=== PATIENT | female | born 1935 | race Caucasian/White ===

== ENCOUNTER → 2017-03-12 | Outpatient (CLI) | payer OTHER ==
[~2017-03-12] MED LIST: ALL300 PO; BTP80 PO; HYDR500C3 PO; LANS30TA3 PO; OXYC-57 PO; PRT40 PO
[2017-03-12 14:01] LABS: ALT/SGPT 24 U/L (12-78); BLOOD UREA NITROGEN 14 mg/dl (7-18); BUN/CREATININE RATIO 15.1 (10-20); CALCIUM 8.8 mg/dl (8.5-10.1); CARBON DIOXIDE 24 mmol/L (21-32); CHLORIDE 105 mmol/L (98-107); GLUCOSE 92 mg/dl (70-99); POTASSIUM 3.8 mmol/L (3.5-5.1); SODIUM 138 mmol/L (136-145)
[2017-03-12 14:04] LABS: ALB/GLOB RATIO 0.9 (0.9-2); ALKALINE PHOSPHATASE 66 U/L (45-117); AST/SGOT 21 U/L (15-37)
[2017-03-12 14:55] LABS: HEMATOCRIT 26.9 % (37-47); MEAN CELL VOLUME 98.9 fL (80-100); MEAN CORPUSCULAR HEMOGLOBIN 33.1 pg (25-34); MEAN CORPUSCULAR HGB CONC 33.5 g/dl (32-36); MEAN PLATELET VOLUME 12.1 fL (7.4-10.4); PLATELET COUNT 46 K/uL (130-400); RED BLOOD COUNT 2.72 M/uL (4.2-5.4); WHITE BLOOD COUNT 53.49 K/uL (4.8-10.8)
[2017-03-12 14:56] LABS: LYMPH ABS # 6.53 K/uL (1.2-3.4); LYMPHOCYTE % 12.2 %; META ABS # 0.91 K/uL (0-0); METAMYELOCYTE % 1.7 %
[2017-03-12 15:03] LABS: COMPLETE YES; SMUDGE CELLS PRESENT
[2017-03-15 18:34] LABS: GLUC-6-PHOS DEHYDROGENASE* 13.5 U/g Hb (4.6-13.5)
== END | disposition home or self-care (01) ==
LOC: C.LAB 12:13
PROVIDERS: ATTEND Family Medicine
DX: Z51.81 Encounter for therapeutic drug level monitoring (principal); Z79.899 Other long term (current) drug therapy; E34.9 Endocrine disorder, unspecified; K14.8 Other diseases of tongue

== ENCOUNTER 2017-03-16 08:23 | Inpatient (IN) | payer OTHER ==
[~2017-03-16] VITALS: Ht 149.9 cm; Wt 72.6 kg
[2017-03-16] VITALS (53 sets, daily range): BP systolic 27–112; BP diastolic 15–75; PULSE 69–144; TEMP 36.3–37.4; O2SAT 94–100; Ht 149.9 cm; Wt 72.6 kg
[~2017-03-16 08:23] MED LIST changes: -ALL300 PO; +CEFAZOLIN 2000MG IV PUSH 10 ML IV SCH; -HYDR500C3 PO; +LACTATED RINGER'S 1000ML 1,000 ML IV SCH; -LANS30TA3 PO; -OXYC-57 PO; +PATIENT'S HEIGHT AND/OR WEIGHT NEEDED SCH
[2017-03-16] MEDS ORDERED: ALL300 PO (08:56)
[2017-03-16] MEDS ORDERED: HYDR500C3 PO (08:56)
[2017-03-16] MEDS ORDERED: LIDOCAINE HCL 2% 2 ML VIAL (20MG/ML) ONE (09:41)
[2017-03-16] MEDS ORDERED: FENTANYL CITRATE INJ 50 MCG/1 ML 2 ML VIAL ONE ×2 (09:41→19:47)
[2017-03-16] MEDS ORDERED: PROPOFOL IV EMULSION 10 MG/ML 20 ML VIAL IV ONE ×2 (09:41→10:45)
[2017-03-16 09:50] LABS: MEAN CELL VOLUME 98.8 fL (80-100); MEAN CORPUSCULAR HEMOGLOBIN 33.2 pg (25-34); MEAN CORPUSCULAR HGB CONC 33.6 g/dl (32-36); MEAN PLATELET VOLUME 11.3 fL (7.4-10.4); PLATELET COUNT 34 K/uL (130-400); RED BLOOD COUNT 2.53 M/uL (4.2-5.4); WHITE BLOOD COUNT 39.72 K/uL (4.8-10.8)
[2017-03-16] MEDS: LIDOCAINE HCL 1% 20 ML VIAL ONE ×2 (09:50→10:58)
[2017-03-16] MEDS ORDERED: LIDOCAINE HCL 1% 20 ML VIAL ONE ×2 (09:51→14:22)
--- NOTE | 2017-03-16 10:03 | History & Physical Bridge Note ---
H&P Re-Evaluation Bridge Note: I have examined the patient, reviewed the History & Physical and in the interval since the performance of the History & Physical I have noted the following changes of clinical significance: No changes noted
[2017-03-16 10:09] LABS: COMPLETE YES; EOSINOPHIL % 0.9 %; HYPERSEGMENTED POLYS 1+; LYMPH ABS # 6.55 K/uL (1.2-3.4); LYMPHOCYTE % 16.5 %; NEUTROPHILS % 15.7 %; SMUDGE CELLS PRESENT
[2017-03-16] MEDS ORDERED: MIDAZOLAM HCL 1 MG/ML 2ML VIAL ONE (10:10)
[2017-03-16] MEDS ORDERED: FENTANYL CITRATE INJ 50 MCG/1 ML 2 ML VIAL IV PRN (10:30)
[2017-03-16] MEDS ORDERED: ONDANSETRON INJ 2 MG/ML 2 ML VIAL IV PRN ×2 (10:30→14:45)
[2017-03-16] MEDS ORDERED: ATROPINE SULFATE 0.1 MG/ML 5ML SYR IV PRN (10:30)
[2017-03-16] MEDS ORDERED: EpHEDrine SULFATE 50MG/5ML SYR ONE (10:58)
--- NOTE | 2017-03-16 11:55 | [facility] Operative Report ---
Operative Report Operative Date Mar 16, 2017. Pre-Operative Diagnosis Acute Myeloid Leukemia, need for chemotherapy access Post-Operative Diagnosis Acute Myeloid Leukemia Procedure(s) Performed Infusaport Insertion Surgeon Itzel Leonardo MD Industrial Radiographer Surgeon(s) None Estimated Blood Loss 2CC Findings Left subclavian vein accessed after 2 attempts, good venous blood return, wire passed easily without resistance. 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 Indications, risks, benefits and potential complications of infusaport placement discussed in detail with patient and her . All questions answered to apparent satisfaction. Patient elected to proceed with operation and freely signed the consent form. Description of Procedure Patient was brought to the operating room and identified as Jyoti Aguilar, 37. She was placed on the operating table in supine position with a shoulder roll beneath her upper spine to open up the left upper chest. The left upper chest and neck were prepped and draped in the usual sterile fashion. The puncture site was anesthetized with local anesthetic. An access needle was passed deep to the clavicle to access the left subclavian vein; the vein was accessed after two attempts with good venous blood return. The wire was easily passed through the needle without resistance and the needle was removed. Fluoroscopy verified the wire to be in the superior vena cava. A kierra was made at the puncture site to allow for the dilator. Next, local anesthetic was injected and a pocket was made for the Infusaport approximately 2cm inferior to the puncture site, and the port was placed in the pocket. The dilator / introducer was then passed over the wire, and the catheter was inserted. Fluoroscopy was used to verify that the catheter was in good position in the superior vena cava. A tunnel was then made from the puncture site to the port pocket, and the catheter was tunnelled through to the port. The catheter was connected to the port. The catheter was then accessed using a Poe needle, and the port was verified to draw back easily; it then flushed easily with 5cc of heparinized saline. The port was secured in the pocket with 0 Prolene x 2. Instrument and sponge counts were verified to be correct x 2 by the nurse in charge. Deep tissue of the port pocket was closed using 2-0 Vicryl in interrupted fashion. Dermis was reapproximated with 3-0 Vicryl in interrupted fashion. Skin was closed using 4-0 Monocryl. Steri strips and a sterile dressing were applied. The patient was then awakened from anesthesia without difficulty and was taken to PACU, having suffered no untoward events. I attest to the content of the Intraoperative Record and any orders documented therein. Any exceptions are noted below.
[2017-03-16] MEDS ORDERED: OXYC-57 PO (11:56)
--- NOTE | 2017-03-16 12:00 | Discharge Instructions ---
Discharge Instructions Date of Service Mar 16, 2017. Admission Reason for Admission: Acute Myeloid Leukemia, need for venous access Discharge Discharge Diagnosis / Problem: AML, need for venous access Discharge Goals Goal(s): Decrease discomfort, Improve function Activity Recommendations Activity Limitations: resume your previous activity Lifting Limitations: none -You may remove the dressing when the port is needed for chemotherapy, or after 48 hours (whichever comes first). -The port is ready for use whenever needed. -You may wash gently over the incision site with warm, soapy water; do not scrub. Do not soak, as in a bathtub or swimming pool. -You were given a prescription for Percocet, which may be taken for any pain not controlled with Tylenol or Ibuprofen. -You do not need to follow up in clinic with Dr. Leonardo unless you are having any issues with your port. Please call with any questions or concerns. Current Hospital Diet Patient's current hospital diet: Discharge Diet Recommended Diet: Regular Diet Procedures Procedures Performed: Infusaport Insertion Pending Studies Studies pending at discharge: no Medical Emergencies . Who to Call and When: Medical Emergencies: If at any time you feel your situation is an emergency, please call 911 immediately. . Non-Emergent Contact Non-Emergency issues call your: Primary Care Provider, Surgeon Call Non-Emergent contact if: temperature is above 101, your pain is not controlled, your pain is worsening, wound has increased drainage, wound has increased redness . "Provider Documentation" section prepared by Itzel Leonardo. . VTE Core Measure Inpt VTE Proph given/why not?: SCD's [place] Drug Monitoring Program Search Results: patient reviewed within database, no issues identified
--- NOTE | 2017-03-16 12:20 | DIAGNOSTIC IMAGING REPORT ---
SINGLE VIEW CHEST CLINICAL HISTORY: Status post infusion port placement. FINDINGS: An AP, portable, upright chest radiograph is compared to chest x-ray and chest CT dated 02/20/2017. The examination is degraded by portable technique and patient rotation. A left subclavian central venous infusion port is new from previous. The tip projects over the SVC. The cardiomediastinal silhouette is unremarkable. There is a layering left pleural effusion with left basilar consolidation, new from previous. The right lung appears clear. No pneumothorax is seen. The skeletal structures are osteopenic. The bony thorax is grossly intact. IMPRESSION: 1. A left subclavian central venous infusion port has been placed as above. No pneumothorax is seen post procedure. 2. Layering pleural effusion with left basilar consolidation. This is new from previous. Electronically signed by: Kelvin Willis M.D. 03/16/2017 12:19 PM Dictated Date/Time: 03/16/2017 12:17 PM
--- NOTE | 2017-03-16 12:34 | Anesthesiology Progress Note ---
Anesthesia Post Op Note Date & Time Mar 16, 2017 at 12:33 Vital Signs Pain Intensity: 3 Vital Signs Past 12 Hours Date Time Temp Pulse Resp B/P (MAP) Pulse Ox O2 Delivery O2 Flow Rate FiO2 03/16/17 12:20 73 16 99/67 98 Nasal Cannula 2 03/16/17 12:10 36.6 73 16 102/64 98 Nasal Cannula 2 03/16/17 12:00 73 16 99/53 98 Oxymask 10 03/16/17 11:50 73 16 105/64 98 Oxymask 10 03/16/17 11:40 36.5 73 16 103/65 100 Oxymask 10 03/16/17 09:01 37.4 78 18 111/67 (82) 94 Room Air Notes Mental Status: alert / awake / arousable, participated in evaluation Pt Amnestic to Procedure: Yes Nausea / Vomiting: adequately controlled Pain: adequately controlled Airway Patency, RR, SpO2: stable & adequate BP & HR: stable & adequate Hydration State: stable & adequate Anesthetic Complications: no major complications apparent
[2017-03-16] MEDS ORDERED: METOPROLOL TARTRATE 1 MG/ML VIAL IV SCH (13:49)
[2017-03-16] MEDS ORDERED: METOPROLOL TARTRATE 1 MG/ML VIAL ONE (13:51)
[2017-03-16] MEDS ORDERED: METOPROLOL TARTRATE 1 MG/ML VIAL IV. ONE (14:00)
[2017-03-16] MEDS ORDERED: SODIUM CHLORIDE 0.9% 500ML 500 ML IV SCH (14:01)
--- NOTE | 2017-03-16 14:24 | DIAGNOSTIC IMAGING REPORT ---
CHEST ONE VIEW PORTABLE CLINICAL HISTORY: low platelets COMPARISON STUDY: 03/16/2017 FINDINGS: The cardiac images so contours remain stable. There is a left-sided A-Port catheter. There is increasing left pleural effusion with increasing left lung airspace opacities. The right lung remains clear.[ Given the rapid change in the appearance of the chest and the unilateral nature of the pleural effusion, and hemothorax must be considered within the differential. IMPRESSION: 1. Increasing moderate to large left pleural effusion. 2. Increasing diffuse left lung airspace opacities Electronically signed by: Sharad Diallo M.D. 03/16/2017 2:22 PM Dictated Date/Time: 03/16/2017 2:19 PM
[2017-03-16 14:41] LABS: INR 1.1 (0.9-1.1); PROTHROMBIN TIME (PATIENT) 11.7 SECONDS (9.0-12.0)
[2017-03-16 14:43] LABS: HEMATOCRIT 20.1 % (37-47)
[2017-03-16] MEDS ORDERED: OXYCODONE/ACETAMINOPHEN 5-325 TAB PO PRN ×2 (14:45)
[2017-03-16] MEDS ORDERED: ONDANSETRON INJ 2 MG/ML 2 ML VIAL IV STA (14:49)
[2017-03-16] MEDS ORDERED: NOREPINEPHRINE BITARTRATE 1 MG/ML 4 ML VIAL IV ONE (14:51)
[2017-03-16 15:09] LABS: BUN/CREATININE RATIO 17.9 (10-20); CALCIUM 8.3 mg/dl (8.5-10.1); CREATININE 0.99 mg/dl (0.60-1.20); MAGNESIUM 2.4 mg/dl (1.8-2.4); POTASSIUM 3.9 mmol/L (3.5-5.1); THYROID STIMULATING HORMONE 1.64 uIu/ml (0.300-4.500)
[2017-03-16] MEDS ORDERED: NURSING VERBAL MED ORDER ONE (15:30)
[2017-03-16] MEDS ORDERED: FENTANYL CITRATE INJ 50 MCG/1 ML 2 ML VIAL IV ONE (15:45)
--- NOTE | 2017-03-16 15:47 | DIAGNOSTIC IMAGING REPORT ---
CHEST ONE VIEW PORTABLE CLINICAL HISTORY: chest tube placement tube position COMPARISON STUDY: 03/16/2017 FINDINGS: Lateral left chest tube. Persistent pleural thickening/loculated effusion left hemithorax. . Unchanging infiltrative process medial and inferior left base. No significant pneumothorax. Right lung is considered clear. IMPRESSION: Unchanged exam from the prior study. Unchanging loculated pleural fluid versus left lateral pleural thickening. Unchanging parenchymal infiltrate medial left hemithorax The above report was generated using voice recognition software. It may contain grammatical, syntax or spelling errors. Electronically signed by: Brian Hull M.D. 03/16/2017 3:46 PM Dictated Date/Time: 03/16/2017 3:45 PM
--- NOTE | 2017-03-16 16:00 | Critical Care Consultation ---
Critical Care Consultation Date of Consultation: Mar 16, 2017. Attending Physician: Itzel Leonardo M.D. Reason for Consultation: Resident Physician Supervision Note: I was present with Dr. Tod Courtney during the history and exam. I discussed the case with the resident and agree with the findings and plan as documented in the note. In summary, the patient is a 81-year-old functional female who was recently diagnosed with acute myelocytic leukemia. She came to [facility] for placement of subclavian infusion port which was successfully done. Postprocedure patient developed hypotension, atrial fibrillation with rapid ventricular response. She was diagnosed with large left-sided hemothorax. Patient was immediately brought to cardiac vascular intensive care unit. Chest tube was placed by thoracic surgery. Immediate output of 1 L of dark venous blood was obtained. Patient was hypotensive with systolic blood pressure reaching 60s. We resuscitated patient initially using normal saline fluid boluses followed by transfusion of 3 units of packed RBCs for severe anemia and hemoglobin of 6.8 from base of 8.4. Prior to procedure patient received 6 units of platelets for thrombocytopenia of 34,000. We will transfuse her with another 6 units of platelets, also check coagulation profile including PT, INR, fibrinogen level. Patient had episode of atrial fibrillation with rapid ventricular response which spontaneous recovery to sinus rhythm following resuscitation. We will restart home sotalol starting in the morning. We'll continue monitoring chest tube output. She complains of a significant incisional chest pain which will be treated with fentanyl IV on as needed basis. Chemotherapy for AML will be delayed patient has recovered completely from hemothorax. I personally discussed patient's management with Dr. Ramos from thoracic surgery. I spent totally 45 minutes of critical care time evaluating managing this patient. Documented By: Ngoc Navas Hypotension due to Hemothorax History of Present Illness 81 year old female with a PMH of afib, AML, and gout was admitted to the ICU due to a hemothorax after the insertion of an A-Port. Patient went for surgery today for the insertion of an a-port as she was recently diagnosed with AML. The a-port was inserted without any difficulty. Post op the patient was found to be hypotensive at 140pm and her blood pressure was 80's/50's and she was in atrial fibrillation. It was thought she was hypotensive due to her fast heart rate so she was therefore given 5mg of metoprolol IV and her blood pressure went lower. At this point a code yanick was called. IV fluids were started. Kelvin Lemus arrived at the [facility] he ordered stat labs, he got a stat CXR which showed a large left pleural effusion. It was though that the patient was having a hemothorax post op. Dr. Ramos was consulted immediately in order to place a chest tube. Labs showed a Hgb 6.8 which had dropped from 8.4 pre-operation. Patient was immediately brought to the ICU at which point she had two wide bore IV cannulas placed and was given 1 L of normal saline. The patient had a chest tube placed by Dr. Ramos which drained 1 L of blood into her chest drain. Her blood pressure improved to 97/65 with another litre of IVF. Patient was ordered 3 units of PRBC for transfusion with 2 litres on hold and she had 1 unit of platelets ordered and had 1 unit on hold. Of note the patient was admitted to the hospital on February 20 2017 for atrial fibrillation. During this admission she was also found to have AML after bone marrow biopsy. She was started on sotalol and was organized to follow up with Dr. Rehan Elmore as an outpatient. She was started on Hydroxyurea as an outpatient and she also saw an Oncologist in [place] for her AML. She was therefore organized to have a A-Port placed on March 16, 2017 in order for the plan to administer chemotherapy. Past Medical/Surgical History Gout AML Atrial fibrillation D&C Lumbar hemilaminectomy Tonsillectomy Dental root extraction Family History FHx: cancer FHx: gallbladder disease Hypertension Kidney disease Social History Smoking Status: Never Smoker Drug Use: none Marital Status: Housing Status: lives with significant other Occupation Status: retired Allergies Coded Allergies: No Known Allergies (Unverified , 03/16/17) Home Medications Scheduled Allopurinol (Allopurinol), 300 MG PO DAILY Hydroxyurea (Hydrea Cap), 500 MG PO BID Sotalol HCl (Sotalol HCl), 80 MG PO BID Scheduled PRN Oxycodone/Acetaminophen 5MG/325MG (Percocet 5MG/325MG), 1-2 TABLETS PO Q4H PRN for Pain Current Inpatient Medications Current Inpatient Medications Medications (Trade) Dose Ordered Sig/Samanta Route Start Time Stop Time Status Last Admin Dose Admin Cefazolin Sodium 10 ml @ 2.5 mls/min PREOP IV 03/16/17 06:00 03/16/17 18:00 03/16/17 10:28 2.5 MLS/MIN Lactated Ringer's 1,000 ml @ 100 mls/hr Q10H IV 03/16/17 06:00 03/16/17 15:59 03/16/17 09:21 100 MLS/HR Ondansetron HCl (Zofran Inj) 4 mg ONE PRN IV 03/16/17 10:30 03/16/17 17:00 03/16/17 15:34 4 MG Atropine Sulfate (Atropine Sulfate 0.1MG/Ml Inj) 0.5 mg Q1M PRN IV 03/16/17 10:30 03/16/17 17:00 Fentanyl Citrate (Fentanyl Inj) 25 mcg Q5M PRN IV 03/16/17 10:30 03/16/17 17:00 Ondansetron HCl (Zofran Inj) 4 mg Q6H PRN IV 03/16/17 14:45 04/15/17 14:44 Morphine Sulfate (MoRPHine SULFATE INJ) 2 mg Q2H PRN IV 03/16/17 14:45 03/30/17 14:44 Morphine Sulfate (MoRPHine SULFATE INJ) 4 mg Q2H PRN IV 03/16/17 14:45 03/30/17 14:44 Oxycodone/ Acetaminophen (Percocet 5-325mg Tab) 1 tab Q4H PRN PO 03/16/17 14:45 03/30/17 14:44 UNV Oxycodone/ Acetaminophen (Percocet 5-325mg Tab) 2 tab Q4H PRN PO 03/16/17 14:45 03/30/17 14:44 UNV Lactated Ringer's 1,000 ml @ 100 mls/hr Q10H IV 03/16/17 15:44 04/15/17 15:43 Review of Systems Constitutional: + fatigue, No fever, No chills, No sweats Eyes: No worsening of vision, No eye pain Respiratory: + shortness of breath, No cough, No sputum Cardiovascular: + chest pain, No edema, No palpitations Abdomen: + nausea, No pain, No vomiting Musculoskeletal: + muscle pain (back), No joint pain, No swelling, No calf pain Hematologic / Lymphatic: No abnormal bleeding/bruising, No clotting problems Physical Exam Date Time Temp Pulse Resp B/P (MAP) Pulse Ox O2 Delivery O2 Flow Rate FiO2 03/16/17 15:22 36.5 95 21 79/61 100 9.0 03/16/17 14:35 115 26 97/65 (76) 99 Oxymask 10 03/16/17 14:20 121 25 97/45 (62) 98 Oxymask 10 03/16/17 14:01 85 26 65/47 96 Room Air 03/16/17 14:01 75 22 65/47 (53) 94 Room Air Oxymask 03/16/17 13:59 78 23 62/45 (51) 95 Room Air Oxymask 03/16/17 13:52 119 21 82/48 (59) 96 Room Air Oxymask 03/16/17 13:49 36.7 98 24 78/50 96 Room Air 03/16/17 13:25 98 21 102/66 94 Room Air 03/16/17 12:54 69 18 112/65 96 Nasal Cannula 1 03/16/17 12:29 37.3 77 20 99/64 96 Nasal Cannula 2 03/16/17 12:20 73 16 99/67 98 Nasal Cannula 2 03/16/17 12:10 36.6 73 16 102/64 98 Nasal Cannula 2 03/16/17 12:00 73 16 99/53 98 Oxymask 10 03/16/17 11:50 73 16 105/64 98 Oxymask 10 03/16/17 11:40 36.5 73 16 103/65 100 Oxymask 10 03/16/17 09:01 37.4 78 18 111/67 (82) 94 Room Air General Appearance: mild distress Head: normocephalic, atraumatic Neck: no tenderness, trachea midline, no stridor, supple Respiratory: other (unable to take a deep breath due to chest tube placement and current chest pain) Cardiovasular: regular rate/rhythm, no murmur Abdomen: non tender, normal bowel sounds, no rebound, no masses, no guarding Pulses: dorsalis pedis (R) (2+), dorsalis pedis (L) (2+), posterior tibial (R) , posterior tibial (L) (2+) Neuro: alert, oriented x 3, normal motor exam Laboratory Results Last 24 Hours Test 03/16/17 09:10 03/16/17 14:06 03/16/17 14:21 White Blood Count 39.72 K/uL Red Blood Count 2.53 M/uL Hemoglobin 8.4 g/dL 6.8 g/dL Hematocrit 25.0 % 20.1 % Mean Corpuscular Volume 98.8 fL Mean Corpuscular Hemoglobin 33.2 pg Mean Corpuscular Hemoglobin Concent 33.6 g/dl Platelet Count 34 K/uL Mean Platelet Volume 11.3 fL RDW Standard Deviation 60.8 fL RDW Coefficient of Variation 17.0 % Neutrophils % (Manual) 15.7 % Lymphocytes % (Manual) 16.5 % Monocytes % (Manual) 66.9 % Eosinophils % (Manual) 0.9 % Neutrophils # (Manual) 6.24 K/uL Total Absolute Neutrophils 6.24 K/uL Lymphocytes # (Manual) 6.55 K/uL Total Absolute Lymphocytes 6.55 K/uL Monocytes # (Manual) 26.57 K/uL Eosinophils # (Manual) 0.36 K/uL Hypersegmented Polys 1+ Smudge Cells PRESENT Bedside Glucose 166 mg/dl Prothrombin Time 11.7 SECONDS Prothromb Time International Ratio 1.1 Sodium Level 140 mmol/L Potassium Level 3.9 mmol/L Chloride Level 106 mmol/L Carbon Dioxide Level 25 mmol/L Anion Gap 9.0 mmol/L Blood Urea Nitrogen 18 mg/dl Creatinine 0.99 mg/dl Est Creatinine Clear Calc Drug Dose 38.3 ml/min Estimated GFR () 62.4 Estimated GFR (Non- 53.8 BUN/Creatinine Ratio 17.9 Random Glucose 150 mg/dl Calcium Level 8.3 mg/dl Magnesium Level 2.4 mg/dl Thyroid Stimulating Hormone (TSH) 1.640 uIu/ml Assessment & Plan 81 year old female with a PMH of AML was admitted to the ICU after having a hemothorax after an a-port insertion. Patient had a chest tube placed and is receiving 3 units of PRBC and 1 unit of platelets NEURO cam negative fentanyl 25mcg IV for pain control morphine 2mg and 4mg PRN pain CARDIAC patient with afib, currently in NSR on sotalol, restart tomorrow AM monitor heart rhythm in ICU RESP currently saturating 100% on 9L Left sided hemothorax, chest tube placed with 1 L of blood draining Repeat CXR with improvement of left sided hemothorax repeat CXR in the AM thoracic surgery consulted HEME most recent Hgb 6.8, continue to monitor Q4 x3 being given 3 units of PRBC with 2 units on hold most recent platelet count 34 will transfuse 1 unit of platelets with 1 unit on hold diagnosed with AML-follows with Rehan Elmore continue hydroxyurea tomorrow AM oncology consulted GI hold off on diet until stable and hgb improving zofran prn for nausea RENAL creatinine 0.99 patient given 1 unit of LR and 1 unit of NS carrion catheter placed and continue to monitor urine output ID afebrile, monitor fever curve WCC elevated due to AML, so wont be able to be good marker of infection DVT prophylaxis: SCD's FULL CODE
--- NOTE | 2017-03-16 16:19 | History and Physical ---
History & Physical Date & Time of Service: Mar 16, 2017 at 16:04 Chief Complaint: Acute Myeloid Leukemia Primary Care Physician: Davian Schmidt M.D. History of Present Illness Jyoti Aguilar is an 81 year old woman with recently diagnosed AML who presented this morning for placement of an Infusaport in order to start chemotherapy. Pre operatively, a CBC was obtained which showed a leukocytosis to 39.7, Hgb of 8.4 and platelets of 37. She was given one 6 pack of platelets prior to the operation. Port placement was without issues, the left subclavian vein was accessed on the second stick. Post operatively, a CXR was obtained in the PACU which showed fluid layering in the left hemithorax. She was briefly in atrial fibrillation, then hypotensive, which responded to fluid administration. A CXR was repeated, and the left hemothorax was found to be worse. A left chest tube was placed with output of approximately 850ml of blood; vitals improved after chest tube placement. She was admitted to the ICU for further resuscitation and observation. Past Medical/Surgical History Medical Problems: (1) Paroxysmal SVT (supraventricular tachycardia) Status: Chronic Family History FHx: cancer FHx: gallbladder disease Hypertension Kidney disease Social History Smoking Status: Never Smoker Drug Use: none Marital Status: Occupational Status: retired Allergies Coded Allergies: No Known Allergies (Unverified , 03/16/17) Home Medications Scheduled Allopurinol (Allopurinol), 300 MG PO DAILY Hydroxyurea (Hydrea Cap), 500 MG PO BID Sotalol HCl (Sotalol HCl), 80 MG PO BID Scheduled PRN Oxycodone/Acetaminophen 5MG/325MG (Percocet 5MG/325MG), 1-2 TABLETS PO Q4H PRN for Pain Review of Systems Constitutional: + weakness, No fever, No chills, No sweats Eyes: No worsening of vision Respiratory: + dyspnea on exertion, No cough, No sputum Cardiovascular: No chest pain, No orthopnea, No edema Abdomen: No pain, No nausea, No vomiting, No diarrhea, No constipation Musculoskeletal: No joint pain Genitourinary - Female: No dysuria Neurologic: No memory loss Endocrine: + fatigue Hematologic / Lymphatic: + abnormal bleeding/bruising Physical Exam Vital Signs Date Time Temp Pulse Resp B/P (MAP) Pulse Ox O2 Delivery O2 Flow Rate FiO2 03/16/17 15:55 95 28 85/58 100 03/16/17 15:50 36.4 95 26 85/58 100 9.0 03/16/17 15:22 36.5 95 21 79/61 100 9.0 03/16/17 14:35 115 26 97/65 (76) 99 Oxymask 10 03/16/17 14:20 121 25 97/45 (62) 98 Oxymask 10 03/16/17 14:01 85 26 65/47 96 Room Air 03/16/17 14:01 75 22 65/47 (53) 94 Room Air Oxymask 03/16/17 13:59 78 23 62/45 (51) 95 Room Air Oxymask 03/16/17 13:52 119 21 82/48 (59) 96 Room Air Oxymask 03/16/17 13:49 36.7 98 24 78/50 96 Room Air 03/16/17 13:25 98 21 102/66 94 Room Air 03/16/17 12:54 69 18 112/65 96 Nasal Cannula 1 03/16/17 12:29 37.3 77 20 99/64 96 Nasal Cannula 2 03/16/17 12:20 73 16 99/67 98 Nasal Cannula 2 03/16/17 12:10 36.6 73 16 102/64 98 Nasal Cannula 2 03/16/17 12:00 73 16 99/53 98 Oxymask 10 03/16/17 11:50 73 16 105/64 98 Oxymask 10 03/16/17 11:40 36.5 73 16 103/65 100 Oxymask 10 03/16/17 09:01 37.4 78 18 111/67 (82) 94 Room Air General Appearance: WD/WN, no apparent distress Head: normocephalic, atraumatic Eyes: normal inspection Neck: supple, no adenopathy Respiratory/Chest: chest non-tender, lungs clear, normal breath sounds Cardiovascular: regular rate, rhythm Abdomen/GI: normal bowel sounds, non tender, soft Extremities/Musculoskelatal: normal inspection Neurologic/Psych: alert, normal mood/affect, oriented x 3 Skin: normal color, warm/dry, + rash Lymphatic: no adenopathy Diagnostics Laboratory Results Results Past 24 Hours Test 03/16/17 09:10 03/16/17 14:06 03/16/17 14:21 Range/Units White Blood Count 39.72 4.8-10.8 K/uL Red Blood Count 2.53 4.2-5.4 M/uL Hemoglobin 8.4 6.8 12.0-16.0 g/dL Hematocrit 25.0 20.1 37-47 % Mean Corpuscular Volume 98.8 80-100 fL Mean Corpuscular Hemoglobin 33.2 25-34 pg Mean Corpuscular Hemoglobin Concent 33.6 32-36 g/dl Platelet Count 34 130-400 K/uL Mean Platelet Volume 11.3 7.4-10.4 fL RDW Standard Deviation 60.8 36.4-46.3 fL RDW Coefficient of Variation 17.0 11.5-14.5 % Neutrophils % (Manual) 15.7 % Lymphocytes % (Manual) 16.5 % Monocytes % (Manual) 66.9 % Eosinophils % (Manual) 0.9 % Neutrophils # (Manual) 6.24 1.4-6.5 K/uL Total Absolute Neutrophils 6.24 1.4-6.5 K/uL Lymphocytes # (Manual) 6.55 1.2-3.4 K/uL Total Absolute Lymphocytes 6.55 1.2-3.4 K/uL Monocytes # (Manual) 26.57 0.11-0.59 K/uL Eosinophils # (Manual) 0.36 0-0.5 K/uL Hypersegmented Polys 1+ Smudge Cells PRESENT Bedside Glucose 166 70-90 mg/dl Prothrombin Time 11.7 9.0-12.0 SECONDS Prothromb Time International Ratio 1.1 0.9-1.1 Sodium Level 140 136-145 mmol/L Potassium Level 3.9 3.5-5.1 mmol/L Chloride Level 106 98-107 mmol/L Carbon Dioxide Level 25 21-32 mmol/L Anion Gap 9.0 3-11 mmol/L Blood Urea Nitrogen 18 7-18 mg/dl Creatinine 0.99 0.60-1.20 mg/dl Est Creatinine Clear Calc Drug Dose 38.3 ml/min Estimated GFR () 62.4 Estimated GFR (Non- 53.8 BUN/Creatinine Ratio 17.9 10-20 Random Glucose 150 70-99 mg/dl Calcium Level 8.3 8.5-10.1 mg/dl Magnesium Level 2.4 1.8-2.4 mg/dl Thyroid Stimulating Hormone (TSH) 1.640 0.300-4.500 uIu/ml Microbiology Results 03/16/17 MRSA DNA Surveillance Screen, Ordered Pending Diagnostic Radiology 03/16/17 12:17pm IMPRESSION: 1. A left subclavian central venous infusion port has been placed as above. No pneumothorax is seen post procedure. 2. Layering pleural effusion with left basilar consolidation. This is new from previous. 03/16/17 2:06pm IMPRESSION: 1. Increasing moderate to large left pleural effusion. 2. Increasing diffuse left lung airspace opacities 03/16/17 3:04pm IMPRESSION: Unchanged exam from the prior study. Unchanging loculated pleural fluid versus left lateral pleural thickening. Unchanging parenchymal infiltrate medial left hemithorax Impression Assessment and Plan Jyoti Aguilar is an 81 year old woman with AML who is now s/p Infusaport insertion complicated by hemothorax requiring chest tube placement. Likely caused by venipuncture and thrombocytopenia. Now stable. -Chest tube in place to suction -Continue resuscitation - receiving PRBCs and another 6pk platelets this afternoon -Recheck labs at 8pm and in the morning -Appreciate critical care assistance -Pain control as needed -Monitor port site dressing - some seepage noted -Diet as tolerated Itzel Leonardo MD 03/16/17 Resuscitation Status FULL RESUSCITATION VTE Prophylaxis VTE Risk Assessment Done? Y/N: Yes Risk Level: Moderate Given or contraindicated: SCD's
[2017-03-16] MEDS ORDERED: CALCIUM GLUCONATE 10% 1,000 MG in SODIUM CHLORIDE 0.9% 50ML 50 ML IV STA (16:20)
--- NOTE | 2017-03-16 16:24 | OPERATIVE REPORT ---
DATE OF OPERATION: 03/16/2017 PROCEDURE: Insertion of the left 28-Italian thoracostomy tube. SURGEON: Dr. Ramos. IMPLEMENTATION PROJECT MANAGER: Dr. Stanley Ohara. ANESTHESIA: Local. SPECIFICS OF PROCEDURE: The patient is bleeding into her chest. Her left arm was slightly elevated and her left chest inframammary area and a bit anterior to the mid axillary line was prepped and draped in usual sterile fashion. After appropriate timeout have been called, 1% Xylocaine without epinephrine was used to raise a skin wheal with a 25 gauge needle. A larger needle was then used to go over the top of the way above the incision and I injected this thoroughly with 1% Xylocaine without epinephrine. We got free flowing dark blood back and a guidewire was inserted and needle removed. This was dilated up and then a 28-Italian chest tube was inserted. Dark nonclotting blood came out of the chest tube. This was sutured in place, and we got about a liter of dark blood now and it stopped. X-rays showed she was incompletely drained with some evidence of a hematoma, but she looks better and feels better. We will follow her quite closely here in the unit. I attest to the content of the Intraoperative Record and any orders documented therein. Any exception s are noted below.
[2017-03-16] MEDS: LACTATED RINGER'S 1000ML 1,000 ML IV SCH (16:31)
--- NOTE | 2017-03-16 17:26 | SURGICAL CONSULTATION ---
DATE OF CONSULTATION: 03/16/2017 REASON FOR CONSULTATION: Left hemothorax. HISTORY OF PRESENT ILLNESS: This is a very nice 81-year-old female who has a past medical history significant for paroxysmal supraventricular tachycardias and some lumbar disk disease in the past. The patient recently presented to the hospital back about 3 weeks ago with some lightheadedness and shortness of breath and was found to have paroxysmal atrial fibrillation. She stated that at that time, she had been quite fatigued for 2-3 weeks prior to coming in. She converted back to sinus rhythm and she was found with a workup to have acute myeloid leukemia. Dr. Leonardo brought her into the hospital for an [id number]-A-Fezk insertion in the left infraclavicular area. This went really without much in the way of any problems except for the fact that the patient's platelet count was only 34,000, but she did receive platelets during the procedure. The patient became a bit lightheaded and went back into atrial fibrillation. I was asked to see her when her chest x-ray showed a change. It appeared to me that she is bleeding into her chest. I was asked to evaluate her from a thoracic surgery standpoint. PAST MEDICAL HISTORY: 1. Recently diagnosed acute myeloid leukemia. 2. Paroxysmal atrial fibrillation. 3. Cataracts in the past. MEDICATIONS: 1. Allopurinol. 2. Hydrea. 3. Percocet. 4. Sotalol. ALLERGIES: No known drug allergies. SOCIAL HISTORY: The patient is originally from [place]. Her works for [employer] and they moved here many years ago. She has 2 children, one lives in [place] and one lives in [place]. The patient has never smoked cigarettes. She does not really use alcohol. 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 PAST MEDICAL HISTORY: 1. 2, para 2. 2. Dilatation and curettage. 3. Tonsillectomy and adenoidectomy. 4. Lumbar hemilaminectomy. FAMILY MEDICAL HISTORY: There is no significant history of cancer in her family. Her children, grandchildren and several great grandchildren are all healthy. REVIEW OF SYSTEMS: The patient has become more and more tired. Not feeling "herself" for the last couple months. Very fatigued and run down and had dyspnea on exertion, which is quite unusual for her. She had been exercising every day, but due to her symptoms, is not able to do this. She has been eating fairly well. She actually does have palpitations when she goes into atrial fibrillation. She is now having chest pain since this and she has been bleeding into her chest over the last couple of hours. She denies any neurologic signs like amaurosis fugax or transient ischemic attacks. She has had no visual or auditory symptoms. She has had no wound breakdown. She has had no peripheral edema. PHYSICAL EXAMINATION: GENERAL: This is a 5-feet, 144-pound white female who is awake, alert and oriented. I had a long discussion with the patient and her at the bedside. HEENT: Her sclerae are pale, but anicteric. She has no nasolabial flattening. Oral mucosa is dry. Tongue is midline. NECK: Thick and supple. I really do not detect much in the way of adenopathy. She has no carotid bruits. LUNGS: She has decreased breath sounds on the left side. Her Suqpqn-K-[id number] dressing is blood tinged. HEART: She has an irregularly irregular rhythm at a rate of about 110. ABDOMEN: Soft and nontender. It is a bit protuberant. EXTREMITIES: She has palpable posterior tibialis pulses. NEUROLOGIC: She is awake, alert and oriented with no obvious focal deficits. ASSESSMENT AND PLAN: Acute left hemothorax. PLAN: We are going to insert a chest tube and move her to the unit to resuscitate her. THEA
--- NOTE | 2017-03-16 17:34 | Medical Consult ---
Consultation Date of Consultation: Mar 16, 2017. Attending Physician: Itzel Leonardo M.D. History of Present Illness Hematology/Oncology consult: Date of consultation: 03/16/2017 Consult requested by HPI: 81-year-old female, a case of acute monocytic leukemia, M5 very and, diagnosed the recently, recently she was seen by marketing underwriter at the [facility], Dr. Moses, gradual but significant rise in the white blood cell count noted in a short period of time, started her hydroxyurea last week at 500 mg twice a day, she has anemia as well as thrombocytopenia, gradual decrease in the platelet count noted, result plan was to start systemic chemotherapy with intravenous Dacogen next week, impression for that, we decided to proceed with port placement. Blood workup done today before port placement today: -WBC 84335, H&H of 8.4/25, Platelet count of 34,000. She received 1 unit of PRBC, underwent the port placement on left side, postoperative chest x-ray shows some fluid layering in the left hemithorax, she had brief episode of atrial fibrillation and then she became hypotensive, she responded with the fluid admission, repeat chest x-ray showed left hemothorax which was found to be worsening, she was seen by Dr. Ramos, left chest tube was placed, about 1 L of blood noted after chest tube placement, subsequently she was transferred in the ICU. She received another unit of platelet, also received 1 unit of PRBC, when I saw her bedside, she was comfortable, has left-sided chest pain, receiving 2nd unit of blood. November improvement of the blood pressure noted, no fever, she denies any bleeding from any sites, no leg edema. Denies any abdominal discomfort. REVIEW OF SYSTEMS: She is feeling slightly weak and tired, no fever or chills, no change in her weight, she is taking hydroxyurea without significant side effects, denies any headache, no focal neurological symptoms, before she came to [facility] for the port placement, she was ambulating well by herself, some tiredness present, no bleeding from any sites, no leg edema, no abdominal symptoms, no joint pain, no skin rash, no increasing bruising. Past medical and surgical history: -paroxysmal atrial fibrillation, she is on sotalol therapy. -Recent the diagnosis of acute myeloid leukemia as described above. Social history: Nonsmoker, denies any ETOH abuse, she is , her is at bedside. Family history: Not significant for blood disorder. Medications: Recently she was started on allopurinol and hydroxyurea. Already on sotalol for paroxysmal atrial fibrillation Allergies: None. On exam: - Alert and oriented x3, well built woman, not in any distress. - HEENT: no icterus, mild pallor noted, Throat: Normal. - Neck: No palpable cervical lymphadenopathy. -left chest tube drainage with bloody drainage noted. - Abdomen: soft, nontender, no hepatomegaly, no splenomegaly. - No focal neuro deficit. - Extremities: no finger clubbing, no leg edema. Lab: - H&H of 6.8 (03/16/2017) - BUN/Creat: 18/0.9, calcium 8.3 -PT 11.7 ASSESSMENT AND PLAN: 81-year-old the female, a case of acute monocytic leukemia , M5 variant the diagnosed recently, her white blood cell count increased the to around 50,000 recently, platelet count is around 50,000, started on hydroxyurea last week at 500 mg twice a day, also started her on at prophylactic allopurinol to prevent tumor lysis, today she underwent the port placement, before the port placement, platelet count was around 34,000, she received 1 unit of platelet, had a successful port placement but then noticed to have left hemothorax, required a chest tube drainage of about 1 L of blood, hemoglobin level dropped down to around 6.8 g/dL, received additional 1 year of platelet as well as 1 year of blood, receiving 2nd unit of blood today, now gradual improvement of the hemodynamic status noted. I spoke with the patient as well as her at bedside, reviewed the blood workup done in her case, she is scheduled to start chemotherapy for acute monocytic leukemia with Dacogen tomorrow but obviously it will be on hold. I would also like to hold hydroxyurea at this time, will see how is her white blood cell count stays, we may have to restart in the next few days if her WBC count continues to go up. We can continue allopurinol at this time. She may require blood and platelet transfusion depends on hemoglobin and platelet count and bleeding status. Will follow up. Thanks for the consultation. Dr. Rehan Elmore Hem/Onc (This note was completed using the dictation program Fluency Direct. As such, there may be misspellings, word substitutions, or other variations that should not change the essence of the clinical content of this encounter note. If there is need for further clarification, please direct questions to the provider listed above.) Past Medical/Surgical History Medical Problems: (1) Pneumonia Status: Acute (2) Sepsis Status: Acute Family History FHx: cancer FHx: gallbladder disease Hypertension Kidney disease Social History Smoking Status: Never Smoker Drug Use: none Marital Status: Housing Status: lives with significant other Occupation Status: retired Allergies Coded Allergies: No Known Allergies (Unverified , 03/16/17) Current Inpatient Medications Current Inpatient Medications Medications (Trade) Dose Ordered Sig/Samanta Route Start Time Stop Time Status Last Admin Dose Admin Cefazolin Sodium 10 ml @ 2.5 mls/min PREOP IV 03/16/17 06:00 03/16/17 18:00 03/16/17 10:28 2.5 MLS/MIN Ondansetron HCl (Zofran Inj) 4 mg Q6H PRN IV 03/16/17 14:45 04/15/17 14:44 Morphine Sulfate (MoRPHine SULFATE INJ) 2 mg Q2H PRN IV 03/16/17 14:45 03/30/17 14:44 Morphine Sulfate (MoRPHine SULFATE INJ) 4 mg Q2H PRN IV 03/16/17 14:45 03/30/17 14:44 Oxycodone/ Acetaminophen (Percocet 5-325mg Tab) 1 tab Q4H PRN PO 03/16/17 14:45 03/30/17 14:44 Oxycodone/ Acetaminophen (Percocet 5-325mg Tab) 2 tab Q4H PRN PO 03/16/17 14:45 03/30/17 14:44 Lactated Ringer's 1,000 ml @ 100 mls/hr Q10H IV 03/16/17 15:44 04/15/17 15:43 03/16/17 16:31 100 MLS/HR Allopurinol (Zyloprim Tab) 300 mg DAILY PO 03/17/17 09:00 04/16/17 08:59 UNV Hydroxyurea (Hydrea Cap) 500 mg BID PO 03/17/17 09:00 04/16/17 08:59 UNV Sotalol HCl (Betapace Tab) 80 mg BID PO 03/17/17 09:00 04/16/17 08:59 UNV Physical Exam Date Time Temp Pulse Resp B/P (MAP) Pulse Ox O2 Delivery O2 Flow Rate FiO2 03/16/17 16:31 86 22 86/53 (63) 100 03/16/17 16:21 90 24 79/51 (57) 100 03/16/17 16:11 97 21 85/62 (66) 100 03/16/17 16:06 95 23 100 03/16/17 16:05 95 28 88/61 100 9.0 03/16/17 16:01 96 23 88/61 (70) 100 03/16/17 15:55 95 28 85/58 100 03/16/17 15:53 96 25 85/58 (66) 100 03/16/17 15:51 95 27 100 03/16/17 15:50 36.4 95 26 85/58 100 9.0 03/16/17 15:36 99 26 99 03/16/17 15:31 101 19 93/65 (72) 100 03/16/17 15:24 92 25 79/61 (67) 100 03/16/17 15:22 36.5 95 21 79/61 100 9.0 03/16/17 15:21 96 28 70/49 (55) 95 03/16/17 15:11 94 29 80/59 (68) 95 03/16/17 15:08 94 30 85/55 (70) 95 03/16/17 15:06 92 26 100 03/16/17 14:53 98 31 86/55 (73) 96 03/16/17 14:52 99 21 27/15 (21) 100 03/16/17 14:51 144 25 100 03/16/17 14:47 106 35 60/43 (45) 100 03/16/17 14:42 125 30 78/59 (69) 100 03/16/17 14:35 115 26 97/65 (76) 99 Oxymask 10 03/16/17 14:20 121 25 97/45 (62) 98 Oxymask 10 03/16/17 14:01 85 26 65/47 96 Room Air 03/16/17 14:01 75 22 65/47 (53) 94 Room Air Oxymask 03/16/17 13:59 78 23 62/45 (51) 95 Room Air Oxymask 03/16/17 13:52 119 21 82/48 (59) 96 Room Air Oxymask 03/16/17 13:49 36.7 98 24 78/50 96 Room Air 03/16/17 13:25 98 21 102/66 94 Room Air 03/16/17 12:54 69 18 112/65 96 Nasal Cannula 1 03/16/17 12:29 37.3 77 20 99/64 96 Nasal Cannula 2 03/16/17 12:20 73 16 99/67 98 Nasal Cannula 2 03/16/17 12:10 36.6 73 16 102/64 98 Nasal Cannula 2 03/16/17 12:00 73 16 99/53 98 Oxymask 10 03/16/17 11:50 73 16 105/64 98 Oxymask 10 03/16/17 11:40 36.5 73 16 103/65 100 Oxymask 10 03/16/17 09:01 37.4 78 18 111/67 (82) 94 Room Air Laboratory Results Last 24 Hours Test 03/16/17 09:10 03/16/17 14:06 03/16/17 14:21 White Blood Count 39.72 K/uL Red Blood Count 2.53 M/uL Hemoglobin 8.4 g/dL 6.8 g/dL Hematocrit 25.0 % 20.1 % Mean Corpuscular Volume 98.8 fL Mean Corpuscular Hemoglobin 33.2 pg Mean Corpuscular Hemoglobin Concent 33.6 g/dl Platelet Count 34 K/uL Mean Platelet Volume 11.3 fL RDW Standard Deviation 60.8 fL RDW Coefficient of Variation 17.0 % Neutrophils % (Manual) 15.7 % Lymphocytes % (Manual) 16.5 % Monocytes % (Manual) 66.9 % Eosinophils % (Manual) 0.9 % Neutrophils # (Manual) 6.24 K/uL Total Absolute Neutrophils 6.24 K/uL Lymphocytes # (Manual) 6.55 K/uL Total Absolute Lymphocytes 6.55 K/uL Monocytes # (Manual) 26.57 K/uL Eosinophils # (Manual) 0.36 K/uL Hypersegmented Polys 1+ Smudge Cells PRESENT Bedside Glucose 166 mg/dl Prothrombin Time 11.7 SECONDS Prothromb Time International Ratio 1.1 Sodium Level 140 mmol/L Potassium Level 3.9 mmol/L Chloride Level 106 mmol/L Carbon Dioxide Level 25 mmol/L Anion Gap 9.0 mmol/L Blood Urea Nitrogen 18 mg/dl Creatinine 0.99 mg/dl Est Creatinine Clear Calc Drug Dose 38.3 ml/min Estimated GFR () 62.4 Estimated GFR (Non- 53.8 BUN/Creatinine Ratio 17.9 Random Glucose 150 mg/dl Calcium Level 8.3 mg/dl Magnesium Level 2.4 mg/dl Thyroid Stimulating Hormone (TSH) 1.640 uIu/ml
[2017-03-16] MEDS: FENTANYL CITRATE INJ 50 MCG/1 ML 2 ML VIAL IV PRN ×2 (20:01→22:26)
[2017-03-16 20:37] LABS: HEMATOCRIT 29.8 % (37-47); PLATELET COUNT 101 K/uL (130-400); PLT ESTIMATE DECREASED
[2017-03-16] MEDS: MoRPHine SULFATE 4 MG/ML 1 ML CARP\\VIAL IV PRN (21:00)
--- NOTE | 2017-03-16 21:01 | Medical Consult ---
Consultation Date of Consultation: Mar 16, 2017. Attending Physician: Itzel Leonardo M.D. Reason for Consultation: medical management . History of Present Illness 81 YO female. Previously followed at [facility] for primary care, but transferring primary care to Dr. Davian Schmidt whom she has not yet seen. History of atrial fibrillation followed by Dr. Swanson. 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 Rehan Elmore for Hematology / Oncology. Referred to Dr. Leonardo for placement of vascular access device which was scheduled for today. Developed hypotension, tachycardia, rapid atrial fibrillation in PACU. Chest x-ray demonstrated left pleural effusion. Received fluid resuscitation and transfusion of platelets for thrombocytopenia. Transferred to ICU. Chest tube placed by Thoracic Surgery. Having some left chest wall discomfort from chest tube. Otherwise, doing well. . Family History FHx: cancer FHx: gallbladder disease Hypertension Kidney disease Social History Smoking Status: Never Smoker Alcohol Use: occasionally Drug Use: none Marital Status: Housing Status: lives with significant other Occupation Status: retired Allergies Coded Allergies: No Known Allergies (Unverified , 03/16/17) Home Medications Reported Home Medications Medications Dose Route/Sig Max Daily Dose Days Date Category Percocet 5MG/325MG (Oxycodone/Acetaminophen) Tab 1-2 Tablets PO Q4H PRN 03/16/17 Rx Allopurinol 300 Mg Tab 300 Mg PO DAILY 03/16/17 Reported Hydrea Cap (Hydroxyurea) 500 Mg Cap 500 Mg PO BID 03/16/17 Reported Sotalol HCl 80 Mg Tab 80 Mg PO BID 30 02/24/17 Rx Current Inpatient Medications Current Inpatient Medications Medications (Trade) Dose Ordered Sig/[place] Route Start Time Stop Time Status Last Admin Dose Admin Ondansetron HCl (Zofran Inj) 4 mg Q6H PRN IV 03/16/17 14:45 04/15/17 14:44 Morphine Sulfate (MoRPHine SULFATE INJ) 2 mg Q2H PRN IV 03/16/17 14:45 03/30/17 14:44 Morphine Sulfate (MoRPHine SULFATE INJ) 4 mg Q2H PRN IV 03/16/17 14:45 03/30/17 14:44 Oxycodone/ Acetaminophen (Percocet 5-325mg Tab) 1 tab Q4H PRN PO 03/16/17 14:45 03/30/17 14:44 Oxycodone/ Acetaminophen (Percocet 5-325mg Tab) 2 tab Q4H PRN PO 03/16/17 14:45 03/30/17 14:44 Lactated Ringer's 1,000 ml @ 100 mls/hr Q10H IV 03/16/17 15:44 04/15/17 15:43 03/16/17 16:31 100 MLS/HR Allopurinol (Zyloprim Tab) 300 mg DAILY PO 03/17/17 09:00 04/16/17 08:59 Sotalol HCl (Betapace Tab) 80 mg BID PO 03/17/17 09:00 04/16/17 08:59 Fentanyl Citrate (Fentanyl Inj) 25 mcg Q2H PRN IV 03/16/17 19:30 03/30/17 19:29 03/16/17 20:01 25 MCG Review of Systems Constitutional: No fever Respiratory: + dyspnea on exertion Cardiovascular: No chest pain Abdomen: No nausea, No vomiting, No diarrhea Endocrine: + fatigue Hematologic / Lymphatic: + abnormal bleeding/bruising Physical Exam Date Time Temp Pulse Resp B/P (MAP) Pulse Ox O2 Delivery O2 Flow Rate FiO2 03/16/17 20:21 82 22 105/72 (83) 99 Nasal Cannula 03/16/17 20:11 84 24 94/73 (80) 98 Nasal Cannula 03/16/17 20:01 83 21 110/75 (87) 98 Nasal Cannula 03/16/17 20:01 36.3 84 21 110/75 98 03/16/17 20:00 98 Nasal Cannula 2.0 03/16/17 18:15 79 22 100 03/16/17 18:11 78 20 94/61 (67) 100 03/16/17 18:01 78 19 91/60 (65) 100 03/16/17 18:00 80 20 100 03/16/17 17:51 77 19 89/59 (71) 100 03/16/17 17:45 75 19 100 03/16/17 17:41 77 21 88/58 (66) 100 03/16/17 17:31 77 19 88/59 (65) 100 03/16/17 17:30 73 19 99 03/16/17 17:21 78 21 89/54 (64) 99 03/16/17 17:15 71 19 99 03/16/17 17:11 80 18 86/56 (66) 99 03/16/17 17:04 36.5 85 19 81/50 100 Nasal Cannula 2.0 03/16/17 17:01 84 19 81/50 (57) 98 03/16/17 17:00 80 20 99 03/16/17 16:51 81 27 87/61 (69) 98 03/16/17 16:45 94 28 95 03/16/17 16:31 86 22 86/53 (63) 100 03/16/17 16:21 90 24 79/51 (57) 100 03/16/17 16:11 97 21 85/62 (66) 100 03/16/17 16:06 95 23 100 03/16/17 16:05 95 28 88/61 100 9.0 03/16/17 16:01 96 23 88/61 (70) 100 03/16/17 15:55 95 28 85/58 100 03/16/17 15:53 96 25 85/58 (66) 100 03/16/17 15:51 95 27 100 03/16/17 15:50 36.4 95 26 85/58 100 9.0 03/16/17 15:36 99 26 99 03/16/17 15:31 101 19 93/65 (72) 100 03/16/17 15:24 92 25 79/61 (67) 100 03/16/17 15:22 36.5 95 21 79/61 100 9.0 03/16/17 15:21 96 28 70/49 (55) 95 03/16/17 15:11 94 29 80/59 (68) 95 03/16/17 15:08 94 30 85/55 (70) 95 03/16/17 15:06 92 26 100 03/16/17 14:53 98 31 86/55 (73) 96 03/16/17 14:52 99 21 27/15 (21) 100 03/16/17 14:51 144 25 100 03/16/17 14:47 106 35 60/43 (45) 100 03/16/17 14:42 125 30 78/59 (69) 100 03/16/17 14:35 115 26 97/65 (76) 99 Oxymask 10 03/16/17 14:20 121 25 97/45 (62) 98 Oxymask 10 03/16/17 14:01 85 26 65/47 96 Room Air 03/16/17 14:01 75 22 65/47 (53) 94 Room Air Oxymask 03/16/17 13:59 78 23 62/45 (51) 95 Room Air Oxymask 03/16/17 13:52 119 21 82/48 (59) 96 Room Air Oxymask 03/16/17 13:49 36.7 98 24 78/50 96 Room Air 03/16/17 13:25 98 21 102/66 94 Room Air 03/16/17 12:54 69 18 112/65 96 Nasal Cannula 1 03/16/17 12:29 37.3 77 20 99/64 96 Nasal Cannula 2 03/16/17 12:20 73 16 99/67 98 Nasal Cannula 2 03/16/17 12:10 36.6 73 16 102/64 98 Nasal Cannula 2 03/16/17 12:00 73 16 99/53 98 Oxymask 10 03/16/17 11:50 73 16 105/64 98 Oxymask 10 03/16/17 11:40 36.5 73 16 103/65 100 Oxymask 10 03/16/17 09:01 37.4 78 18 111/67 (82) 94 Room Air General Appearance: + mild distress Head: normocephalic, atraumatic Eyes: PERRL, EOMI, sclerae normal (conjunctivae clear) ENT: pharynx normal Neck: supple, no adenopathy, thyroid normal, no JVD, trachea midline Respiratory/Chest: lungs clear, no respiratory distress, no accessory muscle use, + pertinent finding (left chest tube with grossly bloody drainage) Cardiovascular: regular rate, rhythm, + systolic murmur (II/ sys murmur base) Abdomen/GI: normal bowel sounds, non tender, soft Extremities/Musculoskelatal: no calf tenderness, no pedal edema, + pertinent finding (SCD's applied) Neurologic/Psych: card cleaner II-XII nml as tested (PERRL, EOMI, no facial palsy, no dysarhtria), no motor/sensory deficits, alert, normal mood/affect Skin: warm/dry Laboratory Results Last 24 Hours Test 03/16/17 09:10 03/16/17 14:06 03/16/17 14:03/16/17 19:55 White Blood Count 39.72 K/uL Red Blood Count 2.53 M/uL Hemoglobin 8.4 g/dL 6.8 g/dL 10.2 g/dL Hematocrit 25.0 % 20.1 % 29.8 % Mean Corpuscular Volume 98.8 fL Mean Corpuscular Hemoglobin 33.2 pg Mean Corpuscular Hemoglobin Concent 33.6 g/dl Platelet Count 34 K/uL 101 K/uL Mean Platelet Volume 11.3 fL RDW Standard Deviation 60.8 fL RDW Coefficient of Variation 17.0 % Neutrophils % (Manual) 15.7 % Lymphocytes % (Manual) 16.5 % Monocytes % (Manual) 66.9 % Eosinophils % (Manual) 0.9 % Neutrophils # (Manual) 6.24 K/uL Total Absolute Neutrophils 6.24 K/uL Lymphocytes # (Manual) 6.55 K/uL Total Absolute Lymphocytes 6.55 K/uL Monocytes # (Manual) 26.57 K/uL Eosinophils # (Manual) 0.36 K/uL Hypersegmented Polys 1+ Smudge Cells PRESENT Bedside Glucose 166 mg/dl Prothrombin Time 11.7 SECONDS Prothromb Time International Ratio 1.1 Sodium Level 140 mmol/L Potassium Level 3.9 mmol/L Chloride Level 106 mmol/L Carbon Dioxide Level 25 mmol/L Anion Gap 9.0 mmol/L Blood Urea Nitrogen 18 mg/dl Creatinine 0.99 mg/dl Est Creatinine Clear Calc Drug Dose 38.3 ml/min Estimated GFR () 62.4 Estimated GFR (Non- 53.8 BUN/Creatinine Ratio 17.9 Random Glucose 150 mg/dl Calcium Level 8.3 mg/dl Magnesium Level 2.4 mg/dl Thyroid Stimulating Hormone (TSH) 1.640 uIu/ml Platelet Estimate DECREASED Assessment & Plan LEFT HEMOTHORAX S/P chest tube placement. Management per Thoracic Surgery. AML Management per Heme / Onc. ATRIAL FIBRILLATION Paroxysmal AF perioperatively. Received IV metoprolol. Converted to NSR. Resume sotalol when hemodynamics allow. VTE PROPHYLAXIS SCD's. DISPOSITION Expected discharge to home. Medical follow-up with Dr. Davian Schmidt. Hematology / Oncology follow-up with Dr. Rehan Elmore. Thank you for this consultation. We will follow the patient with you during their hospital stay. Dr. Bill will be rounding for our service starting Thursday. You can reach a member of the [facility] Medicine Team 08/12 via pager @ [phone]. You can reach me via cell @ [phone]. .
[2017-03-16 21:03] LABS: INR 1.1 (0.9-1.1); PARTIAL THROMBOPLASTIN RATIO 1.1; PROTHROMBIN TIME (PATIENT) 11.6 SECONDS (9.0-12.0)
--- NOTE | 2017-03-16 21:46 | DIAGNOSTIC IMAGING REPORT ---
CHEST ONE VIEW PORTABLE CLINICAL HISTORY: Transient chest tube disconnection. COMPARISON STUDY: Chest radiograph March 16, 2017 at 3:17 PM. FINDINGS: There has been apparent repositioning of the left basilar chest tube. There has been interval development of a moderate sized left apical pneumothorax. Left lung volume loss is noted. The amount of fluid within left hemithorax is likely decreased. There is significantly diminished aeration of the left lung. Right lung is clear. There is no right pneumothorax. IMPRESSION: 1. Interval development of a moderate-sized left apical pneumothorax with left chest tube in place. Significantly diminished left lung aeration with partial left lung collapse. Discussed with Wilian Becker at time of dictation. 2. Interval decrease in the amount of left pleural fluid. Electronically signed by: Keo Ridley M.D. 03/16/2017 9:45 PM Dictated Date/Time: 03/16/2017 9:05 PM
--- NOTE | 2017-03-16 22:43 | Critical Care Progress Note ---
Critical Care Progress Note Date of Service Mar 16, 2017. Critical Care Progress Note At approximately 1930, I was informed that the patient's chest tube had come disconnected for approximately 5 seconds. The patient was reevaluated and her chest tube had already been placed back to 20 mm H2O suction as written by Dr. Ramos. Patient was complaining of pleuritic pain, but no worse than she had expressed throughout the day. At this point, I did tape the chest tube connection to prevent further disconnection. In addition, a repeat chest x-ray was obtained. I received a call from Dr. Ridley at 1525 to inform me of new LEFT apical pneumothorax. This information was relayed at 20/[address] Ramos. He suggests continuing with current suction and to update him with any changes.
[2017-03-16 23:44] LABS: HEMATOCRIT 28.5 % (37-47)
[2017-03-17] VITALS (43 sets, daily range): BP systolic 80–115; BP diastolic 46–74; PULSE 55–83; TEMP 36.4–36.7; O2SAT 93–98
[2017-03-17] MEDS: MoRPHine SULFATE 4 MG/ML 1 ML CARP\\VIAL IV PRN ×2 (00:15→06:01)
[2017-03-17] MEDS: LACTATED RINGER'S 1000ML 1,000 ML IV SCH ×3 (01:44→16:18)
[2017-03-17] MEDS: FENTANYL CITRATE INJ 50 MCG/1 ML 2 ML VIAL IV PRN ×2 (02:11→04:07)
[2017-03-17 04:33] LABS: BUN/CREATININE RATIO 23.9 (10-20); CALCIUM 7.7 mg/dl (8.5-10.1); CREATININE 0.88 mg/dl (0.60-1.20); MAGNESIUM 2.2 mg/dl (1.8-2.4); PHOSPHORUS 5.7 mg/dl (2.5-4.9); POTASSIUM 4.7 mmol/L (3.5-5.1)
[2017-03-17 04:55] LABS: HEMATOCRIT 26.3 % (37-47); MEAN CELL VOLUME 90.4 fL (80-100); MEAN CORPUSCULAR HGB CONC 35.4 g/dl (32-36); MEAN PLATELET VOLUME 9.4 fL (7.4-10.4); PLATELET COUNT 81 K/uL (130-400); RED BLOOD COUNT 2.91 M/uL (4.2-5.4); WHITE BLOOD COUNT 47.12 K/uL (4.8-10.8)
[2017-03-17 05:11] LABS: LYMPH ABS # 6.93 K/uL (1.2-3.4); LYMPHOCYTE % 14.7 %; NEUTROPHILS % 6.9 %; SMUDGE CELLS PRESENT
[2017-03-17 06:18] LABS: COMPLETE YES
--- NOTE | 2017-03-17 07:00 | DIAGNOSTIC IMAGING REPORT ---
CHEST ONE VIEW PORTABLE CLINICAL HISTORY: left hemothorax, s/p chest tube placement COMPARISON STUDY: 03/16/2017 FINDINGS: The left-sided A-Port catheter is again visualized. The left-sided chest tube remains unchanged in position. There is a left-sided pneumothorax the pleural separation of 35 mm. There is increased density within the underlying lung, likely secondary to atelectasis/edema.[ IMPRESSION: Persistent moderate left pneumothorax with a pleural separation of 55 mm. No change in the position of the left-sided chest tube. Electronically signed by: Sharad Diallo M.D. 03/17/2017 6:59 AM Dictated Date/Time: 03/17/2017 6:58 AM
[2017-03-17] MEDS: ALLOPURINOL 300 MG TAB PO SCH (08:00)
[2017-03-17] MEDS: MoRPHine SULFATE 2 MG/ML CARP IV PRN ×2 (08:01→11:56)
--- NOTE | 2017-03-17 08:14 | DIAGNOSTIC IMAGING REPORT ---
SINGLE VIEW CHEST CLINICAL HISTORY: Chest tube repositioning. FINDINGS: An AP, portable, upright chest radiograph is compared to study performed on the same day 03/17/2017. The examination is degraded by portable technique and patient rotation. A left subclavian central venous infusion port is unchanged in position. The cardiomediastinal silhouette is unremarkable. A chest tube is again seen at the left lung base. A moderate left pneumothorax with atelectasis of the left upper lobe is similar to previous. Consolidative change and pleural effusion is present the left lung base. The right lung is grossly clear. The skeletal structures are osteopenic. The bony thorax is grossly intact. IMPRESSION: 1. A chest tube at the left lung base is similar in position to previous. 2. A moderate left pneumothorax is unchanged with associated atelectasis of left lung. 3. Pleural fluid and consolidation is seen at the left lung base. Electronically signed by: Kelvin Willis M.D. 03/17/2017 8:13 AM Dictated Date/Time: 03/17/2017 8:09 AM
--- NOTE | 2017-03-17 08:49 | Critical Care Progress Note ---
Critical Care Progress Note Date of Service I was present with Dr. Tod Courtney during the history and exam. I discussed the case with the resident and agree with the findings and plan as documented in the note. In summary, the patient is a 81-year-old functional female who was recently diagnosed with acute myelocytic leukemia. She was admitted to [facility] for placement of subclavian infusion port which was successfully done on 03/16/2017. Patient developed left-sided hemothorax complicated by hypotension and atrial fibrillation with rapid ventricular response. Chest tube was placed with immediate drainage of 1 L of dark blood. Patient was volume resuscitated, transfused with totally 12 units of platelets, 3 units of packed RBCs. She remains critically ill in intensive care unit for further management. Uneventful night. Assessment and plan: 1. Postprocedure left-sided hemothorax with severe anemia of acute blood loss. Patient was extensively discussed with thoracic surgery colleagues. Morning x -ray revealed significant hematoma along the periphery of the lung. Patient was taken to the operating room for video-assisted left lung thoracoscopy with evacuation of the left hemothorax. Postoperatively patient was successfully extubated. Patient has left-sided chest tube which is connected to -20 cm suctioning. We'll continue monitoring chest tube output, H&H and coagulation profile. We will continue with aggressive pulmonary toilet. 2. Paroxysmal atrial fibrillation for what sotalol was restarted. Patient remains in sinus rhythm. Marginal hypotension, no signs of cardiac ischemia. 3. Anemia of acute blood loss. Thrombocytopenia. We will transfuse for hemoglobin below 7.0 and platelet count below 30,000. 4. Acute myelocytic leukemia. Hydroxyurea and allopurinol is on hold as per hematology. Chemotherapy will be initiated following complete resolution of hemothorax. 5. ID: Leukocytosis secondary to AML, no obvious signs of infection. 6. DVT prophylaxis with SCDs, avoid heparin products. I personally spent 35 minutes of critical care time involved in managing the patient. Mar 17, 2017. ICU Day ICU Day Number: 2 Attending Mockus Subjective 81 year old female is in the ICU due to hemothorax after an A-Port procedure At 730 pm the chest tube was found to be disconnecte for 5 seconds. It was placed back in the chest at 20mm of H20 suction. The chest tube was taped to prevent further disconnection. A repeat CXR showed a new apical pneumothorax. Dr. Ramos was informed of this. Plan was for repeat CXR in the morning to further evaluate the pneumothorax. Repeat CXR in the morning showed persistent moderate left pneumothorax with a pleural separation of 55 mm. No change in the position of the left-sided chest tube was found. Dr. Ramos came to see the patient in the morning and it was decided that the patient would go for a VATS with repositioning of the chest tube. Overnight her Hgb has remained stable at 9.3 and she has not required any supplement blood products. Patient has had 2 L of blood drainage from chest tube. When the patient was seen this morning she said she was having 8/10 pain at the chest tube site and that she was unable to take a deep breath in. She has not had a bowel movement since being in the hospital She denied any fevers, chills, sweats, abdominal pain, nausea, vomiting, chest pain, palpitations, cough, shortness of breath, diarrhea, joint pain, rashes Objective General Appearance: mild distress Head: normocephalic, atraumatic Neck: no tenderness, trachea midline, no stridor, supple Respiratory: other (unable to take a deep breath due to chest tube placement and current chest pain), chest tube placed on left side, A-port inferior to left clavicle Cardiovasular: regular rate/rhythm, no murmur Abdomen: non tender, normal bowel sounds, no rebound, no masses, no guarding Pulses: dorsalis pedis (R) (2+), dorsalis pedis (L) (2+), posterior tibial (R) , posterior tibial (L) (2+) Neuro: alert, oriented x 3, normal motor exam Current SOFA Score SOFA Score Response (Comments) Value Platelets (x10) < 100 2 Bilirubin (mg/dL) < 1.2 (LFT's not done) 0 Kress Coma Score 15 0 Level of Hypotension No Hypotension 0 Creatinine (mg/dL) < 1.2 0 Total 2 Assessment & Plan Assessment: 81 year old female with a PMH of AML was admitted to the ICU after having a hemothorax after an a-port insertion. Patient had a chest tube placed and is received 3 units of PRBC and 2 unit of platelets. Patient had the chest tube disconnected yesterday and has subsequently developed a pneumothorax. She will be going for a VATS procedure at noon with Dr. Ramos with revision of the chest tube NEURO cam negative fentanyl 25mcg IV for pain control morphine 2mg and 4mg PRN pain consider starting PO med after surgery CARDIAC patient with afib, currently in NSR on sotalol, restarted today, change dose to OD due to creatinine clearance monitor heart rhythm in ICU RESP currently saturating 95% on 2L Left sided hemothorax, chest tube placed with 2 L of blood drainage Repeat CXR with improvement of left sided hemothorax, however now with 55mm pneumothorax thoracic surgery consulted- going for VATS procedure at noon HEME most recent Hgb 9.3 and stable being given 3 units of PRBC with 2 units on hold most recent platelet count 81 transfused 2 units of platelets diagnosed with AML-follows with Rehan Elmore hydroxyurea and allopurinol on hold per Dr. Elmore oncology consulted GI hold off on diet until after surgery zofran prn for nausea colace and senna for constipation RENAL creatinine 0.88 patient given 1 unit of LR and 1 unit of NS carrion catheter placed with I/O's [id number] ID afebrile, wcc 47.12 WCC elevated due to AML, so wont be able to be good marker of infection DVT prophylaxis: SCD's FULL CODE Consults & Procedures Consultants: Dr. Eloise Leonardo Procedures: chest tube placement A port placement Data Medications: Current Inpatient Medications Medications (Trade) Dose Ordered Sig/Samanta Route Start Time Stop Time Status Last Admin Dose Admin Ondansetron HCl (Zofran Inj) 4 mg Q6H PRN IV 03/16/17 14:45 04/15/17 14:44 Morphine Sulfate (MoRPHine SULFATE INJ) 2 mg Q2H PRN IV 03/16/17 14:45 03/30/17 14:44 03/17/17 08:01 2 MG Morphine Sulfate (MoRPHine SULFATE INJ) 4 mg Q2H PRN IV 03/16/17 14:45 03/30/17 14:44 03/17/17 06:01 4 MG Oxycodone/ Acetaminophen (Percocet 5-325mg Tab) 1 tab Q4H PRN PO 03/16/17 14:45 03/30/17 14:44 Oxycodone/ Acetaminophen (Percocet 5-325mg Tab) 2 tab Q4H PRN PO 03/16/17 14:45 03/30/17 14:44 Lactated Ringer's 1,000 ml @ 100 mls/hr Q10H IV 03/16/17 15:44 04/15/17 15:43 03/17/17 01:44 100 MLS/HR Allopurinol (Zyloprim Tab) 300 mg DAILY PO 03/17/17 09:00 04/16/17 08:59 03/17/17 08:00 300 MG Sotalol HCl (Betapace Tab) 80 mg BID PO 03/17/17 09:00 04/16/17 08:59 03/17/17 08:00 80 MG Fentanyl Citrate (Fentanyl Inj) 25 mcg Q2H PRN IV 03/16/17 19:30 03/30/17 19:29 03/17/17 04:07 25 MCG Vital Signs: Date Time Temp Pulse Resp B/P (MAP) Pulse Ox O2 Delivery O2 Flow Rate FiO2 03/17/17 07:30 96 Nasal Cannula 2.0 03/17/17 06:00 78 15 112/74 (87) 95 Nasal Cannula 2.0 03/17/17 04:00 95 Nasal Cannula 2.0 03/17/17 04:00 36.7 80 17 111/73 (86) 94 Nasal Cannula 2.0 03/17/17 02:00 76 28 107/64 (78) 96 Nasal Cannula 2.0 03/17/17 00:01 36.4 73 19 95/66 (76) 97 Nasal Cannula 2.0 03/16/17 23:59 97 Nasal Cannula 2.0 03/16/17 22:30 78 18 97/68 (78) 97 Nasal Cannula 2.0 03/16/17 22:00 86 27 100/65 (77) 99 Nasal Cannula 2.0 03/16/17 20:21 82 22 105/72 (83) 99 Nasal Cannula 03/16/17 20:11 84 24 94/73 (80) 98 Nasal Cannula 03/16/17 20:01 83 21 110/75 (87) 98 Nasal Cannula 03/16/17 20:01 36.3 84 21 110/75 98 03/16/17 20:00 98 Nasal Cannula 2.0 03/16/17 18:15 79 22 100 03/16/17 18:11 78 20 94/61 (67) 100 03/16/17 18:01 78 19 91/60 (65) 100 03/16/17 18:00 80 20 100 03/16/17 17:51 77 19 89/59 (71) 100 03/16/17 17:45 75 19 100 03/16/17 17:41 77 21 88/58 (66) 100 03/16/17 17:31 77 19 88/59 (65) 100 03/16/17 17:30 73 19 99 03/16/17 17:21 78 21 89/54 (64) 99 03/16/17 17:15 71 19 99 03/16/17 17:11 80 18 86/56 (66) 99 03/16/17 17:04 36.5 85 19 81/50 100 Nasal Cannula 2.0 03/16/17 17:01 84 19 81/50 (57) 98 03/16/17 17:00 80 20 99 03/16/17 16:51 81 27 87/61 (69) 98 03/16/17 16:45 94 28 95 03/16/17 16:31 86 22 86/53 (63) 100 03/16/17 16:21 90 24 79/51 (57) 100 03/16/17 16:11 97 21 85/62 (66) 100 03/16/17 16:06 95 23 100 03/16/17 16:05 95 28 88/61 100 9.0 03/16/17 16:01 96 23 88/61 (70) 100 03/16/17 15:55 95 28 85/58 100 03/16/17 15:53 96 25 85/58 (66) 100 03/16/17 15:51 95 27 100 03/16/17 15:50 36.4 95 26 85/58 100 9.0 03/16/17 15:36 99 26 99 03/16/17 15:31 101 19 93/65 (72) 100 03/16/17 15:24 92 25 79/61 (67) 100 03/16/17 15:22 36.5 95 21 79/61 100 9.0 03/16/17 15:21 96 28 70/49 (55) 95 03/16/17 15:11 94 29 80/59 (68) 95 03/16/17 15:08 94 30 85/55 (70) 95 03/16/17 15:06 92 26 100 03/16/17 14:53 98 31 86/55 (73) 96 03/16/17 14:52 99 21 27/15 (21) 100 03/16/17 14:51 144 25 100 03/16/17 14:47 106 35 60/43 (45) 100 03/16/17 14:42 125 30 78/59 (69) 100 03/16/17 14:35 115 26 97/65 (76) 99 Oxymask 10 03/16/17 14:20 121 25 97/45 (62) 98 Oxymask 10 03/16/17 14:01 85 26 65/47 96 Room Air 03/16/17 14:01 75 22 65/47 (53) 94 Room Air Oxymask 03/16/17 13:59 78 23 62/45 (51) 95 Room Air Oxymask 03/16/17 13:52 119 21 82/48 (59) 96 Room Air Oxymask 03/16/17 13:49 36.7 98 24 78/50 96 Room Air 03/16/17 13:25 98 21 102/66 94 Room Air 03/16/17 12:54 69 18 112/65 96 Nasal Cannula 1 03/16/17 12:29 37.3 77 20 99/64 96 Nasal Cannula 2 03/16/17 12:20 73 16 99/67 98 Nasal Cannula 2 03/16/17 12:10 36.6 73 16 102/64 98 Nasal Cannula 2 03/16/17 12:00 73 16 99/53 98 Oxymask 10 03/16/17 11:50 73 16 105/64 98 Oxymask 10 03/16/17 11:40 36.5 73 16 103/65 100 Oxymask 10 03/16/17 09:01 37.4 78 18 111/67 (82) 94 Room Air Laboratory Results: Last 24 Hours Test 03/16/17 09:10 03/16/17 14:06 03/16/17 14:21 03/16/17 19:55 White Blood Count 39.72 K/uL Red Blood Count 2.53 M/uL Hemoglobin 8.4 g/dL 6.8 g/dL 10.2 g/dL Hematocrit 25.0 % 20.1 % 29.8 % Mean Corpuscular Volume 98.8 fL Mean Corpuscular Hemoglobin 33.2 pg Mean Corpuscular Hemoglobin Concent 33.6 g/dl Platelet Count 34 K/uL 101 K/uL Mean Platelet Volume 11.3 fL RDW Standard Deviation 60.8 fL RDW Coefficient of Variation 17.0 % Neutrophils % (Manual) 15.7 % Lymphocytes % (Manual) 16.5 % Monocytes % (Manual) 66.9 % Eosinophils % (Manual) 0.9 % Neutrophils # (Manual) 6.24 K/uL Total Absolute Neutrophils 6.24 K/uL Lymphocytes # (Manual) 6.55 K/uL Total Absolute Lymphocytes 6.55 K/uL Monocytes # (Manual) 26.57 K/uL Eosinophils # (Manual) 0.36 K/uL Hypersegmented Polys 1+ Smudge Cells PRESENT Bedside Glucose 166 mg/dl Prothrombin Time 11.7 SECONDS 11.6 SECONDS Prothromb Time International Ratio 1.1 1.1 Sodium Level 140 mmol/L Potassium Level 3.9 mmol/L Chloride Level 106 mmol/L Carbon Dioxide Level 25 mmol/L Anion Gap 9.0 mmol/L Blood Urea Nitrogen 18 mg/dl Creatinine 0.99 mg/dl Est Creatinine Clear Calc Drug Dose 38.3 ml/min Estimated GFR () 62.4 Estimated GFR (Non- 53.8 BUN/Creatinine Ratio 17.9 Random Glucose 150 mg/dl Calcium Level 8.3 mg/dl Magnesium Level 2.4 mg/dl Thyroid Stimulating Hormone (TSH) 1.640 uIu/ml Platelet Estimate DECREASED Activated Partial Thromboplast Time 27.6 SECONDS Partial Thromboplastin Ratio 1.1 Fibrinogen 243 mg/dl Test 03/16/17 21:30 03/16/17 23:22 03/17/17 03:59 Bedside Glucose 132 mg/dl Hemoglobin 9.5 g/dL 9.3 g/dL Hematocrit 28.5 % 26.3 % White Blood Count 47.12 K/uL Red Blood Count 2.91 M/uL Mean Corpuscular Volume 90.4 fL Mean Corpuscular Hemoglobin 32.0 pg Mean Corpuscular Hemoglobin Concent 35.4 g/dl Platelet Count 81 K/uL Mean Platelet Volume 9.4 fL RDW Standard Deviation 55.1 fL RDW Coefficient of Variation 17.3 % Neutrophils % (Manual) 6.9 % Lymphocytes % (Manual) 14.7 % Monocytes % (Manual) 77.5 % Blast Cells % 0.9 % Neutrophils # (Manual) 3.25 K/uL Total Absolute Neutrophils 3.25 K/uL Lymphocytes # (Manual) 6.93 K/uL Total Absolute Lymphocytes 6.93 K/uL Monocytes # (Manual) 36.52 K/uL Blast Cells # 0.42 K/uL Smudge Cells PRESENT Sodium Level 139 mmol/L Potassium Level 4.7 mmol/L Chloride Level 107 mmol/L Carbon Dioxide Level 27 mmol/L Anion Gap 5.0 mmol/L Blood Urea Nitrogen 21 mg/dl Creatinine 0.88 mg/dl Est Creatinine Clear Calc Drug Dose 41.9 ml/min Estimated GFR () 71.9 Estimated GFR (Non- 62.1 BUN/Creatinine Ratio 23.9 Random Glucose 110 mg/dl Calcium Level 7.7 mg/dl Phosphorus Level 5.7 mg/dl Magnesium Level 2.2 mg/dl
[2017-03-17] MEDS ORDERED: SOTALOL HCL 80 MG TAB PO SCH (09:00)
[2017-03-17] MEDS ORDERED: HYDROXYUREA 500 MG CAP PO SCH (09:00)
--- NOTE | 2017-03-17 09:40 | SURGERY PROGRESS NOTE ---
DATE: 03/17/2017 SUBJECTIVE: Mrs. Aguilar is much improved this morning. She is on 2 liters of O2 with excellent saturations. Her is at the bedside and I had a long talk with him. The chest tube has drained almost 1500 mL total, but has slowed considerably. The chest tube became disconnected overnight and was reattached to suction; however, the patient has a sizeable pneumothorax this morning. I stripped the tube and inspected it after taking all the dressings down. It is not pulled back; however, tube is now oriented more inferiorly and medially. There was clot around the end of this. I milked it and got some of the clot out; however, chest x-ray does not show any improvement. The patient is having a considerable amount of pain from this chest tube. I had a long talk with the patient. There are couple of options here. My personal opinion is that we should proceed with a left thoracoscopy. We can do this in a minimally invasive fashion and evacuate all of the clot and place a chest tube properly. I can also do an Exparel block, which would be excellent pain control. Another option would be to insert another chest tube. Mrs. Aguilar and her are not very interested in that. Finally, we can simply leave this tube in hoping that the blood liquefies and drains out; however, I think that is a poor choice also. In the big picture, this patient is going to require chemotherapy sooner rather than later. I think having all the blood out of her chest with a completely expanded lung would be much better for her and would allow her to have her chemotherapy started much sooner. In addition, I believe the Exparel block will be very good. I do not suspect her chest tube will be in very long after this. The patient and her were agreeable. We will proceed later with a left thoracoscopy with evacuation of hemothorax.
--- NOTE | 2017-03-17 11:35 | Progress Note ---
Internal Med Progress Note Date of Service: Mar 17, 2017. Provider Documentation: SUBJECTIVE: The patient was seen and examined S/P Left Thoracotomy tube placement for Left Hemothorax Remains stable generally weak and complains of some pain in the chest OBJECTIVE: Vital Signs-as noted below Exam: General-Generally weak and lethargic Eyes-normal ENT-normal Neck-supple Lungs-decreased breath sound left side Heart-Regular,no murmur Abdomen-Benign,no masses,bowel sound present Extremities-No edema Neuro-AAOx3 Lab data as noted below. ASSESSMENT & PLAN: LEFT HEMOTHORAX S/P Infusaport insertion complicated by hemothorax requiring chest tube placement S/P chest tube placement. Management per Thoracic Surgery. Appreciate Thoracic surgery input Will go for Thoracotomy and removal of the remaining hematoma today as per Thoracic surgery Clinically stable Acute Blood Loss Anemia complicated by Thrombocytopenia Received 3 Units of PRBC and 2 Units of platelet pheresis Hb and platelet are reasonable 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 Appreciate Oncology input ATRIAL FIBRILLATION Paroxysmal AF perioperatively. Received IV metoprolol. Converted to NSR. Resume sotalol when hemodynamics allow. Remains in Sinus rhythm VTE PROPHYLAXIS SCD's. DISPOSITION Expected discharge to home. Medical follow-up with Dr. Davian Schmidt. Hematology / Oncology follow-up with Dr. Rehan Elmore. Vital Signs: Date Time Temp Pulse Resp B/P (MAP) Pulse Ox O2 Delivery O2 Flow Rate FiO2 03/17/17 09:01 76 24 102/67 (79) 96 Nasal Cannula 2.0 03/17/17 09:00 76 13 97 03/17/17 08:31 82 30 103/66 (78) 96 03/17/17 08:01 83 18 115/67 (83) 95 03/17/17 08:00 Nasal Cannula 03/17/17 08:00 75 15 96 03/17/17 07:31 36.7 77 20 104/74 (84) 96 Nasal Cannula 2.0 03/17/17 07:30 96 Nasal Cannula 2.0 03/17/17 07:01 76 14 100/67 (78) 95 03/17/17 07:00 76 16 96 03/17/17 06:00 78 15 112/74 (87) 95 Nasal Cannula 2.0 03/17/17 04:00 95 Nasal Cannula 2.0 03/17/17 04:00 36.7 80 17 111/73 (86) 94 Nasal Cannula 2.0 03/17/17 02:00 76 28 107/64 (78) 96 Nasal Cannula 2.0 03/17/17 00:01 36.4 73 19 95/66 (76) 97 Nasal Cannula 2.0 03/16/17 23:59 97 Nasal Cannula 2.0 03/16/17 22:30 78 18 97/68 (78) 97 Nasal Cannula 2.0 03/16/17 22:00 86 27 100/65 (77) 99 Nasal Cannula 2.0 03/16/17 20:21 82 22 105/72 (83) 99 Nasal Cannula 03/16/17 20:11 84 24 94/73 (80) 98 Nasal Cannula 03/16/17 20:01 83 21 110/75 (87) 98 Nasal Cannula 03/16/17 20:01 36.3 84 21 110/75 98 03/16/17 20:00 98 Nasal Cannula 2.0 03/16/17 18:15 79 22 100 03/16/17 18:11 78 20 94/61 (67) 100 03/16/17 18:01 78 19 91/60 (65) 100 03/16/17 18:00 80 20 100 03/16/17 17:51 77 19 89/59 (71) 100 03/16/17 17:45 75 19 100 03/16/17 17:41 77 21 88/58 (66) 100 03/16/17 17:31 77 19 88/59 (65) 100 03/16/17 17:30 73 19 99 03/16/17 17:21 78 21 89/54 (64) 99 03/16/17 17:15 71 19 99 03/16/17 17:11 80 18 86/56 (66) 99 03/16/17 17:04 36.5 85 19 81/50 100 Nasal Cannula 2.0 03/16/17 17:01 84 19 81/50 (57) 98 03/16/17 17:00 80 20 99 03/16/17 16:51 81 27 87/61 (69) 98 03/16/17 16:45 94 28 95 03/16/17 16:31 86 22 86/53 (63) 100 03/16/17 16:21 90 24 79/51 (57) 100 03/16/17 16:11 97 21 85/62 (66) 100 03/16/17 16:06 95 23 100 03/16/17 16:05 95 28 88/61 100 9.0 03/16/17 16:01 96 23 88/61 (70) 100 03/16/17 15:55 95 28 85/58 100 03/16/17 15:53 96 25 85/58 (66) 100 03/16/17 15:51 95 27 100 03/16/17 15:50 36.4 95 26 85/58 100 9.0 03/16/17 15:36 99 26 99 03/16/17 15:31 101 19 93/65 (72) 100 03/16/17 15:24 92 25 79/61 (67) 100 03/16/17 15:22 36.5 95 21 79/61 100 9.0 03/16/17 15:21 96 28 70/49 (55) 95 03/16/17 15:11 94 29 80/59 (68) 95 03/16/17 15:08 94 30 85/55 (70) 95 03/16/17 15:06 92 26 100 03/16/17 14:53 98 31 86/55 (73) 96 03/16/17 14:52 99 21 27/15 (21) 100 03/16/17 14:51 144 25 100 03/16/17 14:47 106 35 60/43 (45) 100 03/16/17 14:42 125 30 78/59 (69) 100 03/16/17 14:35 115 26 97/65 (76) 99 Oxymask 10 03/16/17 14:20 121 25 97/45 (62) 98 Oxymask 10 03/16/17 14:01 85 26 65/47 96 Room Air 03/16/17 14:01 75 22 65/47 (53) 94 Room Air Oxymask 03/16/17 13:59 78 23 62/45 (51) 95 Room Air Oxymask 03/16/17 13:52 119 21 82/48 (59) 96 Room Air Oxymask 03/16/17 13:49 36.7 98 24 78/50 96 Room Air 03/16/17 13:25 98 21 102/66 94 Room Air 03/16/17 12:54 69 18 112/65 96 Nasal Cannula 1 03/16/17 12:29 37.3 77 20 99/64 96 Nasal Cannula 2 03/16/17 12:20 73 16 99/67 98 Nasal Cannula 2 03/16/17 12:10 36.6 73 16 102/64 98 Nasal Cannula 2 03/16/17 12:00 73 16 99/53 98 Oxymask 10 03/16/17 11:50 73 16 105/64 98 Oxymask 10 03/16/17 11:40 36.5 73 16 103/65 100 Oxymask 10 Lab Results: Results Past 24 Hours Test 03/16/17 14:06 03/16/17 14:21 03/16/17 19:55 03/16/17 21:30 Range/Units Bedside Glucose 166 132 70-90 mg/dl Hemoglobin 6.8 10.2 12.0-16.0 g/dL Hematocrit 20.1 29.8 37-47 % Prothrombin Time 11.7 11.6 9.0-12.0 SECONDS Prothromb Time International Ratio 1.1 1.1 0.9-1.1 Sodium Level 140 136-145 mmol/L Potassium Level 3.9 3.5-5.1 mmol/L Chloride Level 106 98-107 mmol/L Carbon Dioxide Level 25 21-32 mmol/L Anion Gap 9.0 3-11 mmol/L Blood Urea Nitrogen 18 7-18 mg/dl Creatinine 0.99 0.60-1.20 mg/dl Est Creatinine Clear Calc Drug Dose 38.3 ml/min Estimated GFR () 62.4 Estimated GFR (Non- 53.8 BUN/Creatinine Ratio 17.9 10-20 Random Glucose 150 70-99 mg/dl Calcium Level 8.3 8.5-10.1 mg/dl Magnesium Level 2.4 1.8-2.4 mg/dl Thyroid Stimulating Hormone (TSH) 1.640 0.300-4.500 uIu/ml Platelet Count 101 130-400 K/uL Platelet Estimate DECREASED Activated Partial Thromboplast Time 27.6 21.0-31.0 SECONDS Partial Thromboplastin Ratio 1.1 Fibrinogen 243 184-400 mg/dl Test 03/16/17 23:22 03/17/17 03:59 Range/Units Hemoglobin 9.5 9.3 12.0-16.0 g/dL Hematocrit 28.5 26.3 37-47 % White Blood Count 47.12 4.8-10.8 K/uL Red Blood Count 2.91 4.2-5.4 M/uL Mean Corpuscular Volume 90.4 80-100 fL Mean Corpuscular Hemoglobin 32.0 25-34 pg Mean Corpuscular Hemoglobin Concent 35.4 32-36 g/dl Platelet Count 81 130-400 K/uL Mean Platelet Volume 9.4 7.4-10.4 fL RDW Standard Deviation 55.1 36.4-46.3 fL RDW Coefficient of Variation 17.3 11.5-14.5 % Neutrophils % (Manual) 6.9 % Lymphocytes % (Manual) 14.7 % Monocytes % (Manual) 77.5 % Blast Cells % 0.9 % Neutrophils # (Manual) 3.25 1.4-6.5 K/uL Total Absolute Neutrophils 3.25 1.4-6.5 K/uL Lymphocytes # (Manual) 6.93 1.2-3.4 K/uL Total Absolute Lymphocytes 6.93 1.2-3.4 K/uL Monocytes # (Manual) 36.52 0.11-0.59 K/uL Blast Cells # 0.42 0-0 K/uL Smudge Cells PRESENT Sodium Level 139 136-145 mmol/L Potassium Level 4.7 3.5-5.1 mmol/L Chloride Level 107 98-107 mmol/L Carbon Dioxide Level 27 21-32 mmol/L Anion Gap 5.0 3-11 mmol/L Blood Urea Nitrogen 21 7-18 mg/dl Creatinine 0.88 0.60-1.20 mg/dl Est Creatinine Clear Calc Drug Dose 41.9 ml/min Estimated GFR () 71.9 Estimated GFR (Non- 62.1 BUN/Creatinine Ratio 23.9 10-20 Random Glucose 110 70-99 mg/dl Calcium Level 7.7 8.5-10.1 mg/dl Phosphorus Level 5.7 2.5-4.9 mg/dl Magnesium Level 2.2 1.8-2.4 mg/dl Microbiology Results 03/16/17 MRSA DNA Surveillance Screen - Final, Complete Specimen Negative for MRSA by DNA Probe
--- NOTE | 2017-03-17 11:59 | Surgery Progress Note ---
Surgery Progress Note Date of Service Mar 17, 2017. Subjective Post OP Day: 1 Patient examined at bedside this morning. Afebrile, vitals stable overnight, no acute events. Has now received 3u PRBC and 2u platelets (one was intraoperatively). Chest tube initially put out approximately 1500ml blood, only approximately 100 overnight - slowing down. Chest tube became disconnected overnight, CXR showed new left pneumothorax which is persistent on this morning's CXR. Patient is complaining of pain at the chest tube site, somewhat controlled with medications. Minimal pain at the left chest port site - dressing changed overnight, clean / dry. Not very hungry, state she only had sips of cranberry juice last night; denies N/V. Breathing comfortably on 2L O2 via NC, continues to have left chest pain with deep inspiration. Objective Vital Signs: Date Time Temp Pulse Resp B/P (MAP) Pulse Ox O2 Delivery O2 Flow Rate FiO2 03/17/17 09:01 76 24 102/67 (79) 96 Nasal Cannula 2.0 03/17/17 09:00 76 13 97 03/17/17 08:31 82 30 103/66 (78) 96 03/17/17 08:01 83 18 115/67 (83) 95 03/17/17 08:00 Nasal Cannula 03/17/17 08:00 75 15 96 03/17/17 07:31 36.7 77 20 104/74 (84) 96 Nasal Cannula 2.0 03/17/17 07:30 96 Nasal Cannula 2.0 03/17/17 07:01 76 14 100/67 (78) 95 03/17/17 07:00 76 16 96 03/17/17 06:00 78 15 112/74 (87) 95 Nasal Cannula 2.0 03/17/17 04:00 95 Nasal Cannula 2.0 03/17/17 04:00 36.7 80 17 111/73 (86) 94 Nasal Cannula 2.0 03/17/17 02:00 76 28 107/64 (78) 96 Nasal Cannula 2.0 03/17/17 00:01 36.4 73 19 95/66 (76) 97 Nasal Cannula 2.0 03/16/17 23:59 97 Nasal Cannula 2.0 03/16/17 22:30 78 18 97/68 (78) 97 Nasal Cannula 2.0 03/16/17 22:00 86 27 100/65 (77) 99 Nasal Cannula 2.0 03/16/17 20:21 82 22 105/72 (83) 99 Nasal Cannula 03/16/17 20:11 84 24 94/73 (80) 98 Nasal Cannula 03/16/17 20:01 83 21 110/75 (87) 98 Nasal Cannula 03/16/17 20:01 36.3 84 21 110/75 98 03/16/17 20:00 98 Nasal Cannula 2.0 03/16/17 18:15 79 22 100 03/16/17 18:11 78 20 94/61 (67) 100 03/16/17 18:01 78 19 91/60 (65) 100 03/16/17 18:00 80 20 100 03/16/17 17:51 77 19 89/59 (71) 100 03/16/17 17:45 75 19 100 03/16/17 17:41 77 21 88/58 (66) 100 03/16/17 17:31 77 19 88/59 (65) 100 03/16/17 17:30 73 19 99 03/16/17 17:21 78 21 89/54 (64) 99 03/16/17 17:15 71 19 99 03/16/17 17:11 80 18 86/56 (66) 99 03/16/17 17:04 36.5 85 19 81/50 100 Nasal Cannula 2.0 03/16/17 17:01 84 19 81/50 (57) 98 03/16/17 17:00 80 20 99 03/16/17 16:51 81 27 87/61 (69) 98 03/16/17 16:45 94 28 95 03/16/17 16:31 86 22 86/53 (63) 100 03/16/17 16:21 90 24 79/51 (57) 100 03/16/17 16:11 97 21 85/62 (66) 100 03/16/17 16:06 95 23 100 03/16/17 16:05 95 28 88/61 100 9.0 03/16/17 16:01 96 23 88/61 (70) 100 03/16/17 15:55 95 28 85/58 100 03/16/17 15:53 96 25 85/58 (66) 100 03/16/17 15:51 95 27 100 03/16/17 15:50 36.4 95 26 85/58 100 9.0 03/16/17 15:36 99 26 99 03/16/17 15:31 101 19 93/65 (72) 100 03/16/17 15:24 92 25 79/61 (67) 100 03/16/17 15:22 36.5 95 21 79/61 100 9.0 03/16/17 15:21 96 28 70/49 (55) 95 03/16/17 15:11 94 29 80/59 (68) 95 03/16/17 15:08 94 30 85/55 (70) 95 03/16/17 15:06 92 26 100 03/16/17 14:53 98 31 86/55 (73) 96 03/16/17 14:52 99 21 27/15 (21) 100 03/16/17 14:51 144 25 100 03/16/17 14:47 106 35 60/43 (45) 100 03/16/17 14:42 125 30 78/59 (69) 100 03/16/17 14:35 115 26 97/65 (76) 99 Oxymask 10 03/16/17 14:20 121 25 97/45 (62) 98 Oxymask 10 03/16/17 14:01 85 26 65/47 96 Room Air 03/16/17 14:01 75 22 65/47 (53) 94 Room Air Oxymask 03/16/17 13:59 78 23 62/45 (51) 95 Room Air Oxymask 03/16/17 13:52 119 21 82/48 (59) 96 Room Air Oxymask 03/16/17 13:49 36.7 98 24 78/50 96 Room Air 03/16/17 13:25 98 21 102/66 94 Room Air 03/16/17 12:54 69 18 112/65 96 Nasal Cannula 1 03/16/17 12:29 37.3 77 20 99/64 96 Nasal Cannula 2 03/16/17 12:20 73 16 99/67 98 Nasal Cannula 2 03/16/17 12:10 36.6 73 16 102/64 98 Nasal Cannula 2 03/16/17 12:00 73 16 99/53 98 Oxymask 10 03/16/17 11:50 73 16 105/64 98 Oxymask 10 General Appearance: WD/WN, no apparent distress Head: normocephalic Neck: supple Respiratory/Chest: normal breath sounds, no respiratory distress Cardiovascular: regular rate, rhythm Abdomen: non tender, non distended, soft Incision(s): clean, dry, intact Laboratory Results: Results Past 24 Hours Test 03/16/17 14:06 03/16/17 14:21 03/16/17 19:55 03/16/17 21:30 Range/Units Bedside Glucose 166 132 70-90 mg/dl Hemoglobin 6.8 10.2 12.0-16.0 g/dL Hematocrit 20.1 29.8 37-47 % Prothrombin Time 11.7 11.6 9.0-12.0 SECONDS Prothromb Time International Ratio 1.1 1.1 0.9-1.1 Sodium Level 140 136-145 mmol/L Potassium Level 3.9 3.5-5.1 mmol/L Chloride Level 106 98-107 mmol/L Carbon Dioxide Level 25 21-32 mmol/L Anion Gap 9.0 3-11 mmol/L Blood Urea Nitrogen 18 7-18 mg/dl Creatinine 0.99 0.60-1.20 mg/dl Est Creatinine Clear Calc Drug Dose 38.3 ml/min Estimated GFR () 62.4 Estimated GFR (Non- 53.8 BUN/Creatinine Ratio 17.9 10-20 Random Glucose 150 70-99 mg/dl Calcium Level 8.3 8.5-10.1 mg/dl Magnesium Level 2.4 1.8-2.4 mg/dl Thyroid Stimulating Hormone (TSH) 1.640 0.300-4.500 uIu/ml Platelet Count 101 130-400 K/uL Platelet Estimate DECREASED Activated Partial Thromboplast Time 27.6 21.0-31.0 SECONDS Partial Thromboplastin Ratio 1.1 Fibrinogen 243 184-400 mg/dl Test 03/16/17 23:22 03/17/17 03:59 Range/Units Hemoglobin 9.5 9.3 12.0-16.0 g/dL Hematocrit 28.5 26.3 37-47 % White Blood Count 47.12 4.8-10.8 K/uL Red Blood Count 2.91 4.2-5.4 M/uL Mean Corpuscular Volume 90.4 80-100 fL Mean Corpuscular Hemoglobin 32.0 25-34 pg Mean Corpuscular Hemoglobin Concent 35.4 32-36 g/dl Platelet Count 81 130-400 K/uL Mean Platelet Volume 9.4 7.4-10.4 fL RDW Standard Deviation 55.1 36.4-46.3 fL RDW Coefficient of Variation 17.3 11.5-14.5 % Neutrophils % (Manual) 6.9 % Lymphocytes % (Manual) 14.7 % Monocytes % (Manual) 77.5 % Blast Cells % 0.9 % Neutrophils # (Manual) 3.25 1.4-6.5 K/uL Total Absolute Neutrophils 3.25 1.4-6.5 K/uL Lymphocytes # (Manual) 6.93 1.2-3.4 K/uL Total Absolute Lymphocytes 6.93 1.2-3.4 K/uL Monocytes # (Manual) 36.52 0.11-0.59 K/uL Blast Cells # 0.42 0-0 K/uL Smudge Cells PRESENT Sodium Level 139 136-145 mmol/L Potassium Level 4.7 3.5-5.1 mmol/L Chloride Level 107 98-107 mmol/L Carbon Dioxide Level 27 21-32 mmol/L Anion Gap 5.0 3-11 mmol/L Blood Urea Nitrogen 21 7-18 mg/dl Creatinine 0.88 0.60-1.20 mg/dl Est Creatinine Clear Calc Drug Dose 41.9 ml/min Estimated GFR () 71.9 Estimated GFR (Non- 62.1 BUN/Creatinine Ratio 23.9 10-20 Random Glucose 110 70-99 mg/dl Calcium Level 7.7 8.5-10.1 mg/dl Phosphorus Level 5.7 2.5-4.9 mg/dl Magnesium Level 2.2 1.8-2.4 mg/dl Microbiology Results 03/16/17 MRSA DNA Surveillance Screen - Final, Complete Specimen Negative for MRSA by DNA Probe Assessment & Plan Jyoti Aguilar is an 81 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 Hemodynamics stabilized, Hgb has also remained stable. Blood clots in chest tube with persistent pneumothorax, likely chest tube is clogged and unable to completely evacuate pleural space. -Per Thoracic surgery, will go for VATS today to reposition chest tube, place nerve block for pain control, and evacuate hematoma -Resuscitation per [facility], appreciate assistance -Pain control as needed -Chemotherapy on hold, appreciate Oncology evaluation -Continue to follow closely Itzel Leonardo MD 03/17/17
--- NOTE | 2017-03-17 11:59 | Surgery Progress Note ---
Surgery Progress Note Date of Service Mar 17, 2017. Subjective Post OP Day: 1 (s/p aport placement and placement of left sided chest tube) had a rough evening with chest pain, pain at the chest tube site No shortness of breath or difficulty breathing. Unable to take a deep breath due to pain pain controlled now with pain medication No palpitations or other chest pain/pressure no abdominal pain, nausea or vomiting Objective Vital Signs: Date Time Temp Pulse Resp B/P (MAP) Pulse Ox O2 Delivery O2 Flow Rate FiO2 03/17/17 09:01 76 24 102/67 (79) 96 Nasal Cannula 2.0 03/17/17 09:00 76 13 97 03/17/17 08:31 82 30 103/66 (78) 96 03/17/17 08:01 83 18 115/67 (83) 95 03/17/17 08:00 Nasal Cannula 03/17/17 08:00 75 15 96 03/17/17 07:31 36.7 77 20 104/74 (84) 96 Nasal Cannula 2.0 03/17/17 07:30 96 Nasal Cannula 2.0 03/17/17 07:01 76 14 100/67 (78) 95 03/17/17 07:00 76 16 96 03/17/17 06:00 78 15 112/74 (87) 95 Nasal Cannula 2.0 03/17/17 04:00 95 Nasal Cannula 2.0 03/17/17 04:00 36.7 80 17 111/73 (86) 94 Nasal Cannula 2.0 03/17/17 02:00 76 28 107/64 (78) 96 Nasal Cannula 2.0 03/17/17 00:01 36.4 73 19 95/66 (76) 97 Nasal Cannula 2.0 03/16/17 23:59 97 Nasal Cannula 2.0 03/16/17 22:30 78 18 97/68 (78) 97 Nasal Cannula 2.0 03/16/17 22:00 86 27 100/65 (77) 99 Nasal Cannula 2.0 03/16/17 20:21 82 22 105/72 (83) 99 Nasal Cannula 03/16/17 20:11 84 24 94/73 (80) 98 Nasal Cannula 03/16/17 20:01 83 21 110/75 (87) 98 Nasal Cannula 03/16/17 20:01 36.3 84 21 110/75 98 03/16/17 20:00 98 Nasal Cannula 2.0 03/16/17 18:15 79 22 100 03/16/17 18:11 78 20 94/61 (67) 100 03/16/17 18:01 78 19 91/60 (65) 100 03/16/17 18:00 80 20 100 03/16/17 17:51 77 19 89/59 (71) 100 03/16/17 17:45 75 19 100 03/16/17 17:41 77 21 88/58 (66) 100 03/16/17 17:31 77 19 88/59 (65) 100 03/16/17 17:30 73 19 99 03/16/17 17:21 78 21 89/54 (64) 99 03/16/17 17:15 71 19 99 03/16/17 17:11 80 18 86/56 (66) 99 03/16/17 17:04 36.5 85 19 81/50 100 Nasal Cannula 2.0 03/16/17 17:01 84 19 81/50 (57) 98 03/16/17 17:00 80 20 99 03/16/17 16:51 81 27 87/61 (69) 98 03/16/17 16:45 94 28 95 03/16/17 16:31 86 22 86/53 (63) 100 03/16/17 16:21 90 24 79/51 (57) 100 03/16/17 16:11 97 21 85/62 (66) 100 03/16/17 16:06 95 23 100 03/16/17 16:05 95 28 88/61 100 9.0 03/16/17 16:01 96 23 88/61 (70) 100 03/16/17 15:55 95 28 85/58 100 03/16/17 15:53 96 25 85/58 (66) 100 03/16/17 15:51 95 27 100 03/16/17 15:50 36.4 95 26 85/58 100 9.0 03/16/17 15:36 99 26 99 03/16/17 15:31 101 19 93/65 (72) 100 03/16/17 15:24 92 25 79/61 (67) 100 03/16/17 15:22 36.5 95 21 79/61 100 9.0 03/16/17 15:21 96 28 70/49 (55) 95 03/16/17 15:11 94 29 80/59 (68) 95 03/16/17 15:08 94 30 85/55 (70) 95 03/16/17 15:06 92 26 100 03/16/17 14:53 98 31 86/55 (73) 96 03/16/17 14:52 99 21 27/15 (21) 100 03/16/17 14:51 144 25 100 03/16/17 14:47 106 35 60/43 (45) 100 03/16/17 14:42 125 30 78/59 (69) 100 03/16/17 14:35 115 26 97/65 (76) 99 Oxymask 10 03/16/17 14:20 121 25 97/45 (62) 98 Oxymask 10 03/16/17 14:01 85 26 65/47 96 Room Air 03/16/17 14:01 75 22 65/47 (53) 94 Room Air Oxymask 03/16/17 13:59 78 23 62/45 (51) 95 Room Air Oxymask 03/16/17 13:52 119 21 82/48 (59) 96 Room Air Oxymask 03/16/17 13:49 36.7 98 24 78/50 96 Room Air 03/16/17 13:25 98 21 102/66 94 Room Air 03/16/17 12:54 69 18 112/65 96 Nasal Cannula 1 03/16/17 12:29 37.3 77 20 99/64 96 Nasal Cannula 2 03/16/17 12:20 73 16 99/67 98 Nasal Cannula 2 03/16/17 12:10 36.6 73 16 102/64 98 Nasal Cannula 2 03/16/17 12:00 73 16 99/53 98 Oxymask 10 Physical Exam: chest tube drainage (bloody, dark clot present in tubing) General Appearance: WD/WN, no apparent distress Head: normocephalic, atraumatic Neck: trachea midline Respiratory/Chest: no accessory muscle use, + pertinent finding (right lung sounds clear however diminished on the left) Cardiovascular: regular rate, rhythm, no murmur Incision(s): findings (dressing on left aport, clean and dry, chest tube dressing clean and dry) Laboratory Results: Results Past 24 Hours Test 03/16/17 14:06 03/16/17 14:21 10/30/17 19:55 03/16/17 21:30 Range/Units Bedside Glucose 166 132 70-90 mg/dl Hemoglobin 6.8 10.2 12.0-16.0 g/dL Hematocrit 20.1 29.8 37-47 % Prothrombin Time 11.7 11.6 9.0-12.0 SECONDS Prothromb Time International Ratio 1.1 1.1 0.9-1.1 Sodium Level 140 136-145 mmol/L Potassium Level 3.9 3.5-5.1 mmol/L Chloride Level 106 98-107 mmol/L Carbon Dioxide Level 25 21-32 mmol/L Anion Gap 9.0 3-11 mmol/L Blood Urea Nitrogen 18 7-18 mg/dl Creatinine 0.99 0.60-1.20 mg/dl Est Creatinine Clear Calc Drug Dose 38.3 ml/min Estimated GFR () 62.4 Estimated GFR (Non- 53.8 BUN/Creatinine Ratio 17.9 10-20 Random Glucose 150 70-99 mg/dl Calcium Level 8.3 8.5-10.1 mg/dl Magnesium Level 2.4 1.8-2.4 mg/dl Thyroid Stimulating Hormone (TSH) 1.640 0.300-4.500 uIu/ml Platelet Count 101 130-400 K/uL Platelet Estimate DECREASED Activated Partial Thromboplast Time 27.6 21.0-31.0 SECONDS Partial Thromboplastin Ratio 1.1 Fibrinogen 243 184-400 mg/dl Test 03/16/17 23:22 03/17/17 03:59 Range/Units Hemoglobin 9.5 9.3 12.0-16.0 g/dL Hematocrit 28.5 26.3 37-47 % White Blood Count 47.12 4.8-10.8 K/uL Red Blood Count 2.91 4.2-5.4 M/uL Mean Corpuscular Volume 90.4 80-100 fL Mean Corpuscular Hemoglobin 32.0 25-34 pg Mean Corpuscular Hemoglobin Concent 35.4 32-36 g/dl Platelet Count 81 130-400 K/uL Mean Platelet Volume 9.4 7.4-10.4 fL RDW Standard Deviation 55.1 36.4-46.3 fL RDW Coefficient of Variation 17.3 11.5-14.5 % Neutrophils % (Manual) 6.9 % Lymphocytes % (Manual) 14.7 % Monocytes % (Manual) 77.5 % Blast Cells % 0.9 % Neutrophils # (Manual) 3.25 1.4-6.5 K/uL Total Absolute Neutrophils 3.25 1.4-6.5 K/uL Lymphocytes # (Manual) 6.93 1.2-3.4 K/uL Total Absolute Lymphocytes 6.93 1.2-3.4 K/uL Monocytes # (Manual) 36.52 0.11-0.59 K/uL Blast Cells # 0.42 0-0 K/uL Smudge Cells PRESENT Sodium Level 139 136-145 mmol/L Potassium Level 4.7 3.5-5.1 mmol/L Chloride Level 107 98-107 mmol/L Carbon Dioxide Level 27 21-32 mmol/L Anion Gap 5.0 3-11 mmol/L Blood Urea Nitrogen 21 7-18 mg/dl Creatinine 0.88 0.60-1.20 mg/dl Est Creatinine Clear Calc Drug Dose 41.9 ml/min Estimated GFR () 71.9 Estimated GFR (Non- 62.1 BUN/Creatinine Ratio 23.9 10-20 Random Glucose 110 70-99 mg/dl Calcium Level 7.7 8.5-10.1 mg/dl Phosphorus Level 5.7 2.5-4.9 mg/dl Magnesium Level 2.2 1.8-2.4 mg/dl Microbiology Results 03/16/17 MRSA DNA Surveillance Screen - Final, Complete Specimen Negative for MRSA by DNA Probe Assessment & Plan POD # 1 s/p left aport placement and left chest tube placement for left hemothorax. Chest tube was displaced in the evening and now has left sided pneumothorax. Chest tube output yesterday total of 1700 cc, bloody drainage. S /p 3 units of PRBCs and 2 packs of platelets. hemoglobin stable at 9.3 this morning. Platelets at 81K. Now in normal sinus rhythm. CXR this morning showing left sided pneumothorax with upper left lung lobe edema/atelectasis. Plan: Patient going for VATS today by Dr. Ramos for evacuation of hemothorax and repositioning of chest tube S/P 3 units of PRBCs and 2 packs of platelets, hemodynamically stable Continue NPO for procedure Holding Allopurinol and Hydroxurea per Dr. Elmore Continue current pain management as needed Continue IV Zofran as needed for nausea continue ICU management Appreciate ICU and hospitalist and Thoracic surgery management Will continue to follow Dr. Leonardo has seen and examined patient, agrees with above.
[2017-03-17] MEDS ORDERED: ONDANSETRON INJ 2 MG/ML 2 ML VIAL IV PRN (12:15)
[2017-03-17] MEDS ORDERED: ATROPINE SULFATE 0.1 MG/ML 5ML SYR IV PRN (12:15)
[2017-03-17] MEDS ORDERED: EpHEDrine SULFATE INJ 50 MG/ML AMP IV PRN (12:15)
[2017-03-17] MEDS ORDERED: PROMETHAZINE HCL INJ 6.25 MG in SODIUM CHLORIDE 0.9% 50ML 50 ML IV PRN (12:15)
[2017-03-17] MEDS ORDERED: FENTANYL CITRATE INJ 50 MCG/1 ML 2 ML VIAL IV PRN (12:15)
[2017-03-17] MEDS ORDERED: MIDAZOLAM HCL 1 MG/ML 2ML VIAL ONE (12:21)
[2017-03-17] MEDS ORDERED: FENTANYL CITRATE INJ 50 MCG/1 ML 2 ML VIAL ONE ×2 (12:22→15:10)
[2017-03-17] MEDS ORDERED: BUPIVACAINE LIPOSOME 1/3% 266 MG/20 ML VIAL INFIL ONE (12:55)
[2017-03-17] MEDS ORDERED: SODIUM CHLORIDE 0.9% PF 50 ML VIAL ONE (12:55)
[2017-03-17] MEDS ORDERED: PROPOFOL IV EMULSION 10 MG/ML 20 ML VIAL IV ONE ×2 (13:50→14:23)
[2017-03-17] MEDS ORDERED: ONDANSETRON INJ 2 MG/ML 2 ML VIAL ONE (13:50)
[2017-03-17] MEDS ORDERED: NEOSTIGMINE METHYLSULFATE 5 MG/5 ML SYR ONE (13:50)
[2017-03-17] MEDS ORDERED: CEFAZOLIN SOD 1 GM VIAL ONE ×2 (13:50→14:05)
[2017-03-17] MEDS ORDERED: DEXAMETHASONE SOD INJ 4 MG/ML VIAL ONE (13:50)
[2017-03-17] MEDS ORDERED: GLYCOPYRROLATE INJ 0.2 MG/ML VIAL ONE (13:50)
[2017-03-17] MEDS ORDERED: LIDOCAINE HCL 2% 2 ML VIAL (20MG/ML) ONE (13:50)
--- NOTE | 2017-03-17 14:10 | Anesthesiology Progress Note ---
Anesthesia Post Op Note Date & Time Mar 17, 2017 at 14:10 Vital Signs Vital Signs Past 12 Hours Date Time Temp Pulse Resp B/P (MAP) Pulse Ox O2 Delivery O2 Flow Rate FiO2 03/17/17 11:50 95 Nasal Cannula 2.0 03/17/17 09:01 76 24 102/67 (79) 96 Nasal Cannula 2.0 03/17/17 09:00 76 13 97 03/17/17 08:31 82 30 103/66 (78) 96 03/17/17 08:01 83 18 115/67 (83) 95 03/17/17 08:00 Nasal Cannula 03/17/17 08:00 75 15 96 03/17/17 07:31 36.7 77 20 104/74 (84) 96 Nasal Cannula 2.0 03/17/17 07:30 96 Nasal Cannula 2.0 03/17/17 07:01 76 14 100/67 (78) 95 03/17/17 07:00 76 16 96 03/17/17 06:00 78 15 112/74 (87) 95 Nasal Cannula 2.0 03/17/17 04:00 95 Nasal Cannula 2.0 03/17/17 04:00 36.7 80 17 111/73 (86) 94 Nasal Cannula 2.0 Notes Mental Status: alert / awake / arousable, participated in evaluation Pt Amnestic to Procedure: Yes Nausea / Vomiting: adequately controlled Pain: adequately controlled Airway Patency, RR, SpO2: stable & adequate BP & HR: stable & adequate Hydration State: stable & adequate Anesthetic Complications: no major complications apparent
--- NOTE | 2017-03-17 15:58 | DIAGNOSTIC IMAGING REPORT ---
CHEST ONE VIEW PORTABLE CLINICAL HISTORY: s/p VATS COMPARISON STUDY: Chest radiograph March 17, 2017 at 8:05 AM. FINDINGS: A left subclavian [id number] remains in place. Left apical chest tube is now in place. A small amount of gas within left chest wall and left neck is noted. The left pneumothorax is no longer visualized with reexpansion of the left lung. Amount of left pleural fluid has also improved. There are bibasilar opacities, left greater than right. The patient is rotated. IMPRESSION: 1. Interval placement of a left apical chest tube with resolution of left pneumothorax and decrease in amount of left pleural fluid. 2. Bibasilar opacities, left greater than right. Electronically signed by: Keo Ridley M.D. 03/17/2017 3:56 PM Dictated Date/Time: 03/17/2017 3:54 PM
--- NOTE | 2017-03-17 16:38 | OPERATIVE REPORT ---
DATE OF OPERATION: 03/17/2017 PREOPERATIVE DIAGNOSES: 1. Clotted left hemothorax. 2. Acute myeloid leukemia. POSTOPERATIVE DIAGNOSES: Same. PROCEDURE: Left thoracoscopy with evacuation of left hemothorax. SURGEON: Jamison Ramos MD INSTITUTION DIRECTOR: heath Drew 3. ANESTHESIA: General anesthesia endotracheal intubation using single-lumen tube. SPECIFICS OF PROCEDURE AND FINDINGS: This is an 81-year-old female who was recently diagnosed as having acute myeloid leukemia. She came in with a platelet count of 34,000. She was given platelets and Dr. Leonardo inserted a Port-A-Cath without incident. She became more short of breath and went into atrial fibrillation and was found to have a left hemothorax. She was then taken to the ICU, where her chest tube was inserted and about 1500 mL total of blood was drained. She stopped draining; however, her lung would not expand given the amount of blood. It was not draining with a large bore chest tube. For this reason, I discussed with the patient and her and felt that we should take her to the operating room, as she was stable and to evacuate this hematoma. This is only going to present problems for her in the future, especially if she is to receive chemotherapy soon. On 03/17/2017, the patient was taken to the operating room and a left video-assisted thoracoscopic surgery was done. I used the original chest tube site as well as 2 other ports and evacuated a large amount of clotted hemothorax. The lungs themselves were pink and looked quite good. She has never smoked cigarettes. Finally, I was able to suck out all of the blood and removed all the old clot. I estimated this to be in excess of 500 mL. We really did not have any active bleeding and I could not find any bleeding after I had irrigated out the chest. There was no air leak and no active bleeding. She tolerated it well and was extubated in the room. I used Exparel for a block. DESCRIPTION OF PROCEDURE: The patient was brought to the operating room and placed in supine position. General anesthesia induced and endotracheal intubation was performed with a single-lumen tube. The patient was turned in a right lateral decubitus position. Left chest was prepped and draped in the usual sterile fashion. After appropriate timeout had been called and antibiotics had been given, the chest tube was removed and a 5-mm port was placed. There was a large amount of old clot. I placed a 10-mm port at the tip of the scapula and then another 10-mm port more superior about the fourth interspace. With these 3 ports, we were then able to remove all this clot, although I had to remove a large amount with the forceps and finally, was able to remove all of the clot and using irrigating suction apparatus to irrigate out the chest. I closely evaluated the subclavian and cupula of the pleural cavity. I did not see evidence of any active bleeding. Exparel 266 mg was reconstituted with 60 mL total of normal saline. I then under thoracoscopic guidance injected from the 2nd to the 11th rib without difficulty. This intercostal block was done under thoracoscopic guidance. A 24-Emirati chest tube was placed back in the original chest tube site and directed towards the apex. A 0 Vicryl was used in a single stitch to close the 2 thoracoscopy incisions. The 4-0 Monocryl was used in running subcuticular fashion to approximate the wound edges. She tolerated it very well and was extubated in the room. She had no air leak and no bleeding at the conclusion of the case. I attest to the content of the Intraoperative Record and any orders documented therein. Any exceptions are noted below. THEA
--- NOTE | 2017-03-17 16:53 | Anesthesiology Progress Note ---
Anesthesia Post Op Note Date & Time Mar 17, 2017 at 16:53 Vital Signs Pain Intensity: 0.0 Vital Signs Past 12 Hours Date Time Temp Pulse Resp B/P (MAP) Pulse Ox O2 Delivery O2 Flow Rate FiO2 03/17/17 16:00 96 Nasal Cannula 12.0 Mask 03/17/17 11:50 95 Nasal Cannula 2.0 03/17/17 09:01 76 24 102/67 (79) 96 Nasal Cannula 2.0 03/17/17 09:00 76 13 97 03/17/17 08:31 82 30 103/66 (78) 96 03/17/17 08:01 83 18 115/67 (83) 95 03/17/17 08:00 Nasal Cannula 03/17/17 08:00 75 15 96 03/17/17 07:31 36.7 77 20 104/74 (84) 96 Nasal Cannula 2.0 03/17/17 07:30 96 Nasal Cannula 2.0 03/17/17 07:01 76 14 100/67 (78) 95 03/17/17 07:00 76 16 96 03/17/17 06:00 78 15 112/74 (87) 95 Nasal Cannula 2.0 Notes Mental Status: alert / awake / arousable, participated in evaluation Pt Amnestic to Procedure: Yes Nausea / Vomiting: adequately controlled Pain: adequately controlled Airway Patency, RR, SpO2: stable & adequate BP & HR: stable & adequate Hydration State: stable & adequate Anesthetic Complications: no major complications apparent
--- NOTE | 2017-03-17 19:07 | Hematology/Oncology Prog Note ---
Hematology/Onc Progress Note Date of Service Mar 17, 2017. Subjective 81-year-old female, Hematological diagnosis: -Acute myeloid leukemia, M5 variant, -Recently started her on hydroxyurea because of rapid rise in the white blood cell count -Planning for systemic chemotherapy with intravenous Dacogen as an outpatient. Admitted after port placement noticed to have left hemothorax required chest tube drainage, received 3 units of PRBC and 2 units of platelet transfusion, now hemodynamically if she has stable, no fever, left chest pain has improved, no bleeding from any sites, no leg edema, no new bleeding problems, no nausea or vomiting. Blood workup done on 03/17/2017: -WBC 32873, H&H of 9.3/26.3, Platelet count of 81,000. -BUN/Creat: 21/0.8, calcium 7.7 Today she underwent left thoracoscopy with evaluation of the left hemothorax by Dr. Ramos, now she has significantly less left chest tube drainage, if she continues to do well and no new bleeding issues, most likely she will have removal of the chest tube tomorrow and then likely to go home. Will review CBCD tomorrow, if her white blood cell count continues to go up, will restart hydroxyurea. I am planning to see her next week in the office and then will proceed with systemic chemotherapy with Dacogen. Dr. Rehan Elmore Hem/Onc (This note was completed using the dictation program Fluency Direct. As such, there may be misspellings, word substitutions, or other variations that should not change the essence of the clinical content of this encounter note. If there is need for further clarification, please direct questions to the provider listed above.) Vital Signs Vital Signs Past 12 Hours Date Time Temp Pulse Resp B/P (MAP) Pulse Ox O2 Delivery O2 Flow Rate FiO2 03/17/17 18:01 65 18 93/55 (59) 96 03/17/17 18:00 36.7 03/17/17 17:46 64 11 92/60 (73) 96 03/17/17 17:32 65 17 92/70 (82) 96 03/17/17 17:16 59 14 91/57 (70) 96 03/17/17 17:01 61 20 97/59 (77) 96 03/17/17 16:47 60 16 96 03/17/17 16:46 60 16 91/59 (71) 95 03/17/17 16:32 55 15 90/59 (65) 95 03/17/17 16:17 62 20 94/70 (76) 96 03/17/17 16:03 60 28 92/46 (73) 94 03/17/17 16:00 96 Nasal Cannula 12.0 Mask 03/17/17 15:46 63 18 94/72 (77) 96 03/17/17 15:39 36.4 68 16 103/50 (70) 93 03/17/17 11:50 95 Nasal Cannula 2.0 03/17/17 09:01 76 24 102/67 (79) 96 Nasal Cannula 2.0 03/17/17 09:00 76 13 97 03/17/17 08:31 82 30 103/66 (78) 96 03/17/17 08:01 83 18 115/67 (83) 95 03/17/17 08:00 Nasal Cannula 03/17/17 08:00 75 15 96 03/17/17 07:31 36.7 77 20 104/74 (84) 96 Nasal Cannula 2.0 03/17/17 07:30 96 Nasal Cannula 2.0
[2017-03-17 23:25] LABS: BUN/CREATININE RATIO 19.2 (10-20); CALCIUM 7.5 mg/dl (8.5-10.1); CREATININE 0.91 mg/dl (0.60-1.20)
[2017-03-18] VITALS (54 sets, daily range): BP systolic 64–118; BP diastolic 46–70; PULSE 58–120; TEMP 36.8–37; O2SAT 90–99
[2017-03-18 00:06] LABS: MEAN CELL VOLUME 92.1 fL (80-100); MEAN CORPUSCULAR HEMOGLOBIN 31.4 pg (25-34); MEAN CORPUSCULAR HGB CONC 34.1 g/dl (32-36); MEAN PLATELET VOLUME 9.6 fL (7.4-10.4); PLATELET COUNT 58 K/uL (130-400); RED BLOOD COUNT 2.39 M/uL (4.2-5.4)
[2017-03-18 01:15] LABS: LYMPH ABS # 7.54 K/uL (1.2-3.4); LYMPHOCYTE % 17.7 %; META ABS # 0.38 K/uL (0-0); METAMYELOCYTE % 0.9 %; MYELOCYTE % 0.9 %; NEUTROPHILS % 11.5 %; SMUDGE CELLS PRESENT
[2017-03-18 01:21] LABS: COMPLETE YES
[2017-03-18] MEDS: LACTATED RINGER'S 1000ML 1,000 ML IV SCH ×3 (02:23→23:11)
[2017-03-18 02:58] LABS: BLOOD UREA NITROGEN 16 mg/dl (7-18); BUN/CREATININE RATIO 20.1 (10-20); CALCIUM 7.4 mg/dl (8.5-10.1); CARBON DIOXIDE 28 mmol/L (21-32); CHLORIDE 105 mmol/L (98-107); CREATININE 0.78 mg/dl (0.60-1.20); GLUCOSE 115 mg/dl (70-99); PHOSPHORUS 3.9 mg/dl (2.5-4.9); POTASSIUM 4.1 mmol/L (3.5-5.1); SODIUM 138 mmol/L (136-145)
[2017-03-18 03:42] LABS: HEMATOCRIT 21.7 % (37-47); MEAN CELL VOLUME 91.9 fL (80-100); MEAN CORPUSCULAR HEMOGLOBIN 30.9 pg (25-34); MEAN CORPUSCULAR HGB CONC 33.6 g/dl (32-36); MEAN PLATELET VOLUME 9.5 fL (7.4-10.4); PLATELET COUNT 54 K/uL (130-400); RED BLOOD COUNT 2.36 M/uL (4.2-5.4); WHITE BLOOD COUNT 46.03 K/uL (4.8-10.8)
[2017-03-18 03:46] LABS: LYMPH ABS # 6.21 K/uL (1.2-3.4); LYMPHOCYTE % 13.5 %; META ABS # 0.41 K/uL (0-0); METAMYELOCYTE % 0.9 %; NEUTROPHILS % 5.4 %; SMUDGE CELLS PRESENT
[2017-03-18 03:53] LABS: COMPLETE YES
--- NOTE | 2017-03-18 07:01 | DIAGNOSTIC IMAGING REPORT ---
CHEST ONE VIEW PORTABLE CLINICAL HISTORY: left hemothorax, s/p chest tube placement COMPARISON STUDY: 03/17/2017 FINDINGS: The left subclavian central venous catheter is again evident. The heart is borderline enlarged. There is mild mediastinal widening. There are left medial airspace opacities partially silhouetting the aortic knob. Small pleural effusions are suspected. A trace medial pneumothorax cannot be excluded.[ IMPRESSION: Persistent left paramediastinal airspace opacity silhouetting out the aortic knob. Mild mediastinal widening. Small pleural effusions. Equivocal trace left medial pneumothorax. Electronically signed by: Sharad Diallo M.D. 03/18/2017 6:59 AM Dictated Date/Time: 03/18/2017 6:57 AM
[2017-03-18] MEDS: MoRPHine SULFATE 2 MG/ML CARP IV PRN ×4 (07:57→18:29)
[2017-03-18] MEDS: SENNA 8.6 MG TAB PO SCH (08:08)
[2017-03-18] MEDS: ALLOPURINOL 300 MG TAB PO SCH (08:08)
[2017-03-18] MEDS: SOTALOL HCL 80 MG TAB PO SCH (08:08)
[2017-03-18] MEDS: DOCUSATE SODIUM 100 MG CAP PO SCH ×2 (08:08→21:02)
[2017-03-18 08:10] LABS: HEMATOCRIT 22.5 % (37-47); MEAN CELL VOLUME 91.8 fL (80-100); MEAN CORPUSCULAR HGB CONC 33.8 g/dl (32-36); RED BLOOD COUNT 2.45 M/uL (4.2-5.4); WHITE BLOOD COUNT 47.41 K/uL (4.8-10.8)
[2017-03-18 08:40] LABS: MEAN PLATELET VOLUME 9.7 fL (7.4-10.4); PLATELET COUNT 59 K/uL (130-400)
[2017-03-18 08:53] LABS: LYMPH ABS # 6.16 K/uL (1.2-3.4); NEUTROPHILS % 10.4 %
[2017-03-18 08:54] LABS: COMPLETE YES; SMUDGE CELLS PRESENT
--- NOTE | 2017-03-18 09:13 | Anesthesiology Progress Note ---
Anesthesia Post Op Note Date & Time Mar 18, 2017 at 09:12 Vital Signs Vital Signs Past 12 Hours Date Time Temp Pulse Resp B/P (MAP) Pulse Ox O2 Delivery O2 Flow Rate FiO2 03/18/17 08:01 36.8 72 16 97/61 (73) 98 Nasal Cannula 2.0 03/18/17 08:00 98 Nasal Cannula 2.0 03/18/17 08:00 75 22 99 03/18/17 07:01 66 18 118/58 (78) 98 03/18/17 07:00 67 19 98 03/18/17 06:00 77 23 114/65 (81) 96 Nasal Cannula 2.0 03/18/17 06:00 77 23 96 03/18/17 05:00 70 19 97 03/18/17 05:00 70 19 97 03/18/17 04:00 Nasal Cannula 2.0 03/18/17 04:00 68 22 99 03/18/17 04:00 37.0 68 22 109/55 (73) 99 Nasal Cannula 2.0 03/18/17 03:00 66 22 98 03/18/17 02:00 65 15 98 03/18/17 02:00 65 15 97/56 (70) 98 Nasal Cannula 2.0 03/18/17 01:00 66 16 98 03/18/17 00:01 36.8 66 15 91/53 (66) 97 Nasal Cannula 2.0 03/18/17 00:01 66 15 91/53 (76) 97 03/17/17 23:59 Nasal Cannula 2.0 03/17/17 23:00 70 18 96 03/17/17 22:47 75 17 86/52 (61) 97 03/17/17 22:10 36.5 66 15 84/52 (57) 97 03/17/17 22:01 67 14 80/48 (53) 97 03/17/17 21:31 66 13 93/55 (59) 97 Notes Mental Status: alert / awake / arousable, participated in evaluation Pt Amnestic to Procedure: Yes Nausea / Vomiting: adequately controlled Pain: adequately controlled Airway Patency, RR, SpO2: stable & adequate BP & HR: stable & adequate Hydration State: stable & adequate Anesthetic Complications: no major complications apparent pt stated she was back to her baseline respiratory status
[2017-03-18] MEDS ORDERED: METOPROLOL TARTRATE 1 MG/ML VIAL ONE (09:40)
--- NOTE | 2017-03-18 10:06 | Surgery Progress Note ---
Surgery Progress Note Date of Service Mar 18, 2017. Subjective Patient examined at bedside this morning. Afebrile, vitals stable on 2L O2 via NC overnight, no acute events. Pain is much better controlled s/p VATS with Exparel nerve block yesterday. Still has some discomfort at the site, but much better than yesterday. States it is easier to take a deep breath. Not complaining of any pain at port site, dressing remains clean, dry, intact. Does not have much appetite, but denies N/V. Has not yet been out of bed. Tatum remains in place and functioning, draining clear / yellow urine, UOP adequate. Objective Vital Signs: Date Time Temp Pulse Resp B/P (MAP) Pulse Ox O2 Delivery O2 Flow Rate FiO2 03/18/17 09:48 113 94/60 03/18/17 08:01 36.8 72 16 97/61 (73) 98 Nasal Cannula 2.0 03/18/17 08:00 Nasal Cannula 03/18/17 08:00 98 Nasal Cannula 2.0 03/18/17 08:00 75 22 99 03/18/17 07:01 66 18 118/58 (78) 98 03/18/17 07:00 67 19 98 03/18/17 06:00 77 23 114/65 (81) 96 Nasal Cannula 2.0 03/18/17 06:00 77 23 96 03/18/17 05:00 70 19 97 03/18/17 05:00 70 19 97 03/18/17 04:00 Nasal Cannula 2.0 03/18/17 04:00 68 22 99 03/18/17 04:00 37.0 68 22 109/55 (73) 99 Nasal Cannula 2.0 03/18/17 03:00 66 22 98 03/18/17 02:00 65 15 98 03/18/17 02:00 65 15 97/56 (70) 98 Nasal Cannula 2.0 03/18/17 01:00 66 16 98 03/18/17 00:01 36.8 66 15 91/53 (66) 97 Nasal Cannula 2.0 03/18/17 00:01 66 15 91/53 (76) 97 03/17/17 23:59 Nasal Cannula 2.0 03/17/17 23:00 70 18 96 03/17/17 22:47 75 17 86/52 (61) 97 03/17/17 22:10 36.5 66 15 84/52 (57) 97 03/17/17 22:01 67 14 80/48 (53) 97 03/17/17 21:31 66 13 93/55 (59) 97 03/17/17 21:01 67 13 83/52 (61) 97 03/17/17 21:01 67 13 83/52 (61) 97 03/17/17 20:31 66 14 85/52 (56) 98 03/17/17 20:01 64 17 88/54 (68) 97 03/17/17 20:00 36.5 97 Nasal Cannula 2.0 03/17/17 20:00 97 Nasal Cannula 2.0 03/17/17 19:31 68 23 112/66 (74) 98 03/17/17 19:01 64 21 100/58 (71) 98 03/17/17 18:54 68 21 89/57 (62) 98 03/17/17 18:46 60 13 84/53 (61) 98 03/17/17 18:31 64 17 86/57 (75) 97 03/17/17 18:16 68 18 96/61 (77) 97 03/17/17 18:01 65 18 93/55 (59) 96 03/17/17 18:01 65 18 93/55 (59) 96 03/17/17 18:00 62 13 97 03/17/17 18:00 36.7 03/17/17 17:46 64 11 92/60 (73) 96 03/17/17 17:32 65 17 92/70 (82) 96 03/17/17 17:16 59 14 91/57 (70) 96 03/17/17 17:01 61 20 97/59 (77) 96 03/17/17 16:47 60 16 96 03/17/17 16:46 60 16 91/59 (71) 95 03/17/17 16:32 55 15 90/59 (65) 95 03/17/17 16:17 62 20 94/70 (76) 96 03/17/17 16:03 60 28 92/46 (73) 94 03/17/17 16:00 96 Nasal Cannula 12.0 Mask 03/17/17 15:46 63 18 94/72 (77) 96 03/17/17 15:39 36.4 68 16 103/50 (70) 93 03/17/17 11:50 95 Nasal Cannula 2.0 Physical Exam: chest tube drainage (serosanguinous, 22ml recorded this morning - minimal since VATS) General Appearance: WD/WN, no apparent distress Head: normocephalic Neck: supple Respiratory/Chest: lungs clear, normal breath sounds, no respiratory distress Cardiovascular: regular rate, rhythm Abdomen: non tender, non distended, soft Incision(s): clean, dry, intact Laboratory Results: Results Past 24 Hours Test 03/17/17 11:51 03/17/17 17:33 03/17/17 20:12 03/17/17 22:45 Range/Units Bedside Glucose 106 118 168 70-90 mg/dl White Blood Count 42.60 4.8-10.8 K/uL Red Blood Count 2.39 4.2-5.4 M/uL Hemoglobin 7.5 12.0-16.0 g/dL Hematocrit 22.0 37-47 % Mean Corpuscular Volume 92.1 80-100 fL Mean Corpuscular Hemoglobin 31.4 25-34 pg Mean Corpuscular Hemoglobin Concent 34.1 32-36 g/dl Platelet Count 58 130-400 K/uL Mean Platelet Volume 9.6 7.4-10.4 fL RDW Standard Deviation 56.8 36.4-46.3 fL RDW Coefficient of Variation 17.4 11.5-14.5 % Neutrophils % (Manual) 11.5 % Lymphocytes % (Manual) 17.7 % Monocytes % (Manual) 68.1 % Metamyelocytes % 0.9 % Myelocytes % 0.9 % Blast Cells % 0.9 % Neutrophils # (Manual) 4.90 1.4-6.5 K/uL Total Absolute Neutrophils 4.90 1.4-6.5 K/uL Lymphocytes # (Manual) 7.54 1.2-3.4 K/uL Total Absolute Lymphocytes 7.54 1.2-3.4 K/uL Monocytes # (Manual) 29.01 0.11-0.59 K/uL Metamyelocytes # 0.38 0-0 K/uL Myelocytes # 0.38 0-0 K/uL Blast Cells # 0.38 0-0 K/uL Smudge Cells PRESENT Sodium Level 138 136-145 mmol/L Potassium Level 4.0 3.5-5.1 mmol/L Chloride Level 104 98-107 mmol/L Carbon Dioxide Level 28 21-32 mmol/L Anion Gap 6.0 3-11 mmol/L Blood Urea Nitrogen 18 7-18 mg/dl Creatinine 0.91 0.60-1.20 mg/dl Est Creatinine Clear Calc Drug Dose 42.2 ml/min Estimated GFR () 69.1 Estimated GFR (Non- 59.6 BUN/Creatinine Ratio 19.2 10-20 Random Glucose 136 70-99 mg/dl Calcium Level 7.5 8.5-10.1 mg/dl Test 03/18/17 02:24 03/18/17 07:30 Range/Units White Blood Count 46.03 47.41 4.8-10.8 K/uL Red Blood Count 2.36 2.45 4.2-5.4 M/uL Hemoglobin 7.3 7.6 12.0-16.0 g/dL Hematocrit 21.7 22.5 37-47 % Mean Corpuscular Volume 91.9 91.8 80-100 fL Mean Corpuscular Hemoglobin 30.9 31.0 25-34 pg Mean Corpuscular Hemoglobin Concent 33.6 33.8 32-36 g/dl Platelet Count 54 59 130-400 K/uL Mean Platelet Volume 9.5 9.7 7.4-10.4 fL RDW Standard Deviation 55.9 55.6 36.4-46.3 fL RDW Coefficient of Variation 17.2 16.8 11.5-14.5 % Neutrophils % (Manual) 5.4 10.4 % Lymphocytes % (Manual) 13.5 13.0 % Monocytes % (Manual) 78.4 73.1 % Metamyelocytes % 0.9 % Blast Cells % 1.8 3.5 % Neutrophils # (Manual) 2.49 4.93 1.4-6.5 K/uL Total Absolute Neutrophils 2.49 4.93 1.4-6.5 K/uL Lymphocytes # (Manual) 6.21 6.16 1.2-3.4 K/uL Total Absolute Lymphocytes 6.21 6.16 1.2-3.4 K/uL Monocytes # (Manual) 36.09 34.66 0.11-0.59 K/uL Metamyelocytes # 0.41 0-0 K/uL Blast Cells # 0.83 1.66 0-0 K/uL Smudge Cells PRESENT PRESENT Sodium Level 138 136-145 mmol/L Potassium Level 4.1 3.5-5.1 mmol/L Chloride Level 105 98-107 mmol/L Carbon Dioxide Level 28 21-32 mmol/L Anion Gap 5.0 3-11 mmol/L Blood Urea Nitrogen 16 7-18 mg/dl Creatinine 0.78 0.60-1.20 mg/dl Est Creatinine Clear Calc Drug Dose 49.2 ml/min Estimated GFR () 83.2 Estimated GFR (Non- 71.8 BUN/Creatinine Ratio 20.1 10-20 Random Glucose 115 70-99 mg/dl Calcium Level 7.4 8.5-10.1 mg/dl Phosphorus Level 3.9 2.5-4.9 mg/dl Magnesium Level 2.0 1.8-2.4 mg/dl Troponin I < 0.015 < 0.015 0-0.045 ng/ml Red Blood Cell Morphology Unremarkable 03/18/17 CXR: IMPRESSION: Persistent left paramediastinal airspace opacity silhouetting out the aortic knob. Mild mediastinal widening. Small pleural effusions. Equivocal trace left medial pneumothorax. Assessment & Plan Jyoti Aguilar is an 81 year old woman with AML who is now POD 2 s/p left subclavian Infusaport placement, complicated by hemothorax requiring blood transfusion and placement of left chest tube. She is now POD 1 s/p VATS with evacuation of hematoma, repositioning of chest tube, and placement of Exparel nerve block. Hemodynamics remain stable. Hgb low but stable since VATS yesterday. -Pain and nausea control as needed -Diet as tolerated -Chest tube management per Dr. Ramos / Thoracic surgery -Chemotherapy, allopurinol / hydroxyurea on hold per Dr. Elmore / Oncology -Encourage ambulation -Appreciate ICU, hospitalist and Thoracic surgery management -Continue to follow closely Itzel Leonardo MD 03/18/17
[2017-03-18] MEDS: OXYCODONE/ACETAMINOPHEN 5-325 TAB PO PRN ×3 (10:21→23:05)
--- NOTE | 2017-03-18 14:37 | Critical Care Progress Note ---
Critical Care Progress Note Date of Service Mar 18, 2017. Attending Dr. Eloise Doll I was present with Dr. Tod Courtney during the history and exam. I discussed the case with the resident and agree with the findings and plan as documented in the note. In summary, the patient is a 81-year-old functional female who was recently diagnosed with acute myelocytic leukemia. She was admitted to [facility] for placement of subclavian infusion port which was successfully done on 03/16/2017. Patient developed left-sided hemothorax complicated by hypotension and atrial fibrillation with rapid ventricular response. Chest tube was placed with immediate drainage of 1 L of dark blood. Patient was volume resuscitated, transfused with totally 12 units of platelets, 3 units of packed RBCs. She remains critically ill in intensive care unit for further management. Uneventful night. Patient complaint of incisional chest pain with cough, incentive spirometry or moving. Marginal hypotension. Objective General Appearance: mild distress from chest tube incision. Head: normocephalic, atraumatic Neck: no tenderness, trachea midline, no stridor, supple Respiratory: other (unable to take a deep breath due to chest tube placement and current chest pain), chest tube placed on left side, -20 suctioning, A-port inferior to left clavicle Cardiovasular: regular rate/rhythm, no murmur Abdomen: non tender, normal bowel sounds, no rebound, no masses, no guarding Pulses: dorsalis pedis (R) (2+), dorsalis pedis (L) (2+), posterior tibial (R) , posterior tibial (L) (2+) Neuro: alert, oriented x 3, normal motor exam Current SOFA Score SOFA Score Response (Comments) Value Platelets (x10) < 100 2 Bilirubin (mg/dL) < 1.2 (LFT's not done) 0 Roscoe Coma Score 15 0 Level of Hypotension No Hypotension 0 Creatinine (mg/dL) < 1.2 0 Total 2 Assessment & Plan I was present with Dr. Tod Courtney during the history and exam. I discussed the case with the resident and agree with the findings and plan as documented in the note. 1. Postprocedure left-sided hemothorax. POD # 1 sp VATS and hematoma evacuation. Morning x-ray revealed left base atelectasis. Chest tube output was minimal less than 50 mL of bloody fluid. We will increase physical activity , consult physical therapy, add flutter valve to incentive spirometer. 2. Paroxysmal atrial fibrillation on sotalol. Patient had another episode of atrial fibrillation. 2.5 mg of metoprolol was given. Will give fentanyl 25 g once as pain could be contributing to increased sympathetic outflow and atrial fibrillation. Marginal hypotension, intravascular volume appears to be adequate. 3. Anemia of acute blood loss, hemoglobin 7.6. Thrombocytopenia, platelet count 59,000. We will transfuse for hemoglobin below 7.0 and platelet count below 30,000. 4. Acute myelocytic leukemia. Hydroxyurea and allopurinol is on hold as per hematology. Chemotherapy will be initiated following complete resolution of hemothorax. 5. ID: Leukocytosis secondary to AML, no obvious signs of infection. 6. GI: Will tolerated diet. 7. Neurologically examination was intact. 8. DVT prophylaxis with SCDs, avoid heparin products. I personally spent 35 minutes of critical care time involved in managing the patient. AGUA CALIENTE II Score Date Score Was Generated: Mar 18, 2017 Consults & Procedures Consultants: Dr. Eloise Leonardo Procedures: chest tube placement A port placement Data Medications: Current Inpatient Medications Medications (Trade) Dose Ordered Sig/Samanta Route Start Time Stop Time Status Last Admin Dose Admin Ondansetron HCl (Zofran Inj) 4 mg Q6H PRN IV 03/16/17 14:45 04/15/17 14:44 Morphine Sulfate (MoRPHine SULFATE INJ) 2 mg Q2H PRN IV 03/16/17 14:45 03/30/17 14:44 03/18/17 10:31 2 MG Morphine Sulfate (MoRPHine SULFATE INJ) 4 mg Q2H PRN IV 03/16/17 14:45 03/30/17 14:44 03/17/17 06:01 4 MG Lactated Ringer's 1,000 ml @ 100 mls/hr Q10H IV 03/16/17 15:44 04/15/17 15:43 03/18/17 12:29 100 MLS/HR Allopurinol (Zyloprim Tab) 300 mg DAILY PO 03/17/17 09:00 04/16/17 08:59 03/18/17 08:08 300 MG Fentanyl Citrate (Fentanyl Inj) 25 mcg Q2H PRN IV 03/16/17 19:30 03/30/17 19:29 03/17/17 04:07 25 MCG Sotalol HCl (Betapace Tab) 80 mg DAILY PO 03/18/17 09:00 04/16/17 08:59 03/18/17 08:08 80 MG Docusate Sodium (coLACE CAP) 100 mg BID PO 03/18/17 09:00 04/17/17 08:59 03/18/17 08:08 100 MG Senna (Senokot Tab) 8.6 mg QAM PO 03/18/17 09:00 04/17/17 08:59 03/18/17 08:08 8.6 MG Oxycodone/ Acetaminophen (Percocet 5-325mg Tab) 1 tab Q4H PRN PO 03/17/17 15:45 03/31/17 15:44 03/18/17 10:21 1 TAB Vital Signs: Date Time Temp Pulse Resp B/P (MAP) Pulse Ox O2 Delivery O2 Flow Rate FiO2 03/18/17 09:48 113 94/60 03/18/17 08:01 36.8 72 16 97/61 (73) 98 Nasal Cannula 2.0 03/18/17 08:00 Nasal Cannula 03/18/17 08:00 98 Nasal Cannula 2.0 03/18/17 08:00 75 22 99 03/18/17 07:01 66 18 118/58 (78) 98 03/18/17 07:00 67 19 98 03/18/17 06:00 77 23 114/65 (81) 96 Nasal Cannula 2.0 03/18/17 06:00 77 23 96 03/18/17 05:00 70 19 97 03/18/17 05:00 70 19 97 03/18/17 04:00 Nasal Cannula 2.0 03/18/17 04:00 68 22 99 03/18/17 04:00 37.0 68 22 109/55 (73) 99 Nasal Cannula 2.0 03/18/17 03:00 66 22 98 03/18/17 02:00 65 15 98 03/18/17 02:00 65 15 97/56 (70) 98 Nasal Cannula 2.0 03/18/17 01:00 66 16 98 03/18/17 00:01 36.8 66 15 91/53 (66) 97 Nasal Cannula 2.0 03/18/17 00:01 66 15 91/53 (76) 97 03/17/17 23:59 Nasal Cannula 2.0 03/17/17 23:00 70 18 96 03/17/17 22:47 75 17 86/52 (61) 97 03/17/17 22:10 36.5 66 15 84/52 (57) 97 03/17/17 22:01 67 14 80/48 (53) 97 03/17/17 21:31 66 13 93/55 (59) 97 03/17/17 21:01 67 13 83/52 (61) 97 03/17/17 21:01 67 13 83/52 (61) 97 03/17/17 20:31 66 14 85/52 (56) 98 03/17/17 20:01 64 17 88/54 (68) 97 03/17/17 20:00 36.5 97 Nasal Cannula 2.0 03/17/17 20:00 97 Nasal Cannula 2.0 03/17/17 19:31 68 23 112/66 (74) 98 03/17/17 19:01 64 21 100/58 (71) 98 03/17/17 18:54 68 21 89/57 (62) 98 03/17/17 18:46 60 13 84/53 (61) 98 03/17/17 18:31 64 17 86/57 (75) 97 03/17/17 18:16 68 18 96/61 (77) 97 03/17/17 18:01 65 18 93/55 (59) 96 03/17/17 18:01 65 18 93/55 (59) 96 03/17/17 18:00 62 13 97 03/17/17 18:00 36.7 03/17/17 17:46 64 11 92/60 (73) 96 03/17/17 17:32 65 17 92/70 (82) 96 03/17/17 17:16 59 14 91/57 (70) 96 03/17/17 17:01 61 20 97/59 (77) 96 03/17/17 16:47 60 16 96 03/17/17 16:46 60 16 91/59 (71) 95 03/17/17 16:32 55 15 90/59 (65) 95 03/17/17 16:17 62 20 94/70 (76) 96 03/17/17 16:03 60 28 92/46 (73) 94 03/17/17 16:00 96 Nasal Cannula 12.0 Mask 03/17/17 15:46 63 18 94/72 (77) 96 03/17/17 15:39 36.4 68 16 103/50 (70) 93 Laboratory Results: Last 24 Hours Test 03/17/17 17:33 03/17/17 20:12 03/17/17 22:45 03/18/17 02:24 Bedside Glucose 118 mg/dl 168 mg/dl White Blood Count 42.60 K/uL 46.03 K/uL Red Blood Count 2.39 M/uL 2.36 M/uL Hemoglobin 7.5 g/dL 7.3 g/dL Hematocrit 22.0 % 21.7 % Mean Corpuscular Volume 92.1 fL 91.9 fL Mean Corpuscular Hemoglobin 31.4 pg 30.9 pg Mean Corpuscular Hemoglobin Concent 34.1 g/dl 33.6 g/dl Platelet Count 58 K/uL 54 K/uL Mean Platelet Volume 9.6 fL 9.5 fL RDW Standard Deviation 56.8 fL 55.9 fL RDW Coefficient of Variation 17.4 % 17.2 % Neutrophils % (Manual) 11.5 % 5.4 % Lymphocytes % (Manual) 17.7 % 13.5 % Monocytes % (Manual) 68.1 % 78.4 % Metamyelocytes % 0.9 % 0.9 % Myelocytes % 0.9 % Blast Cells % 0.9 % 1.8 % Neutrophils # (Manual) 4.90 K/uL 2.49 K/uL Total Absolute Neutrophils 4.90 K/uL 2.49 K/uL Lymphocytes # (Manual) 7.54 K/uL 6.21 K/uL Total Absolute Lymphocytes 7.54 K/uL 6.21 K/uL Monocytes # (Manual) 29.01 K/uL 36.09 K/uL Metamyelocytes # 0.38 K/uL 0.41 K/uL Myelocytes # 0.38 K/uL Blast Cells # 0.38 K/uL 0.83 K/uL Smudge Cells PRESENT PRESENT Sodium Level 138 mmol/L 138 mmol/L Potassium Level 4.0 mmol/L 4.1 mmol/L Chloride Level 104 mmol/L 105 mmol/L Carbon Dioxide Level 28 mmol/L 28 mmol/L Anion Gap 6.0 mmol/L 5.0 mmol/L Blood Urea Nitrogen 18 mg/dl 16 mg/dl Creatinine 0.91 mg/dl 0.78 mg/dl Est Creatinine Clear Calc Drug Dose 42.2 ml/min 49.2 ml/min Estimated GFR () 69.1 83.2 Estimated GFR (Non- 59.6 71.8 BUN/Creatinine Ratio 19.2 20.1 Random Glucose 136 mg/dl 115 mg/dl Calcium Level 7.5 mg/dl 7.4 mg/dl Phosphorus Level 3.9 mg/dl Magnesium Level 2.0 mg/dl Troponin I < 0.015 ng/ml Test 03/18/17 07:30 White Blood Count 47.41 K/uL Red Blood Count 2.45 M/uL Hemoglobin 7.6 g/dL Hematocrit 22.5 % Mean Corpuscular Volume 91.8 fL Mean Corpuscular Hemoglobin 31.0 pg Mean Corpuscular Hemoglobin Concent 33.8 g/dl Platelet Count 59 K/uL Mean Platelet Volume 9.7 fL RDW Standard Deviation 55.6 fL RDW Coefficient of Variation 16.8 % Neutrophils % (Manual) 10.4 % Lymphocytes % (Manual) 13.0 % Monocytes % (Manual) 73.1 % Blast Cells % 3.5 % Neutrophils # (Manual) 4.93 K/uL Total Absolute Neutrophils 4.93 K/uL Lymphocytes # (Manual) 6.16 K/uL Total Absolute Lymphocytes 6.16 K/uL Monocytes # (Manual) 34.66 K/uL Blast Cells # 1.66 K/uL Smudge Cells PRESENT Red Blood Cell Morphology Unremarkable Troponin I < 0.015 ng/ml
--- NOTE | 2017-03-18 15:00 | SURGERY PROGRESS NOTE ---
DATE: 03/18/2017 SUBJECTIVE: Ms. Aguilar is seen today 1 day after I performed a thoracoscopy with evacuation of hematoma and clot in her left chest. She has been stable overnight; however, she developed atrial fibrillation this morning, although converted later in the morning. She feels better. She is on 2 liters of O2. Her chest x-ray has a bit more fluid than I would have thought. She has serous drainage from her chest tube and it is very little. She has no air leak. She has no pneumothorax. I am going to check a chest x-ray tomorrow and if it looks good, I will probably pull her chest tube at that time.
--- NOTE | 2017-03-18 15:05 | Progress Note ---
Internal Med Progress Note Date of Service: Mar 18, 2017. Provider Documentation: SUBJECTIVE: The patient was seen and examined S/P Left Thoracotomy tube placement for Left Hemothorax Remains stable Generally weak and complains of some pain in the chest S/P Left thoracoscopy with evacuation of left hemothorax 03/17 Clinically better today . OBJECTIVE: Vital Signs-as noted below Exam: General-Generally weak and lethargic Eyes-normal ENT-normal Neck-supple Lungs-decreased breath sound left side Improved compared with yesterday Heart-Regular,no murmur Abdomen-Benign,no masses,bowel sound present Extremities-No edema Neuro-AAOx3 Lab data as noted below. ASSESSMENT & PLAN: LEFT HEMOTHORAX S/P Infusaport insertion complicated by hemothorax requiring chest tube placement S/P chest tube placement on 03/16/17 Management per Thoracic Surgery. 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 Appreciate Oncology input ATRIAL FIBRILLATION Paroxysmal AF perioperatively. Received IV metoprolol. Evaluated by the Credit Control Manager during the last admission Converted to NSR. Resume sotalol when hemodynamics allow. Remains in Sinus rhythm VTE PROPHYLAXIS SCD's. DISPOSITION Expected discharge to home. Medical follow-up with Dr. Davian Schmidt. Hematology / Oncology follow-up with Dr. Rehan Elmore. Vital Signs: Date Time Temp Pulse Resp B/P (MAP) Pulse Ox O2 Delivery O2 Flow Rate FiO2 03/18/17 09:48 113 94/60 03/18/17 08:01 36.8 72 16 97/61 (73) 98 Nasal Cannula 2.0 03/18/17 08:00 Nasal Cannula 03/18/17 08:00 98 Nasal Cannula 2.0 03/18/17 08:00 75 22 99 03/18/17 07:01 66 18 118/58 (78) 98 03/18/17 07:00 67 19 98 03/18/17 06:00 77 23 114/65 (81) 96 Nasal Cannula 2.0 03/18/17 06:00 77 23 96 03/18/17 05:00 70 19 97 03/18/17 05:00 70 19 97 03/18/17 04:00 Nasal Cannula 2.0 03/18/17 04:00 68 22 99 03/18/17 04:00 37.0 68 22 109/55 (73) 99 Nasal Cannula 2.0 03/18/17 03:00 66 22 98 03/18/17 02:00 65 15 98 03/18/17 02:00 65 15 97/56 (70) 98 Nasal Cannula 2.0 03/18/17 01:00 66 16 98 03/18/17 00:01 36.8 66 15 91/53 (66) 97 Nasal Cannula 2.0 03/18/17 00:01 66 15 91/53 (76) 97 03/17/17 23:59 Nasal Cannula 2.0 03/17/17 23:00 70 18 96 03/17/17 22:47 75 17 86/52 (61) 97 03/17/17 22:10 36.5 66 15 84/52 (57) 97 03/17/17 22:01 67 14 80/48 (53) 97 03/17/17 21:31 66 13 93/55 (59) 97 03/17/17 21:01 67 13 83/52 (61) 97 03/17/17 21:01 67 13 83/52 (61) 97 03/17/17 20:31 66 14 85/52 (56) 98 03/17/17 20:01 64 17 88/54 (68) 97 03/17/17 20:00 36.5 97 Nasal Cannula 2.0 03/17/17 20:00 97 Nasal Cannula 2.0 03/17/17 19:31 68 23 112/66 (74) 98 03/17/17 19:01 64 21 100/58 (71) 98 03/17/17 18:54 68 21 89/57 (62) 98 03/17/17 18:46 60 13 84/53 (61) 98 03/17/17 18:31 64 17 86/57 (75) 97 03/17/17 18:16 68 18 96/61 (77) 97 03/17/17 18:01 65 18 93/55 (59) 96 03/17/17 18:01 65 18 93/55 (59) 96 03/17/17 18:00 62 13 97 03/17/17 18:00 36.7 03/17/17 17:46 64 11 92/60 (73) 96 03/17/17 17:32 65 17 92/70 (82) 96 03/17/17 17:16 59 14 91/57 (70) 96 03/17/17 17:01 61 20 97/59 (77) 96 03/17/17 16:47 60 16 96 03/17/17 16:46 60 16 91/59 (71) 95 03/17/17 16:32 55 15 90/59 (65) 95 03/17/17 16:17 62 20 94/70 (76) 96 03/17/17 16:03 60 28 92/46 (73) 94 03/17/17 16:00 96 Nasal Cannula 12.0 Mask 03/17/17 15:46 63 18 94/72 (77) 96 03/17/17 15:39 36.4 68 16 103/50 (70) 93 Lab Results: Results Past 24 Hours Test 03/17/17 17:33 03/17/17 20:12 03/17/17 22:45 03/18/17 02:24 Range/Units Bedside Glucose 118 168 70-90 mg/dl White Blood Count 42.60 46.03 4.8-10.8 K/uL Red Blood Count 2.39 2.36 4.2-5.4 M/uL Hemoglobin 7.5 7.3 12.0-16.0 g/dL Hematocrit 22.0 21.7 37-47 % Mean Corpuscular Volume 92.1 91.9 80-100 fL Mean Corpuscular Hemoglobin 31.4 30.9 25-34 pg Mean Corpuscular Hemoglobin Concent 34.1 33.6 32-36 g/dl Platelet Count 58 54 130-400 K/uL Mean Platelet Volume 9.6 9.5 7.4-10.4 fL RDW Standard Deviation 56.8 55.9 36.4-46.3 fL RDW Coefficient of Variation 17.4 17.2 11.5-14.5 % Neutrophils % (Manual) 11.5 5.4 % Lymphocytes % (Manual) 17.7 13.5 % Monocytes % (Manual) 68.1 78.4 % Metamyelocytes % 0.9 0.9 % Myelocytes % 0.9 % Blast Cells % 0.9 1.8 % Neutrophils # (Manual) 4.90 2.49 1.4-6.5 K/uL Total Absolute Neutrophils 4.90 2.49 1.4-6.5 K/uL Lymphocytes # (Manual) 7.54 6.21 1.2-3.4 K/uL Total Absolute Lymphocytes 7.54 6.21 1.2-3.4 K/uL Monocytes # (Manual) 29.01 36.09 0.11-0.59 K/uL Metamyelocytes # 0.38 0.41 0-0 K/uL Myelocytes # 0.38 0-0 K/uL Blast Cells # 0.38 0.83 0-0 K/uL Smudge Cells PRESENT PRESENT Sodium Level 138 138 136-145 mmol/L Potassium Level 4.0 4.1 3.5-5.1 mmol/L Chloride Level 104 105 98-107 mmol/L Carbon Dioxide Level 28 28 21-32 mmol/L Anion Gap 6.0 5.0 3-11 mmol/L Blood Urea Nitrogen 18 16 7-18 mg/dl Creatinine 0.91 0.78 0.60-1.20 mg/dl Est Creatinine Clear Calc Drug Dose 42.2 49.2 ml/min Estimated GFR () 69.1 83.2 Estimated GFR (Non- 59.6 71.8 BUN/Creatinine Ratio 19.2 20.1 10-20 Random Glucose 136 115 70-99 mg/dl Calcium Level 7.5 7.4 8.5-10.1 mg/dl Phosphorus Level 3.9 2.5-4.9 mg/dl Magnesium Level 2.0 1.8-2.4 mg/dl Troponin I < 0.015 0-0.045 ng/ml Test 03/18/17 07:30 Range/Units White Blood Count 47.41 4.8-10.8 K/uL Red Blood Count 2.45 4.2-5.4 M/uL Hemoglobin 7.6 12.0-16.0 g/dL Hematocrit 22.5 37-47 % Mean Corpuscular Volume 91.8 80-100 fL Mean Corpuscular Hemoglobin 31.0 25-34 pg Mean Corpuscular Hemoglobin Concent 33.8 32-36 g/dl Platelet Count 59 130-400 K/uL Mean Platelet Volume 9.7 7.4-10.4 fL RDW Standard Deviation 55.6 36.4-46.3 fL RDW Coefficient of Variation 16.8 11.5-14.5 % Neutrophils % (Manual) 10.4 % Lymphocytes % (Manual) 13.0 % Monocytes % (Manual) 73.1 % Blast Cells % 3.5 % Neutrophils # (Manual) 4.93 1.4-6.5 K/uL Total Absolute Neutrophils 4.93 1.4-6.5 K/uL Lymphocytes # (Manual) 6.16 1.2-3.4 K/uL Total Absolute Lymphocytes 6.16 1.2-3.4 K/uL Monocytes # (Manual) 34.66 0.11-0.59 K/uL Blast Cells # 1.66 0-0 K/uL Smudge Cells PRESENT Red Blood Cell Morphology Unremarkable Troponin I < 0.015 0-0.045 ng/ml
[2017-03-18] MEDS: FENTANYL CITRATE INJ 50 MCG/1 ML 2 ML VIAL IV PRN (15:24)
[2017-03-18 16:47] LABS: COMPLETE YES; EOSINOPHIL % 0.4 %; HEMATOCRIT 22.7 % (37-47); LYMPH ABS # 5.15 K/uL (1.2-3.4); MEAN CORPUSCULAR HEMOGLOBIN 30.7 pg (25-34); MEAN PLATELET VOLUME 9.6 fL (7.4-10.4); NEUTROPHILS % 4.3 %; PLATELET COUNT 53 K/uL (130-400); PLT ESTIMATE DECREASED; RED BLOOD COUNT 2.44 M/uL (4.2-5.4); WHITE BLOOD COUNT 57.19 K/uL (4.8-10.8)
[2017-03-19] VITALS (43 sets, daily range): BP systolic 81–130; BP diastolic 50–72; PULSE 56–140; TEMP 36.7–37.6; O2SAT 90–97
[2017-03-19] MEDS ORDERED: METOPROLOL TARTRATE 1 MG/ML VIAL IV STA ×2 (00:27→01:42)
[2017-03-19] MEDS: MoRPHine SULFATE 2 MG/ML CARP IV PRN ×2 (02:21→21:41)
[2017-03-19 03:00] LABS: BUN/CREATININE RATIO 23.8 (10-20); CALCIUM 7.6 mg/dl (8.5-10.1); CREATININE 0.7 mg/dl (0.60-1.20); POTASSIUM 3.7 mmol/L (3.5-5.1)
[2017-03-19 03:16] LABS: HEMATOCRIT 21.2 % (37-47); MEAN CELL VOLUME 92.6 fL (80-100); MEAN CORPUSCULAR HGB CONC 33.5 g/dl (32-36); MEAN PLATELET VOLUME 9.1 fL (7.4-10.4); PLATELET COUNT 35 K/uL (130-400); RED BLOOD COUNT 2.29 M/uL (4.2-5.4); WHITE BLOOD COUNT 35.28 K/uL (4.8-10.8)
[2017-03-19] MEDS: OXYCODONE/ACETAMINOPHEN 5-325 TAB PO PRN ×2 (03:17→12:47)
[2017-03-19 03:22] LABS: COMPLETE YES; EOSINOPHIL % 2.6 %; LYMPH ABS # 7.44 K/uL (1.2-3.4); LYMPHOCYTE % 21.1 %; NEUTROPHILS % 18.4 %
[2017-03-19] MEDS ORDERED: SOTALOL HCL 80 MG TAB PO STA (03:58)
--- NOTE | 2017-03-19 07:13 | DIAGNOSTIC IMAGING REPORT ---
CHEST ONE VIEW PORTABLE HISTORY: 81 years-old Female f/u follow-up study in a patient with acute myeloid leukemia COMPARISON: Chest radiograph 03/18/2016 TECHNIQUE: Portable upright AP view of the chest FINDINGS: Cardiac silhouette is again moderately enlarged. There is ectasia of the thoracic aorta. Left subclavian Ahsrav-j-Dcss catheter is unchanged with distal tip terminating in the region of the SVC. Large bore left-sided chest tube is unchanged with distal tip projecting superiorly. Lucency along left heart border and left aortic knob is again seen suspicious for possible trace pneumothorax, unchanged. Small bilateral pleural effusions persist, left greater than right. Pulmonary vascular congestion is noted. Persistent left perihilar and bibasilar airspace opacities. No significant change. Bones are grossly intact. IMPRESSION: 1. Stable positioning of left-sided chest tube with unchanged appearance of questioned trace left medial pneumothorax. 2. Small bilateral pleural effusions with persistent bibasilar and left perihilar airspace opacities. The above report was generated using voice recognition software. It may contain grammatical, syntax or spelling errors. Electronically signed by: Gabriel Barnes M.D. 03/19/2017 7:11 AM Dictated Date/Time: 03/19/2017 7:07 AM
[2017-03-19] MEDS: FENTANYL CITRATE INJ 50 MCG/1 ML 2 ML VIAL IV PRN (07:44)
[2017-03-19] MEDS: SOTALOL HCL 80 MG TAB PO SCH ×2 (07:45→20:54)
[2017-03-19] MEDS: DOCUSATE SODIUM 100 MG CAP PO SCH ×2 (07:45→20:54)
[2017-03-19] MEDS: SENNA 8.6 MG TAB PO SCH (07:45)
[2017-03-19] MEDS: ALLOPURINOL 300 MG TAB PO SCH (07:45)
--- NOTE | 2017-03-19 08:31 | DIAGNOSTIC IMAGING REPORT ---
SINGLE VIEW CHEST CLINICAL HISTORY: Chest tube removal. FINDINGS: An AP, portable, upright chest radiograph is compared to study performed earlier the same day 03/19/2017. The examination is degraded by portable technique and patient rotation. A left subclavian central venous infusion port is unchanged in position. The heart is top normal for projection. Pulmonary vascular congestion is suggested. The left-sided chest tube has been removed. No residual pneumothorax is seen. There are layering pleural effusions, left larger than right with bibasilar consolidation. The skeletal structures are osteopenic. The bony thorax is grossly intact. IMPRESSION: 1. The left-sided chest tube has been removed. No pneumothorax is seen. 2. Layering pleural effusions, left larger than right with bibasilar consolidation. 3. Question congestive failure. Electronically signed by: Kelvin Willis M.D. 03/19/2017 8:29 AM Dictated Date/Time: 03/19/2017 8:27 AM
--- NOTE | 2017-03-19 08:38 | Surgery Progress Note ---
Surgery Progress Note Date of Service Mar 19, 2017. Subjective Post OP Day: 3 (s/p left aport insertion, left thoracostomy tube placement, POD # 2 VATS) + feeling well slightly confused this am, "not used to taking pain medication" Pain vastly improved since VATS surgery No nausea or vomiting Appetite slowly improving No dyspnea or difficulty breathing Chest tube just removed Currently on 5L O2 via nasal cannula nonsustained afib/flutter , given sotalol Objective Vital Signs: Date Time Temp Pulse Resp B/P (MAP) Pulse Ox O2 Delivery O2 Flow Rate FiO2 03/19/17 06:01 109 19 106/50 (68) 93 Nasal Cannula 5.0 03/19/17 05:01 68 17 81/50 (60) 97 Nasal Cannula 5.0 03/19/17 04:01 36.7 127 20 87/64 (72) 93 Nasal Cannula 5.0 03/19/17 04:00 Nasal Cannula 5.0 03/19/17 03:02 97 16 96/60 (72) 93 Nasal Cannula 5.0 03/19/17 02:01 124 23 96/63 (74) 94 Nasal Cannula 5.0 03/19/17 01:56 122 110/60 03/19/17 01:00 122 18 102/59 (73) 92 Nasal Cannula 5.0 03/19/17 00:34 128 100/55 03/19/17 00:01 37.5 111 16 100/55 (70) 97 Nasal Cannula 4.0 03/19/17 00:00 Nasal Cannula 4.0 03/18/17 23:01 77 15 101/59 (73) 98 Nasal Cannula 4.0 03/18/17 22:01 80 22 110/65 (80) 93 Nasal Cannula 4.0 03/18/17 21:01 79 18 114/68 (83) 96 Nasal Cannula 4.0 03/18/17 20:01 37.0 77 19 106/63 (77) 96 Nasal Cannula 4.0 03/18/17 20:00 Nasal Cannula 4.0 03/18/17 17:02 95 Nasal Cannula 2.0 03/18/17 15:45 71 17 96 03/18/17 15:31 36.9 73 19 93/61 (72) 96 Nasal Cannula 2.0 03/18/17 15:16 73 24 88/58 (68) 90 03/18/17 15:15 74 28 90 03/18/17 15:01 83 31 108/65 (79) 90 03/18/17 14:48 74 25 107/61 (76) 92 03/18/17 14:47 73 31 110/61 (77) 93 03/18/17 14:45 82 30 90 03/18/17 14:31 70 21 89/61 (70) 95 03/18/17 14:16 70 23 89/57 (68) 95 03/18/17 14:15 71 23 95 03/18/17 14:01 71 21 86/57 (67) 95 03/18/17 13:45 91 20 94 03/18/17 13:31 84 18 85/55 (65) 97 03/18/17 13:16 82 21 94/56 (69) 96 03/18/17 13:15 86 24 96 03/18/17 13:01 84 15 82/53 (63) 97 03/18/17 12:46 80 16 81/52 (62) 97 03/18/17 12:45 84 16 97 03/18/17 12:30 80 15 96 Nasal Cannula 2.0 03/18/17 12:16 89 19 85/56 (66) 97 03/18/17 12:01 36.8 119 24 80/58 (65) 95 Nasal Cannula 2.0 03/18/17 12:00 98 Nasal Cannula 2.0 03/18/17 12:00 120 17 95 03/18/17 11:46 115 29 95/70 (78) 96 03/18/17 11:30 117 17 96 03/18/17 11:16 70 18 77/51 (60) 96 03/18/17 11:01 66 14 78/46 (57) 97 03/18/17 11:00 58 14 98 03/18/17 10:46 107 15 86/69 (75) 98 03/18/17 10:31 99 18 88/59 (69) 96 03/18/17 10:30 80 19 96 03/18/17 10:16 110 19 101/67 (78) 95 03/18/17 10:01 102 17 87/57 (67) 97 03/18/17 10:00 89 16 97 03/18/17 09:48 113 94/60 03/18/17 09:46 98 19 64/55 (58) 97 03/18/17 09:30 111 24 97 03/18/17 09:01 67 20 94/60 (71) 98 03/18/17 09:00 70 20 98 General Appearance: WD/WN, no apparent distress Head: normocephalic, atraumatic Neck: trachea midline Respiratory/Chest: no respiratory distress, no accessory muscle use, + pertinent finding (left aport dressing clean/dry/intact, left chest tube site dressing clean/dry/intact, chest tube removed) Laboratory Results: Results Past 24 Hours Test 03/18/17 15:24 03/19/17 02:34 Range/Units White Blood Count 57.19 35.28 4.8-10.8 K/uL Red Blood Count 2.44 2.29 4.2-5.4 M/uL Hemoglobin 7.5 7.1 12.0-16.0 g/dL Hematocrit 22.7 21.2 37-47 % Mean Corpuscular Volume 93.0 92.6 80-100 fL Mean Corpuscular Hemoglobin 30.7 31.0 25-34 pg Mean Corpuscular Hemoglobin Concent 33.0 33.5 32-36 g/dl Platelet Count 53 35 130-400 K/uL Mean Platelet Volume 9.6 9.1 7.4-10.4 fL RDW Standard Deviation 56.2 55.2 36.4-46.3 fL RDW Coefficient of Variation 17.0 16.6 11.5-14.5 % Neutrophils % (Manual) 4.3 18.4 % Lymphocytes % (Manual) 9.0 21.1 % Monocytes % (Manual) 86.3 57.9 % Eosinophils % (Manual) 0.4 2.6 % Neutrophils # (Manual) 2.46 6.49 1.4-6.5 K/uL Total Absolute Neutrophils 2.46 6.49 1.4-6.5 K/uL Lymphocytes # (Manual) 5.15 7.44 1.2-3.4 K/uL Total Absolute Lymphocytes 5.15 7.44 1.2-3.4 K/uL Monocytes # (Manual) 49.35 20.43 0.11-0.59 K/uL Eosinophils # (Manual) 0.23 0.92 0-0.5 K/uL Platelet Estimate DECREASED Red Blood Cell Morphology Unremarkable Sodium Level 135 136-145 mmol/L Potassium Level 3.7 3.5-5.1 mmol/L Chloride Level 102 98-107 mmol/L Carbon Dioxide Level 27 21-32 mmol/L Anion Gap 6.0 3-11 mmol/L Blood Urea Nitrogen 17 7-18 mg/dl Creatinine 0.70 0.60-1.20 mg/dl Est Creatinine Clear Calc Drug Dose 55.8 ml/min Estimated GFR () 94.8 Estimated GFR (Non- 81.8 BUN/Creatinine Ratio 23.8 10-20 Random Glucose 107 70-99 mg/dl Calcium Level 7.6 8.5-10.1 mg/dl Phosphorus Level 3.0 2.5-4.9 mg/dl Magnesium Level 2.0 1.8-2.4 mg/dl Assessment & Plan POD # 3 s/p left aport placement complicated by left hemothorax. Left Thoracostomy tube placed. Chest tube was displaced and developed left sided pneumothorax. POD # 2 VATS with evacuation of hematoma and replacement of chest tube. S/p 3 units of PRBCs and 2 packs of platelets. hemoglobin 7.1 this am. Platelets at 35K. In and out of nonsustained a-fib. Now in normal sinus rhythm. Chest tube removed today. Plan: Continue pain management as needed Continue diet as tolerated Continue PO home medications Cardiology consult given recurrent episodes of afib Holding chemotherapy, Allopurinol, and Hydroxurea per Dr. Elmore Continue IV Zofran as needed for nausea continue ICU management Appreciate ICU, hospitalist, and Thoracic surgery management Will monitor closely Dr. Leonardo has seen and examined patient, agrees with above.
[2017-03-19] MEDS: LACTATED RINGER'S 1000ML 1,000 ML IV SCH ×2 (09:00→22:06)
[2017-03-19] MEDS: LANSOPRAZOLE SOLUTAB 30 MG PO SCH (09:16)
--- NOTE | 2017-03-19 09:42 | SURGERY PROGRESS NOTE ---
DATE: 03/19/2017 SUBJECTIVE: Jyoti Aguilar is seen today on 03/19/2017. Ms. Aguilar has had really no air leak and very little in the way of serous drainage from her chest tube. I removed it today. She has got some volume loss on both sides, actually a bit more on the left. It is difficult to see if she has an effusion on the left. I think she does have some fluid unfortunately. Some of this may be atelectasis. We are going to get her up and moving around and I may do an ultrasound on her in the next day or two. She still has some issues with atrial fibrillation as well as pain. It is important to understand this patient is in the throes of acute myeloid leukemia who is going to require treatment soon.
--- NOTE | 2017-03-19 10:04 | Critical Care Progress Note ---
Critical Care Progress Note Date of Service I was present with Dr. Tod Courtney during the history and exam. I discussed the case with the resident and agree with the findings and plan as documented in the note. In summary, the patient is a 81-year-old functional female who was recently diagnosed with acute myelocytic leukemia. She was admitted to [facility] for placement of subclavian infusion port which was successfully done on 03/16/2017. Patient developed left-sided hemothorax complicated by hypotension and atrial fibrillation with rapid ventricular response. Chest tube was placed with immediate drainage of 1 L of dark blood. Patient was volume resuscitated, transfused with totally 12 units of platelets, 3 units of packed RBCs. She remains critically ill in intensive care unit for further management. Night events: Intermittent episodes of atrial fibrillation for what patient received metoprolol 2.5 mg 2. Patient complaint of incisional chest pain with cough, incentive spirometry or moving. Assessment and plan: 1. Postprocedure left-sided hemothorax. POD # 2 sp VATS and hematoma evacuation. Minimal chest tube output. Chest tube was discontinued by thoracic surgery. We'll continue with aggressive pulmonary toilet. 2. Paroxysmal atrial fibrillation on sotalol. Patient had few episodes of atrial fibrillation. Cardiology opinion is appreciated, we will increase sotalol to twice a day dosing. 3. Anemia, we will transfuse patient with 1 unit of packed RBCs for hemoglobin of 7.1. Worsening thrombocytopenia. We'll transfuse with platelets when platelet count is between 10 and 20,000. 4. Acute myelocytic leukemia. Hydroxyurea and allopurinol is on hold as per hematology. Chemotherapy will be initiated following complete resolution of hemothorax. 5. ID: Leukocytosis secondary to AML, no obvious signs of infection. 6. GI: Will tolerated diet, poor appetite. We will consider adding Marinol and boost. We will start Prevacid for stress ulcer prophylaxis in view of severe thrombocytopenia. 7. Neurologically examination was intact. 8. DVT prophylaxis with SCDs, avoid heparin products. I personally spent 35 minutes of critical care time involved in managing the patient. Mar 19, 2017. ICU Day ICU Day Number: [address] Navas Subjective 81 year old female recently diagnosed with AML was admitted to [facility] for placement of an A-Port for chemotherapy infusions. After the surgery she developed a left sided hemothorax, hypotension and afib. Patient had a chest tube placed by Dr. Ramos which has drained over 2 L of blood. She was given IV fluids, 3 units of PRBC and 2 units of platelets. Her Hgb has been stable and she is planning to be moved to the telemetry unit later today Overnight she had no acute events. She did go in and out afib/aflutter overnight and received 2.5mg of metoprolol IV x2. She was also given a dose of sotalol at 3am and then another dose at 8am. There is a question as to whether or not the patient should be on OD daily dosing vs BID for her afib. We will consult cardiology for further management of her afib. Patient had her chest tube removed by Dr. Ramos and she is feeling much better. She denies any chest pain, but does have minimal pain at the site of chest tube insertion. Occasional palpitations, coughed small amount of blood yesterday evening. Has not had a bowel movement yet. Denies any fevers, night sweats chills, abdominal pain, nausea, vomiting, joint pain, rashes, headaches, visual changes, pre-syncope Objective General Appearance: mild distress from chest tube incision. Head: normocephalic, atraumatic Neck: no tenderness, trachea midline, no stridor, supple Respiratory: Aport underneath left clavicle with white dressing overtop. left thoracic cavity with large white gauze dressing with blood soaking guaze. painful unable to take deep breath in as too painful Cardiovasular: Irregularly irregular, no murmurs Abdomen: non tender, normal bowel sounds, no rebound, no masses, no guarding Pulses: dorsalis pedis (R) (2+), dorsalis pedis (L) (2+), posterior tibial (R) , posterior tibial (L) (2+) Neuro: alert, oriented x 3, normal motor exam Current SOFA Score SOFA Score Response (Comments) Value Platelets (x10) < 50 3 Bilirubin (mg/dL) < 1.2 (LFT's not done) 0 Dami Coma Score 15 0 Level of Hypotension No Hypotension 0 Creatinine (mg/dL) < 1.2 0 Total 3 Assessment & Plan Assessment: 81 year old female with a PMH of AML was admitted to the ICU after having a hemothorax after an a-port insertion. Patient had a chest tube placed and is received 3 units of PRBC and 2 unit of platelets. Patient had the chest tube removed today. Patient with afib/aflutter overnight with PVC's. Patient stable to transfer to telemetry NEURO cam negative fentanyl 25mcg IV for pain control morphine 2mg and 4mg PRN pain, oxycodone 1 tab q4h CARDIAC patient with afib/aflutter overnight with PVC's, received 2 dose of sotalol this morning and lopressor overnight according to creatinine clearance should be on OD dosage cardiology consulted monitor heart rhythm in ICU RESP currently saturating 95% on 2L Left sided hemothorax, chest tube placed 500 ml drained yesterday+today, chest tube removed Repeat CXR today with small bilateral pleural effusions and stable left chest tube thoracic surgery consulted - went for VATS two days ago flutter valve ordered HEME most recent 7.1 given 3 units of PRBC with 2 units on hold most recent platelet count 34 transfused 2 units of platelets diagnosed with AML-follows with Rehan Elmore hydroxyurea and allopurinol on hold per Dr. Elmore discussion with Dr. Elmore with regards to transfusion if patient plans on having chemo while in hospital oncology consulted GI diet ordered zofran prn for nausea colace and senna for constipation RENAL creatinine 0.7 carrion catheter placed with I/O's [id number] ID afebrile, wcc 35.28 WCC elevated due to AML, so wont be able to be good marker of infection DVT prophylaxis: SCD's FULL CODE CANTWELL II Score Date Score Was Generated: Mar 18, 2017 Consults & Procedures Consultants: Dr. Eloise Leonardo Procedures: chest tube placement A port placement Data Medications: Current Inpatient Medications Medications (Trade) Dose Ordered Sig/Samanta Route Start Time Stop Time Status Last Admin Dose Admin Ondansetron HCl (Zofran Inj) 4 mg Q6H PRN IV 03/16/17 14:45 04/15/17 14:44 Morphine Sulfate (MoRPHine SULFATE INJ) 2 mg Q2H PRN IV 03/16/17 14:45 03/30/17 14:44 03/19/17 02:21 2 MG Morphine Sulfate (MoRPHine SULFATE INJ) 4 mg Q2H PRN IV 03/16/17 14:45 03/30/17 14:44 03/17/17 06:01 4 MG Lactated Ringer's 1,000 ml @ 100 mls/hr Q10H IV 03/16/17 15:44 04/15/17 15:43 03/19/17 09:00 100 MLS/HR Allopurinol (Zyloprim Tab) 300 mg DAILY PO 03/17/17 09:00 04/16/17 08:59 03/19/17 07:45 300 MG Fentanyl Citrate (Fentanyl Inj) 25 mcg Q2H PRN IV 03/16/17 19:30 03/30/17 19:29 03/19/17 07:44 25 MCG Sotalol HCl (Betapace Tab) 80 mg DAILY PO 03/18/17 09:00 04/16/17 08:59 03/19/17 07:45 80 MG Docusate Sodium (coLACE CAP) 100 mg BID PO 03/18/17 09:00 04/17/17 08:59 03/19/17 07:45 100 MG Senna (Senokot Tab) 8.6 mg QAM PO 03/18/17 09:00 04/17/17 08:59 03/19/17 07:45 8.6 MG Oxycodone/ Acetaminophen (Percocet 5-325mg Tab) 1 tab Q4H PRN PO 03/17/17 15:45 03/31/17 15:44 03/19/17 03:17 1 TAB Lansoprazole (Prevacid Solutab) 30 mg DAILY PO 03/19/17 09:00 04/18/17 08:59 03/19/17 09:16 30 MG Vital Signs: Date Time Temp Pulse Resp B/P (MAP) Pulse Ox O2 Delivery O2 Flow Rate FiO2 03/19/17 08:00 94 Nasal Cannula 5.0 03/19/17 08:00 37.5 80 20 109/62 (78) 94 Nasal Cannula 5.0 03/19/17 06:01 109 19 106/50 (68) 93 Nasal Cannula 5.0 03/19/17 05:01 68 17 81/50 (60) 97 Nasal Cannula 5.0 03/19/17 04:01 36.7 127 20 87/64 (72) 93 Nasal Cannula 5.0 03/19/17 04:00 Nasal Cannula 5.0 03/19/17 03:02 97 16 96/60 (72) 93 Nasal Cannula 5.0 03/19/17 02:01 124 23 96/63 (74) 94 Nasal Cannula 5.0 03/19/17 01:56 122 110/60 03/19/17 01:00 122 18 102/59 (73) 92 Nasal Cannula 5.0 03/19/17 00:34 128 100/55 03/19/17 00:01 37.5 111 16 100/55 (70) 97 Nasal Cannula 4.0 03/19/17 00:00 Nasal Cannula 4.0 03/18/17 23:01 77 15 101/59 (73) 98 Nasal Cannula 4.0 03/18/17 22:01 80 22 110/65 (80) 93 Nasal Cannula 4.0 03/18/17 21:01 79 18 114/68 (83) 96 Nasal Cannula 4.0 03/18/17 20:01 37.0 77 19 106/63 (77) 96 Nasal Cannula 4.0 03/18/17 20:00 Nasal Cannula 4.0 03/18/17 17:02 95 Nasal Cannula 2.0 03/18/17 15:45 71 17 96 03/18/17 15:31 36.9 73 19 93/61 (72) 96 Nasal Cannula 2.0 03/18/17 15:16 73 24 88/58 (68) 90 03/18/17 15:15 74 28 90 03/18/17 15:01 83 31 108/65 (79) 90 03/18/17 14:48 74 25 107/61 (76) 92 03/18/17 14:47 73 31 110/61 (77) 93 03/18/17 14:45 82 30 90 03/18/17 14:31 70 21 89/61 (70) 95 03/18/17 14:16 70 23 89/57 (68) 95 03/18/17 14:15 71 23 95 03/18/17 14:01 71 21 86/57 (67) 95 03/18/17 13:45 91 20 94 03/18/17 13:31 84 18 85/55 (65) 97 03/18/17 13:16 82 21 94/56 (69) 96 03/18/17 13:15 86 24 96 03/18/17 13:01 84 15 82/53 (63) 97 03/18/17 12:46 80 16 81/52 (62) 97 03/18/17 12:45 84 16 97 03/18/17 12:30 80 15 96 Nasal Cannula 2.0 03/18/17 12:16 89 19 85/56 (66) 97 03/18/17 12:01 36.8 119 24 80/58 (65) 95 Nasal Cannula 2.0 03/18/17 12:00 98 Nasal Cannula 2.0 03/18/17 12:00 120 17 95 03/18/17 11:46 115 29 95/70 (78) 96 03/18/17 11:30 117 17 96 03/18/17 11:16 70 18 77/51 (60) 96 03/18/17 11:01 66 14 78/46 (57) 97 03/18/17 11:00 58 14 98 03/18/17 10:46 107 15 86/69 (75) 98 03/18/17 10:31 99 18 88/59 (69) 96 03/18/17 10:30 80 19 96 03/18/17 10:16 110 19 101/67 (78) 95 03/18/17 10:01 102 17 87/57 (67) 97 03/18/17 10:00 89 16 97 03/18/17 09:48 113 94/60 Laboratory Results: Last 24 Hours Test 03/18/17 15:24 03/19/17 02:34 White Blood Count 57.19 K/uL 35.28 K/uL Red Blood Count 2.44 M/uL 2.29 M/uL Hemoglobin 7.5 g/dL 7.1 g/dL Hematocrit 22.7 % 21.2 % Mean Corpuscular Volume 93.0 fL 92.6 fL Mean Corpuscular Hemoglobin 30.7 pg 31.0 pg Mean Corpuscular Hemoglobin Concent 33.0 g/dl 33.5 g/dl Platelet Count 53 K/uL 35 K/uL Mean Platelet Volume 9.6 fL 9.1 fL RDW Standard Deviation 56.2 fL 55.2 fL RDW Coefficient of Variation 17.0 % 16.6 % Neutrophils % (Manual) 4.3 % 18.4 % Lymphocytes % (Manual) 9.0 % 21.1 % Monocytes % (Manual) 86.3 % 57.9 % Eosinophils % (Manual) 0.4 % 2.6 % Neutrophils # (Manual) 2.46 K/uL 6.49 K/uL Total Absolute Neutrophils 2.46 K/uL 6.49 K/uL Lymphocytes # (Manual) 5.15 K/uL 7.44 K/uL Total Absolute Lymphocytes 5.15 K/uL 7.44 K/uL Monocytes # (Manual) 49.35 K/uL 20.43 K/uL Eosinophils # (Manual) 0.23 K/uL 0.92 K/uL Platelet Estimate DECREASED Red Blood Cell Morphology Unremarkable Sodium Level 135 mmol/L Potassium Level 3.7 mmol/L Chloride Level 102 mmol/L Carbon Dioxide Level 27 mmol/L Anion Gap 6.0 mmol/L Blood Urea Nitrogen 17 mg/dl Creatinine 0.70 mg/dl Est Creatinine Clear Calc Drug Dose 55.8 ml/min Estimated GFR () 94.8 Estimated GFR (Non- 81.8 BUN/Creatinine Ratio 23.8 Random Glucose 107 mg/dl Calcium Level 7.6 mg/dl Phosphorus Level 3.0 mg/dl Magnesium Level 2.0 mg/dl
--- NOTE | 2017-03-19 11:59 | Progress Note ---
Internal Med Progress Note Date of Service: Mar 19, 2017. Provider Documentation: SUBJECTIVE: The patient was seen and examined S/P Left Thoracotomy tube placement for Left Hemothorax Generally weak and complains of some pain in the chest S/P Left thoracoscopy with evacuation of left hemothorax 03/17 S/P removal of the Chest tube Clinically much better OBJECTIVE: Vital Signs-as noted below Exam: General-Generally weak and lethargic Eyes-normal ENT-normal Neck-supple Lungs-decreased breath sound bilaterally Improved compared with yesterday Heart-Regular,no murmur Abdomen-Benign,no masses,bowel sound present Extremities-No edema Neuro-AAOx3 Lab data as noted below. ASSESSMENT & PLAN: LEFT HEMOTHORAX S/P Infusaport insertion complicated by hemothorax requiring chest tube placement S/P chest tube placement on 03/16/17 Management per Thoracic Surgery. Appreciate Thoracic surgery input S/P Left thoracoscopy with evacuation of left hemothorax 03/17/17 Feels a lot better following the procedure S/P Removal of the chest tube CXR this AM::1. The left-sided chest tube has been removed. No pneumothorax is seen. 2. Layering pleural effusions, left larger than right with bibasilar consolidation. 3. Question congestive failure. Clinically better Acute Blood Loss Anemia complicated by Thrombocytopenia Received 3 Units of PRBC and 2 Units of platelet pheresis Hb and platelet are reasonable Hb down to 7.6 and Platelet 59 Will check Hb at 3 Hb on 03/19/17-7.1 Discussed with the Oncologist Will give 1 unit of PRBC 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 Appreciate Oncology input ATRIAL FIBRILLATION Paroxysmal AF perioperatively. Received IV metoprolol. Evaluated by the Compliance Tester during the last admission Converted to NSR. Resume sotalol when hemodynamics allow. Back in AF with RVR at times Cardiology consulted Thrombocytopenia Platelet 39 this morning No platelet now Recheck in AM VTE PROPHYLAXIS SCD's. DISPOSITION Expected discharge to home. Medical follow-up with Dr. Davian Schmidt. Hematology / Oncology follow-up with Dr. Rehan Elmore. Vital Signs: Date Time Temp Pulse Resp B/P (MAP) Pulse Ox O2 Delivery O2 Flow Rate FiO2 03/19/17 11:01 86 19 95/58 (70) 94 03/19/17 11:00 82 22 95 03/19/17 10:46 131 21 91/64 (73) 93 03/19/17 10:45 61 22 94 03/19/17 10:31 84 24 93/56 (68) 96 03/19/17 10:30 79 23 95 03/19/17 10:16 80 27 99/67 (78) 95 03/19/17 10:15 81 32 95 03/19/17 10:15 37.1 80 20 99/67 94 5.0 03/19/17 10:01 76 27 116/66 (83) 92 03/19/17 10:00 74 24 93 03/19/17 10:00 37.1 89 20 116/66 92 5.0 03/19/17 09:59 121 26 94/59 (71) 91 03/19/17 09:45 73 17 97 03/19/17 09:30 83 14 97 03/19/17 09:15 84 19 97 03/19/17 09:02 88 15 84/59 (67) 95 03/19/17 09:00 76 17 96 03/19/17 08:45 140 16 96 03/19/17 08:30 81 17 96 03/19/17 08:00 94 Nasal Cannula 5.0 03/19/17 08:00 37.5 80 20 109/62 (78) 94 Nasal Cannula 5.0 03/19/17 08:00 Nasal Cannula 03/19/17 06:01 109 19 106/50 (68) 93 Nasal Cannula 5.0 03/19/17 05:01 68 17 81/50 (60) 97 Nasal Cannula 5.0 03/19/17 04:01 36.7 127 20 87/64 (72) 93 Nasal Cannula 5.0 03/19/17 04:00 Nasal Cannula 5.0 03/19/17 03:02 97 16 96/60 (72) 93 Nasal Cannula 5.0 03/19/17 02:01 124 23 96/63 (74) 94 Nasal Cannula 5.0 03/19/17 01:56 122 110/60 03/19/17 01:00 122 18 102/59 (73) 92 Nasal Cannula 5.0 03/19/17 00:34 128 100/55 03/19/17 00:01 37.5 111 16 100/55 (70) 97 Nasal Cannula 4.0 03/19/17 00:00 Nasal Cannula 4.0 03/18/17 23:01 77 15 101/59 (73) 98 Nasal Cannula 4.0 03/18/17 22:01 80 22 110/65 (80) 93 Nasal Cannula 4.0 03/18/17 21:01 79 18 114/68 (83) 96 Nasal Cannula 4.0 03/18/17 20:01 37.0 77 19 106/63 (77) 96 Nasal Cannula 4.0 03/18/17 20:00 Nasal Cannula 4.0 03/18/17 17:02 95 Nasal Cannula 2.0 03/18/17 15:45 71 17 96 03/18/17 15:31 36.9 73 19 93/61 (72) 96 Nasal Cannula 2.0 03/18/17 15:16 73 24 88/58 (68) 90 03/18/17 15:15 74 28 90 03/18/17 15:01 83 31 108/65 (79) 90 03/18/17 14:48 74 25 107/61 (76) 92 03/18/17 14:47 73 31 110/61 (77) 93 03/18/17 14:45 82 30 90 03/18/17 14:31 70 21 89/61 (70) 95 03/18/17 14:16 70 23 89/57 (68) 95 03/18/17 14:15 71 23 95 03/18/17 14:01 71 21 86/57 (67) 95 03/18/17 13:45 91 20 94 03/18/17 13:31 84 18 85/55 (65) 97 03/18/17 13:16 82 21 94/56 (69) 96 03/18/17 13:15 86 24 96 03/18/17 13:01 84 15 82/53 (63) 97 03/18/17 12:46 80 16 81/52 (62) 97 03/18/17 12:45 84 16 97 03/18/17 12:30 80 15 96 Nasal Cannula 2.0 03/18/17 12:16 89 19 85/56 (66) 97 03/18/17 12:01 36.8 119 24 80/58 (65) 95 Nasal Cannula 2.0 03/18/17 12:00 98 Nasal Cannula 2.0 03/18/17 12:00 120 17 95 Lab Results: Results Past 24 Hours Test 03/18/17 15:24 03/19/17 02:34 Range/Units White Blood Count 57.19 35.28 4.8-10.8 K/uL Red Blood Count 2.44 2.29 4.2-5.4 M/uL Hemoglobin 7.5 7.1 12.0-16.0 g/dL Hematocrit 22.7 21.2 37-47 % Mean Corpuscular Volume 93.0 92.6 80-100 fL Mean Corpuscular Hemoglobin 30.7 31.0 25-34 pg Mean Corpuscular Hemoglobin Concent 33.0 33.5 32-36 g/dl Platelet Count 53 35 130-400 K/uL Mean Platelet Volume 9.6 9.1 7.4-10.4 fL RDW Standard Deviation 56.2 55.2 36.4-46.3 fL RDW Coefficient of Variation 17.0 16.6 11.5-14.5 % Neutrophils % (Manual) 4.3 18.4 % Lymphocytes % (Manual) 9.0 21.1 % Monocytes % (Manual) 86.3 57.9 % Eosinophils % (Manual) 0.4 2.6 % Neutrophils # (Manual) 2.46 6.49 1.4-6.5 K/uL Total Absolute Neutrophils 2.46 6.49 1.4-6.5 K/uL Lymphocytes # (Manual) 5.15 7.44 1.2-3.4 K/uL Total Absolute Lymphocytes 5.15 7.44 1.2-3.4 K/uL Monocytes # (Manual) 49.35 20.43 0.11-0.59 K/uL Eosinophils # (Manual) 0.23 0.92 0-0.5 K/uL Platelet Estimate DECREASED Red Blood Cell Morphology Unremarkable Sodium Level 135 136-145 mmol/L Potassium Level 3.7 3.5-5.1 mmol/L Chloride Level 102 98-107 mmol/L Carbon Dioxide Level 27 21-32 mmol/L Anion Gap 6.0 3-11 mmol/L Blood Urea Nitrogen 17 7-18 mg/dl Creatinine 0.70 0.60-1.20 mg/dl Est Creatinine Clear Calc Drug Dose 55.8 ml/min Estimated GFR () 94.8 Estimated GFR (Non- 81.8 BUN/Creatinine Ratio 23.8 10-20 Random Glucose 107 70-99 mg/dl Calcium Level 7.6 8.5-10.1 mg/dl Phosphorus Level 3.0 2.5-4.9 mg/dl Magnesium Level 2.0 1.8-2.4 mg/dl
--- NOTE | 2017-03-19 15:43 | CARDIOLOGY CONSULTATION ---
DATE OF CONSULTATION: 03/19/2017 DATE OF CONSULTATION: 03/19/2017 REFERRING PHYSICIAN: Dr. Ramses Bill. REASON FOR CONSULTATION: Atrial fibrillation, ? sotalol dosing. HISTORY OF PRESENT ILLNESS: Ms. Aguilar is a complex 81-year-old female who was recently hospitalized in early February with atrial fibrillation. At that time, she was seen by my partner Dr. Swanson and sotalol was started at a dose of 80 mg twice daily. She was adequately loaded. Her QTC was documented to be normal. The patient was treated with aspirin only due to hematologic problems and low platelet count. The patient was readmitted on 03/16/2017 after a vascular access device was implanted resulting in a hemothorax. Chest tube was placed by thoracic surgery and removed. The patient subsequently developed recurrent atrial fibrillation. Her sotalol was placed on hold temporarily. Sotalol was then restarted this morning. She has received 2 doses over the past 15 hours. She continues to go in and out of atrial fibrillation on telemetry. Network Systems Operator team has questions regarding her sotalol dosing at this time. The patient seen and examined at the bedside. She denies any palpitations. Her blood pressure is borderline hypotensive, however, denies lightheadedness or dizziness. She is unaware of her heart rate. No chest discomfort or unusual shortness of breath. No orthopnea, PND, or lower extremity edema. Family is present at bedside. The patient offers no other complaints at this time. REVIEW OF SYSTEMS: The pertinent positives are noted above. A comprehensive 10-system review is otherwise negative. PAST MEDICAL HISTORY: 1. AML. 2. Paroxysmal atrial fibrillation. 3. Recent hemothorax secondary to insertion of A-port. 4. D&C. 5. Hemilaminectomy. 6. Degenerative disc disease. PAST SURGICAL HISTORY: 1. D&C. 2. Hemilaminectomy. 3. Tonsil and adenoidectomy. 4. Recent A-port placement. 5. Chest tube placement. FAMILY HISTORY: No history of premature CAD or sudden cardiac . SOCIAL HISTORY: Denies any alcohol, tobacco, or drug use. She is and lives with her . ALLERGIES: No known drug allergies. CURRENT MEDICATIONS: 1. Sotalol 80 mg daily. 2. Prevacid 30 mg daily. 3. Colace 100 mg twice daily. 4. Oxycodone as needed. 5. Allopurinol 300 mg daily. 6. Fentanyl 25 mcg as needed. 7. Zofran 4 mg as needed. 8. Morphine as needed. Chest x-ray performed at 0810 this morning demonstrates left-sided chest tube removal without pneumothorax. There is a layering large left-sided pleural effusion with bibasilar consolidations. LABORATORY DATA: White blood cell count 35.28, hemoglobin is 7.1, platelet count is 35. Sodium 135, potassium 3.7, chloride is 102, CO2 is 27, BUN 17, creatinine 0.7, calcium 7.6. Troponin is less than 0.015. INR is 1.1. Telemetry demonstrates sinus rhythm with periods of atrial flutter and variable conduction, rapid ventricular response. Repeat ECG performed at 1415 demonstrates sinus rhythm with occasional premature ventricular complexes, QTC is 429 milliseconds. PHYSICAL EXAMINATION: VITAL SIGNS: 37.1 degrees centigrade, pulse 79 beats per minute and regular, respiratory rate is 20 breaths per minute, blood pressure is 106/56. Repeat blood pressure 1400 was 89/54, her SAO2 is 93% on 5 liters. GENERAL: Chronically ill, no acute distress. She is awake, alert and oriented x3. HEAD, EYES, EARS, NOSE, AND THROAT: Her mucous membranes are moist. No scleral icterus. Conjunctivae pink. NECK: Supple. There is no JVD or HJR. No carotid bruit. HEART: Regular with a normal S1 and S2. No murmur, rub or gallop. LUNGS: Demonstrate markedly diminished breath sounds at the left lower and mid lung johnson. No rhonchi or wheeze appreciated. No crackles. ABDOMEN: Soft, nontender. No rebound or guarding. Normal bowel sounds. EXTREMITIES: Warm and dry without clubbing, cyanosis, or edema. Posterior tibial pulses are 2/4 bilaterally. NEUROLOGIC EXAMINATION: Demonstrates no focal motor deficit. FINAL IMPRESSION: 1. Paroxysmal atrial fibrillation with rapid ventricular response. Recurrent dysrhythmias exacerbated by hemothorax as well as withholding sotalol during hospitalization. The patient cannot be anticoagulated at this time due to hemothorax and thrombocytopenia. 2. Left-sided hemothorax, status post chest tube removal. 3. Acute myeloid leukemia with leukocytosis, anemia, thrombocytopenia. The patient has been transfused 2 units of platelets. Allopurinol and hydroxyurea on hold per Dr. Elmore. 4. Acute myeloid leukemia. PLAN AND RECOMMENDATIONS: The patient was recently loaded with sotalol 80 mg twice daily over 72-hour period. Her QTC remained within normal range without induced dysrhythmias. Her renal function is unchanged compared to that recent hospitalization. I recommend she continue sotalol 80 mg twice daily. If renal function declines, would consider discontinuation of sotalol in favor of amiodarone after a 72-hour washout period. Can use spot doses of intravenous Lopressor for periods of symptomatic atrial fibrillation with rapid ventricular response. Electrolytes will be replaced as needed. No indication for repeat echocardiogram at this time. Management of hemothorax and AML as per thoracic medicine and hematology respectively. Thank you for allowing me to take part in the care of your patient.
[2017-03-20] VITALS (28 sets, daily range): BP systolic 83–124; BP diastolic 49–73; PULSE 63–91; TEMP 36.6–37.9; O2SAT 89–97
[2017-03-20] MEDS: ACETAMINOPHEN 325 MG TAB PO PRN ×2 (00:59→20:03)
[2017-03-20 06:39] LABS: BUN/CREATININE RATIO 22.8 (10-20); CALCIUM 7.6 mg/dl (8.5-10.1); CREATININE 0.7 mg/dl (0.60-1.20); MAGNESIUM 1.9 mg/dl (1.8-2.4); POTASSIUM 3.2 mmol/L (3.5-5.1)
[2017-03-20 06:42] LABS: PHOSPHORUS 3.8 mg/dl (2.5-4.9)
--- NOTE | 2017-03-20 07:04 | DIAGNOSTIC IMAGING REPORT ---
CHEST ONE VIEW PORTABLE CLINICAL HISTORY: f/u dyspnea COMPARISON STUDY: 03/19/2017 FINDINGS: Findings of congestive failure similar to process minimally progressive. Left and to a lesser extent right pleural effusions are slightly progressive. Central catheter remains in superior vena cava. IMPRESSION: Congestive failure and bilateral pleural effusions slightly progressive from the prior study. The above report was generated using voice recognition software. It may contain grammatical, syntax or spelling errors. Electronically signed by: Brian Hull M.D. 03/20/2017 7:02 AM Dictated Date/Time: 03/20/2017 7:01 AM
[2017-03-20 07:27] LABS: HEMATOCRIT 23.4 % (37-47); MEAN CELL VOLUME 92.1 fL (80-100); MEAN CORPUSCULAR HEMOGLOBIN 31.1 pg (25-34); MEAN CORPUSCULAR HGB CONC 33.8 g/dl (32-36); MEAN PLATELET VOLUME 11.3 fL (7.4-10.4); PLATELET COUNT 23 K/uL (130-400); RED BLOOD COUNT 2.54 M/uL (4.2-5.4); WHITE BLOOD COUNT 21.04 K/uL (4.8-10.8)
[2017-03-20 07:29] LABS: COMPLETE YES; EOSINOPHIL % 0.9 %; LYMPH ABS # 5.41 K/uL (1.2-3.4); LYMPHOCYTE % 25.7 %; NEUTROPHILS % 10.6 %
[2017-03-20] MEDS: SOTALOL HCL 80 MG TAB PO SCH ×2 (08:01→20:05)
[2017-03-20] MEDS: SENNA 8.6 MG TAB PO SCH (08:01)
[2017-03-20] MEDS: LANSOPRAZOLE SOLUTAB 30 MG PO SCH (08:02)
[2017-03-20] MEDS: ALLOPURINOL 300 MG TAB PO SCH (08:02)
[2017-03-20] MEDS: POTASSIUM CHLORIDE 20 MEQ TABCR PO SCH ×3 (08:02→20:04)
[2017-03-20] MEDS: DOCUSATE SODIUM 100 MG CAP PO SCH ×2 (08:02→20:04)
[2017-03-20] MEDS ORDERED: NURSING VERBAL MED ORDER ONE ×2 (09:00→09:30)
[2017-03-20] MEDS: POLYETHYLENE (MIRALAX) 17 GM PACK PO SCH (09:27)
[2017-03-20] MEDS ORDERED: POTASSIUM CHLORIDE 20 MEQ/15 ML UDC PO STA (09:32)
[2017-03-20] MEDS: LACTATED RINGER'S 1000ML 1,000 ML IV SCH (09:41)
[2017-03-20] MEDS ORDERED: FUROSEMIDE INJ 20 MG in SYRINGE 0 ML IV SCH (10:00)
[2017-03-20] MEDS ORDERED: POTASSIUM CHLORIDE 20 MEQ TABCR PO ONE (10:00)
--- NOTE | 2017-03-20 10:01 | Critical Care Progress Note ---
Critical Care Progress Note Date of Service Mar 20, 2017. Attending Dr. Eloise Doll I personally examined this patient, reviewed her clinical and laboratory data, interpreted x-ray and formulated further plan of care. In summary, the patient is a 81-year-old functional female who was recently diagnosed with acute myelocytic leukemia. She was admitted to [facility] for placement of subclavian infusion port which was successfully done on 03/16/2017. Patient developed left-sided hemothorax complicated by hypotension and atrial fibrillation with rapid ventricular response. Chest tube was placed with immediate drainage of 1 L of dark blood. Patient was volume resuscitated, transfused with totally 12 units of platelets, 3 units of packed RBCs. Status post hematoma evacuation VATS on March 17 17. Uneventful night. Poor appetite. Improvement of incisional chest pain following discontinuation of chest tube. Objective General Appearance: Patient is comfortably laying in the bed. Head: normocephalic, atraumatic Neck: no tenderness, trachea midline, no stridor, supple, no lymphadenopathy Respiratory: Infusion port underneath left clavicle, clean dressing. Small incisions following VATS procedure and chest tube placement. No infection. Cardiovasular: Regular rhythm, normal S1-S2, no S3. Abdomen: non tender, normal bowel sounds, no rebound, no masses, no guarding. Pulses: dorsalis pedis (R) (2+), dorsalis pedis (L) (2+), posterior tibial (R) , posterior tibial (L) (2+) Neuro: alert, oriented x 3, normal motor exam Current SOFA Score SOFA Score Response (Comments) Value Platelets (x10) < 50 3 Bilirubin (mg/dL) < 1.2 (LFT's not done) 0 Repton Coma Score 15 0 Level of Hypotension No Hypotension 0 Creatinine (mg/dL) < 1.2 0 Total 3 Assessment & Plan 1. Postprocedure left-sided hemothorax. POD # 3 sp VATS and hematoma evacuation. Bedside chest ultrasound did not reveal any residual hematoma or significant pleural effusion. We will continue with aggressive pulmonary toilet , incentive spirometry, flutter valve. Pain is adequately controlled with Percocet when necessary. 2. Respiratory insufficiency likely to fluid overload and bilateral pleural effusions, bibasilar atelectasis. We will initiate Lasix, replace potassium appropriately. 3. Paroxysmal atrial fibrillation on sotalol. Patient had few episodes of atrial fibrillation, mostly sinus rhythm on sotalol twice a day. 4. Acute myelocytic leukemia. Hydroxyurea and allopurinol is on hold as per hematology. Chemotherapy will be initiated following complete resolution of hemothorax. 5. ID: Leukocytosis secondary to AML, no obvious signs of infection. 6. Anemia, sp 1u packed RBCs for hemoglobin of 7.1 yesterday. Worsening thrombocytopenia. We'll transfuse with platelets when platelet count is between 10 and 20,000. 7. GI: Will tolerated diet, poor appetite. Patient did not want to initiate Marinol or nutritional supplementation yet. 8. Neurologically examination was intact. 9. DVT prophylaxis with SCDs, avoid heparin products. Patient has improved significantly, so we'll transfer her to telemetry setting for further management. [id number] note. [place] Score Date Score Was Generated: Mar 18, 2017 Consults & Procedures Consultants: Dr. Eloise Leonardo Procedures: chest tube placement A port placement Data Medications: Current Inpatient Medications Medications (Trade) Dose Ordered Sig/Samanta Route Start Time Stop Time Status Last Admin Dose Admin Ondansetron HCl (Zofran Inj) 4 mg Q6H PRN IV 03/16/17 14:45 04/15/17 14:44 03/19/17 20:46 4 MG Morphine Sulfate (MoRPHine SULFATE INJ) 2 mg Q2H PRN IV 03/16/17 14:45 03/30/17 14:44 03/19/17 21:41 2 MG Morphine Sulfate (MoRPHine SULFATE INJ) 4 mg Q2H PRN IV 03/16/17 14:45 03/30/17 14:44 03/17/17 06:01 4 MG Lactated Ringer's 1,000 ml @ 100 mls/hr Q10H IV 03/16/17 15:44 04/15/17 15:43 03/19/17 22:06 100 MLS/HR Allopurinol (Zyloprim Tab) 300 mg DAILY PO 03/17/17 09:00 04/16/17 08:59 03/20/17 08:02 300 MG Fentanyl Citrate (Fentanyl Inj) 25 mcg Q2H PRN IV 03/16/17 19:30 03/30/17 19:29 03/19/17 07:44 25 MCG Docusate Sodium (coLACE CAP) 100 mg BID PO 03/18/17 09:00 04/17/17 08:59 03/20/17 08:02 100 MG Senna (Senokot Tab) 8.6 mg QAM PO 03/18/17 09:00 04/17/17 08:59 03/20/17 08:01 8.6 MG Oxycodone/ Acetaminophen (Percocet 5-325mg Tab) 1 tab Q4H PRN PO 03/17/17 15:45 03/31/17 15:44 03/19/17 12:47 1 TAB Lansoprazole (Prevacid Solutab) 30 mg DAILY PO 03/19/17 09:00 04/18/17 08:59 03/20/17 08:02 30 MG Sotalol HCl (Betapace Tab) 80 mg BID PO 03/19/17 21:00 04/18/17 20:59 03/20/17 08:01 80 MG Acetaminophen (Tylenol Tab) 650 mg Q4H PRN PO 03/20/17 01:00 04/19/17 00:59 03/20/17 00:59 650 MG Potassium Chloride (Klor-Con Tab) 20 meq TID PO 03/20/17 09:00 03/20/17 23:00 03/20/17 08:02 20 MEQ Polyethylene (Miralax Powder Packet) 17 gm QAM PO 03/20/17 09:00 04/19/17 08:59 03/20/17 09:27 17 GM Miscellaneous Information (Nursing Verbal Med Order) 1 ea ONE ONCE N/A 03/20/17 09:00 03/20/17 09:01 UNV Miscellaneous Information (Nursing Verbal Med Order) 1 ea ONE ONCE N/A 03/20/17 09:30 03/20/17 09:31 UNV Potassium Chloride (Krissy Ciel Elix) 20 meq ONE ONCE PO 03/20/17 14:00 03/20/17 14:01 UNV Furosemide 20 mg/ Syringe 2 ml @ 4 mls/min ONE STAT IV 03/20/17 09:35 03/20/17 09:36 UNV Vital Signs: Date Time Temp Pulse Resp B/P (MAP) Pulse Ox O2 Delivery O2 Flow Rate FiO2 03/20/17 07:30 Nasal Cannula 3.0 03/20/17 07:30 36.7 69 22 107/52 (70) 93 Nasal Cannula 3.0 03/20/17 06:19 63 22 83/53 (63) 93 Nasal Cannula 3.0 03/20/17 04:00 36.9 66 21 87/50 (62) 96 Oxymask 3.0 03/20/17 04:00 Oxymask 3.0 03/20/17 02:30 36.9 03/20/17 02:00 90 28 84/60 (68) 94 Oxymask 3.0 03/20/17 00:00 Nasal Cannula 3.0 03/20/17 00:00 37.9 80 15 88/49 (62) 93 Nasal Cannula 3.0 03/19/17 23:00 72 16 98/55 (69) 92 Nasal Cannula 3.0 03/19/17 22:00 83 16 90/61 (71) 92 Nasal Cannula 3.0 03/19/17 21:00 126 26 118/72 (87) 91 Nasal Cannula 3.0 03/19/17 20:01 37.6 102 26 117/69 (85) 90 Nasal Cannula 3.0 03/19/17 20:00 Nasal Cannula 3.0 03/19/17 18:00 104 20 95/57 (70) 92 Nasal Cannula 3.0 03/19/17 16:00 95 Nasal Cannula 5.0 03/19/17 16:00 37.2 71 20 130/64 (86) 95 Nasal Cannula 5.0 03/19/17 14:00 79 20 89/54 (66) 93 Nasal Cannula 5.0 03/19/17 12:15 82 22 95 03/19/17 12:14 85 22 106/56 (73) 94 03/19/17 12:02 132 24 106/56 (73) 93 03/19/17 12:00 56 22 93 03/19/17 12:00 95 Nasal Cannula 5.0 03/19/17 11:46 59 23 99/51 (67) 92 03/19/17 11:45 105 32 94 03/19/17 11:32 132 33 111/71 (84) 90 03/19/17 11:30 88 25 90 03/19/17 11:17 90 22 88/56 (67) 94 03/19/17 11:15 59 24 95 03/19/17 11:01 86 19 95/58 (70) 94 03/19/17 11:01 86 19 95/58 (70) 94 03/19/17 11:00 82 22 95 03/19/17 11:00 82 22 95 03/19/17 10:46 131 21 91/64 (73) 93 03/19/17 10:45 61 22 94 03/19/17 10:31 84 24 93/56 (68) 96 03/19/17 10:30 79 23 95 03/19/17 10:16 80 27 99/67 (78) 95 03/19/17 10:15 81 32 95 03/19/17 10:15 37.1 80 20 99/67 94 5.0 03/19/17 10:01 76 27 116/66 (83) 92 Laboratory Results: Last 24 Hours Test 03/20/17 05:42 White Blood Count 21.04 K/uL Red Blood Count 2.54 M/uL Hemoglobin 7.9 g/dL Hematocrit 23.4 % Mean Corpuscular Volume 92.1 fL Mean Corpuscular Hemoglobin 31.1 pg Mean Corpuscular Hemoglobin Concent 33.8 g/dl Platelet Count 23 K/uL Mean Platelet Volume 11.3 fL RDW Standard Deviation 51.3 fL RDW Coefficient of Variation 15.6 % Neutrophils % (Manual) 10.6 % Lymphocytes % (Manual) 25.7 % Monocytes % (Manual) 62.8 % Eosinophils % (Manual) 0.9 % Neutrophils # (Manual) 2.23 K/uL Total Absolute Neutrophils 2.23 K/uL Lymphocytes # (Manual) 5.41 K/uL Total Absolute Lymphocytes 5.41 K/uL Monocytes # (Manual) 13.21 K/uL Eosinophils # (Manual) 0.19 K/uL Red Blood Cell Morphology Unremarkable Sodium Level 138 mmol/L Potassium Level 3.2 mmol/L Chloride Level 102 mmol/L Carbon Dioxide Level 31 mmol/L Anion Gap 5.0 mmol/L Blood Urea Nitrogen 16 mg/dl Creatinine 0.70 mg/dl Est Creatinine Clear Calc Drug Dose 56.2 ml/min Estimated GFR () 94.8 Estimated GFR (Non- 81.8 BUN/Creatinine Ratio 22.8 Random Glucose 101 mg/dl Calcium Level 7.6 mg/dl Phosphorus Level 3.8 mg/dl Magnesium Level 1.9 mg/dl
--- NOTE | 2017-03-20 10:14 | Surgery Progress Note ---
Surgery Progress Note Date of Service Mar 20, 2017. Subjective Patient examined at bedside this morning. Afebrile, remains in rate-controlled A fib - otherwise vitals stable overnight. Currently on 3L O2 via NC, desaturations noted when oxygen removed. Patient was out of bed to chair for a few hours yesterday, but has not been ambulating. Low appetite, but had some breakfast this morning without N/V. A-port site clean, dry, no swelling, minimal pain; dressing removed. Objective Vital Signs: Date Time Temp Pulse Resp B/P (MAP) Pulse Ox O2 Delivery O2 Flow Rate FiO2 03/20/17 09:30 37.2 71 22 96/57 (70) 94 Nasal Cannula 3.0 03/20/17 07:30 Nasal Cannula 3.0 03/20/17 07:30 36.7 69 22 107/52 (70) 93 Nasal Cannula 3.0 03/20/17 06:19 63 22 83/53 (63) 93 Nasal Cannula 3.0 03/20/17 04:00 36.9 66 21 87/50 (62) 96 Oxymask 3.0 03/20/17 04:00 Oxymask 3.0 03/20/17 02:30 36.9 03/20/17 02:00 90 28 84/60 (68) 94 Oxymask 3.0 03/20/17 00:00 Nasal Cannula 3.0 03/20/17 00:00 37.9 80 15 88/49 (62) 93 Nasal Cannula 3.0 03/19/17 23:00 72 16 98/55 (69) 92 Nasal Cannula 3.0 03/19/17 22:00 83 16 90/61 (71) 92 Nasal Cannula 3.0 03/19/17 21:00 126 26 118/72 (87) 91 Nasal Cannula 3.0 03/19/17 20:01 37.6 102 26 117/69 (85) 90 Nasal Cannula 3.0 03/19/17 20:00 Nasal Cannula 3.0 03/19/17 18:00 104 20 95/57 (70) 92 Nasal Cannula 3.0 03/19/17 16:00 95 Nasal Cannula 5.0 03/19/17 16:00 37.2 71 20 130/64 (86) 95 Nasal Cannula 5.0 03/19/17 14:00 79 20 89/54 (66) 93 Nasal Cannula 5.0 03/19/17 12:15 82 22 95 03/19/17 12:14 85 22 106/56 (73) 94 03/19/17 12:02 132 24 106/56 (73) 93 03/19/17 12:00 56 22 93 03/19/17 12:00 95 Nasal Cannula 5.0 03/19/17 11:46 59 23 99/51 (67) 92 03/19/17 11:45 105 32 94 03/19/17 11:32 132 33 111/71 (84) 90 03/19/17 11:30 88 25 90 03/19/17 11:17 90 22 88/56 (67) 94 03/19/17 11:15 59 24 95 03/19/17 11:01 86 19 95/58 (70) 94 03/19/17 11:01 86 19 95/58 (70) 94 03/19/17 11:00 82 22 95 03/19/17 11:00 82 22 95 03/19/17 10:46 131 21 91/64 (73) 93 03/19/17 10:45 61 22 94 03/19/17 10:31 84 24 93/56 (68) 96 03/19/17 10:30 79 23 95 03/19/17 10:16 80 27 99/67 (78) 95 03/19/17 10:15 81 32 95 03/19/17 10:15 37.1 80 20 99/67 94 5.0 General Appearance: WD/WN, no apparent distress Head: normocephalic Neck: supple Respiratory/Chest: lungs clear (diminished breath sounds bilateral lung bases) , normal breath sounds, no respiratory distress Cardiovascular: regular rate, rhythm Incision(s): clean, dry, intact Laboratory Results: Results Past 24 Hours Test 03/20/17 05:42 Range/Units White Blood Count 21.04 4.8-10.8 K/uL Red Blood Count 2.54 4.2-5.4 M/uL Hemoglobin 7.9 12.0-16.0 g/dL Hematocrit 23.4 37-47 % Mean Corpuscular Volume 92.1 80-100 fL Mean Corpuscular Hemoglobin 31.1 25-34 pg Mean Corpuscular Hemoglobin Concent 33.8 32-36 g/dl Platelet Count 23 130-400 K/uL Mean Platelet Volume 11.3 7.4-10.4 fL RDW Standard Deviation 51.3 36.4-46.3 fL RDW Coefficient of Variation 15.6 11.5-14.5 % Neutrophils % (Manual) 10.6 % Lymphocytes % (Manual) 25.7 % Monocytes % (Manual) 62.8 % Eosinophils % (Manual) 0.9 % Neutrophils # (Manual) 2.23 1.4-6.5 K/uL Total Absolute Neutrophils 2.23 1.4-6.5 K/uL Lymphocytes # (Manual) 5.41 1.2-3.4 K/uL Total Absolute Lymphocytes 5.41 1.2-3.4 K/uL Monocytes # (Manual) 13.21 0.11-0.59 K/uL Eosinophils # (Manual) 0.19 0-0.5 K/uL Red Blood Cell Morphology Unremarkable Sodium Level 138 136-145 mmol/L Potassium Level 3.2 3.5-5.1 mmol/L Chloride Level 102 98-107 mmol/L Carbon Dioxide Level 31 21-32 mmol/L Anion Gap 5.0 3-11 mmol/L Blood Urea Nitrogen 16 7-18 mg/dl Creatinine 0.70 0.60-1.20 mg/dl Est Creatinine Clear Calc Drug Dose 56.2 ml/min Estimated GFR () 94.8 Estimated GFR (Non- 81.8 BUN/Creatinine Ratio 22.8 10-20 Random Glucose 101 70-99 mg/dl Calcium Level 7.6 8.5-10.1 mg/dl Phosphorus Level 3.8 2.5-4.9 mg/dl Magnesium Level 1.9 1.8-2.4 mg/dl Microbiology Results 03/20/17 Blood Culture, Received Pending 03/20/17 Blood Culture, Received Pending Imaging 03/20/17 CXR: IMPRESSION: Congestive failure and bilateral pleural effusions slightly progressive from the prior study. Assessment & Plan Jyoti Aguilar is an 81 year old woman with AML who is now POD 4 s/p left subclavian Infusaport placement, complicated by hemothorax requiring blood transfusion and placement of left chest tube. She is now POD 3 s/p VATS with evacuation of hematoma, repositioning of chest tube, and placement of Exparel nerve block. Hemodynamics remain stable. Hgb low but stable - received another 1u PRBCs yesterday. Chest tube removed 03/19/17. -Pain and nausea control as needed -Diet as tolerated, high protein supplements for low appetite / low PO intake -Continue [employer]EL[employer] medications -Cardiology recommends continuing bid Sotalol for A fib, currently rate controlled -Chemotherapy, allopurinol / hydroxyurea on hold per Dr. Elmore / Oncology -Encourage OOB / ambulation and incentive spirometry -Appreciate ICU, hospitalist and Thoracic surgery management -Continue to follow closely Itzel Leonardo MD 03/20/17
--- NOTE | 2017-03-20 11:25 | SURGERY PROGRESS NOTE ---
DATE: 03/20/2017 SUBJECTIVE: Ms. Aguilar was seen today on 03/20/2017. She remains in atrial fibrillation, but her rate is controlled. She is on 3 liters of O2. She made an excellent urine yesterday at over 2-1/2 liters. She weighs 74.1 kilograms, which is down 1 kilogram from yesterday. Her x-ray shows bilateral pleural effusions, left a bit greater than right. This appeared to be failure. She feels much better and looks better. I inspected her incisions and all 3 are clean. Using an ultrasound, I evaluated her left chest and really she does not have a large amount of fluid in her chest. I believe much of this is atelectasis. At any rate, we will continue to follow her, but at this point, I would probably aggressively diurese her.
--- NOTE | 2017-03-20 13:12 | Cardiology Follow-Up ---
Subjective General Date of Service: Mar 20, 2017. Pt evaluation today including: conversation w/ patient, physical exam, chart review, lab review, review of studies, review of inpatient medication list History of Present Illness The patient is a 81 year old female seen in follow up. Intermittent brief episodes of atrial fibrillation recorded on monitor this morning. ECG with possible prolonged QT. Hemoglobin remains stable however platelets trending down. Patient reports fatigue. Denies chest pain or shortness of breath at rest. Family present at bedside. Allergies Coded Allergies: No Known Allergies (Unverified , 03/16/17) Social History Smoking Status: Never Smoker Hx Tobacco Use In Past Year?: No Hx Alcohol Use - Type And Amou: No Hx Substance Use - Type And Am: No Problem List Medical Problems: (1) Pneumonia Status: Acute (2) Sepsis Status: Acute Review of Systems Respiratory: No cough, No sputum, No wheezing, No shortness of breath, No dyspnea at rest, No hemoptysis Cardiac: No chest pain, No orthopnea, No PND, No edema, No palpitations Physical Exam Vital Signs Last Vital Signs Documentation Date Time Temp Pulse Resp B/P (MAP) Pulse Ox O2 Delivery O2 Flow Rate FiO2 03/20/17 11:15 36.7 72 20 100/61 (74) 95 Nasal Cannula 3.0 Physical Exam Constitutional: Level of Distress: NAD, acutely ill Head: normocephalic, atraumatic Neck: supple, trachea midline Lungs: Auscultation: decreased breath sounds (left mid and lower lung johnson) Cardiovascular: Heart Auscultation: RRR, normal S1, normal S2, II/ SAMMY Peripheral Pulses: Radial Pulse: normal on the left, normal on the right Abdomen: Bowel Sounds: normal Inspection & Palpation: soft, non-distended, no tenderness, guarding & rebound Extremities: no cyanosis, no edema, no clubbing, no ulcers Neurologic: Gait & Station: pertinent finding (no focal motor deficit) Cranial Nerves: grossly intact Assessment and Plan Assessment and Plan FINAL IMPRESSION: 1. Paroxysmal atrial fibrillation with rapid ventricular response. -Dysrhythmia provoked by hemothorax and withholding of antiarrhythmic therapy -Rhythm improved and currently sinus rhythm -Possible prolonged QT noted on ECG this a.m. 2. Left-sided hemothorax, status post chest tube removal. 3. Hypokalemia 4. Acute myeloid leukemia with leukocytosis, anemia, thrombocytopenia. hydroxyurea on hold per Dr. Elmore. PLAN AND RECOMMENDATIONS: Repeat ECG to assess QT interval. Supplement potassium. Continue current dose of sotalol unless QTc prolonged on repeat ECG. Plan for repeat ECG in a.m. as well. Laboratory Results Last 24 Hours Test 03/20/17 05:42 White Blood Count 21.04 K/uL Red Blood Count 2.54 M/uL Hemoglobin 7.9 g/dL Hematocrit 23.4 % Mean Corpuscular Volume 92.1 fL Mean Corpuscular Hemoglobin 31.1 pg Mean Corpuscular Hemoglobin Concent 33.8 g/dl Platelet Count 23 K/uL Mean Platelet Volume 11.3 fL RDW Standard Deviation 51.3 fL RDW Coefficient of Variation 15.6 % Neutrophils % (Manual) 10.6 % Lymphocytes % (Manual) 25.7 % Monocytes % (Manual) 62.8 % Eosinophils % (Manual) 0.9 % Neutrophils # (Manual) 2.23 K/uL Total Absolute Neutrophils 2.23 K/uL Lymphocytes # (Manual) 5.41 K/uL Total Absolute Lymphocytes 5.41 K/uL Monocytes # (Manual) 13.21 K/uL Eosinophils # (Manual) 0.19 K/uL Red Blood Cell Morphology Unremarkable Sodium Level 138 mmol/L Potassium Level 3.2 mmol/L Chloride Level 102 mmol/L Carbon Dioxide Level 31 mmol/L Anion Gap 5.0 mmol/L Blood Urea Nitrogen 16 mg/dl Creatinine 0.70 mg/dl Est Creatinine Clear Calc Drug Dose 56.2 ml/min Estimated GFR () 94.8 Estimated GFR (Non- 81.8 BUN/Creatinine Ratio 22.8 Random Glucose 101 mg/dl Calcium Level 7.6 mg/dl Phosphorus Level 3.8 mg/dl Magnesium Level 1.9 mg/dl
[2017-03-20] MEDS ORDERED: POTASSIUM CHLORIDE 20 MEQ/15 ML UDC PO SCH (14:00)
--- NOTE | 2017-03-20 16:28 | Progress Note ---
Internal Med Progress Note Date of Service: Mar 20, 2017. Provider Documentation: SUBJECTIVE: The patient was seen and examined S/P Left Thoracotomy tube placement for Left Hemothorax Generally weak and complains of some pain in the chest S/P Left thoracoscopy with evacuation of left hemothorax 03/17 S/P removal of the Chest tube Clinically much better without any significant symptoms But CXR is showing Pleural effusion OBJECTIVE: Vital Signs-as noted below Exam: General-Generally weak and lethargic Eyes-normal ENT-normal Neck-supple Lungs-decreased breath sound bilaterally Improved compared with yesterday Heart-Regular,no murmur Abdomen-Benign,no masses,bowel sound present Extremities-No edema Neuro-AAOx3 Lab data as noted below. ASSESSMENT & PLAN: LEFT HEMOTHORAX S/P Infusaport insertion complicated by hemothorax requiring chest tube placement S/P chest tube placement on 03/16/17 Management per Thoracic Surgery. Appreciate Thoracic surgery input S/P Left thoracoscopy with evacuation of left hemothorax 03/17/17 Feels a lot better following the procedure S/P Removal of the chest tube CXR this AM::1. The left-sided chest tube has been removed. No pneumothorax is seen. 2. Layering pleural effusions, left larger than right with bibasilar consolidation. 3. Question congestive failure. Clinically better CXR:::: Congestive failure and bilateral pleural effusions slightly progressive from the prior study. Will give Lasix and Monitor Acute Blood Loss Anemia complicated by Thrombocytopenia Received 3 Units of PRBC and 2 Units of platelet pheresis Hb and platelet are reasonable Hb down to 7.6 and Platelet 59 Will check Hb at 3 Hb on 03/19/17-7.1 Discussed with the Oncologist Will give 1 unit of PRBC Discussed with the Oncologist -will check CBC tomorrow and decide tansfusion 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 Appreciate Oncology input Discussed with the Oncologist -will check CBC tomorrow and decide tansfusion ATRIAL FIBRILLATION Paroxysmal AF perioperatively. Received IV metoprolol. Evaluated by the Conference Services Coordinator during the last admission Converted to NSR. Resume sotalol when hemodynamics allow. Back in AF with RVR at times Cardiology consulted -appreciate Input Thrombocytopenia Platelet 39 this morning No platelet now Recheck in AM and decide for any transfusion VTE PROPHYLAXIS SCD's. DISPOSITION Expected discharge to home. Medical follow-up with Dr. Davian Schmidt. Hematology / Oncology follow-up with Dr. Rehan Elmore. Vital Signs: Date Time Temp Pulse Resp B/P (MAP) Pulse Ox O2 Delivery O2 Flow Rate FiO2 03/20/17 15:45 36.6 80 20 96/57 (70) 94 Nasal Cannula 3.0 03/20/17 15:45 Nasal Cannula 3.0 03/20/17 15:12 78 27 96/57 (79) 89 03/20/17 15:00 78 24 94 03/20/17 14:00 78 23 94 03/20/17 13:49 36.6 76 20 124/72 (89) 94 Nasal Cannula 3.0 03/20/17 13:43 79 95 03/20/17 13:24 83 27 124/72 (93) 92 03/20/17 13:17 87 31 107/60 (79) 91 03/20/17 13:00 79 25 91/57 (63) 94 03/20/17 12:00 76 24 87/58 (71) 97 03/20/17 11:29 81 29 108/73 (79) 90 03/20/17 11:15 36.7 72 20 100/61 (74) 95 Nasal Cannula 3.0 03/20/17 11:12 Nasal Cannula 3.0 03/20/17 11:00 71 24 100/61 (75) 91 03/20/17 10:00 71 23 100/64 (74) 93 03/20/17 09:30 37.2 71 22 96/57 (70) 94 Nasal Cannula 3.0 03/20/17 09:00 91 20 96/57 (73) 95 03/20/17 08:00 Nasal Cannula 03/20/17 08:00 68 28 96/57 (61) 94 03/20/17 07:30 Nasal Cannula 3.0 03/20/17 07:30 36.7 69 22 107/52 (70) 93 Nasal Cannula 3.0 03/20/17 07:00 68 26 101/52 (62) 96 03/20/17 06:19 63 22 83/53 (63) 93 Nasal Cannula 3.0 03/20/17 04:00 36.9 66 21 87/50 (62) 96 Oxymask 3.0 03/20/17 04:00 Oxymask 3.0 03/20/17 02:30 36.9 03/20/17 02:00 90 28 84/60 (68) 94 Oxymask 3.0 03/20/17 00:00 Nasal Cannula 3.0 03/20/17 00:00 37.9 80 15 88/49 (62) 93 Nasal Cannula 3.0 03/19/17 23:00 72 16 98/55 (69) 92 Nasal Cannula 3.0 03/19/17 22:00 83 16 90/61 (71) 92 Nasal Cannula 3.0 03/19/17 21:00 126 26 118/72 (87) 91 Nasal Cannula 3.0 03/19/17 20:01 37.6 102 26 117/69 (85) 90 Nasal Cannula 3.0 03/19/17 20:00 Nasal Cannula 3.0 03/19/17 18:00 104 20 95/57 (70) 92 Nasal Cannula 3.0 Lab Results: Results Past 24 Hours Test 03/20/17 05:42 Range/Units White Blood Count 21.04 4.8-10.8 K/uL Red Blood Count 2.54 4.2-5.4 M/uL Hemoglobin 7.9 12.0-16.0 g/dL Hematocrit 23.4 37-47 % Mean Corpuscular Volume 92.1 80-100 fL Mean Corpuscular Hemoglobin 31.1 25-34 pg Mean Corpuscular Hemoglobin Concent 33.8 32-36 g/dl Platelet Count 23 130-400 K/uL Mean Platelet Volume 11.3 7.4-10.4 fL RDW Standard Deviation 51.3 36.4-46.3 fL RDW Coefficient of Variation 15.6 11.5-14.5 % Neutrophils % (Manual) 10.6 % Lymphocytes % (Manual) 25.7 % Monocytes % (Manual) 62.8 % Eosinophils % (Manual) 0.9 % Neutrophils # (Manual) 2.23 1.4-6.5 K/uL Total Absolute Neutrophils 2.23 1.4-6.5 K/uL Lymphocytes # (Manual) 5.41 1.2-3.4 K/uL Total Absolute Lymphocytes 5.41 1.2-3.4 K/uL Monocytes # (Manual) 13.21 0.11-0.59 K/uL Eosinophils # (Manual) 0.19 0-0.5 K/uL Red Blood Cell Morphology Unremarkable Sodium Level 138 136-145 mmol/L Potassium Level 3.2 3.5-5.1 mmol/L Chloride Level 102 98-107 mmol/L Carbon Dioxide Level 31 21-32 mmol/L Anion Gap 5.0 3-11 mmol/L Blood Urea Nitrogen 16 7-18 mg/dl Creatinine 0.70 0.60-1.20 mg/dl Est Creatinine Clear Calc Drug Dose 56.2 ml/min Estimated GFR () 94.8 Estimated GFR (Non- 81.8 BUN/Creatinine Ratio 22.8 10-20 Random Glucose 101 70-99 mg/dl Calcium Level 7.6 8.5-10.1 mg/dl Phosphorus Level 3.8 2.5-4.9 mg/dl Magnesium Level 1.9 1.8-2.4 mg/dl Microbiology Results 03/20/17 Blood Culture, Received Pending 03/20/17 Blood Culture, Received Pending
[2017-03-21] VITALS (25 sets, daily range): BP systolic 95–128; BP diastolic 51–87; PULSE 77–88; TEMP 36.5–37.9; O2SAT 93–97
[2017-03-21] MEDS ORDERED: DOCUSATE SODIUM/SENNA 50/8.6MG TAB PO ONE (04:24)
[2017-03-21] MEDS ORDERED: OPTIRAY 320 IV PRN (04:30)
[2017-03-21 05:14] LABS: ALB/GLOB RATIO 0.6 (0.9-2); BUN/CREATININE RATIO 21.1 (10-20); CALCIUM 7.8 mg/dl (8.5-10.1); CREATININE 0.73 mg/dl (0.60-1.20); MAGNESIUM 1.8 mg/dl (1.8-2.4)
[2017-03-21 05:48] LABS: BASO % 0.1 %; BASO ABS # 0.01 K/uL (0-0.2); COMPLETE YES; HEMATOCRIT 23.2 % (37-47); IG% 0.2 %; LYMPH % 10.9 %; LYMPH ABS # 1.42 K/uL (1.2-3.4); MEAN CELL VOLUME 93.2 fL (80-100); MEAN CORPUSCULAR HEMOGLOBIN 31.3 pg (25-34); MEAN CORPUSCULAR HGB CONC 33.6 g/dl (32-36); MEAN PLATELET VOLUME 11.8 fL (7.4-10.4); MONO % 85.2 %; NEUT % 3.6 %; PLATELET COUNT 18 K/uL (130-400); RED BLOOD COUNT 2.49 M/uL (4.2-5.4); WHITE BLOOD COUNT 12.97 K/uL (4.8-10.8)
--- NOTE | 2017-03-21 08:09 | DIAGNOSTIC IMAGING REPORT ---
CT ABD/PELVIS IV CONTRAST ONLY CLINICAL HISTORY: Diffuse abdominal pain. Acute mild leukemia. COMPARISON STUDY: None. TECHNIQUE: Following the IV administration of 93 mL of Optiray-320, CT scan of the abdomen and pelvis was performed from the lung bases to the proximal femurs. Images are reviewed in the axial, sagittal, and coronal planes. IV contrast was administered without complication. A dose lowering technique was utilized adhering to the principles of ALARA. CT DOSE: 504.28 mGy.cm FINDINGS: Lower chest: There are bilateral pleural effusions. There is associated lower lobe atelectasis/consolidation. The left lower lobe enhances to a lesser degree than the right lower lobe. This could be secondary to either fluid filled alveoli, or areas of lung necrosis. Liver: The contrast-enhanced liver is normal in size, contour, and attenuation. There is no intrahepatic biliary ductal dilatation. The hepatic veins and portal veins are patent. Gallbladder: Unremarkable. Spleen: Normal in size and attenuation. Pancreas: Unremarkable. Adrenal glands: Unremarkable. Kidneys: There is symmetric renal cortical enhancement. The kidneys are normal in size without hydronephrosis. Bowel: There are no transition zones indicate bowel obstruction. There is no acute diverticulitis. Scattered colonic diverticula are visualized. There are no findings to indicate acute appendicitis. Peritoneum: There is trace free fluid in the pelvis. Vasculature: The abdominal aorta is normal in course and caliber. Adenopathy: None. Pelvic viscera: There is a Tatum catheter within the bladder. No pathologic adnexal masses are visualized. Skeletal structures: There is an L2 vertebral body sclerotic lesion measuring 2.5 cm. There is mild body wall edema. IMPRESSION: 1. No evidence of bowel obstruction. No evidence of free air 2. 2.5 cm L2 sclerotic lesion 3. No evidence of pathologic adenopathy 4. Bilateral pleural effusions with bilateral lower lobe atelectasis/consolidation. The consolidated/atelectatic lung in the left enhances to a lesser degree than the right lung. This could be secondary to either fluid filled alveoli, or areas of lung necrosis.. Electronically signed by: Sharad Diallo M.D. 03/21/2017 8:08 AM Dictated Date/Time: 03/21/2017 8:03 AM
[2017-03-21] MEDS ORDERED: FUROSEMIDE INJ 40 MG in SYRINGE 0 ML IV ONE (08:30)
[2017-03-21] MEDS: POLYETHYLENE (MIRALAX) 17 GM PACK PO SCH (08:46)
[2017-03-21] MEDS: SOTALOL HCL 80 MG TAB PO SCH ×2 (08:46→21:13)
[2017-03-21] MEDS: ALLOPURINOL 300 MG TAB PO SCH (08:46)
[2017-03-21] MEDS: LANSOPRAZOLE SOLUTAB 30 MG PO SCH (08:47)
[2017-03-21] MEDS ORDERED: SENNA 8.6 MG TAB PO SCH (09:00)
--- NOTE | 2017-03-21 09:27 | SURGERY PROGRESS NOTE ---
DATE: 03/21/2017 Ms. Aguilar was seen today on 03/21/2017. She has been moved out to the second floor telemetry. She is in sinus rhythm now but has been in and out of atrial fibrillation last several days, being followed by cardiology. I reviewed the CT scan of the patient's abdomen which was done for apparently diffuse abdominal pain. She does have homogenous fluid on both sides but has atelectasis that I believe is a little bit out of proportion. She really does not have that much fluid. The Hounsfield units on CT appeared to show simple fluid. It does not appear to be blood. The patient's platelet count is under 18,000. She is in an extremely tough situation. At this point, I would treat her failure and she is going to have to be managed from a hematology/oncology standpoint. I had a long talk with the patient today. She is not wheezing and has no rhonchi. She does have decreased breath sounds at both bases. Chest tube site is clean.
--- NOTE | 2017-03-21 10:16 | Progress Note ---
Internal Med Progress Note Date of Service: Mar 21, 2017. Provider Documentation: SUBJECTIVE: The patient was seen and examined S/P Left Thoracotomy tube placement for Left Hemothorax Generally weak and complains of some pain in the chest S/P Left thoracoscopy with evacuation of left hemothorax 03/17 S/P removal of the Chest tube and doing OK Generally tired ,no SOB at rest Has had Abdominal pain last night CT has been unremarkable OBJECTIVE: Vital Signs-as noted below Exam: General-Generally weak and lethargic Eyes-normal ENT-normal Neck-supple Lungs-decreased breath sound bilaterally Improved compared with prior Heart-Regular,no murmur Abdomen-Benign,no masses,bowel sound present Extremities-No edema Neuro-AAOx3 Lab data as noted below. ASSESSMENT & PLAN: LEFT HEMOTHORAX S/P Infusaport insertion complicated by hemothorax requiring chest tube placement S/P chest tube placement on 03/16/17 Management per Thoracic Surgery. Appreciate Thoracic surgery input S/P Left thoracoscopy with evacuation of left hemothorax 03/17/17 Feels a lot better following the procedure S/P Removal of the chest tube CXR this AM::1. The left-sided chest tube has been removed. No pneumothorax is seen. 2. Layering pleural effusions, left larger than right with bibasilar consolidation. 3. Question congestive failure. Clinically better CXR:::: Congestive failure and bilateral pleural effusions slightly progressive from the prior study. 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 Appreciate Oncology input Discussed with the Oncologist -will check CBC tomorrow and decide transfusion If stable following transfusion -will discharge tomorrow to be seen in the clinic Thursday/Thursday ATRIAL FIBRILLATION Paroxysmal AF perioperatively. Received IV metoprolol. Evaluated by the [employer] during the last admission Converted to NSR. Resume sotalol when hemodynamics allow. Back in AF with RVR at times Cardiology consulted -appreciate Input Rate is controlled Thrombocytopenia Platelet 39 this morning No platelet now Recheck in AM and decide for any transfusion Platelet is down to 18-will transfuse 1 unit of platelet pheresis VTE PROPHYLAXIS SCD's. DISPOSITION Expected discharge to home. Medical follow-up with Dr. Davian Schmidt. Hematology / Oncology follow-up with Dr. Rehan Elmore. Discussed in detailed with the patient Vital Signs: Date Time Temp Pulse Resp B/P (MAP) Pulse Ox O2 Delivery O2 Flow Rate FiO2 03/21/17 09:30 37.2 86 26 114/68 95 03/21/17 09:15 37.8 85 25 119/70 95 4.0 03/21/17 09:10 37.2 83 26 125/67 96 4.0 03/21/17 08:00 Nasal Cannula 4.0 03/21/17 07:41 37.1 80 28 120/87 (98) 96 Nasal Cannula 4.0 03/21/17 06:04 93 Nasal Cannula 4.0 03/21/17 04:19 Nasal Cannula 5.0 03/21/17 04:10 36.5 79 20 119/65 (83) 95 Nasal Cannula 5.0 Humidified Oxygen 03/21/17 00:00 95 Nasal Cannula 5.0 03/20/17 23:15 36.6 72 18 97/51 (66) 92 Nasal Cannula 5.0 Humidified Oxygen 03/20/17 20:11 92 Nasal Cannula 3.0 03/20/17 19:15 37.0 81 21 105/60 (75) 94 Nasal Cannula 2.0 03/20/17 18:00 88 18 111/58 (75) 96 Room Air 03/20/17 17:55 36.6 80 20 94 3.0 03/20/17 15:45 36.6 80 20 96/57 (70) 94 Nasal Cannula 3.0 03/20/17 15:45 Nasal Cannula 3.0 03/20/17 15:12 78 27 96/57 (79) 89 03/20/17 15:00 78 24 94 03/20/17 14:00 78 23 94 03/20/17 13:49 36.6 76 20 124/72 (89) 94 Nasal Cannula 3.0 11/3/17 13:43 79 95 03/20/17 13:24 83 27 124/72 (93) 92 03/20/17 13:17 87 31 107/60 (79) 91 03/20/17 13:00 79 25 91/57 (63) 94 03/20/17 12:00 76 24 87/58 (71) 97 03/20/17 11:29 81 29 108/73 (79) 90 03/20/17 11:15 36.7 72 20 100/61 (74) 95 Nasal Cannula 3.0 03/20/17 11:12 Nasal Cannula 3.0 03/20/17 11:00 71 24 100/61 (75) 91 Lab Results: Results Past 24 Hours Test 03/21/17 04:35 Range/Units White Blood Count 12.97 4.8-10.8 K/uL Red Blood Count 2.49 4.2-5.4 M/uL Hemoglobin 7.8 12.0-16.0 g/dL Hematocrit 23.2 37-47 % Mean Corpuscular Volume 93.2 80-100 fL Mean Corpuscular Hemoglobin 31.3 25-34 pg Mean Corpuscular Hemoglobin Concent 33.6 32-36 g/dl Platelet Count 18 130-400 K/uL Mean Platelet Volume 11.8 7.4-10.4 fL Neutrophils (%) (Auto) 3.6 % Lymphocytes (%) (Auto) 10.9 % Monocytes (%) (Auto) 85.2 % Eosinophils (%) (Auto) 0.0 % Basophils (%) (Auto) 0.1 % Neutrophils # (Auto) 0.46 1.4-6.5 K/uL Lymphocytes # (Auto) 1.42 1.2-3.4 K/uL Monocytes # (Auto) 11.05 0.11-0.59 K/uL Eosinophils # (Auto) 0.00 0-0.5 K/uL Basophils # (Auto) 0.01 0-0.2 K/uL RDW Standard Deviation 51.4 36.4-46.3 fL RDW Coefficient of Variation 15.3 11.5-14.5 % Immature Granulocyte % (Auto) 0.2 % Immature Granulocyte # (Auto) 0.03 0.00-0.02 K/uL Red Blood Cell Morphology Unremarkable Sodium Level 137 136-145 mmol/L Potassium Level 4.0 3.5-5.1 mmol/L Chloride Level 103 98-107 mmol/L Carbon Dioxide Level 30 21-32 mmol/L Anion Gap 4.0 3-11 mmol/L Blood Urea Nitrogen 15 7-18 mg/dl Creatinine 0.73 0.60-1.20 mg/dl Est Creatinine Clear Calc Drug Dose 53.9 ml/min Estimated GFR () 90.2 Estimated GFR (Non- 77.8 BUN/Creatinine Ratio 21.1 10-20 Random Glucose 109 70-99 mg/dl Calcium Level 7.8 8.5-10.1 mg/dl Magnesium Level 1.8 1.8-2.4 mg/dl Total Bilirubin 0.8 0.2-1 mg/dl Aspartate Amino Transf (AST/SGOT) 24 15-37 U/L Alanine Aminotransferase (ALT/SGPT) 14 12-78 U/L Alkaline Phosphatase 49 45-117 U/L Total Protein 5.1 6.4-8.2 gm/dl Albumin 1.9 3.4-5.0 gm/dl Globulin 3.2 2.5-4.0 gm/dl Albumin/Globulin Ratio 0.6 0.9-2 Lipase 140 73-393 U/L
[2017-03-21] MEDS: DOCUSATE SODIUM/SENNA 50/8.6MG TAB PO SCH (21:13)
[2017-03-22 03:49] VITALS: BP 111/61; PULSE 72; TEMP 36.8; O2SAT 96
[2017-03-22 06:23] LABS: HEMATOCRIT 27.1 % (37-47); MEAN CELL VOLUME 88.3 fL (80-100); MEAN CORPUSCULAR HEMOGLOBIN 30.6 pg (25-34); MEAN CORPUSCULAR HGB CONC 34.7 g/dl (32-36); MEAN PLATELET VOLUME 11.9 fL (7.4-10.4); PLATELET COUNT 25 K/uL (130-400); RED BLOOD COUNT 3.07 M/uL (4.2-5.4); WHITE BLOOD COUNT 15.72 K/uL (4.8-10.8)
[2017-03-22 06:36] LABS: BUN/CREATININE RATIO 18.5 (10-20); CALCIUM 7.9 mg/dl (8.5-10.1); CREATININE 0.64 mg/dl (0.60-1.20); MAGNESIUM 1.9 mg/dl (1.8-2.4); POTASSIUM 3.1 mmol/L (3.5-5.1)
[2017-03-22 06:45] LABS: PLT ESTIMATE SIGNIFIC DECREASED
[2017-03-22 07:33] VITALS: BP 123/68; PULSE 74; TEMP 37.1; O2SAT 99
[2017-03-22] MEDS: SOTALOL HCL 80 MG TAB PO SCH ×2 (07:52→21:55)
[2017-03-22] MEDS: DOCUSATE SODIUM/SENNA 50/8.6MG TAB PO SCH ×2 (07:52→21:54)
[2017-03-22] MEDS: POLYETHYLENE (MIRALAX) 17 GM PACK PO SCH (07:52)
[2017-03-22] MEDS: LANSOPRAZOLE SOLUTAB 30 MG PO SCH (07:52)
[2017-03-22] MEDS: ALLOPURINOL 300 MG TAB PO SCH (07:53)
[2017-03-22] MEDS ORDERED: POTASSIUM CHLORIDE 10 MEQ TABCR PO STA (08:22)
[2017-03-22] MEDS: POTASSIUM CHLR 10 MEQ / WTR 10 MEQ in PREMIXED WATER 100 ML IV SCH ×2 (08:55→12:10)
--- NOTE | 2017-03-22 10:09 | PROGRESS NOTE ---
DATE: 03/22/2017 The patient seen and examined. Chart, medications, telemetry reviewed. SUBJECTIVE: The patient continues to have intermittent salvos of AFib, flutter, relatively asymptomatic. The patient does note some pleuritic pain in the left chest. Notes no dizziness, lightheadedness, syncope, or near syncope. Blood pressures are improved. OBJECTIVE: VITAL SIGNS: Heart rate currently 74, blood pressure is 123/68. Telemetry reveals paroxysmal AFib, flutter. NECK: Thin. No distinct jugular venous distention. LUNGS: Reveal diminished breath sounds, left greater than right at the bases. CARDIOVASCULAR: Exam is regular. There is no S3 or gallop. ABDOMEN: Soft. EXTREMITIES: Free of edema. DATA: EKG this morning reveals sinus rhythm with intermittent AFib, flutter, rate 99. QT corrected 474. Occasional ventricular ectopic beats. LABORATORY DATA: White cell count is 15.7, hemoglobin is 9.4. Potassium is 3.1. IMPRESSION: An 81-year-old female with multiple medical problems, admitted and found to have intermittent atrial fibrillation and flutter, currently on sotalol during hospital stay. RECOMMENDATIONS: Supplement potassium as already ordered. We will increase sotalol as blood pressure allows to 120 mg twice per day.
--- NOTE | 2017-03-22 10:40 | DIAGNOSTIC IMAGING REPORT ---
SINGLE VIEW CHEST CLINICAL HISTORY: Pleural effusion. FINDINGS: An AP, portable, upright chest radiograph is compared to study dated 03/20/2017. The examination is degraded by portable technique and patient rotation. A left subclavian central venous infusion port is unchanged in position. The heart is top normal for projection. Pulmonary vascular congestion persists. There are layering pleural effusions, left larger than right with bibasilar consolidation. No pneumothorax is identified. The skeletal structures are osteopenic. The bony thorax is grossly intact. IMPRESSION: 1. Cardiomegaly with pulmonary vascular congestion. 2. Layering pleural effusions, left larger than right with bibasilar consolidation. This is unchanged from previous. Electronically signed by: Kelvin Willis M.D. 03/22/2017 10:38 AM Dictated Date/Time: 03/22/2017 10:37 AM
--- NOTE | 2017-03-22 11:20 | Progress Note ---
Internal Med Progress Note Date of Service: Mar 22, 2017. Provider Documentation: SUBJECTIVE: The patient was seen and examined S/P Left Thoracotomy tube placement for Left Hemothorax Generally weak and complains of some pain in the chest S/P Left thoracoscopy with evacuation of left hemothorax 03/17 S/P removal of the Chest tube and doing OK Generally tired ,no SOB at rest Has had Abdominal pain last night CT has been unremarkable 03/22:Much better today but complained some pain in left lateral chest wall Has been OOB OBJECTIVE: Vital Signs-as noted below Exam: General-Generally weak and lethargic-improved Eyes-normal ENT-normal Neck-supple Lungs-decreased breath sound bilaterally at the bases ,left >>Right Heart-Regular,no murmur Abdomen-Benign,no masses,bowel sound present Extremities-No edema Neuro-AAOx3 Lab data as noted below. ASSESSMENT & PLAN: LEFT HEMOTHORAX S/P Infusaport insertion complicated by hemothorax requiring chest tube placement S/P chest tube placement on 03/16/17 Management per Thoracic Surgery. Appreciate Thoracic surgery input S/P Left thoracoscopy with evacuation of left hemothorax 03/17/17 Feels a lot better following the procedure S/P Removal of the chest tube CXR this AM::1. The left-sided chest tube has been removed. No pneumothorax is seen. 2. Layering pleural effusions, left larger than right with bibasilar consolidation. 3. Question congestive failure. Clinically better CXR:::: Congestive failure and bilateral pleural effusions slightly progressive from the prior study. Will give Lasix and Monitor Repeat CXR ::1. Cardiomegaly with pulmonary vascular congestion. 2. Layering pleural effusions, left larger than right with bibasilar consolidation. This is unchanged from previous. 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 Appreciate Oncology input Discussed with the Oncologist -will check CBC tomorrow and decide transfusion If stable following transfusion -will discharge tomorrow to be seen in the clinic Thursday/Thursday ATRIAL FIBRILLATION Paroxysmal AF perioperatively. Received IV metoprolol. Evaluated by the Sugar [employer] during the last admission Converted to NSR. Resume sotalol when hemodynamics allow. Back in AF with RVR at times Cardiology consulted -appreciate Input Has had RVR last night Sotalol increased and K replaced Thrombocytopenia Platelet 39 this morning No platelet now Recheck in AM and decide for any transfusion Platelet is down to 18-will transfuse 1 unit of platelet pheresis 25 on 03/22/17 VTE PROPHYLAXIS SCD's. DISPOSITION Expected discharge to home. Medical follow-up with Dr. Davian Schmidt. Hematology / Oncology follow-up with Dr. Rehan Elmore. Discussed in detailed with the patient Likely to be discharged tomorrow 2 steps before discharge Vital Signs: Date Time Temp Pulse Resp B/P (MAP) Pulse Ox O2 Delivery O2 Flow Rate FiO2 03/22/17 08:00 Nasal Cannula 4.0 03/22/17 07:33 37.1 74 27 123/68 (86) 99 Nasal Cannula 4.0 03/22/17 04:00 Nasal Cannula 4.0 03/22/17 03:49 36.8 72 24 111/61 (78) 96 Nasal Cannula 4.0 Humidified Oxygen 03/22/17 00:02 Nasal Cannula 4.0 03/21/17 23:50 37.9 84 24 108/65 (79) 94 Nasal Cannula 4.0 Humidified Oxygen 03/21/17 20:36 37.8 80 26 123/79 (94) 94 Nasal Cannula 2.0 03/21/17 20:00 Nasal Cannula 4.0 03/21/17 16:22 36.8 78 22 110/63 (79) 94 Nasal Cannula 4.0 03/21/17 16:00 82 20 114/55 03/21/17 16:00 Nasal Cannula 4.0 03/21/17 15:30 88 24 115/60 97 03/21/17 15:00 86 25 112/60 96 03/21/17 14:45 37.1 87 24 108/68 96 03/21/17 14:30 37.0 86 24 99/59 96 03/21/17 14:20 37.0 85 25 106/60 96 03/21/17 13:45 36.8 85 24 128/75 96 03/21/17 13:15 36.8 83 24 102/64 96 03/21/17 13:00 36.7 82 24 102/57 97 03/21/17 12:45 36.8 85 24 98/56 96 03/21/17 12:30 36.8 86 24 100/53 95 03/21/17 12:20 36.6 77 25 100/59 96 03/21/17 12:00 Nasal Cannula 4.0 Lab Results: Results Past 24 Hours Test 03/22/17 05:28 Range/Units White Blood Count 15.72 4.8-10.8 K/uL Red Blood Count 3.07 4.2-5.4 M/uL Hemoglobin 9.4 12.0-16.0 g/dL Hematocrit 27.1 37-47 % Mean Corpuscular Volume 88.3 80-100 fL Mean Corpuscular Hemoglobin 30.6 25-34 pg Mean Corpuscular Hemoglobin Concent 34.7 32-36 g/dl RDW Standard Deviation 49.7 36.4-46.3 fL RDW Coefficient of Variation 15.9 11.5-14.5 % Platelet Count 25 130-400 K/uL Mean Platelet Volume 11.9 7.4-10.4 fL Platelet Estimate SIGNIFIC DECREASED Sodium Level 135 136-145 mmol/L Potassium Level 3.1 3.5-5.1 mmol/L Chloride Level 98 98-107 mmol/L Carbon Dioxide Level 31 21-32 mmol/L Anion Gap 6.0 3-11 mmol/L Blood Urea Nitrogen 12 7-18 mg/dl Creatinine 0.64 0.60-1.20 mg/dl Est Creatinine Clear Calc Drug Dose 61.5 ml/min Estimated GFR () 97.7 Estimated GFR (Non- 84.3 BUN/Creatinine Ratio 18.5 10-20 Random Glucose 104 70-99 mg/dl Calcium Level 7.9 8.5-10.1 mg/dl Magnesium Level 1.9 1.8-2.4 mg/dl
--- NOTE | 2017-03-22 11:57 | SURGERY PROGRESS NOTE ---
DATE: 03/22/2017 SUBJECTIVE: Ms. Aguilar was seen again today. I had a long talk with the patient's son and I spoke to the patient's also. Ms. Aguilar feels a bit better. She is still on 4 liters of O2, but has good saturations. She moved her bowels yesterday. She has been eating a bit better. She states her abdominal pain is improved. The patient does have bilateral pleural effusions, a bit worse on the left than the right. Her platelet count is up to 25,000 today. Hemoglobin is up since she was transfused. Ms. Aguilar is in a difficult situation here. I would prefer not to intervene in the fluid in her chest with her platelet count and with her upcoming chemotherapy. I will discuss this with Dr. Elmore, but I think we should probably proceed with treatment unless her heart rhythm or other status prevents.
[2017-03-22 12:03] VITALS: BP 108/65; PULSE 84; TEMP 37; O2SAT 97
[2017-03-22] MEDS: MoRPHine SULFATE 2 MG/ML CARP IV PRN (13:21)
[2017-03-22 16:00] VITALS: BP 116/78; PULSE 102; TEMP 36.8; O2SAT 97
[2017-03-22 19:44] VITALS: BP 106/65; PULSE 93; TEMP 36.9; O2SAT 97
[2017-03-22 23:25] VITALS: BP 117/68; PULSE 79; TEMP 36.8; O2SAT 94
[2017-03-23] VITALS (12 sets, daily range): BP systolic 101–128; BP diastolic 60–71; PULSE 62–79; TEMP 36.5–37; O2SAT 94–97
[2017-03-23 06:26] LABS: BUN/CREATININE RATIO 20.5 (10-20); CALCIUM 7.6 mg/dl (8.5-10.1); CREATININE 0.66 mg/dl (0.60-1.20); HEMATOCRIT 26.4 % (37-47); MAGNESIUM 1.8 mg/dl (1.8-2.4); MEAN CELL VOLUME 90.1 fL (80-100); MEAN CORPUSCULAR HEMOGLOBIN 30.7 pg (25-34); MEAN CORPUSCULAR HGB CONC 34.1 g/dl (32-36); MEAN PLATELET VOLUME 11.5 fL (7.4-10.4); PLATELET COUNT 16 K/uL (130-400); PLT ESTIMATE SIGNIFIC DECREASED; POTASSIUM 3.3 mmol/L (3.5-5.1); RED BLOOD COUNT 2.93 M/uL (4.2-5.4); WHITE BLOOD COUNT 11.98 K/uL (4.8-10.8)
[2017-03-23] MEDS: SOTALOL HCL 80 MG TAB PO SCH (08:06)
[2017-03-23] MEDS: POLYETHYLENE (MIRALAX) 17 GM PACK PO SCH (08:09)
[2017-03-23] MEDS: LANSOPRAZOLE SOLUTAB 30 MG PO SCH (08:10)
[2017-03-23] MEDS: DOCUSATE SODIUM/SENNA 50/8.6MG TAB PO SCH (08:10)
[2017-03-23] MEDS: ALLOPURINOL 300 MG TAB PO SCH (08:10)
[2017-03-23] MEDS ORDERED: POTASSIUM CHLORIDE 10 MEQ TABCR PO STA (08:15)
[2017-03-23] MEDS ORDERED: POTASSIUM CHLR 10 MEQ / WTR 10 MEQ in PREMIXED WATER 100 ML IV SCH (08:30)
--- NOTE | 2017-03-23 08:31 | Surgery Progress Note ---
Surgery Progress Note Date of Service Mar 23, 2017. Subjective Patient examined at bedside this morning. Afebrile, vitals stable overnight on 3L O2 via NC (on 2L this morning, breathing comfortably). Sitting up comfortably in chair, tolerated breakfast this morning without difficulty. States the abdominal pain she had over the weekend has resolved. Had BMs yesterday. Tatum catheter removed yesterday. Port site healing well. No complaints this morning, hopes to go home later today. Objective Vital Signs: Date Time Temp Pulse Resp B/P (MAP) Pulse Ox O2 Delivery O2 Flow Rate FiO2 03/23/17 08:20 36.5 79 24 110/62 97 2.0 03/23/17 04:12 37.0 62 22 113/71 (85) 96 Nasal Cannula 2.0 03/23/17 04:00 Nasal Cannula 2.0 03/23/17 00:02 Nasal Cannula 3.0 03/22/17 23:25 36.8 79 24 117/68 (84) 94 Nasal Cannula 3.0 03/22/17 20:00 Nasal Cannula 3.0 03/22/17 19:44 36.9 93 22 106/65 (79) 97 Humidified Air 4.0 03/22/17 16:00 36.8 102 27 116/78 (91) 97 Nasal Cannula 4.0 03/22/17 16:00 Nasal Cannula 4.0 03/22/17 12:03 37.0 84 30 108/65 (79) 97 Nasal Cannula 4.0 03/22/17 12:00 Nasal Cannula 4.0 General Appearance: WD/WN, no apparent distress Head: normocephalic Neck: supple Respiratory/Chest: normal breath sounds, no respiratory distress, + pertinent finding (weak cough) Cardiovascular: regular rate, rhythm Abdomen: normal bowel sounds, non tender, soft Incision(s): clean, dry, intact (Steri-strips in place) Laboratory Results: Results Past 24 Hours Test 03/23/17 05:41 Range/Units White Blood Count 11.98 4.8-10.8 K/uL Red Blood Count 2.93 4.2-5.4 M/uL Hemoglobin 9.0 12.0-16.0 g/dL Hematocrit 26.4 37-47 % Mean Corpuscular Volume 90.1 80-100 fL Mean Corpuscular Hemoglobin 30.7 25-34 pg Mean Corpuscular Hemoglobin Concent 34.1 32-36 g/dl RDW Standard Deviation 49.3 36.4-46.3 fL RDW Coefficient of Variation 15.3 11.5-14.5 % Platelet Count 16 130-400 K/uL Mean Platelet Volume 11.5 7.4-10.4 fL Platelet Estimate SIGNIFIC DECREASED Sodium Level 136 136-145 mmol/L Potassium Level 3.3 3.5-5.1 mmol/L Chloride Level 100 98-107 mmol/L Carbon Dioxide Level 28 21-32 mmol/L Anion Gap 8.0 3-11 mmol/L Blood Urea Nitrogen 13 7-18 mg/dl Creatinine 0.66 0.60-1.20 mg/dl Est Creatinine Clear Calc Drug Dose 59.1 ml/min Estimated GFR () 96.7 Estimated GFR (Non- 83.4 BUN/Creatinine Ratio 20.5 10-20 Random Glucose 105 70-99 mg/dl Calcium Level 7.6 8.5-10.1 mg/dl Magnesium Level 1.8 1.8-2.4 mg/dl Assessment & Plan 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 She is now POD 6 s/p VATS with evacuation of hematoma, repositioning of chest tube, and placement of Exparel nerve block; chest tube has since been removed. Hemodynamics remain stable. Platelets remain low - receiving 1u platelets this morning. -Port site healing well; able to be used for chemotherapy when needed. -Pain and nausea control as needed -Diet as tolerated, high protein supplements for low appetite / low PO intake -Continue [employer] medications -Cardiology recommends continuing bid Sotalol for A fib, currently rate controlled -Chemotherapy, allopurinol / hydroxyurea management per Dr. Elmore / Oncology -Encourage OOB / ambulation and incentive spirometry Itzel Leonardo MD 03/23/17
--- NOTE | 2017-03-23 09:43 | SURGERY PROGRESS NOTE ---
DATE: 03/23/2017 Ms. Aguilar was seen today on 03/23/2017. She actually looks a bit better to me. She is sitting up and eating breakfast. She is only on 2 liters at 97% saturation. She is in sinus rhythm, although her rhythm has been back and forth between atrial flutter, atrial fibrillation and sinus rhythm. I am extremely concerned about her from a hematologic and an oncologic standpoint. She had platelets yesterday and up to 25 and now is down to 16,000. She is receiving more platelets. Having said that, her A-a gradient is better. Her saturations are 97% on 2 liters and while she does have some fluid of course with her platelet count and with her really lack of major symptoms of hypoxia, I would do not anything at this point. Incisions in her left chest are clean. THEA
--- NOTE | 2017-03-23 10:42 | Progress Note ---
Internal Med Progress Note Date of Service: Mar 23, 2017. Provider Documentation: SUBJECTIVE: The patient was seen and examined S/P Left Thoracotomy tube placement for Left Hemothorax Generally weak and complains of some pain in the chest S/P Left thoracoscopy with evacuation of left hemothorax 03/17 S/P removal of the Chest tube and doing OK Generally tired ,no SOB at rest Has had Abdominal pain last night CT has been unremarkable 03/22:Much better today but complained some pain in left lateral chest wall Has been OOB 03/23-Even better today and ready to go home Will get 2 steps before discharge OBJECTIVE: Vital Signs-as noted below Exam: General-Generally weak and lethargic-improved No apparent distress Eyes-normal ENT-normal Neck-supple Lungs-decreased breath sound bilaterally at the bases ,left >>Right Heart-Regular,no murmur Abdomen-Benign,no masses,bowel sound present Extremities-No edema Neuro-AAOx3 Lab data as noted below. ASSESSMENT & PLAN: LEFT HEMOTHORAX S/P Infusaport insertion complicated by hemothorax requiring chest tube placement S/P chest tube placement on 03/16/17 Management per Thoracic Surgery. Appreciate Thoracic surgery input S/P Left thoracoscopy with evacuation of left hemothorax 03/17/17 Feels a lot better following the procedure S/P Removal of the chest tube CXR this AM::1. The left-sided chest tube has been removed. No pneumothorax is seen. 2. Layering pleural effusions, left larger than right with bibasilar consolidation. 3. Question congestive failure. Clinically better CXR:::: Congestive failure and bilateral pleural effusions slightly progressive from the prior study. Will give Lasix and Monitor Repeat CXR ::1. Cardiomegaly with pulmonary vascular congestion. 2. Layering pleural effusions, left larger than right with bibasilar consolidation. This is unchanged from previous. Clinically much better better Small Bilateral effusion persists-cleared by the Vascular surgery to be discharged Acute Blood Loss Anemia complicated by Thrombocytopenia Received 6 Units of PRBC and 3 Units of platelet pheresis since admission Hb and platelet are reasonable Hb down to 7.6 and Platelet 59 Will check Hb at 3 Hb on 03/19/17-7.1 Discussed with the Oncologist Will give 1 unit of PRBC Discussed with the Oncologist -will check CBC tomorrow and decide transfusion Hb and Platelet dropped D/W Oncologist -will give 2 units of PRBC and 1 unit of platelet pheresis (PRBC -6 units and Platelet-3 units) Hb >9 and platelet 16 Discussed with the Oncologist Will give another unit of Platelet and likely home this afternoon 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 Appreciate Oncology input Discussed with the Oncologist -will check CBC tomorrow and decide transfusion If stable following transfusion -will discharge tomorrow to be seen in the clinic Thursday/Thursday Likely to start Chemo in the next few days if stable ATRIAL FIBRILLATION Paroxysmal AF perioperatively. Received IV metoprolol. Evaluated by the Aquaculturist during the last admission Converted to NSR. Resume sotalol when hemodynamics allow. Back in AF with RVR at times Cardiology consulted -appreciate Input Has had RVR last night Sotalol increased and K replaced Thrombocytopenia Platelet 39 this morning No platelet now Recheck in AM and decide for any transfusion Platelet is down to 18-will transfuse 1 unit of platelet pheresis 25 on 03/22/17 and 16 on 03/23 Will get Another unit of platelet today VTE PROPHYLAXIS SCD's. DISPOSITION Expected discharge to home. Medical follow-up with Dr. Davian Schmidt. Hematology / Oncology follow-up with Dr. Rehan Elmore. Discussed in detailed with the patient Likely to be discharged tomorrow 2 steps before discharge today Vital Signs: Date Time Temp Pulse Resp B/P (MAP) Pulse Ox O2 Delivery O2 Flow Rate FiO2 03/23/17 10:02 Nasal Cannula 03/23/17 10:00 36.6 68 26 107/60 96 2.0 03/23/17 09:45 36.5 67 15 107/67 96 2.0 03/23/17 09:15 36.6 71 22 101/61 96 2.0 03/23/17 09:00 36.6 71 24 106/67 97 2.0 03/23/17 08:45 36.6 77 18 105/65 95 2.0 03/23/17 08:30 36.7 74 21 119/66 94 2.0 03/23/17 08:20 36.5 79 24 110/62 97 2.0 03/23/17 08:00 37.0 76 20 114/64 (81) 97 03/23/17 04:12 37.0 62 22 113/71 (85) 96 Nasal Cannula 2.0 03/23/17 04:00 Nasal Cannula 2.0 03/23/17 00:02 Nasal Cannula 3.0 03/22/17 23:25 36.8 79 24 117/68 (84) 94 Nasal Cannula 3.0 03/22/17 20:00 Nasal Cannula 3.0 03/22/17 19:44 36.9 93 22 106/65 (79) 97 Humidified Air 4.0 03/22/17 16:00 36.8 102 27 116/78 (91) 97 Nasal Cannula 4.0 03/22/17 16:00 Nasal Cannula 4.0 03/22/17 12:03 37.0 84 30 108/65 (79) 97 Nasal Cannula 4.0 03/22/17 12:00 Nasal Cannula 4.0 Lab Results: Results Past 24 Hours Test 03/23/17 05:41 Range/Units White Blood Count 11.98 4.8-10.8 K/uL Red Blood Count 2.93 4.2-5.4 M/uL Hemoglobin 9.0 12.0-16.0 g/dL Hematocrit 26.4 37-47 % Mean Corpuscular Volume 90.1 80-100 fL Mean Corpuscular Hemoglobin 30.7 25-34 pg Mean Corpuscular Hemoglobin Concent 34.1 32-36 g/dl RDW Standard Deviation 49.3 36.4-46.3 fL RDW Coefficient of Variation 15.3 11.5-14.5 % Platelet Count 16 130-400 K/uL Mean Platelet Volume 11.5 7.4-10.4 fL Platelet Estimate SIGNIFIC DECREASED Sodium Level 136 136-145 mmol/L Potassium Level 3.3 3.5-5.1 mmol/L Chloride Level 100 98-107 mmol/L Carbon Dioxide Level 28 21-32 mmol/L Anion Gap 8.0 3-11 mmol/L Blood Urea Nitrogen 13 7-18 mg/dl Creatinine 0.66 0.60-1.20 mg/dl Est Creatinine Clear Calc Drug Dose 59.1 ml/min Estimated GFR () 96.7 Estimated GFR (Non- 83.4 BUN/Creatinine Ratio 20.5 10-20 Random Glucose 105 70-99 mg/dl Calcium Level 7.6 8.5-10.1 mg/dl Magnesium Level 1.8 1.8-2.4 mg/dl
--- NOTE | 2017-03-23 13:02 | Hematology/Oncology Prog Note ---
Hematology/Onc Progress Note Date of Service Mar 23, 2017. Subjective 81-year-old female, Hematological diagnosis: -Acute myeloid leukemia, M5 variant, -Recently started her on hydroxyurea because of rapid rise in the white blood cell count -Planning for systemic chemotherapy with intravenous Dacogen as an outpatient. I saw her at bedside, she was sitting comfortably outside in the chair, receiving nasal cannula oxygen at 2 L/min, no leg edema, she denies any bleeding from any sites, she does complain of left chest wall discomfort, some mild shortness of breath present, tiredness present, fair appetite, no fever, no increasing nausea or vomiting, no diarrhea, no constipation, earlier she had some nonspecific abdominal discomfort, she had CT scan of the abdomen pelvis on 03/21/2017 which showed no evidence of bowel obstruction, 2.5 cm L2 sclerotic lesion noted, no intra-abdominal lymphadenopathy noted. Bilateral pleural effusion, more on the left side noted. I reviewed her blood workup done today, WBC 10336, H&H of 9/26.4, [place] [address]. BUN/Creat: 13/0.6, calcium 7.6, magnesium 1.8. - total protein 5.1, Albumin 1.9, normal AST and ALT. (03/21/2017). During this hospitalization, she received 6 units of PRBC, 4 units of platelet transfusion On exam: - Alert and oriented x3, well built woman, not in any distress. - HEENT: no icterus, pallor present, Throat: Normal. - Neck: No palpable cervical lymphadenopathy. - Chest: Decreased air entry in the both lower lung johnson, - Abdomen: soft, nontender, no hepatomegaly, no splenomegaly. - No focal neuro deficit. - Extremities: no finger clubbing, no leg edema. - No bruising present. Chest x-ray done on 03/22/2017 showed evidence of cardiomegaly with pulmonary vascular congestion, layering pleural effusion, left greater than right noted. I reviewed with her regarding oral clinical condition, she is requiring significant the blood and platelet transfusion support to maintain her platelet count as well as hemoglobin level, white blood cell count is dropped to around 12,000. Presently she is not on hydroxyurea therapy. Earlier we planned for starting hypomethylating agent for the treatment of acute myeloid leukemia in the form of Dacogen after port placement but now she is admitted for left hemothorax following port placement for the last one week. I had a discussion with her regarding Dacogen chemotherapy, her blood count is likely to go down significantly with the Dacogen therapy and she will continue to need blood and platelet transfusion support, also she is at a high risk for infectious complications with the drop in the white blood cell count which is expected with the Dacogen therapy. I would not start Dacogen therapy during this hospitalization, once she is stable enough, she could go home, would like to see her back in the office and then will decide about starting Dacogen therapy at that time. Dr. Rehan Elmore Hem/Onc (This note was completed using the dictation program Fluency Direct. As such, there may be misspellings, word substitutions, or other variations that should not change the essence of the clinical content of this encounter note. If there is need for further clarification, please direct questions to the provider listed above.) Vital Signs Vital Signs Past 12 Hours Date Time Temp Pulse Resp B/P (MAP) Pulse Ox O2 Delivery O2 Flow Rate FiO2 03/23/17 11:11 36.9 72 26 105/60 (75) 96 Nasal Cannula 2.0 03/23/17 10:02 Nasal Cannula 03/23/17 10:00 36.6 68 26 107/60 96 2.0 03/23/17 09:45 36.5 67 15 107/67 96 2.0 03/23/17 09:15 36.6 71 22 101/61 96 2.0 03/23/17 09:00 36.6 71 24 106/67 97 2.0 03/23/17 08:45 36.6 77 18 105/65 95 2.0 03/23/17 08:30 36.7 74 21 119/66 94 2.0 03/23/17 08:20 36.5 79 24 110/62 97 2.0 03/23/17 08:00 37.0 76 20 114/64 (81) 97 03/23/17 04:12 37.0 62 22 113/71 (85) 96 Nasal Cannula 2.0 03/23/17 04:00 Nasal Cannula 2.0
[2017-03-23] MEDS ORDERED: LANS30TA3 PO (14:09)
[2017-03-23] MEDS ORDERED: BTP80 PO (14:09)
[2017-03-23] MEDS ORDERED: OXYC-57 PO (14:09)
--- NOTE | 2017-03-23 14:13 | Discharge Instructions ---
Discharge Instructions Date of Service Mar 23, 2017. Admission Reason for Admission: Acute Myeloid Leukemia Discharge Discharge Diagnosis / Problem: Hemothorax,Blood loss Anemia,AML with Thrombocytopenia Discharge Goals Goal(s): Prevent Disease Progression Activity Recommendations Activity Limitations: resume your previous activity . Instructions / Follow-Up Instructions / Follow-Up Dr Elmore's office will call with appointment.Please keep appointment with Dr Schmidt Current Hospital Diet Patient's current hospital diet: AHA Diet (Heart Healthy), Regular Diet Discharge Diet Recommended Diet: AHA Diet (Heart Healthy) Procedures Procedures Performed: Video assisted Left Thoracoscopy with Evacuation of Hemothorax Pending Studies Studies pending at discharge: no Medical Emergencies . Who to Call and When: Medical Emergencies: If at any time you feel your situation is an emergency, please call 911 immediately. . Non-Emergent Contact Non-Emergency issues call your: Primary Care Provider . Past History Medical & Surgical History: (1) Blood loss anemia (2) Hemothorax after procedure (3) Atrial fibrillation and flutter (4) SOB (shortness of breath) on exertion (5) Acute myeloid leukemia (6) atrial fibrillation secondary to hemothorax . "Provider Documentation" section prepared by Ramses Bill. . VTE Core Measure Inpt VTE Proph given/why not?: SCD's
--- NOTE | 2017-03-23 14:23 | Discharge Summary ---
Discharge Summary Date of Service Mar 23, 2017. Discharge Summary Admission Date: Mar 16, 2017 at 15:17 Discharge Date: Mar 23, 2017 Discharge Disposition: Home with services Principal Diagnosis: Hemothorax,Blood loss Anemia,AML with Thrombocytopenia,PAF Secondary Diagnoses/Problems: Please see H&P and Hospital Progress note Procedures: A port placement,Thoracentesis,Thoracotomy Consultations: Finance Manager,Oncology,Surgery,vascular Surgery and Cardiology Medication Reconciliation New Medications: Lansoprazole (Prevacid Solutab) 30 Mg Tab 30 MG PO DAILY for 30 Days, #30 TAB Oxycodone/Acetaminophen 5MG/325MG (Percocet 5MG/325MG) Tab 1 TAB PO Q4H PRN for Pain for 10 Days, #30 TAB PAIN Sotalol HCl (Sotalol HCl) 80 Mg Tab 120 MG PO BID for 30 Days, #90 TAB Continued Medications: Allopurinol (Allopurinol) 300 Mg Tab 300 MG PO DAILY Hydroxyurea (Hydrea Cap) 500 Mg Cap 500 MG PO BID Hold until you see the Oncologist Admission Information HPI (per Admitting provider): Jyoti Aguilar is an 81 year old woman with recently diagnosed AML who presented this morning for placement of an Infusaport in order to start chemotherapy. Pre operatively, a CBC was obtained which showed a leukocytosis to 39.7, Hgb of 8.4 and platelets of 37. She was given one 6 pack of platelets prior to the operation. Port placement was without issues, the left subclavian vein was accessed on the second stick. Post operatively, a CXR was obtained in the PACU which showed fluid layering in the left hemithorax. She was briefly in atrial fibrillation, then hypotensive, which responded to fluid administration. A CXR was repeated, and the left hemothorax was found to be worse. A left chest tube was placed with output of approximately 850ml of blood; vitals improved after chest tube placement. She was admitted to the ICU for further resuscitation and observation. Admitted initially under Surgery and then transferred to Medical service; Consultation H&P:: History of Present Illness 81 YO female. Previously followed at [facility] for primary care, but transferring primary care to Dr. Davian Schmidt whom she has not yet seen. History of atrial fibrillation followed by Dr. Swanson. 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 Rehan Elmore for Hematology / Oncology. Referred to Dr. Leonardo for placement of vascular access device which was scheduled for today. Developed hypotension, tachycardia, rapid atrial fibrillation in PACU. Chest x-ray demonstrated left pleural effusion. Received fluid resuscitation and transfusion of platelets for thrombocytopenia. Transferred to ICU. Chest tube placed by Thoracic Surgery. Having some left chest wall discomfort from chest tube. Otherwise, doing well. . Family History FHx: cancer FHx: gallbladder disease Hypertension Kidney disease Social History Smoking Status: Never Smoker Alcohol Use: occasionally Drug Use: none Marital Status: Housing Status: lives with significant other Occupation Status: retired Allergies Coded Allergies: No Known Allergies (Unverified , 03/16/17) Home Medications Reported Home Medications Medications Dose Route/Sig Max Daily Dose Days Date Category Percocet 5MG/325MG (Oxycodone/Acetaminophen) Tab 1-2 Tablets PO Q4H PRN 03/16/17 Rx Allopurinol 300 Mg Tab 300 Mg PO DAILY 03/16/17 Reported Hydrea Cap (Hydroxyurea) 500 Mg Cap 500 Mg PO BID 03/16/17 Reported Sotalol HCl 80 Mg Tab 80 Mg PO BID 30 02/24/17 Rx Current Inpatient Medications Current Inpatient Medications Medications (Trade) Dose Ordered Sig/Samanta Route Start Time Stop Time Status Last Admin Dose Admin Ondansetron HCl (Zofran Inj) 4 mg Q6H PRN IV 03/16/17 14:45 04/15/17 14:44 Morphine Sulfate (MoRPHine SULFATE INJ) 2 mg Q2H PRN IV 03/16/17 14:45 03/30/17 14:44 Morphine Sulfate (MoRPHine SULFATE INJ) 4 mg Q2H PRN IV 03/16/17 14:45 03/30/17 14:44 Oxycodone/ Acetaminophen (Percocet 5-325mg Tab) 1 tab Q4H PRN PO 03/16/17 14:45 03/30/17 14:44 Oxycodone/ Acetaminophen (Percocet 5-325mg Tab) 2 tab Q4H PRN PO 03/16/17 14:45 03/30/17 14:44 Lactated Ringer's 1,000 ml @ 100 mls/hr Q10H IV 03/16/17 15:44 04/15/17 15:43 03/16/17 16:31 100 MLS/HR Allopurinol (Zyloprim Tab) 300 mg DAILY PO 03/17/17 09:00 04/16/17 08:59 Sotalol HCl (Betapace Tab) 80 mg BID PO 03/17/17 09:00 04/16/17 08:59 Fentanyl Citrate (Fentanyl Inj) 25 mcg Q2H PRN IV 03/16/17 19:30 03/30/17 19:29 03/16/17 20:01 25 MCG Review of Systems Constitutional: No fever Respiratory: + dyspnea on exertion Cardiovascular: No chest pain Abdomen: No nausea, No vomiting, No diarrhea Endocrine: + fatigue Hematologic / Lymphatic: + abnormal bleeding/bruising Physical Exam Date Time Temp Pulse Resp B/P (MAP) Pulse Ox O2 Delivery O2 Flow Rate FiO2 03/16/17 20:21 82 22 105/72 (83) 99 Nasal Cannula 03/16/17 20:11 84 24 94/73 (80) 98 Nasal Cannula 03/16/17 20:01 83 21 110/75 (87) 98 Nasal Cannula 03/16/17 20:01 36.3 84 21 110/75 98 03/16/17 20:00 98 Nasal Cannula 2.0 03/16/17 18:15 79 22 100 03/16/17 18:11 78 20 94/61 (67) 100 03/16/17 18:01 78 19 91/60 (65) 100 03/16/17 18:00 80 20 100 03/16/17 17:51 77 19 89/59 (71) 100 03/16/17 17:45 75 19 100 03/16/17 17:41 77 21 88/58 (66) 100 03/16/17 17:31 77 19 88/59 (65) 100 03/16/17 17:30 73 19 99 03/16/17 17:21 78 21 89/54 (64) 99 03/16/17 17:15 71 19 99 03/16/17 17:11 80 18 86/56 (66) 99 03/16/17 17:04 36.5 85 19 81/50 100 Nasal Cannula 2.0 03/16/17 17:01 84 19 81/50 (57) 98 03/16/17 17:00 80 20 99 03/16/17 16:51 81 27 87/61 (69) 98 03/16/17 16:45 94 28 95 03/16/17 16:31 86 22 86/53 (63) 100 03/16/17 16:21 90 24 79/51 (57) 100 03/16/17 16:11 97 21 85/62 (66) 100 03/16/17 16:06 95 23 100 03/16/17 16:05 95 28 88/61 100 9.0 03/16/17 16:01 96 23 88/61 (70) 100 03/16/17 15:55 95 28 85/58 100 03/16/17 15:53 96 25 85/58 (66) 100 03/16/17 15:51 95 27 100 03/16/17 15:50 36.4 95 26 85/58 100 9.0 03/16/17 15:36 99 26 99 03/16/17 15:31 101 19 93/65 (72) 100 03/16/17 15:24 92 25 79/61 (67) 100 03/16/17 15:22 36.5 95 21 79/61 100 9.0 03/16/17 15:21 96 28 70/49 (55) 95 03/16/17 15:11 94 29 80/59 (68) 95 03/16/17 15:08 94 30 85/55 (70) 95 03/16/17 15:06 92 26 100 03/16/17 14:53 98 31 86/55 (73) 96 03/16/17 14:52 99 21 27/15 (21) 100 03/16/17 14:51 144 25 100 03/16/17 14:47 106 35 60/43 (45) 100 03/16/17 14:42 125 30 78/59 (69) 100 03/16/17 14:35 115 26 97/65 (76) 99 Oxymask 10 03/16/17 14:20 121 25 97/45 (62) 98 Oxymask 10 03/16/17 14:01 85 26 65/47 96 Room Air 03/16/17 14:01 75 22 65/47 (53) 94 Room Air Oxymask 03/16/17 13:59 78 23 62/45 (51) 95 Room Air Oxymask 03/16/17 13:52 119 21 82/48 (59) 96 Room Air Oxymask 03/16/17 13:49 36.7 98 24 78/50 96 Room Air 03/16/17 13:25 98 21 102/66 94 Room Air 03/16/17 12:54 69 18 112/65 96 Nasal Cannula 1 03/16/17 12:29 37.3 77 20 99/64 96 Nasal Cannula 2 03/16/17 12:20 73 16 99/67 98 Nasal Cannula 2 03/16/17 12:10 36.6 73 16 102/64 98 Nasal Cannula 2 03/16/17 12:00 73 16 99/53 98 Oxymask 10 03/16/17 11:50 73 16 105/64 98 Oxymask 10 03/16/17 11:40 36.5 73 16 103/65 100 Oxymask 10 03/16/17 09:01 37.4 78 18 111/67 (82) 94 Room Air General Appearance: + mild distress Head: normocephalic, atraumatic Eyes: PERRL, EOMI, sclerae normal (conjunctivae clear) ENT: pharynx normal Neck: supple, no adenopathy, thyroid normal, no JVD, trachea midline Respiratory/Chest: lungs clear, no respiratory distress, no accessory muscle use, + pertinent finding (left chest tube with grossly bloody drainage) Cardiovascular: regular rate, rhythm, + systolic murmur (II/ sys murmur base) Abdomen/GI: normal bowel sounds, non tender, soft Extremities/Musculoskelatal: no calf tenderness, no pedal edema, + pertinent finding (SCD's applied) Neurologic/Psych: assistant terminal manager II-XII nml as tested (PERRL, EOMI, no facial palsy, no dysarhtria), no motor/sensory deficits, alert, normal mood/affect Skin: warm/dry Laboratory Results Last 24 Hours Test 03/16/17 09:10 03/16/17 14:06 03/16/17 14:21 03/16/17 19:55 White Blood Count 39.72 K/uL Red Blood Count 2.53 M/uL Hemoglobin 8.4 g/dL 6.8 g/dL 10.2 g/dL Hematocrit 25.0 % 20.1 % 29.8 % Mean Corpuscular Volume 98.8 fL Mean Corpuscular Hemoglobin 33.2 pg Mean Corpuscular Hemoglobin Concent 33.6 g/dl Platelet Count 34 K/uL 101 K/uL Mean Platelet Volume 11.3 fL RDW Standard Deviation 60.8 fL RDW Coefficient of Variation 17.0 % Neutrophils % (Manual) 15.7 % Lymphocytes % (Manual) 16.5 % Monocytes % (Manual) 66.9 % Eosinophils % (Manual) 0.9 % Neutrophils # (Manual) 6.24 K/uL Total Absolute Neutrophils 6.24 K/uL Lymphocytes # (Manual) 6.55 K/uL Total Absolute Lymphocytes 6.55 K/uL Monocytes # (Manual) 26.57 K/uL Eosinophils # (Manual) 0.36 K/uL Hypersegmented Polys 1+ Smudge Cells PRESENT Bedside Glucose 166 mg/dl Prothrombin Time 11.7 SECONDS Prothromb Time International Ratio 1.1 Sodium Level 140 mmol/L Potassium Level 3.9 mmol/L Chloride Level 106 mmol/L Carbon Dioxide Level 25 mmol/L Anion Gap 9.0 mmol/L Blood Urea Nitrogen 18 mg/dl Creatinine 0.99 mg/dl Est Creatinine Clear Calc Drug Dose 38.3 ml/min Estimated GFR () 62.4 Estimated GFR (Non- 53.8 BUN/Creatinine Ratio 17.9 Random Glucose 150 mg/dl Calcium Level 8.3 mg/dl Magnesium Level 2.4 mg/dl Thyroid Stimulating Hormone (TSH) 1.640 uIu/ml Platelet Estimate DECREASED Assessment & Plan LEFT HEMOTHORAX S/P chest tube placement. Management per Thoracic Surgery. AML Management per Heme / Onc. ATRIAL FIBRILLATION Paroxysmal AF perioperatively. Received IV metoprolol. Converted to NSR. Resume sotalol when hemodynamics allow. VTE PROPHYLAXIS SCD's. DISPOSITION Expected discharge to home. Medical follow-up with Dr. Davian Schmidt. Hematology / Oncology follow-up with Dr. Rehan Elmore. Thank you for this consultation. We will follow the patient with you during their hospital stay. Dr. Bill will be rounding for our service starting Thursday. You can reach a member of the [facility] Medicine Team 08/12 via pager @ [phone]. You can reach me via cell @ [phone]. . <Electronically signed by Yazan Ceja M.D.> Physical Exam (per Admitting): General Appearance: WD/WN, no apparent distress Head: normocephalic, atraumatic Eyes: normal inspection Neck: supple, no adenopathy Respiratory/Chest: chest non-tender, lungs clear, normal breath sounds Cardiovascular: regular rate, rhythm Abdomen/GI: normal bowel sounds, non tender, soft Extremities/Musculoskelatal: normal inspection Neurologic/Psych: alert, normal mood/affect, oriented x 3 Skin: normal color, warm/dry, + rash Lymphatic: no adenopathy Hospital Course LEFT HEMOTHORAX S/P Infusaport insertion complicated by hemothorax requiring chest tube placement S/P chest tube placement on 03/16/17 Management per Thoracic Surgery. Appreciate Thoracic surgery input S/P Left thoracoscopy with evacuation of left hemothorax 03/17/17 Feels a lot better following the procedure S/P Removal of the chest tube CXR this AM::1. The left-sided chest tube has been removed. No pneumothorax is seen. 2. Layering pleural effusions, left larger than right with bibasilar consolidation. 3. Question congestive failure. Clinically better CXR:::: Congestive failure and bilateral pleural effusions slightly progressive from the prior study. Will give Lasix and Monitor Repeat CXR ::1. Cardiomegaly with pulmonary vascular congestion. 2. Layering pleural effusions, left larger than right with bibasilar consolidation. This is unchanged from previous. Clinically much better better Small Bilateral effusion persists-cleared by the Vascular surgery to be discharged Acute Blood Loss Anemia complicated by Thrombocytopenia Received 6 Units of PRBC and 3 Units of platelet pheresis since admission Hb and platelet are reasonable Hb down to 7.6 and Platelet 59 Will check Hb at 3 Hb on 03/19/17-7.1 Discussed with the Oncologist Will give 1 unit of PRBC Discussed with the Oncologist -will check CBC tomorrow and decide transfusion Hb and Platelet dropped D/W Oncologist -will give 2 units of PRBC and 1 unit of platelet pheresis (PRBC -6 units and Platelet-3 units) Hb >9 and platelet 16 Discussed with the Oncologist Will give another unit of Platelet and likely home this afternoon 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 Appreciate Oncology input Discussed with the Oncologist -will check CBC tomorrow and decide transfusion If stable following transfusion -will discharge tomorrow to be seen in the clinic Thursday/Thursday Likely to start Chemo in the next few days if stable ATRIAL FIBRILLATION Paroxysmal AF perioperatively. Received IV metoprolol. Evaluated by the Digital Production Manager during the last admission Converted to NSR. Resume sotalol when hemodynamics allow. Back in AF with RVR at times Cardiology consulted -appreciate Input Has had RVR last night Sotalol increased and K replaced Thrombocytopenia Platelet 39 this morning No platelet now Recheck in AM and decide for any transfusion Platelet is down to 18-will transfuse 1 unit of platelet pheresis 25 on 03/22/17 and 16 on 03/23 Will get Another unit of platelet today VTE PROPHYLAXIS SCD's. DISPOSITION Expected discharge to home. Medical follow-up with Dr. Davian Schmidt. Hematology / Oncology follow-up with Dr. Rehan Elmore. Discussed in detailed with the patient Likely to be discharged tomorrow 2 steps before discharge today Total time spent on discharge = 40 minutes This includes examination of the patient, discharge planning, medication reconciliation, and communication with other providers. Discharge Instructions Date of Service Mar 23, 2017. Admission Reason for Admission: Acute Myeloid Leukemia Discharge Discharge Diagnosis / Problem: Hemothorax,Blood loss Anemia,AML with Thrombocytopenia Discharge Goals Goal(s): Prevent Disease Progression Activity Recommendations Activity Limitations: resume your previous activity . Instructions / Follow-Up Instructions / Follow-Up Dr Elmore's office will call with appointment.Please keep appointment with Dr Schmidt Current Hospital Diet Patient's current hospital diet: AHA Diet (Heart Healthy), Regular Diet Discharge Diet Recommended Diet: AHA Diet (Heart Healthy) Procedures Procedures Performed: Video assisted Left Thoracoscopy with Evacuation of Hemothorax Pending Studies Studies pending at discharge: no Medical Emergencies . Who to Call and When: Medical Emergencies: If at any time you feel your situation is an emergency, please call 911 immediately. . Non-Emergent Contact Non-Emergency issues call your: Primary Care Provider . Past History Medical & Surgical History: (1) Blood loss anemia (2) Hemothorax after procedure (3) Atrial fibrillation and flutter (4) SOB (shortness of breath) on exertion (5) Acute myeloid leukemia (6) atrial fibrillation secondary to hemothorax . "Provider Documentation" section prepared by Ramses Bill. . VTE Core Measure Inpt VTE Proph given/why not?: SCD's <Electronically signed by Ramses Bill M.D.> Additional Copies To Davian Schmidt M.D.
[2017-04-08] MEDS ORDERED: LANS30CA12 PO (11:10)
[2017-04-08] MEDS ORDERED: ONDA8TAB6 PO (11:13)
== END 2017-03-23 17:01 | disposition home health service (06) | DRG 164 ==
LOC: C.ACU 08:23 → C.MSICU 15:17 → C.2E 03-20 18:20
PROVIDERS: ADMIT Student in an Organized Health Care Education/Training Program; ATTEND Internal Medicine
PROC: 0W9830Z Drainage of Chest Wall with Drainage Device, Percutaneous Approach (ICD-10-PCS; 2017-03-16)
PROC: 05H633Z Insertion of Infusion Device into Left Subclavian Vein, Percutaneous Approach (ICD-10-PCS; principal; 2017-03-16 10:00)
PROC: 0JH60WZ Insertion of Totally Implantable Vascular Access Device into Chest Subcutaneous Tissue and Fascia, Open Approach (ICD-10-PCS; principal; 2017-03-16 10:00)
PROC: 0BCC4ZZ Extirpation of Matter from Right Upper Lung Lobe, Percutaneous Endoscopic Approach (ICD-10-PCS; 2017-03-17)
DX: J94.2 Hemothorax (principal); C93.00 Acute monoblastic/monocytic leukemia, not having achieved remission; J95.89 Other postprocedural complications and disorders of respiratory system, not elsewhere classified; D62 Acute posthemorrhagic anemia; D69.6 Thrombocytopenia, unspecified; I48.0 Paroxysmal atrial fibrillation; M10.9 Gout, unspecified; Z82.49 Family history of ischemic heart disease and other diseases of the circulatory system; Y84.8 Other medical procedures as the cause of abnormal reaction of the patient, or of later complication, without mention of misadventure at the time of the procedure; I95.9 Hypotension, unspecified

== ENCOUNTER → 2017-04-07 | Outpatient (CLI) | payer OTHER ==
[~2017-04-07] MED LIST changes: +ALL300 PO; -CEFAZOLIN 2000MG IV PUSH 10 ML IV SCH; +HYDR500C3 PO; -LACTATED RINGER'S 1000ML 1,000 ML IV SCH; +LANS30CA12 PO; +LANS30TA3 PO; +ONDA8TAB6 PO; +OXYC-57 PO; -PATIENT'S HEIGHT AND/OR WEIGHT NEEDED SCH; -PRT40 PO
--- NOTE | 2017-04-07 09:41 | DIAGNOSTIC IMAGING REPORT ---
TWO VIEW CHEST CLINICAL HISTORY: Acute myeloid leukemia. FINDINGS: PA and lateral chest radiographs are compared to study dated 03/22/2017. The PA view is degraded by patient rotation. A left subclavian central venous infusion port is unchanged in position. The heart is top normal for projection. The pulmonary vasculature is noncongested. There is a layering left pleural effusion with associated consolidation, as well as a trace right pleural effusion. These appear decreased in size from 03/22/2017. No pneumothorax is identified. The skeletal structures are osteopenic. The bony thorax is grossly intact. IMPRESSION: 1. Cardiomegaly without radiographic evidence of congestive failure. 2. There is a layering left pleural effusion with associated left basilar consolidation. A trace pleural effusion is seen on the right. These have decreased in size from 03/22/2017. Electronically signed by: Kelvin Willis M.D. 04/07/2017 9:40 AM Dictated Date/Time: 04/07/2017 9:38 AM
== END | disposition home or self-care (01) ==
LOC: C.RAD1850 09:25
PROVIDERS: ATTEND Surgery
DX: C92.00 Acute myeloblastic leukemia, not having achieved remission (principal); J94.2 Hemothorax; I51.7 Cardiomegaly; J90 Pleural effusion, not elsewhere classified

== ENCOUNTER 2017-04-19 12:19 | Inpatient (IN) | payer OTHER ==
[~2017-04-19] VITALS: Ht 149.9 cm; Wt 73.8 kg
[2017-04-19] VITALS (15 sets, daily range): BP systolic 77–141; BP diastolic 41–65; PULSE 60–73; TEMP 36.6–36.7; O2SAT 97–100; Ht 149.9 cm; Wt 73.8 kg
[~2017-04-19 12:19] MED LIST changes: -LANS30TA3 PO
[2017-04-19] MEDS ORDERED: ONDANSETRON INJ 2 MG/ML 2 ML VIAL IV STA (12:38)
[2017-04-19] MEDS ORDERED: SODIUM CHLORIDE 0.9% 1000ML 1,000 ML IV STA ×2 (12:38→14:06)
[2017-04-19] MEDS ORDERED: MoRPHine SULFATE 4 MG/ML 1 ML CARP\\VIAL IV STA (12:39)
--- NOTE | 2017-04-19 13:15 | DIAGNOSTIC IMAGING REPORT ---
SINGLE VIEW CHEST CLINICAL HISTORY: GI bleeding. FINDINGS: An AP, portable, upright chest radiograph is compared to study dated 04/07/2017. The examination is degraded by portable technique and patient rotation. A left subclavian central venous infusion port is unchanged in position. The heart is top normal for projection. The pulmonary vasculature is noncongested. There is a layering left pleural effusion with associated consolidation. A trace pleural effusion is suggested on the right. The right lung is otherwise grossly clear. No pneumothorax is identified. The skeletal structures are osteopenic. The bony thorax is grossly intact. IMPRESSION: 1. Cardiomegaly without radiographic evidence of congestive failure. 2. Layering left pleural effusion with associated left basilar consolidation. This has not significantly changed from 04/07/2017. Electronically signed by: Kelvin Willis M.D. 04/19/2017 1:13 PM Dictated Date/Time: 04/19/2017 1:12 PM
[2017-04-19 13:16] LABS: INR 1.4 (0.9-1.1); PARTIAL THROMBOPLASTIN RATIO 2.4; PROTHROMBIN TIME (PATIENT) 14.7 SECONDS (9.0-12.0)
[2017-04-19] MEDS ORDERED: RXNS10 PO (13:20)
[2017-04-19 13:28] LABS: HEMATOCRIT 17.8 % (37-47); MEAN CELL VOLUME 86.4 fL (80-100); MEAN CORPUSCULAR HEMOGLOBIN 30.6 pg (25-34); MEAN CORPUSCULAR HGB CONC 35.4 g/dl (32-36); MEAN PLATELET VOLUME 9.8 fL (7.4-10.4); PLATELET COUNT 14 K/uL (130-400); RED BLOOD COUNT 2.06 M/uL (4.2-5.4); WHITE BLOOD COUNT 219.52 K/uL (4.8-10.8)
[2017-04-19] MEDS ORDERED: SODIUM CHLORIDE 0.9% 500ML 500 ML IV STA (13:35)
[2017-04-19 13:44] LABS: ALKALINE PHOSPHATASE 89 U/L (45-117); ALT/SGPT 26 U/L (12-78); AST/SGOT 31 U/L (15-37); BLOOD UREA NITROGEN 140 mg/dl (7-18); BUN/CREATININE RATIO 12.3 (10-20); CALCIUM 7.4 mg/dl (8.5-10.1); CARBON DIOXIDE 17 mmol/L (21-32); CHLORIDE 87 mmol/L (98-107); GLUCOSE 121 mg/dl (70-99); POTASSIUM 5.2 mmol/L (3.5-5.1); SODIUM 124 mmol/L (136-145)
[2017-04-19 14:15] LABS: COMPLETE YES; LYMPH ABS # 11.42 K/uL (1.2-3.4); LYMPHOCYTE % 5.2 %; META ABS # 7.68 K/uL (0-0); METAMYELOCYTE % 3.5 %; NEUTROPHILS % 2.6 %; OTHER CELL TYPE ABS # 143.13 K/uL (0-0)
[2017-04-19] MEDS ORDERED: METOCLOPRAMIDE HCL INJ 5 MG/ML 2 ML VIAL IV STA (14:22)
[2017-04-19] MEDS ORDERED: RAPID SEQUENCE INDUCTION BAG ONE (14:55)
[2017-04-19 15:24] LABS: ISTAT CREATININE 11.2 mg/dl (0.6-1.3); ISTAT HEMOGLOBIN 7.8 g/dl (12.0-16.0); ISTAT IONIZED CALCIUM 0.89 mmol/l (1.12-1.32)
--- NOTE | 2017-04-19 15:28 | DIAGNOSTIC IMAGING REPORT ---
CT SCAN OF THE BRAIN WITHOUT IV CONTRAST CLINICAL HISTORY: Dehydration. Nausea and vomiting. COMPARISON STUDY: CT of the brain dated 10/04/2014. TECHNIQUE: Unenhanced axial CT scan of the brain is performed from the vertex to the skull base. The examination is degraded by motion artifact. FINDINGS: Brain parenchyma: There are age-related involutional changes noting moderate subcortical and periventricular microangiopathic change. There is no hemorrhage, mass effect, or evidence of acute territorial ischemia by CT criteria. Upton-white matter is preserved. No extra-axial fluid collection is seen. Ventricles, sulci, cisterns: Prominent secondary to involutional change. Intracranial vasculature: There is atherosclerotic calcification of the cavernous carotid arteries. Calvarium: The skeletal structures are osteopenic. The calvarium appears intact. Sinuses and mastoids: Trace mucosal thickening is seen in the left maxillary antrum and the ethmoid sinuses. The remaining visualized paranasal sinuses are clear. The mastoid air cells are well pneumatized. Orbits: The bony orbits are grossly intact. There are bilateral ocular lens implants. IMPRESSION: There is no hemorrhage, mass effect, or evidence of acute territorial ischemia by CT criteria. Electronically signed by: Kelvin Willis M.D. 04/19/2017 3:26 PM Dictated Date/Time: 04/19/2017 3:16 PM
--- NOTE | 2017-04-19 15:57 | DIAGNOSTIC IMAGING REPORT ---
CT ANGIOGRAM OF THE CHEST, ABDOMEN, AND PELVIS COMBO CLINICAL HISTORY: Nausea and vomiting. Dehydration. COMPARISON STUDY: Chest x-ray dated 04/19/2017. Chest CT dated 02/20/2017. Abdominal CT dated 03/21/2017. TECHNIQUE: Before and following the IV administration of 80 cc of Optiray 320, CT angiogram of the chest, abdomen, and pelvis was performed from the thoracic inlet to the proximal femora. Images are reviewed in the axial, sagittal, and coronal planes. 3-D MIPS images are created and assessed. IV contrast was administered without complication. Automated dose control exposure was utilized. A dose lowering technique was utilized adhering to the principles of ALARA. The examination is significantly degraded by motion artifact, as well as by streak artifact from the arms which could not be elevated above the chest or abdomen. FINDINGS: CHEST: Thyroid: Atrophic. Thoracic aorta: There is atherosclerotic calcification of the thoracic aorta , which is normal in caliber and demonstrates standard 3-vessel arch anatomy. No dissection is seen. The arch vessels are widely patent. Pulmonary vasculature: The pulmonary trunk is dilated, measuring 3.4 cm in diameter. This suggests pulmonary artery hypertension. There are no filling defects identified in the central pulmonary vessels to indicate pulmonary embolus. Note that this examination was not protocoled for evaluation of the pulmonary arteries the pulmonary vessels are not well opacified. A left subclavian central venous infusion port is in place. Heart: The heart is enlarged and without pericardial effusion. The coronary arteries are calcified. There is diminished attenuation of the cardiac blood pool as compared to the myocardium suggesting anemia. Lungs and pleural spaces: Evaluation of the lung parenchyma is degraded by motion artifact. Layering secretions are seen within the trachea and right mainstem bronchus. There is a moderate left pleural effusion. Multiloculated pleural effusions/collection is seen throughout the left lung and at the left apex. This causes significant atelectasis of left lung. There is associated consolidative change at the left lung base. There is a small right pleural effusion with right basilar consolidation. Patchy airspace consolidation is identified in the right suprahilar region. Additional foci of patchy consolidative change are seen in the right upper lobe. Mediastinum: There is no mediastinal lymphadenopathy. Danielle: Clear. Axillae: There is no axillary lymphadenopathy. Bony thorax: The skeletal structures are osteopenic. No lytic or blastic bony lesions are identified. Degenerative change and hyperkyphosis are noted in the thoracic spine. ABDOMEN AND PELVIS: Liver: The contrast-enhanced liver is elongated, measuring 22 cm in length. This likely represents Jhonny's lobe variant anatomy. The liver is normal in contour and attenuation. There is no intrahepatic biliary ductal dilatation. Gallbladder: Unremarkable. Spleen: Normal in size and attenuation noting heterogeneous arterial phase enhancement. Pancreas: Unremarkable. Adrenal glands: Unremarkable. Kidneys: No renal calculi are identified on the unenhanced series. The contrast enhanced kidneys are normal in size and without hydronephrosis. The kidneys enhance symmetrically. Abdominal aorta and iliac arteries: There is mild to moderate atherosclerotic calcification of the abdominal aorta which is normal in caliber. The abdominal aorta and iliac arteries are widely patent. No dissection is seen. Major branches of the abdominal aorta: The celiac trunk, superior mesenteric, and inferior mesenteric arteries are widely patent. Hepatic arterial anatomy is conventional. The splenic artery is patent. Single bilateral renal arteries are widely patent. Bowel: There is mild colonic diverticulosis without CT evidence of acute diverticulitis. No bowel obstruction is seen. The appendix is well-visualized and normal. Peritoneum: There is a small volume of free fluid in the pelvis. No intraperitoneal free air is seen Lymphadenopathy: None. Pelvic viscera: The bladder is decompressed and grossly unremarkable. Uterus and adnexa are normal as visualized. Skeletal structures: The skeletal structures are osteopenic. There is mild to moderate lumbosacral spondylosis. A large sclerotic lesion is again seen within the anterior aspect of the L2 vertebral body. This is nonspecific and may represent a hemangioma. Soft tissues: There is mild body wall edema. IMPRESSION: 1. Significantly streak and motion compromised examination. 2. There is no aneurysm or dissection seen involving the thoracic or abdominal aorta. 3. There is a moderate left pleural effusion, with multiple loculated pleural effusions/collections seen throughout the left lung and at the left apex. This causes significant atelectasis of the left lung and there is patchy airspace consolidation at the left lung base. Correlate clinically for evidence of pneumonia. Infected pleural collections/empyemas would be impossible to exclude. 4. There is a small right pleural effusion with right basilar consolidation. Additional foci of patchy airspace consolidation are seen in the right upper lobe. Again, correlate clinically for evidence of pneumonia. 4. Cardiomegaly. 5. Unremarkable CT angiogram of the abdominal aorta and its major branches. 6. There is trace free fluid in the pelvis, possibly on a reactive basis or secondary to fluid overload. 7. An indeterminant sclerotic lesion is again seen in the body of L2. This is nonspecific and may represent an atypical hemangioma. 8. Additional findings as above. Electronically signed by: Kelvin Willis M.D. 04/19/2017 3:56 PM Dictated Date/Time: 04/19/2017 3:39 PM
[2017-04-19] MEDS ORDERED: NOREPINEPHRINE BIT INJ 8 MG in DEXTROSE 5% 500ML 500 ML IV STA (16:06)
[2017-04-19] MEDS ORDERED: CALCIUM CHLORIDE 10% 10 ML SYR IV STA (16:07)
[2017-04-19] MEDS ORDERED: SODIUM BICARB 8.4% INJ 50 MEQ/50 ML SYR IV STA (16:08)
--- NOTE | 2017-04-19 16:11 | DIAGNOSTIC IMAGING REPORT ---
SINGLE VIEW CHEST CLINICAL HISTORY: Central venous catheter placement. FINDINGS: An AP, portable, upright chest radiograph is compared to chest x-ray and chest CT performed earlier the same day 03/20/2017. The examination is degraded by portable technique and patient rotation. A right internal jugular central venous catheter has been placed. The tip projects over the cavoatrial junction. A left subclavian central venous infusion port is unchanged in position. The heart is top enlarged. Pulmonary vascular congestion is identified. There is a layering left pleural effusion with associated consolidation . Pleural fluid is also the left apex. A small pleural effusion is also seen on the right. No pneumothorax is identified. The skeletal structures are osteopenic. The bony thorax is grossly intact. IMPRESSION: 1. A right internal jugular central venous catheter has been placed. No pneumothorax is seen post procedure. 2. Cardiomegaly with evidence of congestive failure. This is new from earlier today. 3. Left larger than right pleural effusions with left sided consolidation. This was better characterized on today's chest CT. Electronically signed by: Kelvin Willis M.D. 04/19/2017 4:10 PM Dictated Date/Time: 04/19/2017 4:08 PM
[2017-04-19] MEDS ORDERED: PIPERACILLIN/TAZOBACTAM 4.5 GM/100ML D5W IV STA (16:26)
[2017-04-19] MEDS ORDERED: LORAZEPAM 2 MG/ML 1 ML VIAL IV STA (16:36)
[2017-04-19] MEDS ORDERED: LORAZEPAM 2 MG/ML 1 ML VIAL ONE (16:36)
[2017-04-19 17:22] LABS: ARTERIAL BLOOD GAS HCO3 15 mmol/L (19-24); ARTERIAL BLOOD GAS PO2 44 mm/Hg (80-95)
[2017-04-19 17:26] LABS: ALLEN TEST POS (POS); ARTERIAL BLD GAS O2 SATURATION < 60.0 % (90-95); O2 ADMINISTRATION 15L O2
[2017-04-19 17:28] LABS: ARTERIAL BLOOD GAS pH 7.15 (7.35-7.45)
[2017-04-19] MEDS ORDERED: ICU PROTOCOL FOR HYPERGLYCEMIA PRN (17:45)
[2017-04-19] MEDS ORDERED: SODIUM BICARBONATE 8.4% INJ 150 MEQ in DEXTROSE 5% 1000ML 1,000 ML IV SCH (18:00)
--- NOTE | 2017-04-19 18:23 | Critical Care Consultation ---
Critical Care Consultation Date of Consultation: Apr 19, 2017. Attending Physician: Reason for Consultation: Hypotension; Respiratory failure; ARF; Lactic Acidosis; History of Present Illness The patient is a 81-year-old female with Hx of acute myelocytic leukemia ( diagnosed 02/2017) never been on chemo, except on Hydroxyurea, Hx of ICU admission in 03/16/2017 for Left Sided Hemothorax following Mediport insertion which resolved with chest tube , Hx of A fib not on A/C. As per family, the patient was declining over the past two months with decreased PO intake, including drinking; Additionally she was progressively more lethargic and dyspneic She had not been on any antibiotics recently nor since admission; Patient was brought her to the hospital for evaluation of dehydration. In ER found to be hypotensive in 80/49 with HR in 60's; in Respiratory distress with sats 96% on 2 liters NC, but subsequently was placed on 100% NRB with sats 100%; She was afebrile; Exam was noted for lethargic patient, in respiratory distress with petechial rash, with significant LE edema and decreased breath sounds on the left side. Labs were noted for Leukocytosis of 219 with 143 ( other cells) in 11/01 WBC was 11; Hg of 6 ( prior 11/01 - 9); Plts 14 ( similar to prior); coags noted for aptt 61; cr 11.4 ( 03/23 - was 0.66); Lipase 725 and lactate of 3.5 ABG 7.15/44/44 on 100% NRB; EKG noted for QT 586; T wave inversions in V2, V3; CT Abdomen/Pelvis/Chest is noted for Moderate Left pleural effusion with multiple loculated effusions and collections in Left apex with atelectasis of Left lung, small Right sided effusion and cardiomegaly. Head CT unremarkable; in ER - s/p 3 liters of IVF, Zosyn, Bicarb, Morphine, Ativan, Ca Chloride, Patient is a DNR/DNI and was started on pressors as BP remained in 70/50's; After pressors started BP improved to 99/49 by NIBP. Family History Social History Smoking Status: Never Smoker Drug Use: none Marital Status: Housing Status: lives with significant other Occupation Status: retired Allergies Coded Allergies: No Known Allergies (Unverified , 03/16/17) Home Medications Scheduled Allopurinol (Allopurinol), 300 MG PO DAILY Hydroxyurea (Hydrea Cap), 500 MG PO BID Sotalol HCl (Sotalol HCl), 80 MG PO BID Scheduled PRN Oxycodone/Acetaminophen 5MG/325MG (Percocet 5MG/325MG), 1-2 TABLETS PO Q4H PRN for Pain Current Inpatient Medications Past Medical/Surgical History Gout AML Atrial fibrillation D&C Lumbar hemilaminectomy Tonsillectomy Dental root extraction Family History FHx: cancer FHx: gallbladder disease Hypertension Kidney disease FHx: cancer FHx: gallbladder disease Hypertension Kidney disease Social History Smoking Status: Never Smoker Drug Use: none Marital Status: Housing Status: lives with significant other Occupation Status: retired Allergies Coded Allergies: No Known Allergies (Unverified , 04/19/17) Home Medications Scheduled Lansoprazole (Prevacid), 30 MG PO PM Sotalol HCl (Sotalol HCl), 120 MG PO BID Scheduled PRN Morphine Sulfate (Morphine Sulfate), 0.5 ML PO UNKNOWN PRN for Ondansetron Hcl (Zofran), 8 MG PO Q8 PRN for nausea Review of Systems unable to obtain. Physical Exam Date Time Temp Pulse Resp B/P (MAP) Pulse Ox O2 Delivery O2 Flow Rate FiO2 04/19/17 16:26 64 28 73/57 04/19/17 15:37 70 28 92/57 99 Non-Rebreather 15.0 04/19/17 14:11 67 18 80/49 96 Nasal Cannula 2.0 04/19/17 13:28 94 Nasal Cannula 2.0 04/19/17 12:44 68 04/19/17 12:23 36.4 67 22 93/58 88 Room Air General Appearance: uncomfortable, moderate distress Head: atraumatic Eyes: no discharge, sclerae normal Neck: no tenderness, no stridor, no lymphadenopathy Respiratory: accessory muscle use, respiratory distress, other Cardiovasular: irregular rate Abdomen: non tender Lower Extremities: edema Neuro: decreased LOC, lethargic, disoriented Laboratory Results Last 24 Hours Test 04/19/17 12:41 04/19/17 15:08 04/19/17 15:12 04/19/17 17:00 White Blood Count 219.52 K/uL Red Blood Count 2.06 M/uL Hemoglobin 6.3 g/dL Hematocrit 17.8 % Mean Corpuscular Volume 86.4 fL Mean Corpuscular Hemoglobin 30.6 pg Mean Corpuscular Hemoglobin Concent 35.4 g/dl Platelet Count 14 K/uL Mean Platelet Volume 9.8 fL RDW Standard Deviation 48.5 fL RDW Coefficient of Variation 15.5 % Neutrophils % (Manual) 2.6 % Lymphocytes % (Manual) 5.2 % Monocytes % (Manual) 18.3 % Metamyelocytes % 3.5 % Blast Cells % 5.2 % Neutrophils # (Manual) 5.71 K/uL Total Absolute Neutrophils 5.71 K/uL Lymphocytes # (Manual) 11.42 K/uL Total Absolute Lymphocytes 11.42 K/uL Monocytes # (Manual) 40.17 K/uL Metamyelocytes # 7.68 K/uL Other Cells # 143.13 K/uL Blast Cells # 11.42 K/uL Other Cell Type 65.2 % Blood Smear Review Red Blood Cell Morphology Unremarkable Prothrombin Time 14.7 SECONDS Prothromb Time International Ratio 1.4 Activated Partial Thromboplast Time 61.4 SECONDS Partial Thromboplastin Ratio 2.4 Sodium Level 124 mmol/L Potassium Level 5.2 mmol/L Chloride Level 87 mmol/L Carbon Dioxide Level 17 mmol/L Anion Gap 20.0 mmol/L 23.0 mmol/L Blood Urea Nitrogen 140 mg/dl Creatinine 11.40 mg/dl Est Creatinine Clear Calc Drug Dose 3.3 ml/min Estimated GFR () 3.3 Estimated GFR (Non- 2.8 BUN/Creatinine Ratio 12.3 Random Glucose 121 mg/dl Calcium Level 7.4 mg/dl Total Bilirubin 1.3 mg/dl Direct Bilirubin 0.7 mg/dl Aspartate Amino Transf (AST/SGOT) 31 U/L Alanine Aminotransferase (ALT/SGPT) 26 U/L Alkaline Phosphatase 89 U/L Troponin I < 0.015 ng/ml Total Protein 6.6 gm/dl Albumin 2.6 gm/dl Lipase 725 U/L Bedside Lactic Acid Venous 3.51 mmol/L Bedside Hemoglobin 7.8 g/dl Bedside Hematocrit 23 % Bedside Sodium 127 mEq/L Bedside Potassium 5.7 mEq/L Bedside Chloride 94 mEq/L Bedside Total CO2 17 mEq/l Bedside Blood Urea Nitrogen 122 mg/dl Bedside Creatinine 11.2 mg/dl Bedside Glucose (other) 158 mg/dl Bedside Ionized Calcium (Kathy) 0.89 mmol/l Assessment & Plan 81 yo with Hx as above with AML presenting with shock likely septic, Hyponatremia, respiratory distress distress, Lactic acidosis, thrombocytopenia, anemia, with elevated APTT without a culprit medicine, acute mental status change, ARF, dehydration, Severe metabolic acidosis. Patient is in MOSF and has a very poor prognosis at this point. Neuro - Altered likely due to metabolic encephalopathy, Will correct acidosis; Head CT normal; On chronic opiates at home; S/p Ativan in ER as well; If non compliant with BIPAP may need Precedex gtt; Pulm - in Acute respiratory distress; Chest CT noted as is ABG; Will place on BIPAP and follow ABG on BIPAP; Patient is a DNI per ; Etiology of respiratory failure is likely from underlying Left sided loculated effusion with need to increase minute ventilation to compensate for metabolic acidosis; Will ask to thoracic surgery evaluation; Doubt she is VATS candidate. CV - Hypotensive/Shock; Etiology likely is sepsis, although also with cardiac abnormalities on EKG; troponins surprisingly normal despite cr of 11; Echo - EF 60-65% s/p 3 liters of IVF and started pressors via RIJ; Lactate is 3.5 but again some of it maybe due to decreased clearance; will check VBG from TLC and serial Lactates; cortisol level; wean off pressors as able; Hx of A fib - HR in 60's and ptt 60's --> cannot be anticoagulated. Renal - ARF with cr 11 ( from 0.6 one month ago); BUN 140 ( from 13); BUN/cr ration c/w prerenal picture. Tatum placed; monitor i/o; Renal consulted; GI - NPO given lethargy; Hemo - AML not a chemo, Pancytopenic from AML, As per hemo/onc ( Dr. Elmore) will not transfuse platelets, but to help come off pressors will give One unit of PRBC; check DIC panel; ID - sepsis based on criteria, however WBC is not reliable given AML Will c/w broad spectrum antibiotics( Zosyn/Vanco x 1) renally dosed; follow Cxs. Source could be loculated effusions, will ask thoracic surgery to eval. DVT prophylaxis - platelets too low; Advanced directives - DNR/DNI; Will get palliative care consult. Lines - Mediport RIMika TLC 04/19/17 Consults - Renal ID Thoracic surgery Hemo/onc Palliative care I spoke with patient's and he wants to pursue aggressive care short of intubation and rescuscitation; He agreed to pressors and central line which were initiated in ER; he consented to art line and BIPAP. He stated that would give her two days in ICU to see if she improves. Given patient is on pressors will accept to ICU for hemodynamic monitoring; I updated the family on the patient's condition and answered their questions to the best of my ability. Above plan was also discussed with the patient's who expressed understanding and agreed to it. He further expressed understanding of this patient's very poor overall prognosis. Case was d/w ER and admitting Hospitalist; I have personally spent 53 minutes of critical care time in the direct management of this patient. This is a life/limb threatening event. This includes time spent evaluating patient, direct bedside care, chart review, placing orders, interpretation of diagnostic studies, discussion with consultants, patient, and family members, as well as other required patient management activities. This time is exclusive of all separately billable procedures, and teaching time and separate from and in addition to any other critical care service time. Additional Copies To Davian Schmidt M.D.
[2017-04-19] MEDS ORDERED: ONDANSETRON 8 MG TAB PO PRN (18:30)
[2017-04-19] MEDS ORDERED: VANCOMYCIN INJ 1,000 MG in SODIUM CHLORIDE 0.9% 250ML 250 ML IV ONE (18:45)
[2017-04-19] MEDS: SODIUM CHLORIDE 0.9% 1000ML 1,000 ML IV SCH (18:45)
[2017-04-19] MEDS ORDERED: VANCOMYCIN CONSULT ACTIVE PRN (19:00)
[2017-04-19 19:15] LABS: VEN BLOOD GAS BASE EXCESS -10.6 mEq/L; VENOUS BLOOD GAS PCO2 43 mmHg (38.0-50.0); VENOUS BLOOD GAS PO2 31 mmHg
[2017-04-19 19:16] LABS: VEN BLD GAS O2 SATURATION < 60.0 %
[2017-04-19] MEDS ORDERED: LIDOCAINE HCL 1% 20 ML VIAL ONE (20:05)
[2017-04-19 20:11] LABS: FIBRINOGEN* 305 mg/dl (184-400)
--- NOTE | 2017-04-19 20:13 | EMERGENCY ROOM VISIT NOTE ---
History Report prepared by Padmini: Robert Cortez Under the Supervision of: Dr. Myron Flores D.O. First contact with patient: 12:29 Chief Complaint: DEHYDRATION Stated Complaint: SORE THROAT, DEHYDRATION Nursing Triage Summary: pt to the ED with family with nausea vomitting and dehydration after little PO intake for a wk per familiy. pt c/o all over body pain and throat pain pt was recently dc from the ICU History of Present Illness The patient is an 81 year old female who presents to the Emergency Room with complaints of worsening dehydration starting a week ago. The patient's states that the patient has not been eating or drinking anything for the past week, and she has been having worsening abdominal pain for the past month which started on the left side, though now she is having some right sided abdominal pain. Additionally, the patient is short of breath, and she uses oxygen as needed. The patient states that she cannot keep anything down other than her pills because she is vomiting after any oral intake, and she is having a sore throat. The patient has AML with thrombocytopenia, and she has had to have a port put in recently, though it bled into her chest, so she had to have a chest tube. The patient notes that she has not had a bowel movement for the past week. Pt denies headache, change in vision, fevers, chest pain, diarrhea, pain with urination, and melena. Source of History: patient, spouse/significant other Onset: a week ago Position: other (global) Quality: other (dehydration) Timing: worsening Associated Symptoms: + sorethroat, + SOB, + vomiting, + abdominal pain Review of Systems See HPI for pertinent positives & negatives. A total of 10 systems reviewed and were otherwise negative. Past Medical & Surgical Medical Problems: (1) Acute myeloid leukemia (2) ELAINE (acute kidney injury) (3) Atrial fibrillation and flutter (4) atrial fibrillation secondary to hemothorax (5) Blood loss anemia (6) Hemothorax after procedure (7) Paroxysmal SVT (supraventricular tachycardia) (8) Septic shock (9) SOB (shortness of breath) on exertion Family History FHx: cancer FHx: gallbladder disease Hypertension Kidney disease Social History Smoking Status: Never Smoker Alcohol Use: none Drug Use: none Marital Status: Housing Status: lives with significant other Occupation Status: retired Current/Historical Medications Scheduled Lansoprazole (Prevacid), 30 MG PO PM Sotalol HCl (Sotalol HCl), 120 MG PO BID Scheduled PRN Morphine Sulfate (Morphine Sulfate), 0.5 ML PO UNKNOWN PRN for Ondansetron Hcl (Zofran), 8 MG PO Q8 PRN for nausea Allergies Coded Allergies: No Known Allergies (Unverified , 04/19/17) Physical Exam Vital Signs Date Time Temp Pulse Resp B/P (MAP) Pulse Ox O2 Delivery O2 Flow Rate FiO2 04/19/17 17:30 64 22 76/51 100 Non-Rebreather 15.0 04/19/17 17:18 66 22 99/49 100 Non-Rebreather 15.0 04/19/17 16:50 69 28 105/62 100 Non-Rebreather 15.0 04/19/17 16:44 69 24 98/55 99 Non-Rebreather 15.0 04/19/17 16:26 64 28 73/57 04/19/17 15:37 70 28 92/57 99 Non-Rebreather 15.0 04/19/17 14:11 67 18 80/49 96 Nasal Cannula 2.0 04/19/17 13:28 94 Nasal Cannula 2.0 04/19/17 12:44 68 04/19/17 12:23 36.4 67 22 93/58 88 Room Air Physical Exam GENERAL: Sitting up in bed, ill appearing, malnourished. EYE EXAM: Scleral icterus. OROPHARYNX: no exudate, no erythema, lips, buccal mucosa, and tongue normal and mucous membranes are dry NECK: supple, no nuchal rigidity, no adenopathy, non-tender LUNGS: Clear to auscultation. Normal chest wall mechanics HEART: +SAMMY, S1 normal and S2 normal ABDOMEN: abdomen soft, non-tender, normo-active bowel sounds, no masses, no rebound or guarding. BACK: Back is symmetrical on inspection and there is no deformity, no midline tenderness, no CVA tenderness. SKIN: Diffuse petechiae on the chest and back with mild erythema and blanching lesions as well. No sloughing of the skin. UPPER EXTREMITIES: upper extremities are grossly normal. LOWER EXTREMITIES: No pitting edema. NEURO EXAM: Normal sensorium, cranial nerves II-XII grossly intact, normal speech, no gross weakness of arms, no gross weakness of legs. Gross sensation intact. Medical Decision & Procedures ER Provider Diagnostic Interpretation: Radiology results as stated below per my review and the radiologist's interpretation: SINGLE VIEW CHEST CLINICAL HISTORY: GI bleeding. FINDINGS: An AP, portable, upright chest radiograph is compared to study dated 04/07/2017. The examination is degraded by portable technique and patient rotation. A left subclavian central venous infusion port is unchanged in position. The heart is top normal for projection. The pulmonary vasculature is noncongested. There is a layering left pleural effusion with associated consolidation. A trace pleural effusion is suggested on the right. The right lung is otherwise grossly clear. No pneumothorax is identified. The skeletal structures are osteopenic. The bony thorax is grossly intact. IMPRESSION: 1. Cardiomegaly without radiographic evidence of congestive failure. 2. Layering left pleural effusion with associated left basilar consolidation. This has not significantly changed from 04/07/2017. Electronically signed by: Kelvin Willis M.D. 04/19/2017 1:13 PM Dictated Date/Time: 04/19/2017 1:[address] ANGIOGRAM OF THE CHEST, ABDOMEN, AND PELVIS COMBO CLINICAL HISTORY: Nausea and vomiting. Dehydration. COMPARISON STUDY: Chest x-ray dated 04/19/2017. Chest CT dated 02/20/2017. Abdominal CT dated 03/21/2017. TECHNIQUE: Before and following the IV administration of 80 cc of Optiray 320, CT angiogram of the chest, abdomen, and pelvis was performed from the thoracic inlet to the proximal femora. Images are reviewed in the axial, sagittal, and coronal planes. 3-D MIPS images are created and assessed. IV contrast was administered without complication. Automated dose control exposure was utilized. A dose lowering technique was utilized adhering to the principles of ALARA. The examination is significantly degraded by motion artifact, as well as by streak artifact from the arms which could not be elevated above the chest or abdomen. FINDINGS: CHEST: Thyroid: Atrophic. Thoracic aorta: There is atherosclerotic calcification of the thoracic aorta , which is normal in caliber and demonstrates standard 3-vessel arch anatomy. No dissection is seen. The arch vessels are widely patent. Pulmonary vasculature: The pulmonary trunk is dilated, measuring 3.4 cm in diameter. This suggests pulmonary artery hypertension. There are no filling defects identified in the central pulmonary vessels to indicate pulmonary embolus. Note that this examination was not protocoled for evaluation of the pulmonary arteries the pulmonary vessels are not well opacified. A left subclavian central venous infusion port is in place. Heart: The heart is enlarged and without pericardial effusion. The coronary arteries are calcified. There is diminished attenuation of the cardiac blood pool as compared to the myocardium suggesting anemia. Lungs and pleural spaces: Evaluation of the lung parenchyma is degraded by motion artifact. Layering secretions are seen within the trachea and right mainstem bronchus. There is a moderate left pleural effusion. Multiloculated pleural effusions/collection is seen throughout the left lung and at the left apex. This causes significant atelectasis of left lung. There is associated consolidative change at the left lung base. There is a small right pleural effusion with right basilar consolidation. Patchy airspace consolidation is identified in the right suprahilar region. Additional foci of patchy consolidative change are seen in the right upper lobe. Mediastinum: There is no mediastinal lymphadenopathy. Danielle: Clear. Axillae: There is no axillary lymphadenopathy. Bony thorax: The skeletal structures are osteopenic. No lytic or blastic bony lesions are identified. Degenerative change and hyperkyphosis are noted in the thoracic spine. ABDOMEN AND PELVIS: Liver: The contrast-enhanced liver is elongated, measuring 22 cm in length. This likely represents Jhonny's lobe variant anatomy. The liver is normal in contour and attenuation. There is no intrahepatic biliary ductal dilatation. Gallbladder: Unremarkable. Spleen: Normal in size and attenuation noting heterogeneous arterial phase enhancement. Pancreas: Unremarkable. Adrenal glands: Unremarkable. Kidneys: No renal calculi are identified on the unenhanced series. The contrast enhanced kidneys are normal in size and without hydronephrosis. The kidneys enhance symmetrically. Abdominal aorta and iliac arteries: There is mild to moderate atherosclerotic calcification of the abdominal aorta which is normal in caliber. The abdominal aorta and iliac arteries are widely patent. No dissection is seen. Major branches of the abdominal aorta: The celiac trunk, superior mesenteric, and inferior mesenteric arteries are widely patent. Hepatic arterial anatomy is conventional. The splenic artery is patent. Single bilateral renal arteries are widely patent. Bowel: There is mild colonic diverticulosis without CT evidence of acute diverticulitis. No bowel obstruction is seen. The appendix is well-visualized and normal. Peritoneum: There is a small volume of free fluid in the pelvis. No intraperitoneal free air is seen Lymphadenopathy: None. Pelvic viscera: The bladder is decompressed and grossly unremarkable. Uterus and adnexa are normal as visualized. Skeletal structures: The skeletal structures are osteopenic. There is mild to moderate lumbosacral spondylosis. A large sclerotic lesion is again seen within the anterior aspect of the L2 vertebral body. This is nonspecific and may represent a hemangioma. Soft tissues: There is mild body wall edema. IMPRESSION: 1. Significantly streak and motion compromised examination. 2. There is no aneurysm or dissection seen involving the thoracic or abdominal aorta. 3. There is a moderate left pleural effusion, with multiple loculated pleural effusions/collections seen throughout the left lung and at the left apex. This causes significant atelectasis of the left lung and there is patchy airspace consolidation at the left lung base. Correlate clinically for evidence of pneumonia. Infected pleural collections/empyemas would be impossible to exclude. 4. There is a small right pleural effusion with right basilar consolidation. Additional foci of patchy airspace consolidation are seen in the right upper lobe. Again, correlate clinically for evidence of pneumonia. 4. Cardiomegaly. 5. Unremarkable CT angiogram of the abdominal aorta and its major branches. 6. There is trace free fluid in the pelvis, possibly on a reactive basis or secondary to fluid overload. 7. An indeterminant sclerotic lesion is again seen in the body of L2. This is nonspecific and may represent an atypical hemangioma. 8. Additional findings as above. Electronically signed by: Kelvin Willis M.D. 04/19/2017 3:56 PM Dictated Date/Time: 04/19/2017 3:[address] SCAN OF THE BRAIN WITHOUT IV CONTRAST CLINICAL HISTORY: Dehydration. Nausea and vomiting. COMPARISON STUDY: CT of the brain dated 10/04/2014. TECHNIQUE: Unenhanced axial CT scan of the brain is performed from the vertex to the skull base. The examination is degraded by motion artifact. FINDINGS: Brain parenchyma: There are age-related involutional changes noting moderate subcortical and periventricular microangiopathic change. There is no hemorrhage, mass effect, or evidence of acute territorial ischemia by CT criteria. Upton-white matter is preserved. No extra-axial fluid collection is seen. Ventricles, sulci, cisterns: Prominent secondary to involutional change. Intracranial vasculature: There is atherosclerotic calcification of the cavernous carotid arteries. Calvarium: The skeletal structures are osteopenic. The calvarium appears intact. Sinuses and mastoids: Trace mucosal thickening is seen in the left maxillary antrum and the ethmoid sinuses. The remaining visualized paranasal sinuses are clear. The mastoid air cells are well pneumatized. Orbits: The bony orbits are grossly intact. There are bilateral ocular lens implants. IMPRESSION: There is no hemorrhage, mass effect, or evidence of acute territorial ischemia by CT criteria. Electronically signed by: Kelvin Willis M.D. 04/19/2017 3:26 PM Dictated Date/Time: 04/19/2017 3:[address] ANGIOGRAM OF THE CHEST, ABDOMEN, AND PELVIS COMBO CLINICAL HISTORY: Nausea and vomiting. Dehydration. COMPARISON STUDY: Chest x-ray dated 04/19/2017. Chest CT dated 02/20/2017. Abdominal CT dated 03/21/2017. TECHNIQUE: Before and following the IV administration of 80 cc of Optiray 320, CT angiogram of the chest, abdomen, and pelvis was performed from the thoracic inlet to the proximal femora. Images are reviewed in the axial, sagittal, and coronal planes. 3-D MIPS images are created and assessed. IV contrast was administered without complication. Automated dose control exposure was utilized. A dose lowering technique was utilized adhering to the principles of ALARA. The examination is significantly degraded by motion artifact, as well as by streak artifact from the arms which could not be elevated above the chest or abdomen. FINDINGS: CHEST: Thyroid: Atrophic. Thoracic aorta: There is atherosclerotic calcification of the thoracic aorta , which is normal in caliber and demonstrates standard 3-vessel arch anatomy. No dissection is seen. The arch vessels are widely patent. Pulmonary vasculature: The pulmonary trunk is dilated, measuring 3.4 cm in diameter. This suggests pulmonary artery hypertension. There are no filling defects identified in the central pulmonary vessels to indicate pulmonary embolus. Note that this examination was not protocoled for evaluation of the pulmonary arteries the pulmonary vessels are not well opacified. A left subclavian central venous infusion port is in place. Heart: The heart is enlarged and without pericardial effusion. The coronary arteries are calcified. There is diminished attenuation of the cardiac blood pool as compared to the myocardium suggesting anemia. Lungs and pleural spaces: Evaluation of the lung parenchyma is degraded by motion artifact. Layering secretions are seen within the trachea and right mainstem bronchus. There is a moderate left pleural effusion. Multiloculated pleural effusions/collection is seen throughout the left lung and at the left apex. This causes significant atelectasis of left lung. There is associated consolidative change at the left lung base. There is a small right pleural effusion with right basilar consolidation. Patchy airspace consolidation is identified in the right suprahilar region. Additional foci of patchy consolidative change are seen in the right upper lobe. Mediastinum: There is no mediastinal lymphadenopathy. Danielle: Clear. Axillae: There is no axillary lymphadenopathy. Bony thorax: The skeletal structures are osteopenic. No lytic or blastic bony lesions are identified. Degenerative change and hyperkyphosis are noted in the thoracic spine. ABDOMEN AND PELVIS: Liver: The contrast-enhanced liver is elongated, measuring 22 cm in length. This likely represents Jhonny's lobe variant anatomy. The liver is normal in contour and attenuation. There is no intrahepatic biliary ductal dilatation. Gallbladder: Unremarkable. Spleen: Normal in size and attenuation noting heterogeneous arterial phase enhancement. Pancreas: Unremarkable. Adrenal glands: Unremarkable. Kidneys: No renal calculi are identified on the unenhanced series. The contrast enhanced kidneys are normal in size and without hydronephrosis. The kidneys enhance symmetrically. Abdominal aorta and iliac arteries: There is mild to moderate atherosclerotic calcification of the abdominal aorta which is normal in caliber. The abdominal aorta and iliac arteries are widely patent. No dissection is seen. Major branches of the abdominal aorta: The celiac trunk, superior mesenteric, and inferior mesenteric arteries are widely patent. Hepatic arterial anatomy is conventional. The splenic artery is patent. Single bilateral renal arteries are widely patent. Bowel: There is mild colonic diverticulosis without CT evidence of acute diverticulitis. No bowel obstruction is seen. The appendix is well-visualized and normal. Peritoneum: There is a small volume of free fluid in the pelvis. No intraperitoneal free air is seen Lymphadenopathy: None. Pelvic viscera: The bladder is decompressed and grossly unremarkable. Uterus and adnexa are normal as visualized. Skeletal structures: The skeletal structures are osteopenic. There is mild to moderate lumbosacral spondylosis. A large sclerotic lesion is again seen within the anterior aspect of the L2 vertebral body. This is nonspecific and may represent a hemangioma. Soft tissues: There is mild body wall edema. IMPRESSION: 1. Significantly streak and motion compromised examination. 2. There is no aneurysm or dissection seen involving the thoracic or abdominal aorta. 3. There is a moderate left pleural effusion, with multiple loculated pleural effusions/collections seen throughout the left lung and at the left apex. This causes significant atelectasis of the left lung and there is patchy airspace consolidation at the left lung base. Correlate clinically for evidence of pneumonia. Infected pleural collections/empyemas would be impossible to exclude. 4. There is a small right pleural effusion with right basilar consolidation. Additional foci of patchy airspace consolidation are seen in the right upper lobe. Again, correlate clinically for evidence of pneumonia. 4. Cardiomegaly. 5. Unremarkable CT angiogram of the abdominal aorta and its major branches. 6. There is trace free fluid in the pelvis, possibly on a reactive basis or secondary to fluid overload. 7. An indeterminant sclerotic lesion is again seen in the body of L2. This is nonspecific and may represent an atypical hemangioma. 8. Additional findings as above. Electronically signed by: Kelvin Willis M.D. 04/19/2017 3:56 PM Dictated Date/Time: 04/19/2017 3:39 PM SINGLE VIEW CHEST CLINICAL HISTORY: Central venous catheter placement. FINDINGS: An AP, portable, upright chest radiograph is compared to chest x-ray and chest CT performed earlier the same day 03/20/2017. The examination is degraded by portable technique and patient rotation. A right internal jugular central venous catheter has been placed. The tip projects over the cavoatrial junction. A left subclavian central venous infusion port is unchanged in position. The heart is top enlarged. Pulmonary vascular congestion is identified. There is a layering left pleural effusion with associated consolidation . Pleural fluid is also the left apex. A small pleural effusion is also seen on the right. No pneumothorax is identified. The skeletal structures are osteopenic. The bony thorax is grossly intact. IMPRESSION: 1. A right internal jugular central venous catheter has been placed. No pneumothorax is seen post procedure. 2. Cardiomegaly with evidence of congestive failure. This is new from earlier today. 3. Left larger than right pleural effusions with left sided consolidation. This was better characterized on today's chest CT. Electronically signed by: Kelvin Willis M.D. 04/19/2017 4:10 PM Dictated Date/Time: 04/19/2017 4:08 PM Laboratory Results Test 04/19/17 12:41 04/19/17 15:08 04/19/17 15:12 04/19/17 17:00 RDW Standard Deviation 48.5 fL (36.4-46.3) RDW Coefficient of Variation 15.5 % (11.5-14.5) White Blood Count 219.52 K/uL (4.8-10.8) Red Blood Count 2.06 M/uL (4.2-5.4) Hemoglobin 6.3 g/dL (12.0-16.0) Hematocrit 17.8 % (37-47) Mean Corpuscular Volume 86.4 fL (80-100) Mean Corpuscular Hemoglobin 30.6 pg (25-34) Mean Corpuscular Hemoglobin Concent 35.4 g/dl (32-36) Platelet Count 14 K/uL (130-400) Mean Platelet Volume 9.8 fL (7.4-10.4) Neutrophils % (Manual) 2.6 % Lymphocytes % (Manual) 5.2 % Monocytes % (Manual) 18.3 % Metamyelocytes % 3.5 % Blast Cells % 5.2 % Neutrophils # (Manual) 5.71 K/uL (1.4-6.5) Total Absolute Neutrophils 5.71 K/uL (1.4-6.5) Lymphocytes # (Manual) 11.42 K/uL (1.2-3.4) Total Absolute Lymphocytes 11.42 K/uL (1.2-3.4) Monocytes # (Manual) 40.17 K/uL (0.11-0.59) Metamyelocytes # 7.68 K/uL (0-0) Other Cells # 143.13 K/uL (0-0) Blast Cells # 11.42 K/uL (0-0) Other Cell Type 65.2 % Blood Smear Review Red Blood Cell Morphology Unremarkable Prothrombin Time 14.7 SECONDS (9.0-12.0) Prothromb Time International Ratio 1.4 (0.9-1.1) Activated Partial Thromboplast Time 61.4 SECONDS (21.0-31.0) Partial Thromboplastin Ratio 2.4 Est Creatinine Clear Calc Drug Dose 3.3 ml/min Total Bilirubin 1.3 mg/dl (0.2-1) Direct Bilirubin 0.7 mg/dl (0-0.2) Aspartate Amino Transf (AST/SGOT) 31 U/L (15-37) Alanine Aminotransferase (ALT/SGPT) 26 U/L (12-78) Alkaline Phosphatase 89 U/L (45-117) Troponin I < 0.015 ng/ml (0-0.045) Total Protein 6.6 gm/dl (6.4-8.2) Albumin 2.6 gm/dl (3.4-5.0) Lipase 725 U/L (73-393) Bedside Lactic Acid Venous 3.51 mmol/L (0.90-1.70) Bedside Hemoglobin 7.8 g/dl (12.0-16.0) Bedside Hematocrit 23 % (37-47) Bedside Sodium 127 mEq/L (135-144) Bedside Potassium 5.7 mEq/L (3.3-5.0) Bedside Chloride 94 mEq/L (101-112) Bedside Total CO2 17 mEq/l (24-31) Bedside Blood Urea Nitrogen 122 mg/dl (7-18) Bedside Creatinine 11.2 mg/dl (0.6-1.3) Bedside Glucose (other) 158 mg/dl (70-99) Bedside Ionized Calcium (Kathy) 0.89 mmol/l (1.12-1.32) Arterial Blood pH 7.15 (7.35-7.45) Arterial Blood Partial Pressure CO2 44 mmHg (35-46) Arterial Blood Partial Pressure O2 44 mm/Hg (80-95) Arterial Blood HCO3 15 mmol/L (19-24) Arterial Blood Oxygen Saturation < 60.0 % (90-95) Arterial Blood Base Excess mEq/L (-9-1.8) Arterial Blood Gas Delivery 15L O2 Dustin Test POS (POS) Laboratory results per my review. Medications Administered Medications (Trade) Dose Ordered Sig/Samanta Route Start Time Stop Time Status Last Admin Dose Admin Sodium Chloride 1,000 ml @ 999 mls/hr Q1H1M STAT IV 04/19/17 12:38 04/19/17 13:38 DC 04/19/17 12:53 999 MLS/HR Ondansetron HCl (Zofran Inj) 4 mg NOW STAT IV 04/19/17 12:38 04/19/17 12:40 DC 04/19/17 12:53 4 MG Morphine Sulfate (MoRPHine SULFATE INJ) 4 mg NOW STAT IV 04/19/17 12:39 04/19/17 12:40 DC 04/19/17 12:54 4 MG Sodium Chloride 500 ml @ 999 mls/hr Q31M STAT IV 04/19/17 13:35 04/19/17 14:05 DC 04/19/17 13:35 999 MLS/HR Sodium Chloride 1,000 ml @ 999 mls/hr Q1H1M STAT IV 04/19/17 14:06 04/19/17 15:06 DC 04/19/17 14:11 999 MLS/HR Metoclopramide HCl (Reglan Inj) 5 mg NOW STAT IV 04/19/17 14:22 04/19/17 14:23 DC 04/19/17 14:46 5 MG Norepinephrine Bitartrate 8 mg/ Dextrose 508 ml @ 0 mls/hr Q0M STAT IV 04/19/17 16:06 04/19/17 16:07 DC 04/19/17 16:29 12.4 MLS/HR Calcium Chloride (Calcium Chloride 10%) 2,000 mg NOW STAT IV 04/19/17 16:07 04/19/17 16:08 DC 04/19/17 16:43 2,000 MG Sodium Bicarbonate (Sodium Bicarbonate 8.4% Inj) 50 ml NOW STAT IV 04/19/17 16:08 04/19/17 16:09 DC 04/19/17 16:29 50 ML Piperacillin Sod/ Tazobactam Sod (Zosyn Iv) 4.5 gm NOW STAT IV 04/19/17 16:26 04/19/17 16:27 DC 04/19/17 17:05 4.5 GM Lorazepam (Ativan Inj) 2 mg STK-MED ONCE .ROUTE 04/19/17 16:36 04/19/17 16:37 DC 04/19/17 16:42 0.25 MG Procedure PROCEDURE NOTE - Central Line Insertion - Ultrasound Guided PRIOR TO PROCEDURE: Consent: Discussion was held with the concerning central line. The risks and benefits were explained with possible risks to include bleeding, pain , pneumothorax, hemothorax, pulmonary contusion, pulmonary laceration, and infection. The patient's freely consented. The patient was evaluated prior to the procedure. The patient was identified and the procedure verified as central line insertion. A Time Out was held and the following information confirmed. Verify Correct Patient: Yes Verify Correct Site: Yes Availability of Necessary Equipment: Yes PROCEDURE NOTE: Procedure: Central Line Inserting Clinician: Myron Flores DO. Guide-wire was removed, examined and is intact Complication/Corrective Action: none Estimated Blood Loss: 5 mls US guided line placement: Yes I have reviewed and educated the patient and or family regarding the benefits and risks of central line insertion, and I have reviewed the potential complications including infection - yes CENTRAL LINE BUNDLE: Skin Prep: Chlorhexidine/alcohol Barriers Used: Mask: yes Sterile gown: yes Large sterile drape: yes Cap: yes Sterile gloves: yes Insertion Status: new site Indications - include all that apply: {line indications:[id number]} Placement Conditions: Emergent secondary to hypotension and altered mental status Site: IJ Side: R Number of lumen(s): triple. Declined dialysis Length of catheter inserted into patient: 15 centimeters Anesthesia: local. 3ml of lidocaine Number of Needle Passes: 1 with ml of blood loss Radiological confirmation: Yes I performed the procedure. ECG Indication: weakness Rate (beats per minute): 65 Rhythm: sinus rhythm Findings: T-wave inversion (Inferior), other (Normal axis, right axis deviation , and prolonged QT) ED Course ED COURSE: Vital signs were reviewed and showed hypotension and hypoxia The patients medical record was reviewed The above diagnostic studies were performed and reviewed. ED treatments and interventions as stated above. 1229: The patient was evaluated in room B6. A complete history and physical examination was performed. 1238: Zofran 4mg IV, Sodium Chloride 1000 ml @ 999 mls/hr IV, Morphine Sulfate 4mg IV 1335: Sodium Chloride 500 ml @ 999 mls/hr IV 1400: I reevaluated the patient and had a long discussion with the family. They do not want dialysis or a central line done at this time. We also discussed blood pressure medications. 1406: Sodium Chloride 1000 ml @ 999 mls/hr IV 1422: I updated them, and there are still unsure if they want the patient to come into the hospital for further management or go home. I ordered Reglan 5mg IV 1500: The patient was put on a non-rebreather and 1 amp of Bicarb as she was unresponsive. 1521: There was blood in the left side of the chest where there were procedural issues. I had a long conversation with the , and he is agreeable to CT scan with a small IV load. 1540: I performed a central venous catheterization as noted above. 1602: I discussed the patient's case with Dr. Upton - Hematology/Oncology, and she thinks that the patient is terminal and there is little benefit to transfusion at this time. She talked with Dr. Elmore, so I talked with as well, as this is his patient. He agrees that there is no benefit to transfusion at this time. 1606: Norepinephrine Bitartrate 8mg/ Dextrose 12.4mls/hr IV 1607: Calcium Chloride 10% 2000mg IV 1608: Sodium Bicarbonate 8.4% 50ml IV 1625: I discussed the patient's case with Dr. Mandujano as well as the ICU attending, and they are going to evaluate the patient for further management. 1626: Zosyn 4.5gm IV 1632: Upon reevaluation, the patient is being evaluated by the hospitalist and ICU attending.I discussed my findings with the patient's family and they understand and agree with the treatment plan. Based on the patients age, coexisting illnesses, exam and lab findings the decision to treat as an inpatient was made. The patient remained stable while under my care. The patient will be evaluated for further management. 1636: Ativan 0.25mg IV 1800: Sodium Bicarbonate 150mg/Dextrose 1150ml @ 100mls/hr IV Medical Decision Differential Diagnosis includes but is not limited to dehydration, stroke, anemia, hypoglycemia, hyponatremia, hypernatremia, urinary tract infection, pneumonia, bronchitis, sepsis, gastroenteritis, additional abdominal pathology, metabolic abnormalities and infections. Patient is an 81-year-old female who presents to ER for not eating or drinking. Patient has a history of AML and has not undergone any chemotherapy. Patient is extremely ill-appearing. She is a DNR/DNI upon presentation and wants to go home. Labs were obtained and so a white count of 220,000. Hemoglobin is 6 along with a platelet count of 14. BMP shows a sodium of 124 along with a potassium of 5.2 and a creatinine of 11 which is all new. Lactate elevated at 3.5. Troponin is negative. PH is 7.15. While patient was initially in B6 family did not want any aggressive measures. They continued drag her feet. At this time she is taking the CAT scan. Rapid response was called because she was unresponsive. She was having agonal breathing. She did respond to sternal stimuli. I gave her IV bicarbonate as I questioned if her potassium was elevated. She was significantly hypoxic and placed on nonrebreather with pulse ox in the 50s. She eventually regained consciousness and improved. We did CT head, chest, abdomen and pelvis. She was given a small dose of IV contrast as there was a large amount of blood in the left chest just to make sure there is no acute bleeding after prolonged discussion with . Eventually family was agreeable to central line. I placed this emergently as her systolic pressures were in the 70s to 90s. Patient was placed on Aleve that drip. Map of 65 was the goal. She was given 3 L normal saline. She is covered with broad -spectrum antibiotics. I gave her calcium chloride IV in combination with 3 Amps of bicarbonate. She is placed on a bicarbonate drip. Family declined BiPAP initially. She was eventually agreeable. I did discuss with to the oncologist, medical officer psychiatry and internal medicine attending. Patient was admitted to the ICU. They eventually changed their minds again and made patient a full code appears for the next short period of time. I was not present for the conversation. I did place a triple-lumen as they adamantly initially declined dialysis. Patient was admitted with hypoxic respiratory failure, AML acute kidney injury, hyperkalemia and possible septic shock. Pressors were titrated while in the ER. Medication Reconcilliation Current Medication List: was personally reviewed by me Blood Pressure Screening Patient's blood pressure: Low blood pressure Monitored by the hospitalist Consults Time Called: 1550 Consulting Physician: Dr. Upton, Hematology/Oncology Returned Call: 1602 I discussed the patient's case with Dr. Upton - Hematology/Oncology, and she thinks that the patient is terminal and there is little benefit to transfusion at this time. She talked with Dr. Elmore, so I talked with as well, as this is his patient. He agrees that there is no benefit to transfusion at this time. Additional Consults: Time Called: 1620 Consulted Physician: Dr. Mandujano Returned Call: 1626 Additional Comments: I discussed the patient's case with Dr. Mandujano as well as the ICU attending, and they are going to evaluate the patient for further management. Impression Primary Impression: Acute myeloid leukemia Additional Impressions: ELAINE (acute kidney injury) Acute respiratory failure with hypoxia Hemothorax after procedure Septic shock Critical Care I have personally spent 125 minutes of critical care time in the direct management of this patient. This includes bedside care, interpretation of diagnostic studies, and testing, discussion with consultants, patient, and family members, and other required patient management activities. This 125 minutes is in excess of all separately billable procedures. Scribe Attestation The scribe's documentation has been prepared under my direction and personally reviewed by me in its entirety. I confirm that the note above accurately reflects all work, treatment, procedures, and medical decision making performed by me. Departure Information Dispostion Being Evaluated By Hospitalist Referrals Davian Schmidt M.D. (PCP) Patient Instructions My [facility] Problem Qualifiers Primary Impression: Acute myeloid leukemia Leukemia Active/Remission status: without remission Qualified Codes: C92.00 - Acute myeloblastic leukemia, not having achieved remission
--- NOTE | 2017-04-19 20:13 | Pharmacy Progress Note ---
Pharmacy Abx Initial Consult Date of Service Apr 19, 2017. Pharmacy Dosing Scope Date of Consult: 04/19/17 Consultation requested by: Dr. Mandujano Pharmacy is consulted to initiate Vancomycin and Zosyn IV dosing therapy, order appropriate labs and adjust drug dose/frequency. Subjective The patient is a 81 year old female admitted on Apr 19, 2017 at 17:39. Objective Height (Feet): 4 Height (Inches): 11.00 Weight (Kilograms): 66.000 Vital Signs (Past 12Hrs) Vital Signs Past 12 Hours Date Time Temp Pulse Resp B/P (MAP) Pulse Ox O2 Delivery O2 Flow Rate FiO2 04/19/17 18:44 36.6 73 17 141/63 97 BiPAP 80 04/19/17 18:35 70 100 80 04/19/17 18:23 65 16 116/60 100 04/19/17 18:22 65 16 116/60 100 Non-Rebreather 15.0 04/19/17 18:10 66 16 81/54 99 Non-Rebreather 15.0 04/19/17 18:00 65 18 89/56 99 Non-Rebreather 15.0 04/19/17 17:47 64 20 82/49 100 Non-Rebreather 15.0 04/19/17 17:30 64 22 76/51 100 Non-Rebreather 15.0 04/19/17 17:18 66 22 99/49 100 Non-Rebreather 15.0 04/19/17 16:50 69 28 105/62 100 Non-Rebreather 15.0 04/19/17 16:44 69 24 98/55 99 Non-Rebreather 15.0 04/19/17 16:26 64 28 73/57 04/19/17 15:37 70 28 92/57 99 Non-Rebreather 15.0 04/19/17 14:11 67 18 80/49 96 Nasal Cannula 2.0 04/19/17 13:28 94 Nasal Cannula 2.0 04/19/17 12:44 68 04/19/17 12:23 36.4 67 22 93/58 88 Room Air Lab Results (24Hrs) Laboratory Tests (24 Hours) Test 04/19/17 18:54 04/19/17 20:00 Micro Results Date/Time Source Procedure Growth Status 04/19/17 19:00 Nasal MRSA DNA Surveillance Screen Pending Received Risk Factors for Resistance * Hospitalization for 48 hours or more within the past 90 days * Immunocompromised - patient with AML M5 recent diagnosis, Feb 2017 Assessment & Plan Assessment 81 year old female, admitted to ICU with respiratory distress, hypotension requiring pressors, dehydration and acute renal insufficiency (serum creatinine 11.4 mg/dL) empirically starting IV Vancomycin and IV Zosyn. Plan IV Vancomycin and IV Zosyn for treatment presumed pulmonary source for infection Vancomycin IV * Loading dose: 1000 mg (15 mg/kg) x 1 dose only given severe renal insufficiency * Goal trough level for pulmonary infection: 15 to 20 mcg/mL * Random level ordered for 04/20/17 with AM labs Piperacillin/tazobactam * 3.75 g IV extended infusion every 12 hours for CrCl 20 mL/min or less and dialysis. Pharmacy will continue to follow and will adjust dose/frequency as necessary. Thank you.
[2017-04-19 20:53] LABS: HEMATOCRIT 17.6 % (37-47); MEAN CORPUSCULAR HEMOGLOBIN 30.5 pg (25-34); MEAN CORPUSCULAR HGB CONC 34.7 g/dl (32-36); PLATELET COUNT 27 K/uL (130-400); WHITE BLOOD COUNT 209.45 K/uL (4.8-10.8)
[2017-04-19] MEDS ORDERED: VANCOMYCIN INJ 1,000 MG in SODIUM CHLORIDE 0.9% 250ML 250 ML IV SCH (21:00)
[2017-04-19 21:04] LABS: BUN/CREATININE RATIO 11.6 (10-20); CALCIUM 7.5 mg/dl (8.5-10.1); POTASSIUM 5.3 mmol/L (3.5-5.1)
[2017-04-19 21:05] LABS: INFLUENZA A PCR Neg for Influ A (NEG); INFLUENZA B PCR Neg for Influ B (NEG)
[2017-04-19 21:05] LABS: COMPLETE YES; LYMPH ABS # 7.54 K/uL (1.2-3.4); LYMPHOCYTE % 3.6 %; META ABS # 1.89 K/uL (0-0); METAMYELOCYTE % 0.9 %; MYELOCYTE % 1.3 %; NEUTROPHILS % 3.1 %
[2017-04-19] MEDS: PIPERACILL/TAZOBAC IV 3.375 GM in DEXTROSE 5% 100ML 100 ML IV SCH (21:13)
--- NOTE | 2017-04-19 22:28 | History and Physical ---
History & Physical Date & Time of Service: Apr 19, 2017 at 21:58 Chief Complaint: [place], Septic Shock Primary Care Physician: Davian Schmidt M.D. 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 She presented to the ER tonight as per her family with very poor by mouth intake. At the time I interviewed her, her family was not present. The history is all obtained via the ER doctor and her medical records as the patient was very lethargic after receiving IV Ativan at the time of my interview and examination. She was found to have acute kidney injury with a creatinine of 11 (had normal renal function one month ago), a potassium of 5.7, and she is severely anemic and thrombocytopenic; her WBC count was elevated at 220,000 secondary to progression of her AML. She was hypoxic and hypotensive into the 70s systolic, requiring placement of a right internal jugular central venous catheter and she was started on Levophed as a vasopressor after she had several liters of colloid solution, IV calcium gluconate and right carbonate as well for her hyperkalemia and renal failure. She was severely acidotic with a pH of 7.15 and a bicarbonate of 17 and anion gap of 20. Her chest x-ray shows loculated effusion on the left which is likely residual from her previous hemothorax. She was afebrile here, but she very well could have pneumonia and septic shock from this source in the lungs. The motivational speaker was consulted and had a discussion with the family. They decided that they wanted her to be admitted to the intensive care unit, vasopressors were okay as well as IV antibiotics and IV fluids. She is a DO NOT RESUSCITATE/DO NOT INTUBATE, and they would not want hemodialysis even if it was offered. Past Medical/Surgical History PMH: Paroxysmal atrial fibrillation Acute monocytic leukemia Degenerative disc disease History of left hemothorax status post left-sided port placement GERD PAST SURGICAL HISTORY: 1. D&C. 2. Hemilaminectomy. 3. Tonsil and adenoidectomy. 4. Recent A-port placement. 5. Chest tube placement. Family History FHx: cancer FHx: gallbladder disease Hypertension Kidney disease Noncontributory Social History Smoking Status: Never Smoker Drug Use: none Marital Status: Housing status: lives with family Occupational Status: retired Allergies Coded Allergies: No Known Allergies (Unverified , 04/19/17) Home Medications Scheduled Lansoprazole (Prevacid), 30 MG PO PM Sotalol HCl (Sotalol HCl), 120 MG PO BID Scheduled PRN Morphine Sulfate (Morphine Sulfate), 0.5 ML PO UNKNOWN PRN for Ondansetron Hcl (Zofran), 8 MG PO Q8 PRN for nausea Review of Systems Could not obtain due to lethargy and altered mental status Physical Exam Vital Signs Date Time Temp Pulse Resp B/P (MAP) Pulse Ox O2 Delivery O2 Flow Rate FiO2 04/19/17 19:10 68 100 50 04/19/17 18:44 36.6 73 17 141/63 97 BiPAP 80 04/19/17 18:35 70 100 80 04/19/17 18:23 65 16 116/60 100 04/19/17 18:22 65 16 116/60 100 Non-Rebreather 15.0 04/19/17 18:10 66 16 81/54 99 Non-Rebreather 15.0 04/19/17 18:00 65 18 89/56 99 Non-Rebreather 15.0 04/19/17 17:47 64 20 82/49 100 Non-Rebreather 15.0 04/19/17 17:30 64 22 76/51 100 Non-Rebreather 15.0 04/19/17 17:18 66 22 99/49 100 Non-Rebreather 15.0 04/19/17 16:50 69 28 105/62 100 Non-Rebreather 15.0 04/19/17 16:44 69 24 98/55 99 Non-Rebreather 15.0 04/19/17 16:26 64 28 73/57 04/19/17 15:37 70 28 92/57 99 Non-Rebreather 15.0 04/19/17 14:11 67 18 80/49 96 Nasal Cannula 2.0 04/19/17 13:28 94 Nasal Cannula 2.0 04/19/17 12:44 68 04/19/17 12:23 36.4 67 22 93/58 88 Room Air General Appearance: + mild distress (moaning at times and then snoring while sleeping, lying in bed with nonrebreather on) Head: normocephalic, atraumatic Eyes: normal inspection, sclerae normal ENT: + pertinent finding (some dried crusted blood at the nares) Neck: trachea midline Respiratory/Chest: + respiratory distress (mild), + decreased breath sounds ( on entire left hemithorax except for apex), + accessory muscle use Cardiovascular: regular rate, rhythm, no murmur, normal peripheral pulses, + pertinent finding (trace edema in the legs bilaterally) Abdomen/GI: normal bowel sounds, non tender, soft Extremities/Musculoskelatal: + pertinent finding (poor capillary refill in the extremities while on Levophed) Neurologic/Psych: + pertinent finding (lethargic, not responding to verbal stimuli) Skin: + pertinent finding (diffuse petechiae all over her abdomen and thighs) Diagnostics Laboratory Results Results Past 24 Hours Test 04/19/17 12:41 04/19/17 15:08 04/19/17 15:12 04/19/17 17:00 Range/Units White Blood Count 219.52 4.8-10.8 K/uL Red Blood Count 2.06 4.2-5.4 M/uL Hemoglobin 6.3 12.0-16.0 g/dL Hematocrit 17.8 37-47 % Mean Corpuscular Volume 86.4 80-100 fL Mean Corpuscular Hemoglobin 30.6 25-34 pg Mean Corpuscular Hemoglobin Concent 35.4 32-36 g/dl Platelet Count 14 130-400 K/uL Mean Platelet Volume 9.8 7.4-10.4 fL RDW Standard Deviation 48.5 36.4-46.3 fL RDW Coefficient of Variation 15.5 11.5-14.5 % Neutrophils % (Manual) 2.6 % Lymphocytes % (Manual) 5.2 % Monocytes % (Manual) 18.3 % Metamyelocytes % 3.5 % Blast Cells % 5.2 % Neutrophils # (Manual) 5.71 1.4-6.5 K/uL Total Absolute Neutrophils 5.71 1.4-6.5 K/uL Lymphocytes # (Manual) 11.42 1.2-3.4 K/uL Total Absolute Lymphocytes 11.42 1.2-3.4 K/uL Monocytes # (Manual) 40.17 0.11-0.59 K/uL Metamyelocytes # 7.68 0-0 K/uL Other Cells # 143.13 0-0 K/uL Blast Cells # 11.42 0-0 K/uL Other Cell Type 65.2 % Blood Smear Review Red Blood Cell Morphology Unremarkable Prothrombin Time 14.7 9.0-12.0 SECONDS Prothromb Time International Ratio 1.4 0.9-1.1 Activated Partial Thromboplast Time 61.4 21.0-31.0 SECONDS Partial Thromboplastin Ratio 2.4 Sodium Level 124 136-145 mmol/L Potassium Level 5.2 3.5-5.1 mmol/L Chloride Level 87 98-107 mmol/L Carbon Dioxide Level 17 21-32 mmol/L Anion Gap 20.0 23.0 16-25 mmol/L Blood Urea Nitrogen 140 7-18 mg/dl Creatinine 11.40 0.60-1.20 mg/dl Est Creatinine Clear Calc Drug Dose 3.3 ml/min Estimated GFR () 3.3 Estimated GFR (Non- 2.8 BUN/Creatinine Ratio 12.3 10-20 Random Glucose 121 70-99 mg/dl Calcium Level 7.4 8.5-10.1 mg/dl Total Bilirubin 1.3 0.2-1 mg/dl Direct Bilirubin 0.7 0-0.2 mg/dl Aspartate Amino Transf (AST/SGOT) 31 15-37 U/L Alanine Aminotransferase (ALT/SGPT) 26 12-78 U/L Alkaline Phosphatase 89 45-117 U/L Troponin I < 0.015 0-0.045 ng/ml Total Protein 6.6 6.4-8.2 gm/dl Albumin 2.6 3.4-5.0 gm/dl Lipase 725 73-393 U/L Bedside Lactic Acid Venous 3.51 0.90-1.70 mmol/L Bedside Hemoglobin 7.8 12.0-16.0 g/dl Bedside Hematocrit 23 37-47 % Bedside Sodium 127 135-144 mEq/L Bedside Potassium 5.7 3.3-5.0 mEq/L Bedside Chloride 94 101-112 mEq/L Bedside Total CO2 17 24-31 mEq/l Bedside Blood Urea Nitrogen 122 7-18 mg/dl Bedside Creatinine 11.2 0.6-1.3 mg/dl Bedside Glucose (other) 158 70-99 mg/dl Bedside Ionized Calcium (Kathy) 0.89 1.12-1.32 mmol/l Arterial Blood pH 7.15 7.35-7.45 Arterial Blood Partial Pressure CO2 44 35-46 mmHg Arterial Blood Partial Pressure O2 44 80-95 mm/Hg Arterial Blood HCO3 15 19-24 mmol/L Arterial Blood Oxygen Saturation < 60.0 90-95 % Arterial Blood Base Excess -9-1.8 mEq/L Arterial Blood Gas Delivery 15L O2 Dustin Test POS POS Test 04/19/17 18:54 04/19/17 19:00 04/19/17 20:26 Range/Units White Blood Count 209.45 4.8-10.8 K/uL Red Blood Count 2.00 4.2-5.4 M/uL Hemoglobin 6.1 12.0-16.0 g/dL Hematocrit 17.6 37-47 % Mean Corpuscular Volume 88.0 80-100 fL Mean Corpuscular Hemoglobin 30.5 25-34 pg Mean Corpuscular Hemoglobin Concent 34.7 32-36 g/dl Platelet Count 27 130-400 K/uL Mean Platelet Volume 10.0 7.4-10.4 fL RDW Standard Deviation 50.0 36.4-46.3 fL RDW Coefficient of Variation 15.7 11.5-14.5 % Neutrophils % (Manual) 3.1 % Lymphocytes % (Manual) 3.6 % Monocytes % (Manual) 12.0 % Metamyelocytes % 0.9 % Myelocytes % 1.3 % Blast Cells % 4.0 % Neutrophils # (Manual) 6.49 1.4-6.5 K/uL Total Absolute Neutrophils 6.49 1.4-6.5 K/uL Lymphocytes # (Manual) 7.54 1.2-3.4 K/uL Total Absolute Lymphocytes 7.54 1.2-3.4 K/uL Monocytes # (Manual) 25.13 0.11-0.59 K/uL Metamyelocytes # 1.89 0-0 K/uL Myelocytes # 2.72 0-0 K/uL Other Cells # 157.30 0-0 K/uL Blast Cells # 8.38 0-0 K/uL Other Cell Type 75.1 % Red Blood Cell Morphology Unremarkable Fibrinogen 305 184-400 mg/dl Fibrin Degradation Products >40 <10 mcg/ml Venous Blood pH 7.20 7.36-7.41 Venous Blood Partial Pressure CO2 43 38.0-50.0 mmHg Venous Blood Partial Pressure O2 31 mmHg Venous Blood HCO3 16 mmol/L Venous Blood Oxygen Saturation < 60.0 % Venous Blood Base Excess -10.6 mEq/L Influenza Type A (RT-PCR) Neg for Influ A NEG Influenza Type B (RT-PCR) Neg for Influ B NEG Sodium Level 127 136-145 mmol/L Potassium Level 5.3 3.5-5.1 mmol/L Chloride Level 90 98-107 mmol/L Carbon Dioxide Level 17 21-32 mmol/L Anion Gap 20.0 3-11 mmol/L Blood Urea Nitrogen 127 7-18 mg/dl Creatinine 11.00 0.60-1.20 mg/dl Est Creatinine Clear Calc Drug Dose 3.4 ml/min Estimated GFR () 3.4 Estimated GFR (Non- 2.9 BUN/Creatinine Ratio 11.6 10-20 Random Glucose 211 70-99 mg/dl Lactic Acid Level 3.5 0.4-2.0 mmol/L Calcium Level 7.5 8.5-10.1 mg/dl Microbiology Results 04/19/17 MRSA DNA Surveillance Screen - Final, Complete Specimen Negative for MRSA by DNA Probe Diagnostic Radiology CT chest and chest x-ray images personally reviewed by me and agree with the interpretation EKG Normal sinus rhythm with T-wave inversions in the anterior leads, severely prolonged QTC at 586 Impression Assessment and Plan This patient is an 81-year-old female with a recent diagnosis of acute monocytic leukemia who has declined to undergo chemotherapy, paroxysmal atrial fibrillation, and a recent left hemopneumothorax after port placement which required thoracoscopy and chest tube placement. She presented to the ER [facility] as per her family with very poor by mouth intake. At the time I interviewed her, her family was not present. The history is all obtained via the ER doctor and her medical records as the patient was very lethargic after receiving IV Ativan at the time of my interview and examination. She was found to have acute kidney injury with a creatinine of 11 (had normal renal function one month ago), a potassium of 5.7, and she is severely anemic and thrombocytopenic; her WBC count was elevated at 220,000 secondary to progression of her AML. She was hypoxic and hypotensive into the 70s systolic, requiring placement of a right internal jugular central venous catheter and she was started on Levophed as a vasopressor after she had several liters of colloid solution, IV calcium gluconate and right carbonate as well for her hyperkalemia and renal failure. She was severely acidotic with a pH of 7.15 and a bicarbonate of 17 and anion gap of 20. Lactate was elevated at 3.5. Her chest x-ray shows loculated effusion on the left which is likely residual from her previous hemothorax. She was afebrile here, but she very well could have pneumonia and septic shock from this source in the lungs. The motivational speaker was consulted and had a discussion with the family. They decided that they wanted her to be admitted to the intensive care unit, vasopressors were okay as well as IV antibiotics and IV fluids. She is a DO NOT RESUSCITATE/DO NOT INTUBATE, and they would not want hemodialysis even if it was offered. Shock likely septic/loculated pleural effusions/Respiratory distress/Lactic acidosis/Severe metabolic acidosis/multisystem organ failure-very poor prognosis at this time, but family wishes to pursue aggressive measures for 48 hours to see if she will have improvement -Admit to ICU for continued vasopressor support-appreciate critical care management at this time -Broad-spectrum antibiotics with Zosyn and vancomycin -Consult thoracic surgery for management of loculated effusion -Collections Manager recommends BiPAP, will follow ABG -Follow chemistry panel and lactate -Transfusing 2 units of PRBCs irradiated to help with shock as per motivational speaker -consult ID to assist with management of suspected infection Paroxysmal atrial fibrillation/prolonged QTC-in sinus rhythm at this time, is on sotalol at home which can prolong the QT -Not on anticoagulation due to thrombocytopenia and anemia -Hold sotalol for prolonged QT -Monitor on telemetry Acute kidney injury/hyperkalemia/hyponatremia- c/w prerenal picture due to poor by mouth intake. Creatinine 11 on admission and was normal one month ago, potassium was 5.7 on admission. She had no ECG changes but was given calcium chloride and bicarbonate in the ER as precaution given her severe renal failure. Sodium low at 127 on admission likely secondary to dehydration - Tatum placed; monitor I/O -Nephrology consulted -Continue normal saline at 100 ML's per hour -Follow PRP AML/pancytopenia-decided to decline chemotherapy and is just being followed with her counts. She is obviously progressed quite rapidly in the last month with her disease. As per hemo/onc ( Dr. Elmore) will not transfuse platelets, but to help come off pressors will give PRBC -Transfuse PRBC 1-2 units as per motivational speaker -Follow CBC -Consult hematology/oncology Prophylaxis-SCDs only given thrombocytopenia Disposition-we will keep in the ICU at this time, but consult palliative care as she more than likely will pass away in the near future given her very poor prognosis-needs hospice consult DO NOT RESUSCITATE/DO NOT INTUBATE Level of Care Critical Care Advanced Directives Existing Living Will: Yes Existing Power of Entry Level Programmer: No Resuscitation Status DO NOT RESUSCITATE VTE Prophylaxis VTE Risk Assessment Done? Y/N: Yes Risk Level: High Given or contraindicated: SCD's Additional Copies To Davian Schmidt M.D. Patel, Nilesh A., M.D.
[2017-04-20] VITALS (35 sets, daily range): BP systolic 70–113; BP diastolic 43–64; PULSE 58–70; TEMP 36.7–36.8; O2SAT 90–100
[2017-04-20 00:02] LABS: URINE APPEARANCE TURBID (CLEAR); URINE COLOR DK YELLOW; URINE EPITHELIAL CELL AUTO >30 /lpf (0-5); URINE NITRITE NEG (NEG); UROBILINOGEN NEG (NEG)
[2017-04-20 00:04] LABS: MANUAL MICROSCOPIC REQUIRED? NO; REVIEW REQ? YES; URINE BILIRUBIN 1+ (NEG)
[2017-04-20 00:27] LABS: BUN/CREATININE RATIO 11.5 (10-20); CALCIUM 6.9 mg/dl (8.5-10.1); CREATININE 10.7 mg/dl (0.60-1.20); POTASSIUM 4.8 mmol/L (3.5-5.1)
[2017-04-20] MEDS ORDERED: LORAZEPAM 2 MG/ML 1 ML VIAL IV STA (01:08)
[2017-04-20] MEDS ORDERED: LORAZEPAM 2 MG/ML 1 ML VIAL ONE (01:08)
[2017-04-20] MEDS ORDERED: NURSING VERBAL MED ORDER ONE ×4 (01:15→05:30)
[2017-04-20] MEDS ORDERED: NOREPINEPHRINE BIT INJ 8 MG in DEXTROSE 5% 500ML 500 ML IV PRN (02:45)
[2017-04-20 04:27] LABS: BUN/CREATININE RATIO 11.6 (10-20); CALCIUM 7.2 mg/dl (8.5-10.1); CREATININE 10.7 mg/dl (0.60-1.20); POTASSIUM 4.5 mmol/L (3.5-5.1)
[2017-04-20] MEDS: SODIUM CHLORIDE 0.9% 1000ML 1,000 ML IV SCH (04:45)
[2017-04-20 05:58] LABS: VEN BLD GAS O2 SATURATION 65.8 %; VEN BLOOD GAS BASE EXCESS -4.9 mEq/L
[2017-04-20] MEDS ORDERED: PIPERACILL/TAZOBAC CONSULT ACTIVE PRN (08:00)
--- NOTE | 2017-04-20 08:56 | Clinical Documentation Query ---
CLINICAL DOCUMENTATION QUERY QUERY 1 OF 2 An 81 year old female who presents to the Emergency Room with complaints of worsening dehydration starting a week ago. In your clinical opinion is this patient being managed for: ( ) End stage renal disease ( ) Not Agree ( ) Other explanation of clinical findings (Please Explain) ( ) Unable to determine (Please Define) ( ) Need to Discuss The medical record reflects the following clinical findings, treatment, and risk factors. Clinical Indicators: GFR 2.8 to 3 Treatment: IV hydration, serial PRPs Risk Factors: Sepsis, AML, ELAINE, hyponatremia QUERY 2 OF 2 In your clinical opinion is this patient being managed for: ( ) Acute blood-loss anemia ( ) Not Agree ( ) Other explanation of clinical findings (Please Explain) ( ) Unable to determine (Please Define) ( ) Need to Discuss The medical record reflects the following clinical findings, treatment, and risk factors. Clinical Indicators: Hgb 6.3, hct 17.8 Treatment: Transfuse PRBCs, serial CBCs Risk Factors: AML, hemothorax, sepsis Please clarify and document your clinical opinion in the progress notes and discharge summary. Terms such as "probable", "suspected", "likely", "questionable", "possible", or "still to be ruled out" are acceptable. IF IN AGREEMENT, YOU MUST DOCUMENT ABOVE DIAGNOSTIC STATEMENT IN DAILY PROGRESS NOTES AND DISCHARGE SUMMARY. This document is not part of the patient's record. Thank You, Deisi Marcos RN [phone]
[2017-04-20 08:58] LABS: VEN BLD GAS O2 SATURATION < 60.0 %; VENOUS BLOOD GAS PCO2 34 mmHg (38.0-50.0); VENOUS BLOOD GAS PO2 32 mmHg
[2017-04-20 09:02] LABS: BUN/CREATININE RATIO 11.6 (10-20); CALCIUM 7.2 mg/dl (8.5-10.1); CREATININE 10.6 mg/dl (0.60-1.20); POTASSIUM 4.1 mmol/L (3.5-5.1)
[2017-04-20 09:11] LABS: HEMATOCRIT 18.8 % (37-47); MEAN CELL VOLUME 85.5 fL (80-100); MEAN CORPUSCULAR HGB CONC 35.1 g/dl (32-36); WHITE BLOOD COUNT 203.27 K/uL (4.8-10.8)
--- NOTE | 2017-04-20 09:54 | Medical Consult ---
Consultation Date of Consultation: Apr 20, 2017. Attending Physician: Yeny Mandujano MD History of Present Illness Hematology oncology consultation: Evaluation and management of acute myeloid leukemia Date of consultation 04/20/2017. 81-year-old female, who is known to me since February,, she has a known case of acute monocytic leukemia, had a bone marrow examination on 02/24/2017 which showed atypical monocytoid proliferation, promyelocytes and myeloblast represents more than 20% of the cellularity which is consistent with the diagnosis of acute monocytic leukemia, M5. ~Megakaryocytes appears adequate in number. Her white blood cell count was around 15,000-20,000 [place] [address]. Earlier plan was to treat her with the chemotherapy with Dacogen,. As a part of the preparation to start chemotherapy, she underwent the port placement but unfortunately she had hemothorax following the port placement on the left side which required thoracoscopy and the chest tube placement, she was in the hospital for about 1 week, also required blood and platelet transfusion during that time. When I saw her in the office after that, declining performed status, she was ambulating with the help of the wheelchair, she did go to some clinic (about 2-1 /2 hour from here) and received IV vitamin therapy for about 2 to 3 times. Her hemoglobin level dropped down to around 7.5 with WBC around 150,000 on 04/08, she received 1 to PRBC at that time. Blood workup done on 04/10/2017: -WBC [id number], H&H of 8.5/24.6, Platelet count of 68,000. -BUN/Creat: 30/2.1, normal liver function test. Albumin 3.1. Calcium 8.7 Earlier I spoke with the patient as well as her regarding overall treatment goal which would be supportive and symptomatic, she is not a candidate for any kind of intensive chemotherapy for underlying acute monocytic leukemia, also discussed with them regarding having home hospice services in to provide comfort care at home. Center home care manager art spoke with the patient 's who refused for the hospice, wanted to continue the home health services, her wanted to continue with aggressive management in the form of TPN for nutrition, vitamin-C drip, Marinol, blood workup including blood and platelet transfusion. Now she is admitted on 04/19/2017 for significantly poor oral intake, on arrival she was hypertensive, WBC count increased to around 220,000 , she was hypoxic, significant metabolic acidosis noted, now she is admitted in ICU, receiving whether pressors, IV antibiotic, IV fluid, received 1 unit of PRBC. I saw her at bedside in ICU today morning, her blood pressure has remained on the lower side, she is receiving BiPAP at 30-50% FiO2, she is somewhat drowsy, also noticed to have multiple patechiae as well as some nodular erythematous lesion involving the chest which could be leukemia deposits. Blood workup done on 04/20/2017:-WBC [id number], H&H of 6.6/18.8, Platelet count pending but it was around 27,000 yesterday evening. -BUN/Creat: 123/10.6, calcium 7.2 - AST 31, ALT 26, alkaline phosphatase 89, Total bilirubin: 1.3 (04/19/2017). Urine output was about 25 ml over the last 12 hours. Past medical and surgical history: -Paroxysmal atrial fibrillation, Acute monocytic leukemia, Degenerative disc disease, History of left hemothorax, s/p left-sided port placement, GERD 1. D&C. 2. Hemilaminectomy. 3. Tonsil and adenoidectomy. 4. Recent A-port placement. 5. Chest tube placement Family history her not significant. -social history: Nonsmoker, denies any ETOH abuse, , lives with her . Allergies: None. Please review her chart for detailed list of medications. Review of systems: I could not obtain from her as she is drowsy. I reviewed her chart from [facility] as well as from [facility]. On exam: - well built woman, appears to be in somewhat distress - HEENT: no icterus, pallor noted, . - Neck: No palpable cervical lymphadenopathy. - Abdomen: soft, nontender, no hepatomegaly, no splenomegaly. - No focal neuro deficit. - Extremities: no finger clubbing, bilateral leg edema present. - multiple erythematous nodular skin lesions noted in the chest which could be leukemia deposits. Some bruising and petechial skin lesion also noted. 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) diagnosed recently, earlier we plan for systemic chemotherapy but noticed to have significant decline in the performed status over the last few weeks, requiring blood and platelet transfusion supports, last week her blood pressure was on the lower side with worsening renal function test which improved with IV fluid, received 1 unit of PRBC last week but now she is admitted Hospital for hypertension, hypoxemia, severe metabolic acidosis, worsening renal function test, worsening anemia, significant leukocytosis with WBC count around 200,000, she is receiving well as a pressor, antibiotic, IV fluid, received 1 unit of PRBC yesterday, decreasing urine output noted. Because of underlying acute myeloid leukemia, I am expecting significantly elevated white blood cell count. Her clinical condition is not 50 now for any kind of systemic chemotherapy for acute myeloid leukemia and she was also not interested in pursuing any kind of such treatment. From hematology point of view, she can receive blood and platelet transfusion as needed but overall prognosis remains quite poor and supportive symptomatic treatment would be appropriate and may consider for hospice. We spoke with regarding having comfort care and home hospice services but he declined for that as of last week. Thanks for the consultation. Dr. Rehan Elmore Hem/Onc (This note was completed using the dictation program Fluency Direct. As such, there may be misspellings, word substitutions, or other variations that should not change the essence of the clinical content of this encounter note. If there is need for further clarification, please direct questions to the provider listed above.) Past Medical/Surgical History Medical Problems: (1) Acute respiratory failure with hypoxia Status: Acute (2) Pneumonia Status: Acute (3) Sepsis Status: Acute Family History FHx: cancer FHx: gallbladder disease Hypertension Kidney disease Social History Smoking Status: Never Smoker Drug Use: none Marital Status: Housing Status: lives with significant other Occupation Status: retired Allergies Coded Allergies: No Known Allergies (Unverified , 04/19/17) Current Inpatient Medications Current Inpatient Medications Medications (Trade) Dose Ordered Sig/Samanta Route Start Time Stop Time Status Last Admin Dose Admin Sodium Chloride 1,000 ml @ 50 mls/hr Q20H IV 04/19/17 18:45 05/19/17 18:44 Miscellaneous Information (Icu Protocol For Hyperglycemia) 1 ea PRN PRN N/A 04/19/17 17:45 04/21/17 17:44 Piperacillin Sod/ Tazobactam Sod 3.375 gm/Dextrose 115 ml @ 200 mls/hr Q12H IV 04/19/17 21:00 04/26/17 20:59 04/19/17 21:13 200 MLS/HR Ondansetron HCl (Zofran Tab) 8 mg Q8 PRN PO 04/19/17 18:30 05/19/17 18:29 Pantoprazole Sodium 40 mg/ Syringe 10 ml @ 5 mls/min DAILY@11 IV 04/20/17 11:00 05/20/17 10:59 Vancomycin HCl (Consult) 1 ea UD PRN N/A 04/19/17 19:00 05/19/17 18:59 Heparin Sodium (Porcine) (Heparin 10 Unit/ ml 5 ml Flush) 5 ml PRN PRN FLUSH 04/20/17 00:30 05/20/17 00:29 Norepinephrine Bitartrate 8 mg/ Dextrose 508 ml @ 0 mls/hr Q0M PRN IV 04/20/17 02:45 05/20/17 02:44 Piperacillin Sod/ Tazobactam Sod (Consult) 1 ea UD PRN N/A 04/20/17 08:00 05/20/17 07:59 Physical Exam Date Time Temp Pulse Resp B/P (MAP) Pulse Ox O2 Delivery O2 Flow Rate FiO2 04/20/17 08:00 BiPAP 04/20/17 08:00 36.8 66 15 87/43 (58) 99 BiPAP 30 04/20/17 07:28 66 100 50 04/20/17 06:31 62 12 80/45 (57) 100 BiPAP 50 04/20/17 06:17 66 16 88/60 (69) 100 BiPAP 50 04/20/17 06:01 65 11 82/52 (62) 100 BiPAP 50 04/20/17 06:01 65 11 82/52 (62) 100 04/20/17 05:46 65 14 84/57 (66) 100 BiPAP 50 04/20/17 05:46 65 14 84/57 (66) 100 04/20/17 05:38 64 100 50 04/20/17 05:31 64 13 86/50 (62) 100 04/20/17 05:31 64 13 86/50 (62) 100 BiPAP 50 04/20/17 05:16 64 16 86/48 (61) 100 BiPAP 50 04/20/17 05:16 64 16 86/48 (61) 100 04/20/17 05:01 66 15 84/60 (68) 100 04/20/17 05:01 66 15 84/60 (68) 100 BiPAP 50 04/20/17 04:46 64 17 80/58 (65) 100 04/20/17 04:31 58 17 79/59 (66) 100 04/20/17 04:16 66 16 85/48 (60) 100 04/20/17 04:09 BiPAP 04/20/17 04:02 36.7 59 14 84/47 (59) 100 BiPAP 50 04/20/17 03:46 63 19 83/56 (65) 100 BiPAP 50 04/20/17 03:31 63 17 90/55 (67) 100 BiPAP 50 04/20/17 03:15 64 20 91/64 (73) 100 BiPAP 50 04/20/17 03:00 64 23 86/52 (63) 100 BiPAP 50 04/20/17 02:46 65 17 89/55 (66) 100 BiPAP 50 04/20/17 02:31 64 16 90/62 (71) 100 BiPAP 50 04/20/17 02:15 65 13 99/63 (75) 100 BiPAP 50 04/20/17 02:01 36.7 65 20 75/56 (62) 100 BiPAP 50 04/20/17 01:45 65 21 84/58 (67) 100 BiPAP 50 04/20/17 01:31 60 13 78/54 (62) 100 BiPAP 50 04/20/17 01:16 66 15 92/45 (61) 100 BiPAP 50 04/20/17 01:01 70 16 93/53 (66) 100 BiPAP 50 04/20/17 00:45 66 13 105/54 (71) BiPAP 50 04/20/17 00:31 66 15 81/44 (56) 100 BiPAP 50 04/20/17 00:21 70 20 95/59 (71) 100 BiPAP 50 04/20/17 00:17 69 18 113/ (37) 100 BiPAP 50 04/20/17 00:17 BiPAP 04/20/17 00:01 36.7 68 18 88/47 100 50.0 04/20/17 00:00 36.7 67 16 88/47 (61) 100 BiPAP 50 04/19/17 23:52 36.6 68 19 83/54 100 50.0 04/19/17 23:50 66 12 83/54 (64) 100 BiPAP 50 04/19/17 23:45 36.6 65 13 77/41 100 50.0 04/19/17 23:45 66 15 77/41 (53) 100 BiPAP 50 04/19/17 23:31 66 13 83/45 (58) 100 BiPAP 50 04/19/17 23:15 67 14 116/62 (80) 100 BiPAP 50 04/19/17 23:00 66 12 94/52 (66) 100 BiPAP 50 04/19/17 22:21 60 100 50 04/19/17 22:05 36.6 72 13 99/57 (71) 100 BiPAP 50 04/19/17 22:04 12 99/57 (71) 100 BiPAP 50 04/19/17 20:04 14 104/55 (71) 100 BiPAP 50 04/19/17 20:04 BiPAP 04/19/17 19:16 13 111/65 (80) 100 BiPAP 50 04/19/17 19:10 68 100 50 04/19/17 19:02 36.7 14 89/65 (73) 100 BiPAP 50 04/19/17 18:44 36.6 73 17 141/63 97 BiPAP 80 04/19/17 18:35 70 100 80 04/19/17 18:23 65 16 116/60 100 04/19/17 18:22 65 16 116/60 100 Non-Rebreather 15.0 04/19/17 18:10 66 16 81/54 99 Non-Rebreather 15.0 04/19/17 18:00 65 18 89/56 99 Non-Rebreather 15.0 04/19/17 17:47 64 20 82/49 100 Non-Rebreather 15.0 04/19/17 17:30 64 22 76/51 100 Non-Rebreather 15.0 04/19/17 17:18 66 22 99/49 100 Non-Rebreather 15.0 04/19/17 16:50 69 28 105/62 100 Non-Rebreather 15.0 04/19/17 16:44 69 24 98/55 99 Non-Rebreather 15.0 04/19/17 16:26 64 28 73/57 04/19/17 15:37 70 28 92/57 99 Non-Rebreather 15.0 04/19/17 14:11 67 18 80/49 96 Nasal Cannula 2.0 04/19/17 13:28 94 Nasal Cannula 2.0 04/19/17 12:44 68 04/19/17 12:23 36.4 67 22 93/58 88 Room Air Laboratory Results Last 24 Hours Test 04/19/17 12:41 04/19/17 15:08 04/19/17 15:12 04/19/17 17:00 White Blood Count 219.52 K/uL Red Blood Count 2.06 M/uL Hemoglobin 6.3 g/dL Hematocrit 17.8 % Mean Corpuscular Volume 86.4 fL Mean Corpuscular Hemoglobin 30.6 pg Mean Corpuscular Hemoglobin Concent 35.4 g/dl Platelet Count 14 K/uL Mean Platelet Volume 9.8 fL RDW Standard Deviation 48.5 fL RDW Coefficient of Variation 15.5 % Neutrophils % (Manual) 2.6 % Lymphocytes % (Manual) 5.2 % Monocytes % (Manual) 18.3 % Metamyelocytes % 3.5 % Blast Cells % 5.2 % Neutrophils # (Manual) 5.71 K/uL Total Absolute Neutrophils 5.71 K/uL Lymphocytes # (Manual) 11.42 K/uL Total Absolute Lymphocytes 11.42 K/uL Monocytes # (Manual) 40.17 K/uL Metamyelocytes # 7.68 K/uL Other Cells # 143.13 K/uL Blast Cells # 11.42 K/uL Other Cell Type 65.2 % Blood Smear Review Red Blood Cell Morphology Unremarkable Prothrombin Time 14.7 SECONDS Prothromb Time International Ratio 1.4 Activated Partial Thromboplast Time 61.4 SECONDS Partial Thromboplastin Ratio 2.4 Sodium Level 124 mmol/L Potassium Level 5.2 mmol/L Chloride Level 87 mmol/L Carbon Dioxide Level 17 mmol/L Anion Gap 20.0 mmol/L 23.0 mmol/L Blood Urea Nitrogen 140 mg/dl Creatinine 11.40 mg/dl Est Creatinine Clear Calc Drug Dose 3.3 ml/min Estimated GFR () 3.3 Estimated GFR (Non- 2.8 BUN/Creatinine Ratio 12.3 Random Glucose 121 mg/dl Calcium Level 7.4 mg/dl Total Bilirubin 1.3 mg/dl Direct Bilirubin 0.7 mg/dl Aspartate Amino Transf (AST/SGOT) 31 U/L Alanine Aminotransferase (ALT/SGPT) 26 U/L Alkaline Phosphatase 89 U/L Troponin I < 0.015 ng/ml Total Protein 6.6 gm/dl Albumin 2.6 gm/dl Lipase 725 U/L Bedside Lactic Acid Venous 3.51 mmol/L Bedside Hemoglobin 7.8 g/dl Bedside Hematocrit 23 % Bedside Sodium 127 mEq/L Bedside Potassium 5.7 mEq/L Bedside Chloride 94 mEq/L Bedside Total CO2 17 mEq/l Bedside Blood Urea Nitrogen 122 mg/dl Bedside Creatinine 11.2 mg/dl Bedside Glucose (other) 158 mg/dl Bedside Ionized Calcium (Kathy) 0.89 mmol/l Arterial Blood pH 7.15 Arterial Blood Partial Pressure CO2 44 mmHg Arterial Blood Partial Pressure O2 44 mm/Hg Arterial Blood HCO3 15 mmol/L Arterial Blood Oxygen Saturation < 60.0 % Arterial Blood Base Excess mEq/L Arterial Blood Gas Delivery 15L O2 Dustin Test POS Test 04/19/17 18:54 04/19/17 19:00 04/19/17 20:26 04/19/17 20:38 White Blood Count 209.45 K/uL Red Blood Count 2.00 M/uL Hemoglobin 6.1 g/dL Hematocrit 17.6 % Mean Corpuscular Volume 88.0 fL Mean Corpuscular Hemoglobin 30.5 pg Mean Corpuscular Hemoglobin Concent 34.7 g/dl Platelet Count 27 K/uL Mean Platelet Volume 10.0 fL RDW Standard Deviation 50.0 fL RDW Coefficient of Variation 15.7 % Neutrophils % (Manual) 3.1 % Lymphocytes % (Manual) 3.6 % Monocytes % (Manual) 12.0 % Metamyelocytes % 0.9 % Myelocytes % 1.3 % Blast Cells % 4.0 % Neutrophils # (Manual) 6.49 K/uL Total Absolute Neutrophils 6.49 K/uL Lymphocytes # (Manual) 7.54 K/uL Total Absolute Lymphocytes 7.54 K/uL Monocytes # (Manual) 25.13 K/uL Metamyelocytes # 1.89 K/uL Myelocytes # 2.72 K/uL Other Cells # 157.30 K/uL Blast Cells # 8.38 K/uL Other Cell Type 75.1 % Red Blood Cell Morphology Unremarkable Fibrinogen 305 mg/dl Fibrin Degradation Products >40 mcg/ml Venous Blood pH 7.20 Venous Blood Partial Pressure CO2 43 mmHg Venous Blood Partial Pressure O2 31 mmHg Venous Blood HCO3 16 mmol/L Venous Blood Oxygen Saturation < 60.0 % Venous Blood Base Excess -10.6 mEq/L Influenza Type A (RT-PCR) Neg for Influ A Influenza Type B (RT-PCR) Neg for Influ B Sodium Level 127 mmol/L Potassium Level 5.3 mmol/L Chloride Level 90 mmol/L Carbon Dioxide Level 17 mmol/L Anion Gap 20.0 mmol/L Blood Urea Nitrogen 127 mg/dl Creatinine 11.00 mg/dl Est Creatinine Clear Calc Drug Dose 3.4 ml/min Estimated GFR () 3.4 Estimated GFR (Non- 2.9 BUN/Creatinine Ratio 11.6 Random Glucose 211 mg/dl Lactic Acid Level 3.5 mmol/L Calcium Level 7.5 mg/dl Urine Color DK YELLOW Urine Appearance TURBID Urine pH 5.0 Urine Specific Crouse 1.030 Urine Protein 4+ Urine Glucose (UA) 1+ Urine Ketones NEG Urine Occult Blood 2+ Urine Nitrite NEG Urine Bilirubin 1+ Urine Urobilinogen NEG Urine Leukocyte Esterase SMALL Urine WBC (Auto) >30 /hpf Urine RBC (Auto) 5-10 /hpf Urine Hyaline Casts (Auto) 0 /lpf Urine Epithelial Cells (Auto) >30 /lpf Urine Bacteria (Auto) 2+ Urine Crystals HIPPURIC ACID Urine Pathogenic Casts /lpf Urine Yeast (Auto) Test 04/19/17 23:43 04/20/17 03:48 04/20/17 05:44 04/20/17 07:55 Sodium Level 124 mmol/L 123 mmol/L 126 mmol/L Potassium Level 4.8 mmol/L 4.5 mmol/L 4.1 mmol/L Chloride Level 90 mmol/L 89 mmol/L 89 mmol/L Carbon Dioxide Level 19 mmol/L 21 mmol/L 21 mmol/L Anion Gap 15.0 mmol/L 13.0 mmol/L 16.0 mmol/L Blood Urea Nitrogen 123 mg/dl 124 mg/dl 123 mg/dl Creatinine 10.70 mg/dl 10.70 mg/dl 10.60 mg/dl Est Creatinine Clear Calc Drug Dose 3.5 ml/min 3.5 ml/min 3.7 ml/min Estimated GFR () 3.5 3.5 3.5 Estimated GFR (Non- 3.0 3.0 3.1 BUN/Creatinine Ratio 11.5 11.6 11.6 Random Glucose 225 mg/dl 194 mg/dl 156 mg/dl Lactic Acid Level 2.6 mmol/L 2.1 mmol/L 2.0 mmol/L Calcium Level 6.9 mg/dl 7.2 mg/dl 7.2 mg/dl Random Vancomycin Level 17.1 mcg/ml Venous Blood pH 7.32 7.32 Venous Blood Partial Pressure CO2 41 mmHg 34 mmHg Venous Blood Partial Pressure O2 37 mmHg 32 mmHg Venous Blood HCO3 21 mmol/L 17 mmol/L Venous Blood Oxygen Saturation 65.8 % < 60.0 % Venous Blood Base Excess -4.9 mEq/L -8.0 mEq/L White Blood Count 203.27 K/uL Red Blood Count 2.20 M/uL Hemoglobin 6.6 g/dL Hematocrit 18.8 % Mean Corpuscular Volume 85.5 fL Mean Corpuscular Hemoglobin 30.0 pg Mean Corpuscular Hemoglobin Concent 35.1 g/dl RDW Standard Deviation 47.2 fL RDW Coefficient of Variation 15.1 %
[2017-04-20 10:04] LABS: MEAN PLATELET VOLUME 8.7 fL (7.4-10.4); PLATELET COUNT 24 K/uL (130-400); PLT ESTIMATE SIGNIFIC DECREASED
[2017-04-20] MEDS: PIPERACILL/TAZOBAC IV 3.375 GM in DEXTROSE 5% 100ML 100 ML IV SCH (10:04)
[2017-04-20 10:05] LABS: COMPLETE YES; LYMPH ABS # 1.83 K/uL (1.2-3.4); LYMPHOCYTE % 0.9 %; MYELOCYTE % 0.9 %; NEUTROPHILS % 0.9 %; OTHER CELL TYPE ABS # 88.22 K/uL (0-0)
--- NOTE | 2017-04-20 10:46 | Nephrology Consultation ---
Nephrology Consultation Date & Providers Date of Consultation: Apr 20, 2017. Primary Care Provider: Davian Schmidt M.D. Referring Provider: Reason for Consultation Evaluation management for acute kidney injury with electrolyte abnormality. History of Present Illness Mrs. Aguilar is a 81-year-old with recent diagnosis of acute myeloblastic leukemia, admitted to the hospital with acute kidney injury. Nephrologic consult was requested to manage acute kidney injury and electrolyte imbalance. Electronic medical records including labs and imaging are reviewed in detail during patient's visit. 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 She was following with Oncology as an outpatient, had a port placed for possible start on chemotherapy near future. She was admitted to the hospital with more than a week history of overall not feeling well, nausea and poor p.o. intake. On admission she was hypotensive with systolic blood pressure in 80s. Clinically she was found to be volume depleted. The lab was notable for acute kidney injury, metabolic acidosis and hyperkalemia with no prior history of chronic kidney disease. Creatinine prior to this admission was 0.7. On admission creatinine was above 10 and BUN was 150s. Potassium was 5.6 and acidosis. She was resuscitated with IV fluid. Imaging study showed no postrenal obstruction. Urinalysis was unremarkable. Currently she is awake, alert, denies any pain however seems uncomfortable. Allergies Coded Allergies: No Known Allergies (Unverified , 04/19/17) Inpatient Medications Current Inpatient Medications Medications (Trade) Dose Ordered Sig/Samanta Route Start Time Stop Time Status Last Admin Dose Admin Sodium Chloride 1,000 ml @ 50 mls/hr Q20H IV 04/19/17 18:45 05/19/17 18:44 Miscellaneous Information ([facility] Protocol For Hyperglycemia) 1 ea PRN PRN N/A 04/19/17 17:45 04/21/17 17:44 Piperacillin Sod/ Tazobactam Sod 3.375 gm/Dextrose 115 ml @ 200 mls/hr Q12H IV 04/19/17 21:00 04/26/17 20:59 04/19/17 21:13 200 MLS/HR Ondansetron HCl (Zofran Tab) 8 mg Q8 PRN PO 04/19/17 18:30 05/19/17 18:29 Pantoprazole Sodium 40 mg/ Syringe 10 ml @ 5 mls/min DAILY@11 IV 12/4/17 11:00 05/20/17 10:59 Vancomycin HCl (Consult) 1 ea UD PRN N/A 04/19/17 19:00 05/19/17 18:59 Heparin Sodium (Porcine) (Heparin 10 Unit/ ml 5 ml Flush) 5 ml PRN PRN FLUSH 04/20/17 00:30 05/20/17 00:29 Norepinephrine Bitartrate 8 mg/ Dextrose 508 ml @ 0 mls/hr Q0M PRN IV 04/20/17 02:45 05/20/17 02:44 Piperacillin Sod/ Tazobactam Sod (Consult) 1 ea UD PRN N/A 04/20/17 08:00 05/20/17 07:59 Family History FHx: cancer FHx: gallbladder disease Hypertension Kidney disease Social History Smoking Status: Never Smoker Drug Use: none Marital Status: Housing Status: lives with family Occupation: retired Review of Systems A complete review of systems was performed. Pertinent positives are noted above. All other systems are negative. Physical Exam Date Time Temp Pulse Resp B/P (MAP) Pulse Ox O2 Delivery O2 Flow Rate FiO2 04/20/17 07:28 66 100 50 04/20/17 06:31 62 12 80/45 (57) 100 BiPAP 50 04/20/17 06:17 66 16 88/60 (69) 100 BiPAP 50 04/20/17 06:01 65 11 82/52 (62) 100 BiPAP 50 04/20/17 06:01 65 11 82/52 (62) 100 04/20/17 05:46 65 14 84/57 (66) 100 BiPAP 50 04/20/17 05:46 65 14 84/57 (66) 100 04/20/17 05:38 64 100 50 04/20/17 05:31 64 13 86/50 (62) 100 04/20/17 05:31 64 13 86/50 (62) 100 BiPAP 50 04/20/17 05:16 64 16 86/48 (61) 100 BiPAP 50 04/20/17 05:16 64 16 86/48 (61) 100 04/20/17 05:01 66 15 84/60 (68) 100 04/20/17 05:01 66 15 84/60 (68) 100 BiPAP 50 04/20/17 04:46 64 17 80/58 (65) 100 04/20/17 04:31 58 17 79/59 (66) 100 04/20/17 04:16 66 16 85/48 (60) 100 04/20/17 04:09 BiPAP 04/20/17 04:02 36.7 59 14 84/47 (59) 100 BiPAP 50 04/20/17 03:46 63 19 83/56 (65) 100 BiPAP 50 04/20/17 03:31 63 17 90/55 (67) 100 BiPAP 50 04/20/17 03:15 64 20 91/64 (73) 100 BiPAP 50 04/20/17 03:00 64 23 86/52 (63) 100 BiPAP 50 04/20/17 02:46 65 17 89/55 (66) 100 BiPAP 50 04/20/17 02:31 64 16 90/62 (71) 100 BiPAP 50 04/20/17 02:15 65 13 99/63 (75) 100 BiPAP 50 04/20/17 02:01 36.7 65 20 75/56 (62) 100 BiPAP 50 04/20/17 01:45 65 21 84/58 (67) 100 BiPAP 50 04/20/17 01:31 60 13 78/54 (62) 100 BiPAP 50 04/20/17 01:16 66 15 92/45 (61) 100 BiPAP 50 04/20/17 01:01 70 16 93/53 (66) 100 BiPAP 50 04/20/17 00:45 66 13 105/54 (71) BiPAP 50 04/20/17 00:31 66 15 81/44 (56) 100 BiPAP 50 04/20/17 00:21 70 20 95/59 (71) 100 BiPAP 50 04/20/17 00:17 69 18 113/ (37) 100 BiPAP 50 04/20/17 00:17 BiPAP 04/20/17 00:01 36.7 68 18 88/47 100 50.0 04/20/17 00:00 36.7 67 16 88/47 (61) 100 BiPAP 50 04/19/17 23:52 36.6 68 19 83/54 100 50.0 04/19/17 23:50 66 12 83/54 (64) 100 BiPAP 50 04/19/17 23:45 36.6 65 13 77/41 100 50.0 04/19/17 23:45 66 15 77/41 (53) 100 BiPAP 50 04/19/17 23:31 66 13 83/45 (58) 100 BiPAP 50 04/19/17 23:15 67 14 116/62 (80) 100 BiPAP 50 04/19/17 23:00 66 12 94/52 (66) 100 BiPAP 50 04/19/17 22:21 60 100 50 04/19/17 22:05 36.6 72 13 99/57 (71) 100 BiPAP 50 04/19/17 22:04 12 99/57 (71) 100 BiPAP 50 04/19/17 20:04 14 104/55 (71) 100 BiPAP 50 04/19/17 20:04 BiPAP 04/19/17 19:16 13 111/65 (80) 100 BiPAP 50 04/19/17 19:10 68 100 50 04/19/17 19:02 36.7 14 89/65 (73) 100 BiPAP 50 04/19/17 18:44 36.6 73 17 141/63 97 BiPAP 80 04/19/17 18:35 70 100 80 04/19/17 18:23 65 16 116/60 100 04/19/17 18:22 65 16 116/60 100 Non-Rebreather 15.0 04/19/17 18:10 66 16 81/54 99 Non-Rebreather 15.0 04/19/17 18:00 65 18 89/56 99 Non-Rebreather 15.0 04/19/17 17:47 64 20 82/49 100 Non-Rebreather 15.0 04/19/17 17:30 64 22 76/51 100 Non-Rebreather 15.0 04/19/17 17:18 66 22 99/49 100 Non-Rebreather 15.0 04/19/17 16:50 69 28 105/62 100 Non-Rebreather 15.0 04/19/17 16:44 69 24 98/55 99 Non-Rebreather 15.0 04/19/17 16:26 64 28 73/57 04/19/17 15:37 70 28 92/57 99 Non-Rebreather 15.0 04/19/17 14:11 67 18 80/49 96 Nasal Cannula 2.0 04/19/17 13:28 94 Nasal Cannula 2.0 04/19/17 12:44 68 04/19/17 12:23 36.4 67 22 93/58 88 Room Air GENERAL: Elderly female, awake, alert, ill-appearing, in mild distress. HEENT: Atraumatic, normocephalic. NECK: Supple, no JVD, no carotid bruit appreciated. ENT: No sinus tenderness MOUTH and THROAT: Moist oral mucosa, no oral ulcer or pharyngeal erythema RESPIRATORY: Normal breathing efforts, no accessory muscle use, clear to auscultation bilaterally, no wheezes or rales. CARDIOVASCULAR: S1, S2 normal, rate rhythm regular. ABDOMEN: Soft, nontender, positive bowel sound. MUSCULOSKELETAL:No joint swelling, erythema or tenderness. Normal range of motion. SKIN: No skin rash EXTREMITY: 1+ lower extremity edema NEURO: No gross focal neurological deficit, moves extremities Laboratory Results Last 24 Hours Test 04/19/17 12:41 04/19/17 15:08 04/19/17 15:12 04/19/17 17:00 White Blood Count 219.52 K/uL Red Blood Count 2.06 M/uL Hemoglobin 6.3 g/dL Hematocrit 17.8 % Mean Corpuscular Volume 86.4 fL Mean Corpuscular Hemoglobin 30.6 pg Mean Corpuscular Hemoglobin Concent 35.4 g/dl Platelet Count 14 K/uL Mean Platelet Volume 9.8 fL RDW Standard Deviation 48.5 fL RDW Coefficient of Variation 15.5 % Neutrophils % (Manual) 2.6 % Lymphocytes % (Manual) 5.2 % Monocytes % (Manual) 18.3 % Metamyelocytes % 3.5 % Blast Cells % 5.2 % Neutrophils # (Manual) 5.71 K/uL Total Absolute Neutrophils 5.71 K/uL Lymphocytes # (Manual) 11.42 K/uL Total Absolute Lymphocytes 11.42 K/uL Monocytes # (Manual) 40.17 K/uL Metamyelocytes # 7.68 K/uL Other Cells # 143.13 K/uL Blast Cells # 11.42 K/uL Other Cell Type 65.2 % Blood Smear Review Red Blood Cell Morphology Unremarkable Prothrombin Time 14.7 SECONDS Prothromb Time International Ratio 1.4 Activated Partial Thromboplast Time 61.4 SECONDS Partial Thromboplastin Ratio 2.4 Sodium Level 124 mmol/L Potassium Level 5.2 mmol/L Chloride Level 87 mmol/L Carbon Dioxide Level 17 mmol/L Anion Gap 20.0 mmol/L 23.0 mmol/L Blood Urea Nitrogen 140 mg/dl Creatinine 11.40 mg/dl Est Creatinine Clear Calc Drug Dose 3.3 ml/min Estimated GFR () 3.3 Estimated GFR (Non- 2.8 BUN/Creatinine Ratio 12.3 Random Glucose 121 mg/dl Calcium Level 7.4 mg/dl Total Bilirubin 1.3 mg/dl Direct Bilirubin 0.7 mg/dl Aspartate Amino Transf (AST/SGOT) 31 U/L Alanine Aminotransferase (ALT/SGPT) 26 U/L Alkaline Phosphatase 89 U/L Troponin I < 0.015 ng/ml Total Protein 6.6 gm/dl Albumin 2.6 gm/dl Lipase 725 U/L Bedside Lactic Acid Venous 3.51 mmol/L Bedside Hemoglobin 7.8 g/dl Bedside Hematocrit 23 % Bedside Sodium 127 mEq/L Bedside Potassium 5.7 mEq/L Bedside Chloride 94 mEq/L Bedside Total CO2 17 mEq/l Bedside Blood Urea Nitrogen 122 mg/dl Bedside Creatinine 11.2 mg/dl Bedside Glucose (other) 158 mg/dl Bedside Ionized Calcium (Kathy) 0.89 mmol/l Arterial Blood pH 7.15 Arterial Blood Partial Pressure CO2 44 mmHg Arterial Blood Partial Pressure O2 44 mm/Hg Arterial Blood HCO3 15 mmol/L Arterial Blood Oxygen Saturation < 60.0 % Arterial Blood Base Excess mEq/L Arterial Blood Gas Delivery 15L O2 Dustin Test POS Test 04/19/17 18:54 04/19/17 19:00 04/19/17 20:26 04/19/17 20:38 White Blood Count 209.45 K/uL Red Blood Count 2.00 M/uL Hemoglobin 6.1 g/dL Hematocrit 17.6 % Mean Corpuscular Volume 88.0 fL Mean Corpuscular Hemoglobin 30.5 pg Mean Corpuscular Hemoglobin Concent 34.7 g/dl Platelet Count 27 K/uL Mean Platelet Volume 10.0 fL RDW Standard Deviation 50.0 fL RDW Coefficient of Variation 15.7 % Neutrophils % (Manual) 3.1 % Lymphocytes % (Manual) 3.6 % Monocytes % (Manual) 12.0 % Metamyelocytes % 0.9 % Myelocytes % 1.3 % Blast Cells % 4.0 % Neutrophils # (Manual) 6.49 K/uL Total Absolute Neutrophils 6.49 K/uL Lymphocytes # (Manual) 7.54 K/uL Total Absolute Lymphocytes 7.54 K/uL Monocytes # (Manual) 25.13 K/uL Metamyelocytes # 1.89 K/uL Myelocytes # 2.72 K/uL Other Cells # 157.30 K/uL Blast Cells # 8.38 K/uL Other Cell Type 75.1 % Red Blood Cell Morphology Unremarkable Fibrinogen 305 mg/dl Fibrin Degradation Products >40 mcg/ml Venous Blood pH 7.20 Venous Blood Partial Pressure CO2 43 mmHg Venous Blood Partial Pressure O2 31 mmHg Venous Blood HCO3 16 mmol/L Venous Blood Oxygen Saturation < 60.0 % Venous Blood Base Excess -10.6 mEq/L Influenza Type A (RT-PCR) Neg for Influ A Influenza Type B (RT-PCR) Neg for Influ B Sodium Level 127 mmol/L Potassium Level 5.3 mmol/L Chloride Level 90 mmol/L Carbon Dioxide Level 17 mmol/L Anion Gap 20.0 mmol/L Blood Urea Nitrogen 127 mg/dl Creatinine 11.00 mg/dl Est Creatinine Clear Calc Drug Dose 3.4 ml/min Estimated GFR () 3.4 Estimated GFR (Non- 2.9 BUN/Creatinine Ratio 11.6 Random Glucose 211 mg/dl Lactic Acid Level 3.5 mmol/L Calcium Level 7.5 mg/dl Urine Color DK YELLOW Urine Appearance TURBID Urine pH 5.0 Urine Specific [place] 1.030 Urine Protein 4+ Urine Glucose (UA) 1+ Urine Ketones NEG Urine Occult Blood 2+ Urine Nitrite NEG Urine Bilirubin 1+ Urine Urobilinogen NEG Urine Leukocyte Esterase SMALL Urine WBC (Auto) >30 /hpf Urine RBC (Auto) 5-10 /hpf Urine Hyaline Casts (Auto) 0 /lpf Urine Epithelial Cells (Auto) >30 /lpf Urine Bacteria (Auto) 2+ Urine Crystals HIPPURIC ACID Urine Pathogenic Casts /lpf Urine Yeast (Auto) Test 04/19/17 23:43 04/20/17 03:48 04/20/17 05:44 04/20/17 07:55 Sodium Level 124 mmol/L 123 mmol/L Potassium Level 4.8 mmol/L 4.5 mmol/L Chloride Level 90 mmol/L 89 mmol/L Carbon Dioxide Level 19 mmol/L 21 mmol/L Anion Gap 15.0 mmol/L 13.0 mmol/L Blood Urea Nitrogen 123 mg/dl 124 mg/dl Creatinine 10.70 mg/dl 10.70 mg/dl Est Creatinine Clear Calc Drug Dose 3.5 ml/min 3.5 ml/min Estimated GFR () 3.5 3.5 Estimated GFR (Non- 3.0 3.0 BUN/Creatinine Ratio 11.5 11.6 Random Glucose 225 mg/dl 194 mg/dl Lactic Acid Level 2.6 mmol/L 2.1 mmol/L Calcium Level 6.9 mg/dl 7.2 mg/dl Random Vancomycin Level 17.1 mcg/ml Venous Blood pH 7.32 Venous Blood Partial Pressure CO2 41 mmHg Venous Blood Partial Pressure O2 37 mmHg Venous Blood HCO3 21 mmol/L Venous Blood Oxygen Saturation 65.8 % Venous Blood Base Excess -4.9 mEq/L Impression 81-year-old female with acute kidney injury, hyponatremia, hyperkalemia metabolic acidosis in the setting of decreased p.o. intake check for more than a week, persistent hypotension and recent diagnosis of acute myeloblastic leukemia. No prior history of chronic kidney disease, creatinine was 0 0.7-0.8 at baseline. On admission creatinine has been 11, BUN above 150, hyponatremia, hyperkalemia and metabolic acidosis. She has been resuscitated with IV fluid however blood pressure remained low, there is no significant improvement in renal function, electrolyte reasonably stable except hypo natremia. She became oligo anuric over last 24 hours coma made only around 50 ml of urine. Currently she seems to be getting volume overloaded. Acute kidney injury seems to be secondary to ATN with persistent hypotension and overall poor p.o. intake. Hyponatremia due to combination of high ADH state in the setting of hypotension and decreased free water excretion with ache acute kidney injury. Recommendations --tried to contact with family ( : [phone] however could not reach ) --suggest giving Lasix 80 milligram IV x1 dose now --slowly correct hyponatremia over next 24 hours goal up to 130 --if urine output does not improve on Lasix 80, it would be okay to try higher dose --if does not respond may need to discuss about potential need for renal replacement therapy however with her underlying malignancy and overall condition may not be a good candidate for renal replacement therapy Thank you for allowing me to participate in your patient's care. It was a pleasure to see Jyoti
[2017-04-20] MEDS ORDERED: PANTOprazole INJ 40 MG in SYRINGE 0 ML IV SCH (11:00)
[2017-04-20] MEDS ORDERED: ATROPINE SULFATE 1% OP SOLN 5 ML BTL UT PRN (11:15)
--- NOTE | 2017-04-20 11:19 | INFECT. DISEASE CONSULTATION ---
DATE OF CONSULTATION: 04/20/2017 HISTORY OF PRESENT ILLNESS: This is an 81-year-old female who was admitted from home secondary to poor oral intake and lethargy at home. She does have a history of AML and has not recently been under chemotherapy at the time of admission. She was found to be hyperkalemic. She also had a creatinine greater than 11 and previously, had a baseline creatinine that was within normal limits. She was anemic with a low platelets and her white blood cell count was in the range of 220,000. On my examination today, she is on a nonrebreather mask. She is moaning, but lethargic and is unable to answer any questions or provide any medical history. She was placed on broad spectrum antibiotics and also on pressor therapy due to hypotension in the Emergency Room. A chest x-ray was obtained and showed a left-sided effusion. She remains on empiric antibiotics. She has been afebrile since admission to the hospital. PAST MEDICAL HISTORY: Significant for AFib, AML, degenerative disk disease and a left hemothorax after A-port placed. PAST SURGICAL HISTORY: Significant for D&C, laminectomy, tonsillectomy and adenoidectomy, recent port placed on the left chest and chest tube placement as well. FAMILY HISTORY: Noncontributory. SOCIAL HISTORY: Negative for tobacco use, alcohol use or drug use. She currently is living with her family. ALLERGIES: She has no known drug allergies. MEDICATIONS: Include Protonix, Zosyn, norepinephrine, subQ heparin, vancomycin, and Zofran. PHYSICAL EXAMINATION: VITAL SIGNS: She is afebrile, pulse 68, respiratory rate 18, blood pressure 70/54, and oxygen saturation is 92%-100% on BiPAP. GENERAL: She is moaning and lethargic and unable to answer questions. HEENT: Mucous membranes are dry. She has a diffuse petechial rash over the upper extremities and trunk. HEART: I do not auscultate a murmur. LUNGS: Decreased bilaterally. ABDOMEN: Nondistended. EXTREMITIES: There is no lower extremity edema. LABORATORY STUDIES: Her white blood cell count today is 203, hemoglobin 6.6, and platelets are 24. Chemistry panel reveals a sodium of 126, potassium 4.1, chloride 89, bicarbonate 21, BUN 123, creatinine is 10.6, and glucose is 156. LFTs were within normal limits on admission. Lipase was elevated at 725. Urinalysis shows greater than 30 WBCs and +2 bacteria. Random vancomycin today is 17. Flu swab was negative. No blood cultures or urine cultures have been obtained. Chest x-ray done on the 3rd again shows pleural effusions with left-sided consolidation. CAT scan of the chest was done in the Emergency Room as well as the abdomen and pelvis again showed a moderate left effusion with a loculated collection in the left lung and left apex with significant atelectasis. ASSESSMENT AND PLAN: Sepsis, multiple etiologies including lungs and/or urine. At this time, she will remain on broad spectrum antibiotics. I will order blood and urine cultures; however, she has been on broad spectrum antibiotics up to this point. We will follow along with you. Thank you for this consultation.
--- NOTE | 2017-04-20 11:21 | Progress Note ---
Progress Note Date of Service Apr 20, 2017. Progress Note ID Consult Dictated #[id number] A/P: 1. Sepsis, pulm vs gu source 2. Severe leukocytosis - likely related to AML -Continue abx, will order cultures -Continue supportive care, will follow, thank you
[2017-04-20] MEDS: MoRPHine SULFATE 2 MG/ML CARP IV PRN ×2 (12:45→14:31)
--- NOTE | 2017-04-20 16:38 | Palliative Care Consultation ---
Consultation Date of Consultation: Apr 20, 2017. Requesting Physician: Dr. Mandujano Attending Physician: Dr. Mandujano Reason for Consultation: Goals of care History of Present Illness This 81 year old female patient with newly diagnosed acute microcytic leukemia presented to the hospital yesterday with c/o poor PO intake by the family. She is found to have hemoglobin 6.3, hct 17.8 WBC 219k, plt 14, BUN 140, creatinine 11.4, ph 7.15 on ABG, lactic 3.5. Patient placed on bipap, started on abx, and sent to ICU on pressors for blood pressure support. Patient was diagnosed with AML about 6 weeks ago, was being given hydroxyurea as outpatient, plan was to for her to be given Dacogen IV outpatient, so she had a medi port placed. Unfortunately patient developed left hemopneumothorax following the port placement, was in hospital with chest tube. She improved and left the hospital only to come back in now with this acute episode. Patient is septic, has loculated left pleural effusion and right pleural effusion, bilateral lung consolidation. Dr. Rehan lopes, heme/onc, spoke with patient's family yesterday and discussed patient's poor prognosis given the extent of her AML and the multi-system organ failure. Palliative care is now consulted to help establish goals of care. I met with the patient, her Malik, two sons Chema and Jhoan, Dr. Billings, and Dr. Banegas in room 107. Patient is drowsy/lethargic, able to answer some questions and unable to answer others. Not fully oriented or able to meaningfully participate in conversation. Dr. Banegas discussed in detail patient's current medical conditions. It did not take the patient's and family to decide that patient would be transition to comfort measures only-- stop IV pressors, stop abx, and just strictly keep comfortable. Malik then discussed the plan with the patient and patient said "yes" that she agreed with plan. Past Medical/Surgical History Medical History: Paroxysmal atrial fibrillation Acute monocytic leukemia Degenerative disc disease History of left hemothorax status post left-sided port placement GERD PAST SURGICAL HISTORY: 1. D&C. 2. Hemilaminectomy. 3. Tonsil and adenoidectomy. 4. Recent A-port placement. 5. Chest tube placement. Social History Smoking Status: Never Smoker History of Alcohol Use: No Drug Use: none Marital Status: Housing Status: lives with family Occupation Status: retired Review of Systems unable to obtain ROS due to patient's mental status/condition Allergies Coded Allergies: No Known Allergies (Unverified , 04/19/17) Medications Current Inpatient Medications Medications (Trade) Dose Ordered Sig/Samanta Route Start Time Stop Time Status Last Admin Dose Admin Ondansetron HCl (Zofran Tab) 8 mg Q8 PRN PO 04/19/17 18:30 05/19/17 18:29 Morphine Sulfate (MoRPHine SULFATE INJ) 2 mg Q30M PRN IV 04/20/17 11:15 05/04/17 11:14 Atropine Sulfate (Atropine Sulfate 1% Oph Soln) 2 drops Q4 PRN UT 04/20/17 11:15 05/20/17 11:14 Physical Exam Date Time Temp Pulse Resp B/P (MAP) Pulse Ox O2 Delivery O2 Flow Rate FiO2 04/20/17 10:16 68 18 70/54 (59) 92 Nasal Cannula 2.0 04/20/17 10:00 67 14 74/49 (57) 95 Oxymask 2.0 04/20/17 08:00 BiPAP 04/20/17 08:00 BiPAP 04/20/17 08:00 36.8 66 15 87/43 (58) 99 BiPAP 30 04/20/17 07:28 66 100 50 04/20/17 06:31 62 12 80/45 (57) 100 BiPAP 50 04/20/17 06:17 66 16 88/60 (69) 100 BiPAP 50 04/20/17 06:01 65 11 82/52 (62) 100 BiPAP 50 04/20/17 06:01 65 11 82/52 (62) 100 04/20/17 05:46 65 14 84/57 (66) 100 BiPAP 50 04/20/17 05:46 65 14 84/57 (66) 100 04/20/17 05:38 64 100 50 04/20/17 05:31 64 13 86/50 (62) 100 04/20/17 05:31 64 13 86/50 (62) 100 BiPAP 50 04/20/17 05:16 64 16 86/48 (61) 100 BiPAP 50 04/20/17 05:16 64 16 86/48 (61) 100 04/20/17 05:01 66 15 84/60 (68) 100 04/20/17 05:01 66 15 84/60 (68) 100 BiPAP 50 04/20/17 04:46 64 17 80/58 (65) 100 04/20/17 04:31 58 17 79/59 (66) 100 04/20/17 04:16 66 16 85/48 (60) 100 04/20/17 04:09 BiPAP 04/20/17 04:02 36.7 59 14 84/47 (59) 100 BiPAP 50 04/20/17 03:46 63 19 83/56 (65) 100 BiPAP 50 04/20/17 03:31 63 17 90/55 (67) 100 BiPAP 50 04/20/17 03:15 64 20 91/64 (73) 100 BiPAP 50 04/20/17 03:00 64 23 86/52 (63) 100 BiPAP 50 04/20/17 02:46 65 17 89/55 (66) 100 BiPAP 50 04/20/17 02:31 64 16 90/62 (71) 100 BiPAP 50 04/20/17 02:15 65 13 99/63 (75) 100 BiPAP 50 04/20/17 02:01 36.7 65 20 75/56 (62) 100 BiPAP 50 04/20/17 01:45 65 21 84/58 (67) 100 BiPAP 50 04/20/17 01:31 60 13 78/54 (62) 100 BiPAP 50 04/20/17 01:16 66 15 92/45 (61) 100 BiPAP 50 04/20/17 01:01 70 16 93/53 (66) 100 BiPAP 50 04/20/17 00:45 66 13 105/54 (71) BiPAP 50 04/20/17 00:31 66 15 81/44 (56) 100 BiPAP 50 04/20/17 00:21 70 20 95/59 (71) 100 BiPAP 50 04/20/17 00:17 69 18 113/ (37) 100 BiPAP 50 04/20/17 00:17 BiPAP 04/20/17 00:01 36.7 68 18 88/47 100 50.0 04/20/17 00:00 36.7 67 16 88/47 (61) 100 BiPAP 50 04/19/17 23:52 36.6 68 19 83/54 100 50.0 04/19/17 23:50 66 12 83/54 (64) 100 BiPAP 50 04/19/17 23:45 36.6 65 13 77/41 100 50.0 04/19/17 23:45 66 15 77/41 (53) 100 BiPAP 50 04/19/17 23:31 66 13 83/45 (58) 100 BiPAP 50 04/19/17 23:15 67 14 116/62 (80) 100 BiPAP 50 04/19/17 23:00 66 12 94/52 (66) 100 BiPAP 50 04/19/17 22:21 60 100 50 04/19/17 22:05 36.6 72 13 99/57 (71) 100 BiPAP 50 04/19/17 22:04 12 99/57 (71) 100 BiPAP 50 04/19/17 20:04 14 104/55 (71) 100 BiPAP 50 04/19/17 20:04 BiPAP 04/19/17 19:16 13 111/65 (80) 100 BiPAP 50 04/19/17 19:10 68 100 50 04/19/17 19:02 36.7 14 89/65 (73) 100 BiPAP 50 04/19/17 18:44 36.6 73 17 141/63 97 BiPAP 80 04/19/17 18:35 70 100 80 04/19/17 18:23 65 16 116/60 100 04/19/17 18:22 65 16 116/60 100 Non-Rebreather 15.0 04/19/17 18:10 66 16 81/54 99 Non-Rebreather 15.0 04/19/17 18:00 65 18 89/56 99 Non-Rebreather 15.0 04/19/17 17:47 64 20 82/49 100 Non-Rebreather 15.0 04/19/17 17:30 64 22 76/51 100 Non-Rebreather 15.0 04/19/17 17:18 66 22 99/49 100 Non-Rebreather 15.0 04/19/17 16:50 69 28 105/62 100 Non-Rebreather 15.0 04/19/17 16:44 69 24 98/55 99 Non-Rebreather 15.0 04/19/17 16:26 64 28 73/57 04/19/17 15:37 70 28 92/57 99 Non-Rebreather 15.0 04/19/17 14:11 67 18 80/49 96 Nasal Cannula 2.0 04/19/17 13:28 94 Nasal Cannula 2.0 04/19/17 12:44 68 04/19/17 12:23 36.4 67 22 93/58 88 Room Air General Appearance: no apparent distress (but is uncomfortable and restless in bed despite denying pain) ENT: hearing grossly normal Neck: supple, no JVD Respiratory: no respiratory distress, no accessory muscle use, + crackles, + pertinent finding (nasal cannula) Cardiovascular: regular rate, rhythm, + normal peripheral pulses, + pertinent finding (+3 BLE pitting edema) Abdomen: normal bowel sounds, non tender, soft Neurologic/Psychiatric: + disoriented, + pertinent finding (lethargic) Skin: + pallor, + pertinent finding (petechial leukemia deposits all over body) Laboratory Results Last 24 Hours Test 04/19/17 12:41 04/19/17 15:08 04/19/17 15:12 04/19/17 17:00 White Blood Count 219.52 K/uL Red Blood Count 2.06 M/uL Hemoglobin 6.3 g/dL Hematocrit 17.8 % Mean Corpuscular Volume 86.4 fL Mean Corpuscular Hemoglobin 30.6 pg Mean Corpuscular Hemoglobin Concent 35.4 g/dl Platelet Count 14 K/uL Mean Platelet Volume 9.8 fL RDW Standard Deviation 48.5 fL RDW Coefficient of Variation 15.5 % Neutrophils % (Manual) 2.6 % Lymphocytes % (Manual) 5.2 % Monocytes % (Manual) 18.3 % Metamyelocytes % 3.5 % Blast Cells % 5.2 % Neutrophils # (Manual) 5.71 K/uL Total Absolute Neutrophils 5.71 K/uL Lymphocytes # (Manual) 11.42 K/uL Total Absolute Lymphocytes 11.42 K/uL Monocytes # (Manual) 40.17 K/uL Metamyelocytes # 7.68 K/uL Other Cells # 143.13 K/uL Blast Cells # 11.42 K/uL Other Cell Type 65.2 % Blood Smear Review Red Blood Cell Morphology Unremarkable Prothrombin Time 14.7 SECONDS Prothromb Time International Ratio 1.4 Activated Partial Thromboplast Time 61.4 SECONDS Partial Thromboplastin Ratio 2.4 Sodium Level 124 mmol/L Potassium Level 5.2 mmol/L Chloride Level 87 mmol/L Carbon Dioxide Level 17 mmol/L Anion Gap 20.0 mmol/L 23.0 mmol/L Blood Urea Nitrogen 140 mg/dl Creatinine 11.40 mg/dl Est Creatinine Clear Calc Drug Dose 3.3 ml/min Estimated GFR () 3.3 Estimated GFR (Non- 2.8 BUN/Creatinine Ratio 12.3 Random Glucose 121 mg/dl Calcium Level 7.4 mg/dl Total Bilirubin 1.3 mg/dl Direct Bilirubin 0.7 mg/dl Aspartate Amino Transf (AST/SGOT) 31 U/L Alanine Aminotransferase (ALT/SGPT) 26 U/L Alkaline Phosphatase 89 U/L Troponin I < 0.015 ng/ml Total Protein 6.6 gm/dl Albumin 2.6 gm/dl Lipase 725 U/L Bedside Lactic Acid Venous 3.51 mmol/L Bedside Hemoglobin 7.8 g/dl Bedside Hematocrit 23 % Bedside Sodium 127 mEq/L Bedside Potassium 5.7 mEq/L Bedside Chloride 94 mEq/L Bedside Total CO2 17 mEq/l Bedside Blood Urea Nitrogen 122 mg/dl Bedside Creatinine 11.2 mg/dl Bedside Glucose (other) 158 mg/dl Bedside Ionized Calcium (Kathy) 0.89 mmol/l Arterial Blood pH 7.15 Arterial Blood Partial Pressure CO2 44 mmHg Arterial Blood Partial Pressure O2 44 mm/Hg Arterial Blood HCO3 15 mmol/L Arterial Blood Oxygen Saturation < 60.0 % Arterial Blood Base Excess mEq/L Arterial Blood Gas Delivery 15L O2 Dustin Test POS Test 04/19/17 18:54 04/19/17 19:00 04/19/17 20:26 04/19/17 20:38 White Blood Count 209.45 K/uL Red Blood Count 2.00 M/uL Hemoglobin 6.1 g/dL Hematocrit 17.6 % Mean Corpuscular Volume 88.0 fL Mean Corpuscular Hemoglobin 30.5 pg Mean Corpuscular Hemoglobin Concent 34.7 g/dl Platelet Count 27 K/uL Mean Platelet Volume 10.0 fL RDW Standard Deviation 50.0 fL RDW Coefficient of Variation 15.7 % Neutrophils % (Manual) 3.1 % Lymphocytes % (Manual) 3.6 % Monocytes % (Manual) 12.0 % Metamyelocytes % 0.9 % Myelocytes % 1.3 % Blast Cells % 4.0 % Neutrophils # (Manual) 6.49 K/uL Total Absolute Neutrophils 6.49 K/uL Lymphocytes # (Manual) 7.54 K/uL Total Absolute Lymphocytes 7.54 K/uL Monocytes # (Manual) 25.13 K/uL Metamyelocytes # 1.89 K/uL Myelocytes # 2.72 K/uL Other Cells # 157.30 K/uL Blast Cells # 8.38 K/uL Other Cell Type 75.1 % Red Blood Cell Morphology Unremarkable Fibrinogen 305 mg/dl Fibrin Degradation Products >40 mcg/ml Venous Blood pH 7.20 Venous Blood Partial Pressure CO2 43 mmHg Venous Blood Partial Pressure O2 31 mmHg Venous Blood HCO3 16 mmol/L Venous Blood Oxygen Saturation < 60.0 % Venous Blood Base Excess -10.6 mEq/L Influenza Type A (RT-PCR) Neg for Influ A Influenza Type B (RT-PCR) Neg for Influ B Sodium Level 127 mmol/L Potassium Level 5.3 mmol/L Chloride Level 90 mmol/L Carbon Dioxide Level 17 mmol/L Anion Gap 20.0 mmol/L Blood Urea Nitrogen 127 mg/dl Creatinine 11.00 mg/dl Est Creatinine Clear Calc Drug Dose 3.4 ml/min Estimated GFR () 3.4 Estimated GFR (Non- 2.9 BUN/Creatinine Ratio 11.6 Random Glucose 211 mg/dl Lactic Acid Level 3.5 mmol/L Calcium Level 7.5 mg/dl Urine Color DK YELLOW Urine Appearance TURBID Urine pH 5.0 Urine Specific [place] 1.030 Urine Protein 4+ Urine Glucose (UA) 1+ Urine Ketones NEG Urine Occult Blood 2+ Urine Nitrite NEG Urine Bilirubin 1+ Urine Urobilinogen NEG Urine Leukocyte Esterase SMALL Urine WBC (Auto) >30 /hpf Urine RBC (Auto) 5-10 /hpf Urine Hyaline Casts (Auto) 0 /lpf Urine Epithelial Cells (Auto) >30 /lpf Urine Bacteria (Auto) 2+ Urine Crystals HIPPURIC ACID Urine Pathogenic Casts /lpf Urine Yeast (Auto) Test 04/19/17 23:43 04/20/17 03:48 04/20/17 05:44 04/20/17 07:55 Sodium Level 124 mmol/L 123 mmol/L 126 mmol/L Potassium Level 4.8 mmol/L 4.5 mmol/L 4.1 mmol/L Chloride Level 90 mmol/L 89 mmol/L 89 mmol/L Carbon Dioxide Level 19 mmol/L 21 mmol/L 21 mmol/L Anion Gap 15.0 mmol/L 13.0 mmol/L 16.0 mmol/L Blood Urea Nitrogen 123 mg/dl 124 mg/dl 123 mg/dl Creatinine 10.70 mg/dl 10.70 mg/dl 10.60 mg/dl Est Creatinine Clear Calc Drug Dose 3.5 ml/min 3.5 ml/min 3.7 ml/min Estimated GFR () 3.5 3.5 3.5 Estimated GFR (Non- 3.0 3.0 3.1 BUN/Creatinine Ratio 11.5 11.6 11.6 Random Glucose 225 mg/dl 194 mg/dl 156 mg/dl Lactic Acid Level 2.6 mmol/L 2.1 mmol/L 2.0 mmol/L Calcium Level 6.9 mg/dl 7.2 mg/dl 7.2 mg/dl Random Vancomycin Level 17.1 mcg/ml Venous Blood pH 7.32 7.32 Venous Blood Partial Pressure CO2 41 mmHg 34 mmHg Venous Blood Partial Pressure O2 37 mmHg 32 mmHg Venous Blood HCO3 21 mmol/L 17 mmol/L Venous Blood Oxygen Saturation 65.8 % < 60.0 % Venous Blood Base Excess -4.9 mEq/L -8.0 mEq/L White Blood Count 203.27 K/uL Red Blood Count 2.20 M/uL Hemoglobin 6.6 g/dL Hematocrit 18.8 % Mean Corpuscular Volume 85.5 fL Mean Corpuscular Hemoglobin 30.0 pg Mean Corpuscular Hemoglobin Concent 35.1 g/dl Platelet Count 24 K/uL Mean Platelet Volume 8.7 fL RDW Standard Deviation 47.2 fL RDW Coefficient of Variation 15.1 % Neutrophils % (Manual) 0.9 % Lymphocytes % (Manual) 0.9 % Monocytes % (Manual) 50.4 % Myelocytes % 0.9 % Blast Cells % 3.5 % Neutrophils # (Manual) 1.83 K/uL Total Absolute Neutrophils 1.83 K/uL Lymphocytes # (Manual) 1.83 K/uL Total Absolute Lymphocytes 1.83 K/uL Monocytes # (Manual) 102.45 K/uL Myelocytes # 1.83 K/uL Other Cells # 88.22 K/uL Blast Cells # 7.11 K/uL Other Cell Type 43.4 % Platelet Estimate SIGNIFIC DECREASED Red Blood Cell Morphology Unremarkable Assessment & Plan Problem list: Altered mental status Poor PO intake Acute renal failure- no dialysis per the family Septic shock Loculated left pleural effusion, right pleural effusion BL lung patchy consolidation Paroxysmal afib AML/pancytopenia- hgb remains 6 after transfusion of PRBCs Goals of care (Z51.5) Palliative care recs: discussed with patient, patient's and sons, Dr. Banegas and Dr. Billings. -Comfort measures only. -Discontinue IV pressors and abx. -Would order morphine 2mg IV Q1h PRN. If frequent PRN doses needed, can start continuous infusion. -If patient stabilizes, patient's and family are adamant that they'd like to take patient home with hospice. Myself and Dr. Banegas both conveyed to the family that patient has very little chance of surviving transfer and would likely en route. was still adamant that we try to get her home. government affairs manager has contacted hospice agency. -If patient going home, please order Roxanol 5-10mg PO Q1h PRN pain or SOB. -Would start scopolamine patch 1.5mg TD Q72h. Can do two patches. -Continue oxygen via nasal cannula for comfort. Thank you kindly for this consult. I will follow as needed.
--- NOTE | 2017-04-20 16:59 | Death Pronouncement Note ---
Pronouncement Note Date & Time of Apr 20, 2017. 1620 Pronouncement At time of pronouncement the patients pupils were fixed and dilated, there was no spontaneous respiratory effort, no palpable pulse, no audible heart tones, and no response to pain or voice.
--- NOTE | 2017-04-20 17:14 | SURGICAL CONSULTATION ---
DATE OF CONSULTATION: 04/20/2017 REASON FOR CONSULTATION: Left pleural effusion. HISTORY OF PRESENT ILLNESS: This is an 81-year-old female who suffered an iatrogenic pneumothorax on the left, but has acute myelogenous leukemia who is now in dire straits with acute renal failure with a creatinine over 10. She is essentially obtunded now, although family states she was more awake earlier. The patient is not going to undergo dialysis and is not going to be resuscitated and has been made comfort measure only. I talked to the patient's 2 sons and her at the bedside. I know Mrs. Aguilar. She is an 81-year-old female who was actually quite healthy and vigorous until this diagnosis. I performed a thoracoscopy and drained her effusion several weeks ago. I saw her in the office recently and she had improved, although now is appears to be suffering the throes of septic shock. At any rate, a decision has been made to keep the patient comfortable. Family, particularly Mr. Aguilar would like to take the patient home. She is not stable enough to go home and I have discussed this in detail with Mr. Kelvin Lemus from the ICU. At this point, I have nothing to offer from an intervention standpoint.
[2017-04-20] MEDS ORDERED: SODIUM CHLORIDE 0.9% 10ML FLUSH IV ONE (18:07)
[2017-04-20] MEDS ORDERED: SODIUM BICARB 8.4% INJ 50 MEQ/50 ML SYR IV ONE (18:07)
== END 2017-04-20 18:08 | disposition expired | DRG 871 ==
LOC: C.EDB 12:20 → C.MSICU 17:39 → ENRESERV 18:08 → EDBEDREQ 04-20 13:05 → CANBEDREQ 04-20 13:33
PROVIDERS: ADMIT Family Medicine; ATTEND Family Medicine
PROC: 05HM33Z Insertion of Infusion Device into Right Internal Jugular Vein, Percutaneous Approach (ICD-10-PCS; principal; 2017-04-19)
DX: A41.9 Sepsis, unspecified organism (principal); R65.21 Severe sepsis with septic shock; N17.0 Acute kidney failure with tubular necrosis; J18.9 Pneumonia, unspecified organism; J96.01 Acute respiratory failure with hypoxia; G93.41 Metabolic encephalopathy; E87.1 Hypo-osmolality and hyponatremia; D61.818 Other pancytopenia; Z51.5 Encounter for palliative care; C93.00 Acute monoblastic/monocytic leukemia, not having achieved remission; I48.92 Unspecified atrial flutter; I47.1 Supraventricular tachycardia; E87.5 Hyperkalemia; I48.0 Paroxysmal atrial fibrillation; K21.9 Gastro-esophageal reflux disease without esophagitis; Z79.899 Other long term (current) drug therapy; Z66 Do not resuscitate; Z82.49 Family history of ischemic heart disease and other diseases of the circulatory system